=== PATIENT | female | born 1955 | race Caucasian/White ===

== ENCOUNTER → 2017-06-22 10:01 | Outpatient (CLI) | payer OTHER, SELFPAY ==
--- NOTE | 2017-06-22 10:07 | MM_ITS ---
MM Dig screening mamm BI w/CAD CAD Screening ORDERING PHYSICIAN : Edison Harrell MD PATIENT AGE: 61 years GENDER: Female COMPARISON: Previous mammograms: April 2014, June 2016, May 2015 and April 2014, May 2013. Also April 2012 INDICATION: Routine screening. No hormones. No new complaints. Family history. Mother breast cancer age 55. TECHNIQUE: Standard CC and MLO images were obtained. R2 CAD reviewed. FINDINGS: Moderate breast density bilaterally. No dominant mass nor suspicious calcifications.. Overall similar appearance to prior studies RIGHT BREAST:. No new areas of concern. LEFT BREAST: No new areas concern Tiny focal area of density density central breast on cc view was present in 2014 and 2011 and dissipates on MLO view. Can be followed IMPRESSION: Stable bilateral mammogram with no significant new areas of concern. Bilateral follow-up in one year recommended BI-RADS Category: 2 Benign Finding(s) RECOMMENDED FOLLOW-UP: 1YR - 1 YEAR FOLLOW-UP (A letter has been sent to the patient regarding results of the study.)
== END ==
PROVIDERS: PCP Internal Medicine Adolescent Medicine; Visit Provider Internal Medicine Adolescent Medicine
DX: Z12.31 Encounter for screening mammogram for malignant neoplasm of breast (principal)
CPT/HCPCS: 77067

== ENCOUNTER → 2017-06-26 09:43 | Outpatient (CLI) | payer OTHER, SELFPAY ==
[2017-06-26 10:12] LABS: Basophils % 0.3 % (0.1-2.0); Eosinophils % 0.4 % (0.1-12.0); Hematocrit 41.1 % (37.0-47.0); Hemoglobin 13.2 g/dL (12.2-16.2); Lymphocytes # 2.5 K/mm3 (0.7-4.5); Lymphocytes % 26.6 K/mm3 (10-50); Mean Corpuscular HGB Conc 32.2 g/dL (31.8-35.4); Mean Corpuscular Hemoglobin 30.5 pg (27.0-31.2); Mean Corpuscular Volume 94.9 fl (81-99); Mean Platelet Volume 7.6 fl (7.4-10.4); Monocytes # 0.5 K/mm3 (0.1-1.0); Monocytes % 4.8 % (1.7-9.3); Neutrophils # 6.3 K/mm3 (1.8-7.8); Neutrophils % 67.7 % (37.0-80.0); Platelet Count 237 K/mm3 (142-424); Red Blood Count 4.34 M/mm3 (4.20-5.40); Red Cell Distribution Width 13.2 % (11.5-17.5); White Blood Count 9.3 K/mm3 (4.8-10.8)
[2017-06-26 11:56] LABS: Hemoglobin A1C 5.8 % (0.0-7.0)
[2017-06-26 12:07] LABS: Alanine Aminotransferase 28 U/L (12-78); Albumin Level 3.6 gm/dL (3.4-5.0); Albumin/Globulin Ratio 1.5 (1.1-1.8); Alkaline Phosphatase 57 U/L (46-116); Anion Gap 13.9 mEq/L (5-15); Aspartate Amino Transferase 15 U/L (15-37); Bilirubin,Total 0.5 mg/dL (0.2-1.0); Blood Urea Nitrogen 22 mg/dL (7-18); Calcium 8.5 mg/dL (8.5-10.1); Carbon Dioxide 28 mmol/L (21.0-32.0); Chloride 105 mmol/L (98-107); Chol/HDL Ratio 2.4 (1-3.5); Cholesterol 146 mg/dL (140-200); Creatinine,Serum 0.85 mg/dL (0.55-1.02); Estimated Glomerular Filt Rate 68 ml/min (>60); Ferritin 61 ng/mL (8-388); GFR (African American) 82 ML/MIN (>60); Globulin 2.4 gm/dl (1.3-3.2); Glucose 87 mg/dL (74-106); HDL Cholesterol 62 mg/dL (29-89); LDL Cholesterol 67 mg/dL (0-130); Potassium 4.9 mmoL/L (3.5-5.1); Sodium 142 mmol/L (136-145); Thyroid Stimulating Hormone 2.13 uIU/ml (0.358-3.740); Triglycerides 87 mg/dL (30-200); VLDL Cholesterol 17 mg/dL (0-40)
== END ==
PROVIDERS: PCP Internal Medicine Adolescent Medicine; Visit Provider Internal Medicine Adolescent Medicine
DX: M79.1 Myalgia (principal); E11.9 Type 2 diabetes mellitus without complications
CPT/HCPCS: 36415; 80053; 80061; 82728; 83036; 83735; 84443; 85025

== ENCOUNTER → 2017-10-09 09:15 | Outpatient (CLI) | payer OTHER, SELFPAY ==
[2017-10-09 10:38] LABS: Hemoglobin A1C 5.5 % (0.0-7.0)
== END ==
PROVIDERS: Visit Provider Internal Medicine Adolescent Medicine
DX: E11.9 Type 2 diabetes mellitus without complications (principal)
CPT/HCPCS: 83036

== ENCOUNTER → 2018-04-16 09:21 | Outpatient (CLI) | payer OTHER, SELFPAY ==
--- NOTE | 2018-04-16 09:26 | XR_ITS ---
XR chest 2V HISTORY: ITS.REASON: COUGH ORDERING PHYSICIAN: Samir Thurman PATIENT AGE: 62 years COMPARISON: 06/16/2014 FINDINGS: Mild cardiomegaly without failure.. The lungs are clear without infiltrates, suspicious nodules, or pleural effusions. Minimal atelectatic or fibrotic change in the right lung base laterally Degenerative changes are present in the thoracic spine with prominent anterior osteophytes and ankylosis.. IMPRESSION: No acute finding, mild cardiomegaly
== END ==
PROVIDERS: PCP Internal Medicine Adolescent Medicine; Visit Provider Internal Medicine Cardiovascular Disease
DX: R05 Cough (principal); R06.2 Wheezing
CPT/HCPCS: 71046

== ENCOUNTER → 2018-05-13 09:30 | Outpatient (CLI) | payer OTHER, SELFPAY ==
[2018-05-13 09:49] LABS: Blood Urea Nitrogen 18 mg/dL (7-18); Estimated Glomerular Filt Rate 63 ml/min (>60); GFR (African American) 76 ML/MIN (>60)
--- NOTE | 2018-05-13 13:58 | CT_ITS ---
CT abdomen pelvis w con CLINICAL INDICATION: ITS.REASON: UMBILICAL FISTULA ORDERING PHYSICIAN: Edison Harrell MD PATIENT AGE: 62 years COMPARISON: None TECHNIQUE: Axial images obtained with sagittal and coronal reformats. All CT scans at the facility use one or more dose reduction, viz: automated exposure control, ma/kV adjustment per patient size (including targeted exams where dose is matched to indication, i.e. head), or iterative reconstruction technique. PROCEDURE: Oral Contrast: Redicat IV Contrast: 75 mL's of Isovue 370. FINDINGS: Lower thorax: Mild atelectatic or fibrotic changes are present in the lung bases anteriorly. Osteophytes are present along the lower thoracic spine. The liver, spleen, adrenal glands, and pancreas have an unremarkable appearance. No radio opaque gallstones evident. No renal or ureteral calculi evident. There is a small exophytic right renal cyst at 18 mm. No intestinal obstruction or free air. There is mild amount of retained colonic feces. The terminal ileum and appendix have an unremarkable appearance. There is a small umbilical hernia containing fat. No abnormal fluid collections or gas evident within the umbilicus the cecum is situated toward midline with the anterior aspect of the cecum and right at the orifice of the small umbilical hernia but no fistulous connection evident and no inflammatory changes apparent at this area. No pelvic mass or abnormal fluid collection or focal inflammatory change. No evidence of diverticulitis. There is a moderate amount of retained colonic feces. There are postsurgical changes of L4 and L5. IMPRESSION: 1. No acute abdominal or pelvic findings. 2. No evidence of umbilical fistula. There is a small umbilical hernia containing fat.
== END ==
PROVIDERS: PCP Internal Medicine Adolescent Medicine; Visit Provider Internal Medicine Adolescent Medicine
DX: K63.2 Fistula of intestine (principal)
CPT/HCPCS: 36415; 74177; 82565; 84520; Q9967

== ENCOUNTER → 2018-05-20 08:52 | Outpatient (CLI) | payer OTHER, SELFPAY ==
[2018-05-20 09:34] LABS: Basophils % 0.6 % (0.1-2.0); Eosinophils # 0.1 K/mm3 (0.0-0.4); Eosinophils % 0.9 % (0.1-12.0); Hematocrit 44.6 % (37.0-47.0); Lymphocytes % 27.8 % (10-50); Mean Corpuscular HGB Conc 31.4 g/dL (31.8-35.4); Mean Corpuscular Hemoglobin 30.3 pg (27.0-31.2); Mean Corpuscular Volume 96.5 fl (81-99); Mean Platelet Volume 8.4 fl (7.4-10.4); Monocytes # 0.4 K/mm3 (0.1-1.0); Monocytes % 5.5 % (1.7-9.3); Neutrophils # 4.8 K/mm3 (1.8-7.8); Neutrophils % 65.2 % (37.0-80.0); Platelet Count 210 K/mm3 (142-424); Red Blood Count 4.63 M/mm3 (4.20-5.40); Red Cell Distribution Width 13.6 % (11.5-17.5); White Blood Count 7.3 K/mm3 (4.8-10.8)
[2018-05-20 10:32] LABS: Hemoglobin A1C 5.8 % (0.0-7.0)
[2018-05-20 11:04] LABS: Alanine Aminotransferase 31 U/L (12-78); Albumin Level 3.8 gm/dL (3.4-5.0); Albumin/Globulin Ratio 1.3 (1.1-1.8); Alkaline Phosphatase 73 U/L (46-116); Anion Gap 13.9 mEq/L (5-15); Aspartate Amino Transferase 19 U/L (15-37); Bilirubin,Total 0.4 mg/dL (0.2-1.0); Blood Urea Nitrogen 17 mg/dL (7-18); Calcium 9.2 mg/dL (8.5-10.1); Carbon Dioxide 29 mmol/L (21.0-32.0); Chloride 102 mmol/L (98-107); Chol/HDL Ratio 3.2 (1-3.5); Cholesterol 167 mg/dL (140-200); Creatinine,Serum 0.93 mg/dL (0.55-1.02); Estimated Glomerular Filt Rate 61 ml/min (>60); GFR (African American) 73 ML/MIN (>60); Globulin 2.9 gm/dl (1.3-3.2); Glucose 101 mg/dL (74-106); HDL Cholesterol 53 mg/dL (29-89); LDL Cholesterol 79 mg/dL (0-130); Potassium 5.9 mmoL/L (3.5-5.1); Sodium 139 mmol/L (136-145); Total Protein,Serum 6.7 gm/dL (6.4-8.2); Triglycerides 177 mg/dL (30-200); VLDL Cholesterol 35 mg/dL (0-40)
== END ==
PROVIDERS: Visit Provider Internal Medicine Adolescent Medicine
DX: E11.9 Type 2 diabetes mellitus without complications (principal); E78.5 Hyperlipidemia, unspecified; I25.10 Atherosclerotic heart disease of native coronary artery without angina pectoris
CPT/HCPCS: 36415; 80053; 80061; 83036; 85025

== ENCOUNTER → 2018-06-24 09:13 | Outpatient (CLI) | payer OTHER, SELFPAY ==
--- NOTE | 2018-06-24 09:16 | MM_ITS ---
MM Dig screening mamm BI w/CAD CAD Screening COMPARISON: Digital mammograms with CAD 06/19/2016 and 06/22/2017 INDICATION: There is a history of breast cancer in patient's mother diagnosed after menopause. TECHNIQUE: Standard CC and MLO images were obtained. R2 CAD reviewed. FINDINGS: Scattered diffuse fibroglandular densities are seen throughout both breasts. There are few benign-appearing microcalcifications in each breast. There is no suspicious lesion and no suspicious microcalcifications. IMPRESSION: Fibrofatty parenchyma with no suspicious lesion seen BI-RADS Category: 2 Benign Finding(s) RECOMMENDED FOLLOW-UP: 1YR - 1 YEAR FOLLOW-UP (A letter has been sent to the patient regarding results of the study.)
== END ==
PROVIDERS: PCP Internal Medicine Adolescent Medicine; Visit Provider Internal Medicine Adolescent Medicine
DX: Z12.31 Encounter for screening mammogram for malignant neoplasm of breast (principal)
CPT/HCPCS: 77067

== ENCOUNTER → 2018-08-05 09:08 | Outpatient (CLI) | payer OTHER, SELFPAY ==
[2018-08-05 10:31] LABS: Anion Gap 14.6 mEq/L (5-15); Blood Urea Nitrogen 18 mg/dL (7-18); Calcium 8.9 mg/dL (8.5-10.1); Carbon Dioxide 28 mmol/L (21.0-32.0); Chloride 102 mmol/L (98-107); Creatinine,Serum 1.06 mg/dL (0.55-1.02); Estimated Glomerular Filt Rate 52 ml/min (>60); GFR (African American) 63 ML/MIN (>60); Glucose 96 mg/dL (74-106); Potassium 4.6 mmoL/L (3.5-5.1); Sodium 140 mmol/L (136-145)
== END ==
PROVIDERS: Visit Provider Internal Medicine Adolescent Medicine
DX: E87.5 Hyperkalemia (principal)
CPT/HCPCS: 36415; 80048

== ENCOUNTER → 2018-09-18 09:49 | Outpatient (CLI) | payer OTHER, SELFPAY ==
[2018-09-18 11:48] LABS: Anion Gap 13.4 mEq/L (5-15); Blood Urea Nitrogen 19 mg/dL (7-18); Calcium 9.3 mg/dL (8.5-10.1); Carbon Dioxide 29 mmol/L (21.0-32.0); Chloride 105 mmol/L (98-107); Creatinine,Serum 0.97 mg/dL (0.55-1.02); Estimated Glomerular Filt Rate 58 ml/min (>60); GFR (African American) 70 ML/MIN (>60); Glucose 111 mg/dL (74-106); Potassium 5.4 mmoL/L (3.5-5.1); Sodium 142 mmol/L (136-145)
== END ==
PROVIDERS: Visit Provider Internal Medicine Adolescent Medicine
DX: E87.5 Hyperkalemia (principal)
CPT/HCPCS: 36415; 80048

== ENCOUNTER → 2018-10-14 08:23 | Outpatient (CLI) | payer OTHER, SELFPAY ==
[2018-10-14 10:22] LABS: Hemoglobin A1C 6.1 % (0.0-7.0)
== END ==
PROVIDERS: Visit Provider Internal Medicine Adolescent Medicine
DX: E11.9 Type 2 diabetes mellitus without complications (principal); Z79.84 Long term (current) use of oral hypoglycemic drugs
CPT/HCPCS: 36415; 83036

== ENCOUNTER → 2018-12-25 11:18 | Outpatient (CLI) | payer OTHER, SELFPAY ==
[2018-12-25 12:54] LABS: Anion Gap 12.4 mEq/L (5-15); Blood Urea Nitrogen 15 mg/dL (7-18); Calcium 9.1 mg/dL (8.5-10.1); Carbon Dioxide 30 mmol/L (21.0-32.0); Chloride 106 mmol/L (98-107); Creatinine,Serum 0.96 mg/dL (0.55-1.02); Estimated Glomerular Filt Rate 58 ml/min (>60); GFR (African American) 71 ML/MIN (>60); Glucose 102 mg/dL (74-106); Potassium 4.4 mmoL/L (3.5-5.1); Sodium 144 mmol/L (136-145)
== END ==
PROVIDERS: Visit Provider Internal Medicine Adolescent Medicine
DX: E87.5 Hyperkalemia (principal)
CPT/HCPCS: 36415; 80048

== ENCOUNTER → 2019-04-09 08:10 | Outpatient (CLI) | payer OTHER, SELFPAY ==
[2019-04-09 10:29] LABS: Hemoglobin A1C 5.9 % (0.0-7.0)
== END ==
PROVIDERS: Visit Provider Internal Medicine Adolescent Medicine
DX: E11.9 Type 2 diabetes mellitus without complications (principal); Z79.84 Long term (current) use of oral hypoglycemic drugs
CPT/HCPCS: 36415; 83036

== ENCOUNTER → 2019-06-19 12:50 | Outpatient (CLI) | payer MEDICARE, OTHER, SELFPAY ==
--- NOTE | 2019-06-19 12:54 | XR_ITS ---
PROCEDURE: XR DEXA AXIAL SKELETON CLINICAL HISTORY: POST MENOPAUSAL COMPARISON: No exams were available for comparison FINDINGS: Radius 1/3 density is 0.451 grams/centimeters sq with a T-score of -4.0 indicating osteoporosis with high fracture risk. Left femoral neck density is 0.546 grams/centimeters sq with a T-score of -2.7 consistent with osteoporosis and high fracture risk. L spine density not calculated due to spinal hardware IMPRESSION: Osteoporosis with high fracture risk. Treatment advised. Suggest follow-up exam in 1 year Dictated by: Ryan Hendrix MD 06/19/2019 14:43 Electronically signed by Ryan Hendrix MD in [place] 06/19/2019 14:43
== END ==
PROVIDERS: PCP Internal Medicine Adolescent Medicine; Visit Provider Internal Medicine Adolescent Medicine
DX: Z13.820 Encounter for screening for osteoporosis (principal); Z78.0 Asymptomatic menopausal state
CPT/HCPCS: 77080

== ENCOUNTER → 2019-07-09 07:59 | Outpatient (CLI) | payer MEDICARE, OTHER, SELFPAY ==
--- NOTE | 2019-07-09 08:30 | CT_ITS ---
PROCEDURE: CT LUNG SCREENING CLINICAL INDICATION: SCREENING COMPARISON: No exams were available for comparison TECHNIQUE: The exam was performed on a GE Light Speed [address] scanner using 2.90 mGy CTDI. A low dose helical CT CHEST was performed on a multi-detector scanner. All CT scans at the facility use one or more dose reduction, viz: automated exposure control, ma/kV adjustment per patient size (including targeted exams where dose is matched to indication, i.e. head), or iterative reconstruction technique. The LDCT was performed in a facility that meets the criteria for the screening program. Data regarding this exam was submitted to ACR which is an approved registry. The order for this exam indicates that it came as a result of a lung cancer screening counseling shard decision-making visit that included all the elements required of such a visit including smoking cessation. The radiologist interpreting this exam meets the CMS criteria for the LDCT lung cancer screening program. The exam is reported using the Lung-RADS classification scale and reported to the ACR registry. NOTE: This study was performed for the specific purposes of lung cancer screening and is not an alternative to diagnostic chest CT. RADIATION DOSE: CTDI vol(CT dose Index-volume) = 2.90mG DLP (Dose Length Product) = 103.68 mGcm Lung Rads Category: One FINDINGS: There is a calcified nodule most consistent with granuloma in the medial left upper lobe image 33 series 4. There is no other pulmonary nodule. Band like density in the medial aspect of the right middle lobe inferiorly is consistent with scarring or atelectasis. There is no acute infiltrate. There is cardiomegaly with a moderate to large amount of coronary arterial calcification. There is a small hiatal hernia. OTHER FINDINGS: No other pertinent findings evident. IMPRESSION: Primary category 1-continue annual screening low-dose CT in 12 months. Coronary arterial calcifications. Dictated by: Javier Peterson 07/09/2019 10:32 Electronically signed by Javier Peterson in [place] 07/09/2019 10:32
--- NOTE | 2019-07-09 09:30 | MM_ITS ---
PROCEDURE: MM DIG SCREENING MAMM BI 3D tomography CLINICAL INDICATION: SCREENING COMPARISON: [facility] DIGITAL MAMM-SCREEN BILATERAL from 05/02/2012 [facility] DIG MAMM-SCREEN MARCELLUS from 05/06/2013 [facility] DIG MAMM- MARCELLUS ADD VIEWS from 06/15/2015 [facility] DIG MAMM-SCREEN MARCELLUS W/CAD from 06/19/2016 [facility] MM Dig screening mamm BI w/CAD from 06/22/2017 [facility] MM Dig screening mamm BI w/CAD from 06/24/2018 TECHNIQUE: Standard CC and MLO images were obtained along with bilateral 3D tomography.. FINDINGS: Average fibroglandular tissue. Right breast: 7 mm bilobular nodular opacity in the 6 o'clock region of the right breast middle 3rd. This nodule appears well circumscribed on the tomographic images the no malignant appearing microcalcifications. Left breast: Benign-appearing nodular densities not significantly changed. No malignant appearing mass or malignant-appearing microcalcification. IMPRESSION: 7 mm bilobular nodule 6 o'clock region right breast. Ultrasound suggested further evaluation. BI-RAD Category: 0 Need Additional Imaging Evaluation FOLLOW-UP: IMM Immediate Follow-up Recommended (A letter has been sent to the patient regarding results of the study.) Dictated by: yRan Hendrix MD 07/14/2019 17:55 Electronically signed by Ryan Hendrix MD in [place] 07/14/2019 17:55
== END ==
PROVIDERS: PCP Internal Medicine Adolescent Medicine; Visit Provider Internal Medicine Adolescent Medicine
DX: Z87.891 Personal history of nicotine dependence (principal); Z12.2 Encounter for screening for malignant neoplasm of respiratory organs; Z12.31 Encounter for screening mammogram for malignant neoplasm of breast
CPT/HCPCS: 77063; 77067

== ENCOUNTER 2019-07-16 10:09 | Outpatient (CLI) | payer MEDICARE, OTHER, SELFPAY ==
[2019-07-16 10:10] VITALS: BP 121/49; PULSE 58; RESP 20; TEMP 36.9; O2SAT 95
== END 2019-07-16 10:10 | disposition home or self-care (01) ==
LOC: INF 10:09
PROVIDERS: Visit Provider Internal Medicine Adolescent Medicine
DX: M81.0 Age-related osteoporosis without current pathological fracture (principal)
CPT/HCPCS: 96372; J0897

== ENCOUNTER → 2019-07-24 12:22 | Outpatient (CLI) | payer MEDICARE, OTHER, SELFPAY ==
--- NOTE | 2019-07-24 12:24 | US_ITS ---
PROCEDURE: US BREAST RT COMPLETE CLINICAL INDICATION: RT BREAST NODULE Follow-up abnormal mammogram COMPARISON: MM DIG SCREENING MAMM BI W/CAD from 07/09/2019 FINDINGS: There is a complicated cystic lesion at 6 o'clock measuring 6 x 5 mm which may correspond to the mammographic abnormality. No other significant anomalies are evident. IMPRESSION: 6 mm complicated cyst at 6 o'clock which may correspond to the mammographic abnormality. BI-RADS category 3 probably benign. Recommend six-month mammographic and sonographic follow-up Dictated by: Ryan Hendrix MD 08/02/2019 08:31 Electronically signed by Ryan Hendrix MD in [place] 08/02/2019 08:31
== END ==
PROVIDERS: PCP Internal Medicine Adolescent Medicine; Visit Provider Internal Medicine Adolescent Medicine
DX: D24.1 Benign neoplasm of right breast (principal)
CPT/HCPCS: 76641

== ENCOUNTER → 2019-09-20 09:12 | Outpatient (CLI) | payer MEDICARE, OTHER, SELFPAY ==
[2019-09-20 09:37] LABS: Basophils % 0.4 % (0.1-2.0); Eosinophils % 0.7 % (0.1-12.0); Hematocrit 46.8 % (37.0-47.0); Hemoglobin 15.1 g/dL (12.2-16.2); Lymphocytes % 33.8 % (10-50); Mean Corpuscular HGB Conc 32.3 g/dL (31.8-35.4); Mean Corpuscular Hemoglobin 30.3 pg (27.0-31.2); Mean Corpuscular Volume 93.9 fl (81-99); Mean Platelet Volume 8.1 fl (7.4-10.4); Monocytes # 0.3 K/mm3 (0.1-1.0); Monocytes % 5.5 % (1.7-9.3); Neutrophils # 3.5 K/mm3 (1.8-7.8); Neutrophils % 59.6 % (37.0-80.0); Platelet Count 213 K/mm3 (142-424); Red Blood Count 4.99 M/mm3 (4.20-5.40); Red Cell Distribution Width 13.4 % (11.5-17.5); White Blood Count 5.8 K/mm3 (4.8-10.8)
[2019-09-20 10:06] LABS: Chloride 106 mmol/L (98-107); Sodium 138 mmol/L (136-145)
[2019-09-20 10:07] LABS: Potassium 4.2 mmoL/L (3.5-5.1)
[2019-09-20 10:09] LABS: Alanine Aminotransferase 21 U/L (12-78); Albumin Level 4.2 g/dl (3.5-5.0); Albumin/Globulin Ratio 1.8 (1.1-1.8); Alkaline Phosphatase 47 U/L (38-126); Anion Gap 10.2 mEq/L (5-15); Aspartate Amino Transferase 23 U/L (14-36); Bilirubin,Total 0.4 mg/dl (0.2-1.3); Blood Urea Nitrogen 13 mg/dl (7-17); Carbon Dioxide 26 mmol/L (22.0-30.0); Estimated Glomerular Filt Rate 72 ml/min (>60); GFR (African American) 87 ML/MIN (>60); Globulin 2.3 g/dL (1.3-3.2); Total Protein,Serum 6.5 g/dl (6.3-8.2)
[2019-09-20 10:10] LABS: Calcium 9.3 mg/dl (8.4-10.2); Chol/HDL Ratio 3.5 (1-3.5); Cholesterol 156 mg/dl (140-200); Glucose 120 mg/dl (74-100); HDL Cholesterol 45 mg/dl (40-60); Triglycerides 191 mg/dl (30-150); VLDL Cholesterol 38 mg/dL (0-40)
[2019-09-20 10:21] LABS: Direct LDL Cholesterol 85.03 mg/dL (100-129)
[2019-09-20 10:34] LABS: Hemoglobin A1C 5.6 % (4.0-6.0)
== END ==
PROVIDERS: Visit Provider Internal Medicine Adolescent Medicine
DX: I25.10 Atherosclerotic heart disease of native coronary artery without angina pectoris (principal); E78.5 Hyperlipidemia, unspecified; E11.9 Type 2 diabetes mellitus without complications; Z79.84 Long term (current) use of oral hypoglycemic drugs
CPT/HCPCS: 36415; 80053; 80061; 83036; 85025

== ENCOUNTER → 2019-09-22 09:53 | Outpatient (CLI) | payer MEDICARE, OTHER, SELFPAY ==
--- NOTE | 2019-09-22 09:57 | XR_ITS ---
PROCEDURE: XR SHOULDER RT MIN 2V CLINICAL INDICATION: ACUTE RT SHOULDER PAIN COMPARISON: No exams were available for comparison FINDINGS: No obvious fracture or dislocation. There is some minimal inferior subluxation of the humeral head but no chyna dislocation. Chondrocalcinosis is present at the acromioclavicular joint. There is some minimal osteoarthritic change the right shoulder joint. IMPRESSION: Mild osteoarthritis of the glenohumeral joint with mild inferior subluxation of the humeral head Chondrocalcinosis of the AC joint Dictated by: Ryan Hendrix MD 09/22/2019 10:52 Electronically signed by Ryan Hendrix MD in [place] 09/22/2019 10:52
== END ==
PROVIDERS: PCP Internal Medicine Adolescent Medicine; Visit Provider Internal Medicine Adolescent Medicine
DX: M25.511 Pain in right shoulder (principal)
CPT/HCPCS: 73030

== ENCOUNTER 2019-10-24 10:00 | Outpatient (RCR) | payer MEDICARE, OTHER, SELFPAY ==
--- NOTE | 2019-09-25 11:22 | HMH.PTOPEV ---
PT Outpatient Evaluation Rehab PT Outpatient Evaluation Start: 09/25/19 09:54 Freq: Status: Active Protocol: Document 09/25/19 10:00 RK (Rec: 09/25/19 11:21 RK [id number]) Electronically Signed By Barrett Polanco, PT 09/25/19 10:00 Outpatient Therapy Subjective History Subjective History Pt reports R Shoulder pain beginning in 2019 following mammogram study d/t R SH positioning in 'very uncomfortable' position. Pt reports R SH s/s have progressed over rapidly for the worse over the last 3-4 weeks. Pt reports anterior and posterior R SH pain, as well as R thumb/index finger N&T, hand weakness, and referred R UE pain into R bicep/tricep area, as well as intermittent R sided neck/UT mm pain. Chief Complaint Pain,Stiff,Paresthesia, Weakness,Decreased Inventory Coordinator Strength Symptom Type Ache,Sharp,Dull,Numbness, Tingling Symptoms Relieved By OTC Meds,Prescription Meds Symptoms Aggravated By Physical Activity,Lifting Prior Functional Limitations Reaching,Lifting,Housework Current Functional Limitations Reaching,Lifting,Housework, Sleeping Symptom Description Constant but Variable Level of pain today (0-10) 5 Pain scale - at its best (0-10) 3 Pain scale - at its worst (0-10) 8 Cervical Eval Palpation Cervical Muscles R CT Junction,R Upper Trapezius Posture Head/C-Spine Posture Sitting Position Neutral Position Head/C-Spine Posture Standing Position Neutral Position Flexibility Deficits Upper Trapezius Muscle Length (R) Moderate Tightness Passive Joint Mobility Cervical PIVM WNL: R OA L OA R AA L AA R C2/3 L C2/3 R C3/4 L C3/4 R C4/5 L C4/5 R C5/6 L C5/6 R C6/7 L C6/7 R C7/T1
== END 2019-10-24 10:05 | disposition home or self-care (01) ==
LOC: PT 10:00
PROVIDERS: PCP Internal Medicine Adolescent Medicine; Visit Provider Internal Medicine Adolescent Medicine
DX: M25.511 Pain in right shoulder (principal)
CPT/HCPCS: 20560; 20561; 97010; 97012; 97014; 97035; 97110; 97163; G0283

== ENCOUNTER → 2019-12-26 12:40 | Outpatient (CLI) | payer MEDICARE, OTHER, SELFPAY ==
--- NOTE | 2019-12-26 12:43 | MM_ITS ---
PROCEDURE: MM DIG MAMM DX UNILAT RT CAD Digital Breast Tomosynthesis Included CLINICAL INDICATION: ABN MAMM Follow-up abnormal mammogram COMPARISON: [facility] MM Dig screening mamm BI w/CAD from 06/22/2017 [facility] MM Dig screening mamm BI w/CAD from 06/24/2018 MM DIG SCREENING MAMM BI W/CAD from 07/09/2019 US BREAST RT COMPLETE from 07/24/2019 US BREAST RT COMPLETE from 12/26/2019 TECHNIQUE: Standard images performed with along with tomography and right breast ultrasound FINDINGS: Average fibroglandular tissue. No malignant appearing mass or malignant-appearing microcalcification. Previous nodular opacity noted in the central aspect of the right breast not significantly changed. No new nodules evident. Right breast ultrasound: At 6 o'clock there is a 6 mm complicated cyst similar to the previous exam and may correspond to the area of concern on the mammogram. Otherwise negative. Benign findings. Recommend resume screening mammogram June 2020 IMPRESSION: BI-RAD Category: 2 Benign Finding(s) FOLLOW-UP: 6M 6Month Follow-up (A letter has been sent to the patient regarding results of the study.) The Dictated by: Ryan Hendrix MD 01/02/2020 14:54 Electronically signed by Ryan Hendrix MD in [place] 01/02/2020 14:54
== END ==
PROVIDERS: PCP Internal Medicine Adolescent Medicine; Visit Provider Internal Medicine Adolescent Medicine
DX: R92.8 Other abnormal and inconclusive findings on diagnostic imaging of breast (principal)
CPT/HCPCS: 76641; 77062; 77065; 77066; G0279

== ENCOUNTER 2020-01-19 09:30 | Outpatient (CLI) | payer MEDICARE, OTHER, SELFPAY ==
[2020-01-19 10:00] VITALS: BP 123/52; PULSE 52; RESP 18; TEMP 36.3; O2SAT 95
== END 2020-01-19 10:00 | disposition home or self-care (01) ==
LOC: INF 09:39
PROVIDERS: Visit Provider Internal Medicine Adolescent Medicine
DX: M81.0 Age-related osteoporosis without current pathological fracture (principal)
CPT/HCPCS: 96372; J0897

== ENCOUNTER → 2020-04-03 12:13 | Outpatient (CLI) | payer MEDICARE, OTHER, SELFPAY ==
[2020-04-03 12:45] LABS: Basophils % 0.7 % (0.1-2.0); Eosinophils % 0.3 % (0.1-12.0); Hematocrit 47.8 % (37.0-47.0); Lymphocytes % 30.5 % (10-50); Mean Corpuscular HGB Conc 31.5 g/dL (31.8-35.4); Mean Corpuscular Volume 95.3 fl (81-99); Mean Platelet Volume 7.5 fl (7.4-10.4); Monocytes # 0.3 K/mm3 (0.1-1.0); Monocytes % 4.8 % (1.7-9.3); Neutrophils # 4.2 K/mm3 (1.8-7.8); Neutrophils % 63.8 % (37.0-80.0); Platelet Count 249 K/mm3 (142-424); Red Blood Count 5.02 M/mm3 (4.20-5.40); Red Cell Distribution Width 13.7 % (11.5-17.5); White Blood Count 6.6 K/mm3 (4.8-10.8)
[2020-04-03 13:41] LABS: Chloride 101 mmol/L (98-107); Potassium 4.7 mmoL/L (3.5-5.1); Sodium 139 mmol/L (136-145)
[2020-04-03 13:43] LABS: Alanine Aminotransferase 17 U/L (12-78); Aspartate Amino Transferase 21 U/L (14-36); Blood Urea Nitrogen 18 mg/dl (7-17); Estimated Glomerular Filt Rate 55 ml/min (>60); GFR (African American) 67 ML/MIN (>60)
[2020-04-03 13:44] LABS: Albumin Level 4.5 g/dl (3.5-5.0); Alkaline Phosphatase 41 U/L (38-126); Anion Gap 12.7 mEq/L (5-15); Bilirubin,Total 0.6 mg/dl (0.2-1.3); Calcium 9.5 mg/dl (8.4-10.2); Carbon Dioxide 30 mmol/L (22.0-30.0); Cholesterol 179 mg/dl (140-200); Globulin 2.3 g/dL (1.3-3.2); Glucose 100 mg/dl (74-100); Total Protein,Serum 6.8 g/dl (6.3-8.2); Triglycerides 194 mg/dl (30-150); VLDL Cholesterol 39 mg/dL (0-40)
[2020-04-03 13:45] LABS: Chol/HDL Ratio 3.3 (1-3.5); HDL Cholesterol 55 mg/dl (40-60)
[2020-04-03 13:51] LABS: Hemoglobin A1C 5.5 % (4.0-6.0)
[2020-04-03 13:56] LABS: Direct LDL Cholesterol 83.35 mg/dL (100-129)
== END ==
PROVIDERS: Visit Provider Internal Medicine Adolescent Medicine
DX: I25.10 Atherosclerotic heart disease of native coronary artery without angina pectoris (principal); E78.5 Hyperlipidemia, unspecified; E11.9 Type 2 diabetes mellitus without complications; Z79.84 Long term (current) use of oral hypoglycemic drugs
CPT/HCPCS: 36415; 80053; 80061; 83036; 85025

== ENCOUNTER → 2020-07-09 08:31 | Outpatient (CLI) | payer MEDICARE, OTHER, SELFPAY ==
--- NOTE | 2020-07-09 | US_ITS ---
PROCEDURE: US BREAST RT COMPLETE CLINICAL INDICATION: Follow-up abnormal breast ultrasound COMPARISON: US US BREAST RT COMPLETE from 12/26/2019 MG MM DIG SCREENING MAMM BI W/CAD from 07/09/2020 FINDINGS: A small complicated cystic area is present at the 6 o'clock region of the left breast measuring 7 x 4 mm. This is not significantly changed from the previous exam. There is some ductal ectasia in the retroareolar region. No suspicious nodules are evident. IMPRESSION: No change benign. Complicated cyst in the 6 o'clock region of the right breast. Dictated by: Ryan Hendrix MD 07/19/2020 12:50 Ryan Hendrix MD in [place] 07/19/2020 12:50
--- NOTE | 2020-07-09 08:47 | MM_ITS ---
PROCEDURE: MM DIG SCREENING MAMM BI W/CAD Digital Breast Tomosynthesis Included CLINICAL INDICATION: SCREENING There is a history of breast cancer in patient's mother diagnosed after menopause. COMPARISON: [facility] MM Dig screening mamm BI w/CAD from 06/24/2018 MG MM DIG SCREENING MAMM BI W/CAD from 07/09/2019 MG MM DIG MAMM DX UNILAT RT CAD from 12/26/2019 TECHNIQUE: Standard CC and MLO images and 3D Tomosynthesis was obtained. R2 CAD reviewed. FINDINGS: Moderate diffuse fibroglandular densities are seen throughout both breasts. There are few scattered benign-appearing microcalcifications in each breast. There is a stable small nodular density 6 o'clock position right breast and this is noted be secondary to a small cyst on previous ultrasound examination. There is no suspicious lesion and no suspicious microcalcifications. There are stable nodes in both axilla. IMPRESSION: Moderate diffuse breast density with no suspicious lesions seen BI-RAD Category: 2 Benign Finding(s) FOLLOW-UP: 1YR 1 Year Follow-up (A letter has been sent to the patient regarding results of the study.) Dictated by: Dr. Chidi Diaz MD 07/13/2020 13:45 Dr. Chidi Diaz MD in [place] 07/13/2020 13:45
== END ==
PROVIDERS: PCP Internal Medicine Adolescent Medicine; Visit Provider Internal Medicine Adolescent Medicine
DX: R92.8 Other abnormal and inconclusive findings on diagnostic imaging of breast (principal); Z12.31 Encounter for screening mammogram for malignant neoplasm of breast
CPT/HCPCS: 76641; 77063; 77067

== ENCOUNTER 2020-07-23 08:00 | Outpatient (CLI) | payer MEDICARE, OTHER, SELFPAY ==
[2020-07-23 08:22] VITALS: BP 126/56; PULSE 78; RESP 18; TEMP 36.3; O2SAT 96
== END 2020-07-23 08:40 | disposition home or self-care (01) ==
LOC: INF 08:14
PROVIDERS: Visit Provider Internal Medicine Adolescent Medicine
DX: M81.0 Age-related osteoporosis without current pathological fracture (principal)
CPT/HCPCS: 96372; J0897

== ENCOUNTER → 2020-10-09 11:33 | Outpatient (CLI) | payer MEDICARE, OTHER, SELFPAY ==
[2020-10-09 12:19] LABS: Basophils % 0.7 % (0.1-2.0); Eosinophils % 0.2 % (0.1-12.0); Hematocrit 43.9 % (37.0-47.0); Hemoglobin 14.2 g/dL (12.2-16.2); Lymphocytes # 1.8 K/mm3 (0.7-4.5); Lymphocytes % 31.7 % (10-50); Mean Corpuscular HGB Conc 32.3 g/dL (31.8-35.4); Mean Corpuscular Hemoglobin 30.1 pg (27.0-31.2); Mean Corpuscular Volume 93.3 fl (81-99); Mean Platelet Volume 8.4 fl (7.4-10.4); Monocytes # 0.3 K/mm3 (0.1-1.0); Neutrophils # 3.5 K/mm3 (1.8-7.8); Neutrophils % 62.4 % (37.0-80.0); Platelet Count 193 K/mm3 (142-424); Red Cell Distribution Width 13.6 % (11.5-17.5); White Blood Count 5.5 K/mm3 (4.8-10.8)
[2020-10-09 13:34] LABS: Chloride 104 mmol/L (98-107); Potassium 4.8 mmoL/L (3.5-5.1); Sodium 139 mmol/L (136-145)
[2020-10-09 13:36] LABS: Alanine Aminotransferase 17 U/L (12-78); Aspartate Amino Transferase 23 U/L (14-36); Blood Urea Nitrogen 19 mg/dl (7-17); Estimated Glomerular Filt Rate 72 ml/min (>60); GFR (African American) 87 ML/MIN (>60)
[2020-10-09 13:37] LABS: Albumin Level 4.1 g/dl (3.5-5.0); Albumin/Globulin Ratio 1.8 (1.1-1.8); Alkaline Phosphatase 41 U/L (38-126); Anion Gap 10.8 mEq/L (5-15); Bilirubin,Total 0.5 mg/dl (0.2-1.3); Carbon Dioxide 29 mmol/L (22.0-30.0); Chol/HDL Ratio 3.2 (1-3.5); Cholesterol 162 mg/dl (140-200); Globulin 2.3 g/dL (1.3-3.2); Glucose 113 mg/dl (74-100); HDL Cholesterol 50 mg/dl (40-60); Total Protein,Serum 6.4 g/dl (6.3-8.2); Triglycerides 150 mg/dl (30-150); VLDL Cholesterol 30 mg/dL (0-40)
[2020-10-09 13:49] LABS: Direct LDL Cholesterol 86.59 mg/dL (100-129)
== END ==
PROVIDERS: Visit Provider Internal Medicine Adolescent Medicine
DX: I25.10 Atherosclerotic heart disease of native coronary artery without angina pectoris (principal); E78.5 Hyperlipidemia, unspecified; E11.9 Type 2 diabetes mellitus without complications; Z79.84 Long term (current) use of oral hypoglycemic drugs
CPT/HCPCS: 36415; 80053; 80061; 83036; 85025

== ENCOUNTER → 2020-12-23 07:10 | Outpatient (CLI) | payer MEDICARE, OTHER, SELFPAY ==
--- NOTE | 2020-12-23 07:13 | CT_ITS ---
PROCEDURE: CT LUNG SCREENING CLINICAL INDICATION: H/O NICOTINE DEPENDENCE Former smoker Quit smoking 15 years ago COMPARISON: CT CT LUNG SCREENING from 07/09/2019 TECHNIQUE: The exam was performed on a GE Light Speed [address] scanner using 2.90 mGy CTDI. A low dose helical CT CHEST was performed on a multi-detector scanner. All CT scans at the facility use one or more dose reduction, viz: automated exposure control, ma/kV adjustment per patient size (including targeted exams where dose is matched to indication, i.e. head), or iterative reconstruction technique. The LDCT was performed in a facility that meets the criteria for the screening program. Data regarding this exam was submitted to ACR which is an approved registry. The order for this exam indicates that it came as a result of a lung cancer screening counseling shard decision-making visit that included all the elements required of such a visit including smoking cessation. The radiologist interpreting this exam meets the [facility] criteria for the LDCT lung cancer screening program. The exam is reported using the Lung-RADS classification scale and reported to the ACR registry. NOTE: This study was performed for the specific purposes of lung cancer screening and is not an alternative to diagnostic chest CT. RADIATION DOSE: CTDI vol(CT dose Index-volume) = 2.90mG DLP (Dose Length Product) = 105.77 mGcm FINDINGS: No suspicious pulmonary nodules apparent. Calcified granuloma is present in the left upper lobe anteriorly. No suspicious pulmonary nodules apparent. Bandlike area of increased density once again noted in the right middle lobe consistent with chronic atelectatic change and/or scarring and may be slightly increased. Minimal atelectatic or fibrotic changes also noted in the lingula. OTHER FINDINGS: DISH of the thoracic spine IMPRESSION: Lung-RADS Category 1 Negative Follow-up: Continue annual screening with LDCT in 12 months Dictated by: Ryan Hendrix MD 12/27/2020 07:58 Ryan Hendrix MD in [place] 12/27/2020 07:58
== END ==
PROVIDERS: PCP Internal Medicine Adolescent Medicine; Visit Provider Internal Medicine Adolescent Medicine
DX: Z87.891 Personal history of nicotine dependence (principal); Z12.2 Encounter for screening for malignant neoplasm of respiratory organs
CPT/HCPCS: 71271

== ENCOUNTER 2021-01-21 08:00 | Outpatient (CLI) | payer MEDICARE, OTHER, SELFPAY ==
[2021-01-21 08:20] VITALS: BP 130/47; PULSE 56; RESP 18; TEMP 36.4; O2SAT 95
== END 2021-01-21 08:35 | disposition home or self-care (01) ==
LOC: INF 08:09
PROVIDERS: Visit Provider Internal Medicine Adolescent Medicine
DX: M81.0 Age-related osteoporosis without current pathological fracture (principal)
CPT/HCPCS: 96372; J0897

== ENCOUNTER → 2021-03-23 07:49 | Outpatient (CLI) | payer MEDICARE, OTHER, SELFPAY ==
--- NOTE | 2021-03-23 07:52 | US_ITS ---
PROCEDURE: US GALLBLADDER CLINICAL INDICATION: RUQ PAIN COMPARISON: No exams were available for comparison FINDINGS: Pancreas: Unremarkable/Not well seen Liver: Unremarkable. There is appropriate direction of blood flow within a non dilated portal vein. Right kidney: Unremarkable appearing. No hydronephrosis. Gallbladder: There is a 4 mm polyp along posterior wall the gallbladder. No shadowing stones, gallbladder wall thickening, pericholecystic fluid, or biliary dilatation. Common bile duct is normal at 4 mm. IMPRESSION: Small gallbladder polyp otherwise negative right upper quadrant ultrasound Dictated by: Ryan Hendrix MD 03/23/2021 17:42 Ryan Hendrix MD in [place] 03/23/2021 17:42
--- NOTE | 2021-03-23 07:53 | US_ITS ---
PROCEDURE: US THYROID CLINICAL INDICATION: THYROMEGALY COMPARISON: US THY US THYROID from 03/10/2013 FINDINGS: Right lobe: 4 x 1.4 x 1.4 cm. In the upper pole there is a 3 mm hypoechoic nodule which may represent a small cyst. In the mid polar region there is a 4 x 3 mm complex cystic appearing nodule. In the lower pole there is a mixed 3 mm nodule. There is an area of decreased echogenicity in the lower pole posteriorly. This may only be due to artifact as opposed to a true nodule. A hypoechoic 4 mm nodules present in the lower pole inferiorly. Left lobe: 3.4 x 1.7 x 1.4 cm. Small hypoechoic nodule upper pole at 3 mm. Spongiform appearing nodule in the upper pole at 1.5 x 0.8 cm TR level 2 well-circumscribed without calcification wider than tall. Hypoechoic 3 mm nodules present in the lower pole Isthmus: 3 mm Additional findings: IMPRESSION: There are small bilateral nodules which appear benign. The spongiform 1.5 x 0.8 cm nodules present in the upper pole on the left which also appears benign. No suspicious nodules evident. Consider 12 month follow-up to confirm stability. Dictated by: Ryan Hendrix MD 03/23/2021 17:32 Ryan Hendrix MD in [place] 03/23/2021 17:32
[2021-03-23 08:14] LABS: Basophils % 0.7 % (0.1-2.0); Eosinophils % 0.2 % (0.1-12.0); Hematocrit 43.4 % (37.0-47.0); Lymphocytes # 2.1 K/mm3 (0.7-4.5); Lymphocytes % 36.1 % (10-50); Mean Corpuscular HGB Conc 32.2 g/dL (31.8-35.4); Mean Corpuscular Hemoglobin 31.1 pg (27.0-31.2); Mean Corpuscular Volume 96.4 fl (81-99); Mean Platelet Volume 8.5 fl (7.4-10.4); Monocytes # 0.3 K/mm3 (0.1-1.0); Monocytes % 5.5 % (1.7-9.3); Neutrophils # 3.3 K/mm3 (1.8-7.8); Neutrophils % 57.5 % (37.0-80.0); Platelet Count 257 K/mm3 (142-424); Red Cell Distribution Width 13.9 % (11.5-17.5); White Blood Count 5.7 K/mm3 (4.8-10.8)
[2021-03-23 08:47] LABS: Hemoglobin A1C 5.9 % (4.0-6.0)
[2021-03-23 09:10] LABS: Chloride 105 mmol/L (98-107)
[2021-03-23 09:11] LABS: Potassium 4.5 mmoL/L (3.5-5.1); Sodium 140 mmol/L (136-145)
[2021-03-23 09:13] LABS: Alanine Aminotransferase 15 U/L (12-78); Albumin Level 3.7 g/dl (3.5-5.0); Albumin/Globulin Ratio 1.7 (1.1-1.8); Alkaline Phosphatase 52 U/L (38-126); Anion Gap 10.5 mEq/L (5-15); Aspartate Amino Transferase 23 U/L (14-36); Bilirubin,Total 0.2 mg/dl (0.2-1.3); Blood Urea Nitrogen 17 mg/dl (7-17); Carbon Dioxide 29 mmol/L (22.0-30.0); Cholesterol 136 mg/dl (140-200); Estimated Glomerular Filt Rate 83 ml/min (>60); GFR (African American) 101 ML/MIN (>60); Globulin 2.2 g/dL (1.3-3.2); Total Protein,Serum 5.9 g/dl (6.3-8.2); Triglycerides 127 mg/dl (30-150); VLDL Cholesterol 25 mg/dL (0-40)
[2021-03-23 09:14] LABS: Calcium 8.9 mg/dl (8.4-10.2); Chol/HDL Ratio 2.9 (1-3.5); Glucose 115 mg/dl (74-100); HDL Cholesterol 47 mg/dl (40-60)
[2021-03-23 09:25] LABS: Direct LDL Cholesterol 61.68 mg/dL (100-129)
[2021-03-23 09:30] LABS: Triiodothryronine (T3) Uptake 30 % (23.5-40.5)
[2021-03-23 09:31] LABS: Free Thyroxine Index 2.1 ug/dL (5.93-13.13); T4 (Thyroxine) 6.9 ug/dl (5.53-11.0)
[2021-03-23 09:45] LABS: Thyroid Stimulating Hormone 2.65 uIU/mL (0.465-4.68)
== END ==
PROVIDERS: PCP Internal Medicine Adolescent Medicine; Visit Provider Internal Medicine Adolescent Medicine
DX: R10.11 Right upper quadrant pain (principal); E01.0 Iodine-deficiency related diffuse (endemic) goiter; E78.5 Hyperlipidemia, unspecified; E11.9 Type 2 diabetes mellitus without complications; Z79.84 Long term (current) use of oral hypoglycemic drugs
CPT/HCPCS: 36415; 76536; 76705; 80053; 80061; 83036; 84436; 84443; 84479; 85025

== ENCOUNTER → 2021-07-27 07:36 | Outpatient (CLI) | payer MEDICARE, OTHER, SELFPAY ==
--- NOTE | 2021-07-27 07:40 | MM_ITS ---
PROCEDURE INFORMATION: Exam: MG Bilateral Screening 3D Mammography Exam date and time: 07/27/2021 7:40 AM Age: 65 years old Clinical indication: Encounter for screening mammogram for malignant neoplasm of breast TECHNIQUE: Imaging protocol: Bilateral Screening tomosynthesis and 2D mammography including computer-aided detection (CAD) when performed. COMPARISON: 1. MG MM DIG SCREENING MAMM BI W/CAD 07/09/2020 8:52 AM 2. MG MM DIG MAMM DX UNILAT RT CAD 12/26/2019 1:05 PM FINDINGS: MAMMOGRAPHY: Breast composition: The breast tissue is composed of scattered areas of fibroglandular density. Mass: questionable 0.7 cm irregular mass in the middle third of the right a upper outer quadrant Architectural distortion: None. Calcifications: No suspicious calcifications. Asymmetric density: None. Skin thickening: None. Axillary adenopathy: None. IMPRESSION: Patient to be recalled for spot compression views of the right breast in the CC and MLO projections, a full 90 degree lateral view, and right breast ultrasound for further evaluation of a right breast mass. ASSESSMENT: BI-RADS Category 0: Incomplete- Need Additional Imaging Evaluation and/or Prior Mammograms for Comparison
--- NOTE | 2021-07-27 07:40 | CT_ITS ---
FINAL REPORT TECHNIQUE: Axial images were obtained from the lung apex to the mid abdomen by computed tomography. Low-dose protocol was utilized. CLINICAL HISTORY: H/O NICOTINE DEPENDENCE quit smoking x3 years. smoked 1 ppd x 30 years when she did smoke. hx of cad. family hx of lung cancer and breast cancer. COMPARISON: 12/23/2020 FINDINGS: CHEST CT LOW DOSE CTDI vol (mGy): 2.90 DLP (mGy-cm): 102.12 There is moderate coronary artery calcification. There is no axillary adenopathy. There is no hilar or mediastinal adenopathy. The heart is normal in size. There is no pericardial or pleural effusion. Mild scarring is noted. There is a 2 mm left lower lobe nodule which is stable. Finding is well-seen on image 201. No new mass or nodule is identified. Limited images of the upper abdomen are unremarkable. IMPRESSION: Stable left lower lobe nodule. Lung RADS category 1. Recommend 12 month follow-up low-dose chest CT. Reviewed, Interpreted and Dictated by Bakari Olmedo III, MD Transcribed by Jesenia Lamb Authenticated by Bakari Olmedo III, MD on 07/27/2021 09:20:36 AM [facility]
--- NOTE | 2021-07-27 07:41 | XR_ITS ---
FINAL REPORT TECHNIQUE: Bone densitometry calculations of the lumbar spine and left hip were obtained. CLINICAL HISTORY: POST MENOPAUSAL COMPARISON: 06/19/2019 FINDINGS: Using one third radius, mineral density is 0.516, previously 0.451 g/cm2, corresponding to T-score of -3.0, previously -4.0. Using the left hip, the bone mineral density of the femoral neck is 0.607, previously 0.546 g/cm2, corresponding to a T-score of -2.2, previously -2.7. NOTE: T-score: Standard deviation compared with peak bone mass of young adult mean. *Following the recommendations of the International Society of Bone Densitometry, classification of hip BMD is based on the lower of two T-scores; total hip or femoral neck. IMPRESSION: Osteoporosis: Lowest T-score is at or below -2.5. This patient''s T-score meets the World Health Organization criteria for osteoporosis. FRAX is not reported because patient treated for osteoporosis. Reviewed, Interpreted and Dictated by Bakari Olmedo III, MD Transcribed by Jesenia Lamb Authenticated by Bakari Olmedo III, MD on 07/27/2021 10:33:32 AM [facility]
== END ==
PROVIDERS: PCP Internal Medicine Adolescent Medicine; Visit Provider Internal Medicine Adolescent Medicine
DX: Z12.31 Encounter for screening mammogram for malignant neoplasm of breast (principal); M81.0 Age-related osteoporosis without current pathological fracture; Z78.0 Asymptomatic menopausal state; Z87.891 Personal history of nicotine dependence; Z12.2 Encounter for screening for malignant neoplasm of respiratory organs
CPT/HCPCS: 71271; 77063; 77067; 77080

== ENCOUNTER 2021-07-29 08:22 | Outpatient (CLI) | payer MEDICARE, OTHER, SELFPAY ==
[2021-07-29 08:45] VITALS: BP 142/74; PULSE 55; RESP 20; TEMP 36.9; O2SAT 95
== END 2021-07-29 09:00 | disposition home or self-care (01) ==
LOC: INF 08:23
PROVIDERS: PCP Internal Medicine Adolescent Medicine; Visit Provider Internal Medicine Adolescent Medicine
DX: M81.0 Age-related osteoporosis without current pathological fracture (principal)
CPT/HCPCS: 96372; J0897

== ENCOUNTER → 2021-08-08 13:45 | Outpatient (CLI) | payer MEDICARE, OTHER, SELFPAY ==
--- NOTE | 2021-08-08 13:50 | US_ITS ---
PROCEDURE INFORMATION: Exam: US Right Breast, Complete MG Right Diagnostic Breast Tomosynthesis Exam date and time: 08/08/2021 1:50 PM Age: 65 years old Clinical indication: Patient recalled for further evaluation of a questionable right breast mass TECHNIQUE: Imaging protocol: Complete ultrasound of all four quadrants of the Right breast and the retroareolar regions, including ultrasound of the axilla when performed. Right Diagnostic tomosynthesis and 2D mammography including computer-aided detection (CAD) when performed. Unilateral or bilateral exam. COMPARISON: 1. MG MM DIG SCREENING MAMM BI W/CAD 07/27/2021 8:04 AM 2. MG MM DIG SCREENING MAMM BI W/CAD 07/09/2020 8:52 AM FINDINGS: MAMMOGRAPHY: Digital diagnostic spot compression views of the right breast and 90 degree lateral view of the right breast demonstrate normal overlapping fibroglandular structures without persistent mass or asymmetry identified. ULTRASOUND: Sonographic images of the right breast including the retroareolar region, all 4 quadrants and the axilla do not demonstrate any solid or cystic masses. Cursors were placed over normal fibroglandular structures in the 6 o'clock axis. No architectural distortion or acoustical shadowing. No skin thickening or axillary adenopathy. IMPRESSION: No mammographic or sonographic evidence of malignancy. Annual bilateral mammographic screening is recommended unless otherwise clinically indicated. ASSESSMENT: BI-RADS Category 1: Negative
== END ==
PROVIDERS: PCP Internal Medicine Adolescent Medicine; Visit Provider Internal Medicine Adolescent Medicine
DX: R92.8 Other abnormal and inconclusive findings on diagnostic imaging of breast (principal)
CPT/HCPCS: 76641; 77061; 77065; G0279

== ENCOUNTER → 2021-11-10 09:54 | Outpatient (CLI) | payer MEDICARE, OTHER, SELFPAY ==
[2021-11-10 10:11] LABS: Basophils # 0.2 K/mm3 (0-0.2); Basophils % 3.4 % (0.1-2.0); Eosinophils % 0.2 % (0.1-12.0); Hematocrit 42.7 % (37.0-47.0); Hemoglobin 14.1 g/dL (12.2-16.2); Lymphocytes # 1.8 K/mm3 (0.7-4.5); Lymphocytes % 32.9 % (10-50); Mean Corpuscular HGB Conc 33.1 g/dL (31.8-35.4); Mean Corpuscular Hemoglobin 31.2 pg (27.0-31.2); Mean Corpuscular Volume 94.2 fl (81-99); Mean Platelet Volume 8.4 fl (7.4-10.4); Monocytes # 0.3 K/mm3 (0.1-1.0); Monocytes % 6.1 % (1.7-9.3); Neutrophils # 3.1 K/mm3 (1.8-7.8); Neutrophils % 57.4 % (37.0-80.0); Platelet Count 242 K/mm3 (142-424); Red Blood Count 4.53 M/mm3 (4.20-5.40); White Blood Count 5.5 K/mm3 (4.8-10.8)
[2021-11-10 10:52] LABS: Alanine Aminotransferase 18 U/L (12-78); Albumin Level 4.1 g/dl (3.5-5.0); Alkaline Phosphatase 43 U/L (38-126); Anion Gap 13.5 mEq/L (5-15); Aspartate Amino Transferase 23 U/L (14-36); Bilirubin,Total 0.2 mg/dl (0.2-1.3); Blood Urea Nitrogen 26 mg/dl (7-17); Calcium 9.1 mg/dl (8.4-10.2); Carbon Dioxide 26 mmol/L (22.0-30.0); Chloride 103 mmol/L (98-107); Chol/HDL Ratio 3.7 (1-3.5); Cholesterol 162 mg/dl (140-200); Estimated Glomerular Filt Rate 72 ml/min (>60); GFR (African American) 87 ML/MIN (>60); Globulin 2.1 g/dL (1.3-3.2); Glucose 113 mg/dl (74-100); HDL Cholesterol 44 mg/dl (40-60); Potassium 4.5 mmoL/L (3.5-5.1); Sodium 138 mmol/L (136-145); Total Protein,Serum 6.2 g/dl (6.3-8.2); Triglycerides 139 mg/dl (30-150); VLDL Cholesterol 28 mg/dL (0-40)
[2021-11-10 11:03] LABS: Direct LDL Cholesterol 89.26 mg/dL (100-129)
[2021-11-10 11:53] LABS: Hemoglobin A1C 5.9 % (4.0-6.0)
== END ==
PROVIDERS: Visit Provider Internal Medicine Adolescent Medicine
DX: I25.10 Atherosclerotic heart disease of native coronary artery without angina pectoris (principal); E11.9 Type 2 diabetes mellitus without complications; E78.5 Hyperlipidemia, unspecified
CPT/HCPCS: 36415; 80053; 80061; 83036; 85025

== ENCOUNTER → 2022-01-20 08:59 | Outpatient (CLI) | payer MEDICARE, OTHER, SELFPAY ==
[2022-01-20 10:08] LABS: Basophils # 0.1 K/mm3 (0-0.2); Eosinophils % 0.3 % (0.1-12.0); Hematocrit 44.9 % (37.0-47.0); Hemoglobin 13.8 g/dL (12.2-16.2); Lymphocytes # 1.7 K/mm3 (0.7-4.5); Lymphocytes % 31.7 % (10-50); Mean Corpuscular HGB Conc 30.8 g/dL (31.8-35.4); Mean Corpuscular Hemoglobin 30.5 pg (27.0-31.2); Mean Corpuscular Volume 98.9 fl (81-99); Mean Platelet Volume 8.3 fl (7.4-10.4); Monocytes # 0.4 K/mm3 (0.1-1.0); Monocytes % 6.8 % (1.7-9.3); Neutrophils # 3.3 K/mm3 (1.8-7.8); Neutrophils % 60.3 % (37.0-80.0); Platelet Count 248 K/mm3 (142-424); Red Blood Count 4.55 M/mm3 (4.20-5.40); Red Cell Distribution Width 13.8 % (11.5-17.5); White Blood Count 5.5 K/mm3 (4.8-10.8)
[2022-01-20 10:28] LABS: Chloride 106 mmol/L (98-107); Sodium 140 mmol/L (136-145)
[2022-01-20 10:29] LABS: Potassium 4.5 mmoL/L (3.5-5.1)
[2022-01-20 10:31] LABS: Alanine Aminotransferase 17 U/L (12-78); Albumin Level 4.3 g/dl (3.5-5.0); Albumin/Globulin Ratio 2.2 (1.1-1.8); Alkaline Phosphatase 64 U/L (38-126); Anion Gap 10.5 mEq/L (5-15); Aspartate Amino Transferase 25 U/L (14-36); Bilirubin,Total 0.3 mg/dl (0.2-1.3); Blood Urea Nitrogen 21 mg/dl (7-17); Carbon Dioxide 28 mmol/L (22.0-30.0); Cholesterol 154 mg/dl (140-200); Estimated Glomerular Filt Rate 83 ml/min (>60); GFR (African American) 101 ML/MIN (>60); Total Protein,Serum 6.3 g/dl (6.3-8.2); Triglycerides 156 mg/dl (30-150); VLDL Cholesterol 31 mg/dL (0-40)
[2022-01-20 10:32] LABS: Calcium 9.6 mg/dl (8.4-10.2); Chol/HDL Ratio 3.5 (1-3.5); Glucose 121 mg/dl (74-100); HDL Cholesterol 44 mg/dl (40-60)
[2022-01-20 10:46] LABS: Hemoglobin A1C 5.8 % (4.0-6.0)
[2022-01-21 07:17] LABS: Direct LDL Cholesterol 84 mg/dL (100-129)
== END ==
PROVIDERS: PCP Internal Medicine Adolescent Medicine; Visit Provider Internal Medicine Adolescent Medicine
DX: E11.9 Type 2 diabetes mellitus without complications (principal); I25.10 Atherosclerotic heart disease of native coronary artery without angina pectoris; E78.5 Hyperlipidemia, unspecified; Z79.84 Long term (current) use of oral hypoglycemic drugs
CPT/HCPCS: 36415; 80053; 80061; 83036; 85025

== ENCOUNTER 2022-01-27 07:33 | Outpatient (CLI) | payer MEDICARE, OTHER, SELFPAY ==
[2022-01-27 08:15] VITALS: BP 119/58; PULSE 57; RESP 18; O2SAT 96
== END 2022-01-27 08:30 | disposition home or self-care (01) ==
LOC: INF 07:34
PROVIDERS: PCP Internal Medicine Adolescent Medicine; Visit Provider Internal Medicine Adolescent Medicine
DX: M81.0 Age-related osteoporosis without current pathological fracture (principal)
CPT/HCPCS: 96372; J0897

== ENCOUNTER → 2022-07-25 08:46 | Outpatient (CLI) | payer MEDICARE, OTHER, SELFPAY ==
[2022-07-25 12:10] LABS: Hemoglobin A1C 6.6 % (4.0-6.0)
== END ==
PROVIDERS: PCP Internal Medicine Adolescent Medicine; Visit Provider Internal Medicine Adolescent Medicine
DX: E11.9 Type 2 diabetes mellitus without complications (principal); Z79.84 Long term (current) use of oral hypoglycemic drugs
CPT/HCPCS: 36415; 83036

== ENCOUNTER 2022-07-31 07:49 | Outpatient (CLI) | payer MEDICARE, OTHER, SELFPAY ==
[2022-07-31 08:20] VITALS: BP 121/48; PULSE 49; RESP 18; TEMP 36.4; O2SAT 96
== END 2022-07-31 08:42 | disposition home or self-care (01) ==
LOC: INF 07:50
PROVIDERS: PCP Internal Medicine Adolescent Medicine; Visit Provider Internal Medicine Adolescent Medicine
DX: M81.0 Age-related osteoporosis without current pathological fracture (principal)
CPT/HCPCS: 96372; J0897

== ENCOUNTER → 2022-08-10 14:54 | Outpatient (CLI) | payer MEDICARE, OTHER, SELFPAY ==
--- NOTE | 2022-08-10 14:59 | CT_ITS ---
FINAL REPORT CLINICAL HISTORY: HISTORY OF TOBACCO USE, currently smokes less than 1 pk per day for 30 yrs, uncle had lung cancer COMPARISON: 07/27/2021 FINDINGS: CTDI vol (mGy): 2.90 DLP: 102.[address] images of the chest were obtained using the low-dose protocol for screening. There is no evidence of mediastinal or hilar mass or adenopathy. No axillary mass or adenopathy is identified. On the lung window images, again seen is a 2 mm nodule in the left lower lobe, unchanged from 2020. New, linear right middle lobe opacities are seen which are likely inflammatory. There is mild pulmonary scarring. Severe coronary artery calcifications are noted. IMPRESSION: Stable 2 mm left lower lobe nodule. Severe coronary artery calcifications. New linear right middle lobe opacities, likely inflammatory. Lung RADS category 1S . Recommend 12 month followup low-dose CT for further evaluation. Reviewed, Interpreted and Dictated by Bakari Olmedo III, MD Transcribed by Monica Andrews Authenticated and [facility]
--- NOTE | 2022-08-10 15:02 | MM_ITS ---
PROCEDURE INFORMATION: Exam: MG Bilateral Screening 3D Mammography Exam date and time: 08/10/2022 3:33 PM Age: 66 years old Clinical indication: Screening. Her mother had breast cancer at age 62. TECHNIQUE: Imaging protocol: Bilateral Screening tomosynthesis and 2D mammography including computer-aided detection (CAD) when performed. COMPARISON: 1. MG MM DIG MAMM DX UNILAT RT CAD 08/08/2021 2:54 PM 2. MG MM DIG SCREENING MAMM BI W/CAD 07/27/2021 8:04 AM 3. MG MM DIG SCREENING MAMM BI W/CAD 07/09/2020 8:52 AM 4. MG MM DIG MAMM DX UNILAT RT CAD 12/26/2019 1:05 PM FINDINGS: MAMMOGRAPHY: Breast composition: There are scattered areas of fibroglandular density. Mass: None. Architectural distortion: None. Calcifications: No suspicious calcifications. Asymmetric density: None. Skin thickening: None. Axillary adenopathy: None. IMPRESSION: No mammographic evidence of malignancy. Annual screening is recommended unless otherwise clinically indicated. ASSESSMENT: BI-RADS Category 1: Negative
== END ==
PROVIDERS: PCP Internal Medicine Adolescent Medicine; Visit Provider Internal Medicine Adolescent Medicine
DX: Z87.891 Personal history of nicotine dependence (principal); Z12.2 Encounter for screening for malignant neoplasm of respiratory organs; Z12.31 Encounter for screening mammogram for malignant neoplasm of breast
CPT/HCPCS: 71271; 77063; 77067

== ENCOUNTER 2023-01-29 08:14 | Outpatient (CLI) | payer MEDICARE, OTHER, SELFPAY ==
[2023-01-29 08:23] VITALS: BP 132/62; PULSE 58; RESP 18; TEMP 36.7; O2SAT 96
== END 2023-01-29 08:42 | disposition home or self-care (01) ==
LOC: INF 08:15
PROVIDERS: PCP Internal Medicine Adolescent Medicine; Visit Provider Internal Medicine Adolescent Medicine
DX: M81.0 Age-related osteoporosis without current pathological fracture (principal)
CPT/HCPCS: 96372; J0897

== ENCOUNTER 2023-08-01 08:18 | Outpatient (CLI) | payer MEDICARE, OTHER, SELFPAY ==
[2023-08-01 08:20] VITALS: BP 129/66; PULSE 64; RESP 18; O2SAT 97
[2023-08-01] MEDS: DENOSUMAB 60 MG/ML SYRINGE SQ (08:25)
[2023-08-01 08:30] VITALS: BP 129/66; PULSE 64; RESP 18; O2SAT 97
== END 2023-08-01 08:30 | disposition home or self-care (01) ==
LOC: INF 08:18
PROVIDERS: PCP Internal Medicine Adolescent Medicine; Visit Provider Internal Medicine Adolescent Medicine
DX: M81.0 Age-related osteoporosis without current pathological fracture (principal)
CPT/HCPCS: 96372; J0897

== ENCOUNTER 2023-10-09 07:32 | Outpatient (CLI) | payer MEDICARE, OTHER, SELFPAY ==
--- NOTE | 2023-10-09 07:35 | CT_ITS ---
FINAL REPORT TECHNIQUE: Axial CT images of the chest were obtained without contrast. Low-dose protocol was utilized. This study was performed with techniques to keep radiation doses as low as reasonably achievable (ALARA). Individualized dose reduction techniques using automated exposure control or adjustment of mA and/or kV according to the patient's size were employed. CLINICAL HISTORY: H/O TOBACCO USE former smoker , quit 1 year ago. 1 ppd x 50 years COMPARISON: 08/10/2022 FINDINGS: CT CHEST WITHOUT, LOW DOSE SCREENING CT Di Vol: 2.90 mGy DLP: 104.99 mGy*cm There is no axillary, mediastinal, or hilar adenopathy. The heart size is normal. There are severe coronary artery calcifications. There is no pleural or pericardial effusion. The lung windows show a stable 2 mm left lower lobe nodule. No new mass or nodule identified. Limited images of the upper abdomen demonstrate no acute findings. IMPRESSION: LR Category 1S: 12 month follow-up low-dose chest CT is recommended. Reviewed, Interpreted and Dictated by Zaheer Shah MD Transcribed by Jesica Thacker Authenticated and [facility]
--- NOTE | 2023-10-09 07:36 | MM_ITS ---
PROCEDURE INFORMATION: Exam: MG Bilateral Screening 3D Mammography Exam date and time: 10/09/2023 7:55 AM Age: 67 years old Clinical indication: Screening examination TECHNIQUE: Imaging protocol: Bilateral Screening tomosynthesis and 2D mammography including computer-aided detection (CAD) when performed. COMPARISON: 1. MG MM DIG SCREENING MAMM BI W/CAD 08/10/2022 3:33 PM 2. MG MM DIG MAMM DX UNILAT RT CAD 08/08/2021 2:54 PM FINDINGS: MAMMOGRAPHY: Breast composition: There are scattered areas of fibroglandular density. Mass: None. Architectural distortion: None. Calcifications: No suspicious calcifications. Asymmetric density: None. Skin thickening: None. Axillary adenopathy: None. IMPRESSION: No mammographic evidence of malignancy. Annual screening is recommended unless otherwise clinically indicated. ASSESSMENT: BI-RADS Category 1: Negative
--- NOTE | 2023-10-09 07:36 | XR_ITS ---
FINAL REPORT TECHNIQUE: Bone densitometry calculations of the lumbar spine and left hip were obtained. CLINICAL HISTORY: OSTEOPOROSIS FINDINGS: Using L1-4, the bone mineral density of the spine is 1.120 g/cm2, corresponding to T-score of 0.4. Using the left hip, the bone mineral density of the femoral neck is 0.687 g/cm2, corresponding to a T-score of -1.5. Using the right hip, the bone mineral density of the femoral neck is 0.906 g/cm2, corresponding to a T-score of -0.3. Using the 1/3 radius, the bone mineral density of the radius is 0.553 g/cm2, corresponding to a T-score of -2.3. NOTE: T-score: Standard deviation compared with peak bone mass of young adult mean. *Following the recommendations of the International Society of Bone densitometry, classification of hip BMD is based on the lower of two T-scores; total hip or femoral neck. IMPRESSION: Diminished bone mineral density consistent with borderline osteoporosis. FRAX was not reported because patient is being treated for osteoporosis. Reviewed, Interpreted and Dictated by Zaheer Shah MD Transcribed by Jesenia Lamb Authenticated and [facility]
== END 2023-10-09 23:59 | disposition home or self-care (01) ==
LOC: RAD 07:33
PROVIDERS: PCP Internal Medicine Adolescent Medicine; Visit Provider Internal Medicine Adolescent Medicine
DX: Z87.891 Personal history of nicotine dependence (principal); Z12.31 Encounter for screening mammogram for malignant neoplasm of breast; M81.0 Age-related osteoporosis without current pathological fracture
CPT/HCPCS: 71271; 77063; 77067; 77080

== ENCOUNTER 2024-02-28 08:00 | Outpatient (RCR) | payer MEDICARE, OTHER, SELFPAY | END 2024-02-28 08:05 | disposition home or self-care (01) | LOC: PT 08:00 | PROVIDERS: Visit Provider Orthopaedic Surgery | DX: M70.61 Trochanteric bursitis, right hip (principal) | CPT/HCPCS: 97110; 97163 ==

== ENCOUNTER 2024-06-02 08:00 | Outpatient (RCR) | payer MEDICARE, OTHER, SELFPAY ==
--- NOTE | 2024-04-29 09:24 | HMH.PTOPEV ---
PT Outpatient Evaluation Rehab PT Outpatient Evaluation Start: 04/29/24 07:58 Freq: Status: Active Protocol: Document 04/29/24 08:25 RK (Rec: 04/29/24 09:23 RK [id number]) E-signed By Barrett Polanco, PT Outpatient Therapy Subjective History Subjective History Pt reports h/o chronic LBP and right hip pain for ~4 months, with this episode of pain beginning w/insidious onset. Pt reports extensive h/o lumbar spine issues resulting in 3x lumbar spine sx's including x2 L4-5 discectomies , and fusion @L4-5. Pt reports this episode of pain 'felt more like hip issues, but I think there's a good chance it 's coming from my back.' Pt reports right sided LBP w/ prolonged standing or house work and then pain refers into right hip posterio-lateral hip region. Pt reports some temporary relief w/steroid injection in right hip in . PMH: spinal stenosis T- spine New diagnosis of cancer in past 12 No months? Chief Complaint Pain,Spasms,Stiff Symptom Type Ache,Throb,Sharp,Dull Symptoms Relieved By Rest/Positioning,Heat,OTC Meds ,Prescription Meds Symptoms Aggravated By Standing,Physical Activity, Lifting Prior Functional Limitations Lifting,Housework,Standing, Walking,Bending/Stooping Current Functional Limitations Lifting,Housework,Standing, Walking,Bending/Stooping Symptom Description Constant but Variable Level of pain today (0-10) 4 Pain scale - at its best (0-10) 3 Pain scale - at its worst (0-10) 7 Lumbopelvic Eval Posture Thoracic Spine Posture Standing Position Neutral Lumbar Spine Posture Standing Position Neutral Assistive device Assistive Devices None / NA Gait Observation General Gait Pattern Observation Antalgic Gait,Wide Based Gait Palapation tenderness left lumbar spinal tenderness Yes: 1-2/4 paraspinal tenderness Yes: 1-2/4 buttock tenderness Yes: 1/4 Lumbar/Sacral Palpation Findings Tenderness right lumbar spinal tenderness Yes: 3/4 paraspinal tenderness Yes: 3/4 buttock tenderness Yes: 3/4 Lumbar/Sacral Palpation Findings Tenderness,Muscle Guarding Accessory Movement L-spine Vertebrae Accessory Movements Central P/A Addison that Elicit Symptoms L3 bilateral L4 bilateral L5 bilateral Range of Motion Lumbar Spine Active Flexion Range of 0-55 Motion (degrees) Lumbar Spine Active Extension Range of 0-10 Motion (degrees) Left Lumbar Spine Lateral Flexion Active 0-20 Range of Motion (degrees) Right Lumbar Spine Lateral Flexion 0-20 Active Range of Motion (degrees) Lumbar Spine ROM Limitations Soft Tissue Tightness,Pain Manual Muscle Test Bilateral Knee Extension Strength Grade 5 Normal Knee Flexion Strength Grade 5 Normal Hip Flexion Strength Grade 4- Good- Hip Abduction Strength Grade 4- Good- Hip External Rotation Strength Grade 4 Good Hip Internal Rotation Strength Grade 4 Good Extensor Hallucis Longus Strength Grade 5 Normal Ankle Dorsiflexion Strength Grade 5 Normal Gastronemius/Soleus Strength Grade 5 Normal Special Tests Hip Piriformis Test Positive Right Sciatic Nerve Tension Test Negative Right Reverse Sciatic Nerve Tension Test Negative Right Lumbar Long United Distraction Test/Manual Negative Traction Oswestry Index Section 1 Pain Intensity The pain comes and goes and is moderate Section 2 Personal Care (Washing,Dresing) increase the pain, but I manage not to change my way of doing it Section 3 Lifting lifting heavy weights off the floor, but I can manage light to medium Section 4 Walking I cannot walk more than 1/4 mile without increasing pain Section 5 Sitting I can sit in my favorite chair for as long as I like Section 6 Standing I cannot stand more than 1/2 hour without increasing pain Section 7 Sleeping Because of my pain, my normal night's sleep is less than 6 hours sleep Section 8 Social Life Pain has no significant effect on my social life apart from limiting Section 9 Traveling I get extra pain while traveling which compels me to seek alternate fo Section 10 Changing Degreee of Pain My pain is neither getting better or worse Score and Risk Level Oswestry Sc 26 Oswestry Risk Level Severe Disability Outpatient Therapy Assessment Impairments Problems/Impairmments Palpation Tenderness,Impaired Range of Motion,Impaired Strength,Impaired Gait Pattern ,Impaired Walking,Impaired Standing,Impaired Lifting, Impaired Household Care, Impaired Bending,Subjective C/ O Pain,Impaired Self Care/Self Management Prognosis Rehab Potential Good Clinical Impression Consistent with Diagnosis Yes Short Term Goals Number of Weeks 4 Decreased Palpation Tenderness Yes: 1-2/4 lumbar mm, glut mm Increase Range of Motion Yes: 75% of WFL LUMBAR AROM Increase Strength Yes: 4/5 B/L HIP MM Increase Ability to Walk Yes: 15MIN Increase Ability to Stand Yes: 15MIN Improve Ability For Household Care Yes: 15MIN Decrease Subjective C/O Pain Yes: 3/10 W/ABOVE ACTIVITIES Patient to be Ind w/ HEP Yes Custodial Goals Number of Weeks 8-10 Decreased Palpation Tenderness Yes: 0-1/4 LUMBAR AND HIP MM Increase Range of Motion Yes: WFL LUMBAR AROM Increase Strength Yes: 4+-5/5 B/L HIP MM Improve Gait Pattern without Assistive Yes: WFL ON LEVEL TERRAIN Device Increase Ability to Walk Yes: 45MIN Increase Ability to Stand Yes: 45MIN Restore Ability to Lift Objects to Waist Yes: 10-15# FOR HOUSEHOLD Level ACTIVITIES Improve Ability For Household Care Yes: 45MIN Improve Oswestry Score Yes: 10-15 Decrease Subjective C/O Pain Yes: 0-2/10 W/ABOVE ACTIVITIES Patient to be Ind w/ Advanced HEP Yes Outpatient Therapy Plan of Care Treatment Plan May Include Therapeutic Exercise Including Home Yes Exercise Program Manual Therapy Techniques Yes Neuromuscular Re-education Yes Therapeutic Activities to Return to Yes Previous Functional/Work Level Gait Training Yes ADL/Self Care Education Yes Mechanical Traction Yes Dry Needling Yes Thermal Modalities Yes Electrical Stimulation Yes Ultrasound/Phonophoresis Yes Eval/Re-Eval Yes Frequency Times per week 2-3 Duration Number of Weeks 8-10 Addendums This patient is a candidate for social No or vocational rehab? Patient/Guardian verbally acknowledges Yes understanding of treatment program and consents to further treatment? Patient/Guardian verbally acknowledges Yes understanding of diagnosis, prognosis and goals for treatment? Eval Complexity PT Charges 26326 - Moderate Complexity Shoulder/Elbow Eval Shoulder Objective Measurements Elbow Objective Measurements PHYSICIAN CERTIFICATION: I certify the specified therapy services for Latosha Allison are required, authorized, and reviewed every 30 days.
--- NOTE | 2024-05-26 10:22 | HMH.RHREAS ---
Rehab Reassessment Rehab OP Re-assessment Start: 04/29/24 07:58 Freq: Status: Active Protocol: Document 05/26/24 10:07 RK (Rec: 05/26/24 10:22 RK [id number]) E-signed By Barrett Polanco, PT Oswestry Index Section 1 Pain Intensity The pain comes and goes and is moderate Section 2 Personal Care (Washing,Dresing) increase the pain and I find it necessary to change my way of doing it Section 3 Lifting I can only lift very light weights at most Section 4 Walking I cannot walk more than 1/2 mile without increasing pain Section 5 Sitting I can sit in my favorite chair for as long as I like Section 6 Standing I cannot stand more than 1 hour without increasing pain Section 7 Sleeping Because of my pain, my normal night's sleep is less than 6 hours sleep Section 8 Social Life Pain has restricted my social life and I do not go out often Section 9 Traveling I get some pain when traveling , but none of my usual forms of travel m Section 10 Changing Degreee of Pain My pain seems to be getting better, but improvement is slow Score and Risk Level Oswestry Sc 24 Oswestry Risk Level Moderate Disability Rehab Re-assessment Subjective Subjective Pt reports 3/10 right sided LBP and right hip area pain on VAS this am, pt reports ' after going through [employer] the other day for about 2 hours, by the time I was done I felt like my back was gonna snap in half.' Pt reports some improvements w/skilled P.T., but 'I'm ready for some new imaging and to see the neurosurgeon. Objective Objective Notes AROM: LUMBAR SPINE FLX 0-70, EXT 0-20, RIGHT SB 0-25, LEFT SB 0-20 MMT:B/L HIP FLX 4-/5, B/L HIP ADD 5/5, B/L HIP ABD 4-4+/5, B /L KNEE EXT 5/5, B/L KNEE FLX 4/5, B/L DF 5/5 TTP: RIGHT LUMBAR PARASPINALS (L5/S1) 3/4, LEFT LUMBAR PARASPINALS 2/4, RIGHT PIRIFORMIS/GLUTEAL MM 2-3/4 Assessment Progress Assessment Slower Than Expected Assessment Notes Slight improvements in ROM, strength,KEVEN, and TTP Patient goals met STG'S 10/23 LTG'S 08/26 Goals Not Met STG'S 08/23, LTG'S 01/26 Plan Plan Pt to continue w/skilled P.T. to make further improvements in ROM, strength, TTP, and KEVEN to allow for optimal function Frequency of Therapy 1-2x/wk Duration of therapy 6-8wks Time and Billing Re-Eval Time 12 Re-Eval Billing Units 0 Charge for PT reassessment? No PHYSICIAN CERTIFICATION: I certify the specified therapy services for Jennifer Keegan are required, authorized, and reviewed every 30 days.
== END 2024-06-02 23:59 | disposition home or self-care (01) ==
LOC: PT 08:00
PROVIDERS: PCP Internal Medicine Adolescent Medicine; Visit Provider Internal Medicine Adolescent Medicine
DX: M25.551 Pain in right hip (principal); M54.50 Low back pain, unspecified
CPT/HCPCS: 20561; 97010; 97014; 97035; 97110; 97140; 97163; G0283

== ENCOUNTER 2024-06-25 12:41 | Outpatient (RCR) | payer MEDICARE, OTHER, SELFPAY | END 2024-09-04 09:00 | disposition home or self-care (01) | LOC: CR 12:41 | PROVIDERS: Visit Provider Internal Medicine | DX: Z95.5 Presence of coronary angioplasty implant and graft (principal) | CPT/HCPCS: 93798 ==

== ENCOUNTER 2024-10-09 08:05 | Outpatient (CLI) | payer MEDICARE, OTHER, SELFPAY ==
--- NOTE | 2024-10-09 08:09 | XR_ITS ---
FINAL REPORT TECHNIQUE: Bone densitometry calculations of the lumbar spine and bilateral hips were obtained. CLINICAL HISTORY: SCREENING COMPARISON: 10/09/2023 FINDINGS: Using L1-4, the bone mineral density of the spine is 1.189 g/cm2, corresponding to T-score of 1.0 and a Z score of 3.2. This is within the range of normal. Using the left hip, the bone mineral density of the femoral neck is 0.713 g/cm2, corresponding to a T-score of -1.2 and a Z-score of 0.6. This is within the range of osteopenia. Using the right hip, the bone mineral density of the femoral neck is 0.664 g/cm?, corresponding to a T-score of -1.7 and a Z-score of 0.2. This is within the range of osteopenia. NOTE: T-score: Standard deviation compared with peak bone mass of young adult mean. *Following the recommendations of the International Society of Bone densitometry, classification of hip BMD is based on the lower of two T-scores; total hip or femoral neck. IMPRESSION: 1. Bone mineral density of the lumbar spine within the range of normal. 2. Bone mineral density of the bilateral femoral necks within the range of osteopenia. Reviewed, Interpreted and Dictated by Lorraine Mcneal MD Transcribed by Giselle Bruno Authenticated and [facility]
--- NOTE | 2024-10-09 08:09 | MM_ITS ---
PROCEDURE INFORMATION: Exam: MG Bilateral Screening 3D Mammography Exam date and time: 10/09/2024 8:22 AM Age: 68 years old Clinical indication: Screening. No family history of breast cancer. TECHNIQUE: Imaging protocol: Bilateral Screening tomosynthesis and 2D mammography including computer-aided detection (CAD) when performed. COMPARISON: 1. MG MM DIG SCREENING MAMM BI W/CAD 10/09/2023 7:55 AM 2. MG MM DIG SCREENING MAMM BI W/CAD 08/10/2022 3:33 PM 3. MG MM DIG MAMM DX UNILAT RT CAD 08/08/2021 2:54 PM 4. MG MM DIG SCREENING MAMM BI W/CAD 07/27/2021 8:04 AM FINDINGS: MAMMOGRAPHY: Breast composition: There are scattered areas of fibroglandular density. Mass: No suspicious mass. Architectural distortion: None. Calcifications: No suspicious calcifications. Asymmetric density: None. Skin thickening: None. Axillary adenopathy: None. IMPRESSION: No mammographic evidence of malignancy. Annual screening is recommended unless otherwise clinically indicated. ASSESSMENT: BI-RADS Category 1: Negative.
--- NOTE | 2024-10-09 08:24 | CT_ITS ---
FINAL REPORT TECHNIQUE: Axial CT images of the chest were obtained without contrast. Low-dose protocol was utilized. This study was performed with techniques to keep radiation doses as low as reasonably achievable (ALARA). Individualized dose reduction techniques using automated exposure control or adjustment of mA and/or kV according to the patient's size were employed. CLINICAL HISTORY: Screening Former smoker, quit 2 years ago, 1 x 50 years COMPARISON: 10/09/2023 FINDINGS: CT CHEST WITHOUT, LOW DOSE SCREENING CTDl vol(mGy): 2.90 DLP (mGy-cm): 105.51 There is no axillary, mediastinal, or hilar adenopathy. The heart size is normal. There are dense coronary artery calcifications, which appear similar to the previous study. There is no pericardial or pleural effusion. Lung window images demonstrate scarring in the right middle lobe and lingula. There is a stable appearing 2 mm nodule in the left lower lobe. Limited images of the upper abdomen are unremarkable. IMPRESSION: Lung RADS category 1S: Recommend 12 month follow-up low-dose chest CT. Reviewed, Interpreted and Dictated by Zaheer Shah MD Transcribed by Abbi Carlos Authenticated and [facility]
== END 2024-10-09 23:59 | disposition home or self-care (01) ==
LOC: RAD 08:06
PROVIDERS: PCP Internal Medicine Adolescent Medicine; Visit Provider Internal Medicine Adolescent Medicine
DX: Z12.31 Encounter for screening mammogram for malignant neoplasm of breast (principal); M81.0 Age-related osteoporosis without current pathological fracture; Z87.891 Personal history of nicotine dependence
CPT/HCPCS: 71271; 77063; 77067; 77080

== ENCOUNTER 2025-03-02 08:33 | Outpatient (CLI) | payer MEDICARE, OTHER, SELFPAY ==
--- OUTSIDE RECORDS SUMMARY | 2024-12-11 04:30 | XMS_ITS ---
Author Organization [facility] Address [address] [place], [place] [address] Care Team Providers Care Firebreak Cutter Name Role Phone Edison Harrell Primary Care Provider [phone] REASON FOR VISIT labs Encounters Encounter Location Date Provider Diagnosis [facility] [address] [place], [place] [address] 12/11/2024 Edison Harrell Plan Of Treatment Next Appt Details Provider Name:Edison Harrell, 05/25/2025 09:45:00 AM, [address], [address], [place], [address], Progress Notes * Latosha ALLISONDOB:1955 (69 yo F)Acc No.[id number]:12/11/2024 LABS Patient: Bro Latosha CAPELLAN Provider: Shawna Harrell MD :1955 A ge:69 Y S ex:Female Date:12/11/2024 Address:[address] [place], [id number] Subjective: * Chief Complaints: * 1 . Labs. * Medical History: Objective: * Vitals: Assessment: Plan: * Treatment: * * Electronic signature of Roney Harrell MD FAAP on 03/02/2025 at 08:55 AM EDT Sign off status: Pending * Provider: Shawna Harrell MD Date: 0 12/11/2024 Generated for Nash powell/Buzz/Colleen on: 0 03/02/2025 08:55 AM EDT
--- OUTSIDE RECORDS SUMMARY | 2025-01-09 12:30 | XMS_ITS | Encounter Summary ---
[facility] [address] [place] [address] Care Team Providers Care Transcriptionist Name Role Phone Edison Harrell MD Primary Care Provider [phone] Encounter Details Date Type Department Care Team (Latest Contact Info) Description 01/09/2025 12:30 PM EDT Pre-Admission Testing [facility] [address] [place] [address] Lumbar stenosis with neurogenic claudication Social History Tobacco Use Types Packs/Day Years Used Date Smoking Tobacco: Former Cigarettes 1 46.4 0 06/26/1973 - 11/10/2019 Passive Smoke Exposure: Never Smokeless Tobacco: Never Alcohol Use Standard Drinks/Week Comments No 0 (1 standard drink = 0.6 oz pur e alcohol) AUDIT-C Answer Date Recorded Q1: How often do you have a drink containing alcohol? Never 06/05/2024 Q2: How many drinks containi ng alcohol do you have on a typical day when you are drinking? Patient does not drink Q3: How often do you have si x or more drinks on one occasion? Never 06/05/2024 Abuse Screen Answer Date Recorded Feels Unsafe at Home or Work/School no 01/09/2025 Feels Threatened by Someone no 12/17 Does Anyone Try to Keep You From Having Contact with Others or Doing Things Outside Your Home? no 01/09/2025 Physical Signs of Abuse Present no 01/09/2025 Housing Stability Answer Date Recorded Current Living Arrangements home 05/18 Potentially Unsafe Housing Conditions Not on alfred e 06/05/2024 Disabilities Answer Date Recorded Difficulty Concentrating, Remembering or Making Decisions no 06/05/2024 Difficulty Managing Errands Independently no 06/05/2024 Education Answer Date Recorded Help with school or training? Not on file Preferred Language Divehi 01/09/2025 Comments No Sex and Gender Information Value Date Recorded Sex Assigned at Female 10/21/2024 7:55 AM EDT Legal Sex Female 10:34 AM EDT Gender Identity Not on file Sexual Orientation Straight 10/21/2024 7: 55 AM EDT documented as of this encounter Last Filed Vital Signs Vital Sign Reading Time Taken Comments Blood Pressure - - Pulse - - Temperature - - Respiratory Rate - - Oxygen Saturation - - Inhaled Oxygen Concentration - - Weight 105 kg (232 lb 2.3 oz) 01/09/2025 12:47 P M EDT Height 162.6 cm (5' 4 ) 01/09/2025 12:47 PM EDT Body Mass Index 39.85 01/09/2025 12:47 PM EDT documented in this encounter OR Notes * Bonnie Cline, JULISSA - 01/09/2025 12:30 PM EDT Cardiac clearance on chart from 12/10/24- WITH BLOOD THINNER INSTRUCTIONS - PT AWARE. LIVING WILL AND POA ADDED TO CHART AT THIS TIME PER PT REQUEST. ALONG WITH OLD LAB RESULTS ADDED TOCHART PER PT REQUEST. PT WANTS TO DO MEDS TO BEDS. BLUE NOTE LEFT FOR PREOP TO ADDRESS DOS. Patient to apply Chlorhexadine wipes to surgical area (as instructed) the night before procedure and the AM of procedure. Wipes provided. Per Anesthesia Request, patient instructed not to take their RUDDY/ARB medications on the AM of surgery. Patient instructed to drink 20 ounces of Gatorade or Gatorlyte (if diabetic) and it needs to be completed 1 hour (for Main OR patients) or 2 hours (scheduled section & [facility] patients) before given arrival time for procedure (NO RED Gatorade and NO Gatorade Zero). Patient verbalized understanding. Prescription for Chlorhexidine shower called into patient's pharmacy or [facility] pharmacy by patient's surgeon. 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 Verbal and written instructions given regarding proper use of Chlorhexidine body wash to patient and/or famlily during PAT visit. Patient/family also instructed to complete checklist and return it to Pre-op on the day of surgery. Patient and/or family verbalized understanding. SURVEY COMPLETED IN EPIC. documented in this encounter Plan of Treatment Upcoming Encounters Date Type Department Care Team (Late st Contact Info) Description 04/08/2025 10:15 AM EDT Office Visit [facility] [address] [place] [address] Marjan Tran PA-C [address] [place] [address] 10/29/2025 9:45 AM EDT Office Visit [facility] [address] [place] [address] [place] [address] Samir Thurman MD [address] [facility] [address] [place], [place] [id number] Scheduled Procedures Name Priority Associated Diagnoses Date/Ti me LUMBAR LAMINECTOMY DISCECTOM Y DECOMPRESSION POSTERIOR 1-2 LEVELS Lumbar stenosis with neurogenic claudication documented as of this encounter Procedures Procedure Name Priority Date/Time Associated Diagnosis Comments ECG 12-LEAD Routine 01/09/2025 1:00 PM EDT HEMOGLOBIN A1C Routine 01/09/2025 12:18 PM EDT CBC (NO DIFF) Routine 01/09/2025 12:13 PM EDT MRSA SCREEN Routine 01/09/2025 12:13 PM EDT Lumbar stenosis with neurogenic claudication POTASSIUM Routine 01/09/2025 12:13 PM EDT SCANNED - LABS 01/09/2025 documented in this encounter Results * ECG 12 Lead (01/09/2025 1:00 PM EDT) QT Interval 452 ms BH ECG QTC Interval 436 ms ECG 01/09/2025 1:00 PM EDT 01/09/2025 4:03 PM EDT Narrative ECG - 01/09/2025 4:03 PM EDT Test Reason : Pre-Op / Pre-Procedure Blood Pressure : */* mmHG Vent. Rate : 56 BPM Atrial Rate : 56 BPM P-R Int : 192 ms QRS Dur : 76 ms QT Int : 452 ms P-R-T Axes : 58 -18 9 degrees QTcB Int : 436 ms Sinus bradycardia Low voltage QRS Borderline ECG When compared with ECG of 04-Jan-2016 07:57, No significant change was found Confirmed by DENNIS ATKINS MD ([id number]) on 01/09/2025 4:03:22 PM Referred By: Confirmed By: DENNIS ATKINS MD Procedure Note Denins Atkins MD - 01/09/2025 Test Reason : Pre-Op / Pre-Procedure Blood Pressure : */* mmHG Vent. Rate : 56 BPM Atrial Rate : 56 BPM P-R Int : 192 ms QRS Dur : 76 ms QT Int : 452 ms P-R-T Axes : 58 -18 9 degrees QTcB Int : 436 ms Sinus bradycardia Low voltage QRS Borderline ECG When compared with ECG of 04-Jan-2016 07:57, No significant change was found Confirmed by WILBERT MILLER, DENNIS ([id number]) on 01/09/2025 4:03:22 PM Referred By: Confirmed By: DENNIS ATKINS MD Walt Em MD ECG ORDERABLES Final Result ECG * (ABNORMAL) Hemoglobin A1c (01/09/2025 12:18 PM EDT) Hemoglobin A1C 5.86(H) 4.80 - 5.60 % 01/09/2025 1:30 PM EDT [facility] Blood Venipuncture / Unknown 01/09/2025 12:18 PM EDT 01/09/2025 1:01 PM EDT [facility] - 01/09/2025 1:30 PM EDT Hemoglobin A1C Ranges: Increased Risk for Diabetes 5.7% to 6.4% Diabetes >= 6.5% Diabetic Goal < 7.0% Walt Em MD LAB BLOOD ORDERABLES Final Re sult [facility]
[address] [place] [address], * MRSA Screen Culture (Outpatient) - Swab, Nares (01/09/2025 12:13 PM EDT) Pathologist [facility] MRSA Screen Cx No Methicillin Resistant Staphylococcus aureus isolated PREETI 01/10/2025 1:30 PM EDT [facility] Swab Structure of anterior naris / Unknown Collection / Unknown 01/09/2025 12:13 PM EDT 01/09/2025 1:20 PM EDT [facility] - 01/10/2025 1:30 PM EDT The negative predictive value of this diagnostic test is high and should only be used to consider de-escalating anti-MRSA therapy. A positive result may indicate colonization with MRSA and must be correlated clinically. Walt Em MD MICROBIOLOGY - GENERAL ORDERA BLES Final Result [facility]
[address] [place] [address], [place] [phone] * Potassium (01/09/2025 12:13 PM EDT) Potassium 4.8 3.5 - 5.2 mmol/L 01/09/2025 1:24 PM EDT [facility] Blood Venipuncture / Unknown 01/09/2025 12:13 PM EDT 01/09/2025 1:01 PM EDT Walt Em MD LAB BLOOD ORDERABLES Final Re sult [facility]
[address] [place] [address], * CBC (No Diff) (01/09/2025 12:13 PM EDT) WBC 5.73 3.40 - 10.80 10*3/mm3 01/09/2025 1:20 PM EDT [facility] RBC 4.32 3.77 - 5.28 10*6/mm3 01/09/2025 1:20 PM EDT [facility] Hemoglobin 12.9 12.0 - 15.9 g/dL 01/09/2025 1:20 PM EDT [facility] Hematocrit 40.9 34.0 - 46.6 % 01/09/2025 1:20 PM EDT [facility] MCV 94.7 79.0 - 97.0 fL 01/09/2025 1:20 PM EDT [facility] MCH 29.9 26.6 - 33.0 pg 01/09/2025 1:20 PM EDT [facility] MCHC 31.5 31.5 - 35.7 g/dL 01/09/2025 1:20 PM EDT [facility] RDW 13.8 12.3 - 15.4 % 01/09/2025 1:20 PM EDT [facility] RDW-SD 47.8 37.0 - 54.0 fl 01/09/2025 1:20 PM EDT [facility] MPV 10.1 6.0 - 12.0 fL 01/09/2025 1:20 PM EDT [facility] Platelets 211 140 - 450 10*3/mm3 01/09/2025 1:20 PM EDT [facility] Blood Venipuncture / Unknown 01/09/2025 12:13 PM EDT 01/09/2025 1:01 PM EDT Walt Em MD LAB BLOOD ORDERABLES Final Re sult [facility]
[address] [place] [address], * LABS SCANNED (01/09/2025) [facility] LAB BLOOD ORDERABLES Final Re sult documented in this encounter Visit Diagnoses Diagnosis Lumbar stenosis with neurogenic claudication documented in this encounter Care Teams Transcriptionist Relationship Specialty Start Date End Date Edison Harrell MD [facility] [address] [place] [address] PCP - General Adolescent Medicine 03/30/16 documented as of this encounter
--- OUTSIDE RECORDS SUMMARY | 2025-01-15 06:09 | XMS_ITS | Encounter Summary ---
[facility] Address [address] [place] [address] Care Team Providers Care Chief Controller Name Role Phone Edison Harrell MD Primary Care Provider [phone] Reason for Referral * Home Health (Routine) - Pending Review Specialty Diagnoses / Procedures Referred By Shiraac t Referred To Contact Home Health Services Diagnoses Lumbar stenosis with neurogenic claudication Procedures AR OFFICE/OUTPATIENT NEW MODERATE MDM 45 MINUTES Walt Em MD [address] [facility] [address] [place] [address] Phone: tel: fax: [facility] [address] [place] [address] Phone: tel:[phone] fax:[phone] Referral ID Status Reason Start Date Expiration Date Visits Requested Visits Authorized Pending Review Specialty Services Required 01/29/2025 04/30/[phone] Reason for Visit * Auth/Cert Specialty Diagnoses / Procedures Referred By Contac t Referred To Contact Diagnoses Lumbar stenosis with neurogenic claudication Lumbar stenosis with neurogenic claudication [M48.062] Procedures AR ARTHRODESIS POSTERIOR INTERBODY 1 NTRSPC LUMBAR LUMBAR FUSION DECOMPRESSON WITH PEDICLE SCREWS- EXTEND FUSION L4-5 TO L2- L2-L4 LAMINECTOMY Referral ID Status Reason Start Date Expiration Date Visits Re quested Visits Authorized 1 1 Encounter Details Date Type Department Care Team (Late st Contact Info) Description 01/15/2025 6:09 AM EDT - 01/29/2025 12:41 PM EDT Hospital Encounter [facility] [address] [place] [address] Walt Em MD [address] [facility] [address] [place] [address] Lumbar stenosis with neurogenic claudication Discharge Disposition: Home or Self Care Social History Tobacco Use Types Packs/Day Years Used Date Smoking Tobacco: Former Cigarettes 1 46.4 0 06/26/1973 - 11/10/2019 Passive Smoke Exposure: Never Smokeless Tobacco: Never Alcohol Use Standard Drinks/Week Comments No 0 (1 standard drink = 0.6 oz pur e alcohol) [facility] Answer Date Recorded In the past 12 months has [employer], gas, oil, or water [email or web address] threatened to shut off services in your home? No 01/16/2025 AUDIT-C Answer Date Recorded Q1: How often do you have a drink containing alcohol? Never 01/27/2025 Q2: How many drinks containi ng alcohol do you have on a typical day when you are drinking? Patient does not drink Q3: How often do you have si x or more drinks on one occasion? Never 01/27/2025 Exercise Vital Sign Answer Date Recorde d On average, how many days pe r week do you engage in moderate to strenuous exercise (like a brisk walk)? 0 days 01/16/2025 On average, how many minutes do you engage in exercise at this level? 0 min 01/16/2025 Hunger Vital Sign Answer Date Recorded Within the past 12 months, y ou worried that your food would run out before you got the money to buy more. Never true 01/17/20 25 Within the past 12 months, t he food you bought just didn't last and you didn't have money to get more. Never true 01/16/2025 PRAPARE - Transportation Answer Date Re corded In the past 12 months, has l ack of transportation kept you from medical appointments or from getting medications? No 06/2024 In the past 12 months, has l ack of transportation kept you from meetings, work, or from getting things needed for daily living? No 01/16/2025 Abuse Screen Answer Date Recorded Feels Unsafe at Home or Work/School no 01/15/2025 Feels Threatened by Someone no 12/18 Does Anyone Try to Keep You From Having Contact with Others or Doing Things Outside Your Home? no 01/15/2025 Physical Signs of Abuse Present no 01/15/2025 Housing Stability Answer Date Recorded Current Living Arrangements home 01/16 Potentially Unsafe Housing Conditions none 01/28/2025 Family and Community Support Answer Cristian e Recorded If for any reason you need h elp with day-to-day activities such as bathing, preparing meals, shopping, managing finances, etc., do you get the help you need? I don't need any help 01/16/2025 Lonely or Isolated Not on file 01/16/2025 Employment Answer Date Recorded Do you want help finding or keeping work or a job? I do not need or want help 01/16/2025 Disabilities Answer Date Recorded Difficulty Concentrating, Remembering or Making Decisions no 01/15/2025 Difficulty Managing Errands Independently no 01/15/2025 Education Answer Date Recorded Do you want help with school or training? For example, starting or completing job training or getting a high school diploma, GED or equivalent No 01/16/2025 Preferred Language [place] 01/16/2025 Comments No Sex and Gender Information Value Date Recorded Sex Assigned at Female 10/21/2024 7:55 AM EDT Legal Sex Female 10:34 AM EDT Gender Identity Not on file Sexual Orientation Straight 10/21/2024 7: 55 AM EDT documented as of this encounter Last Filed Vital Signs Vital Sign Reading Time Taken Comments Blood Pressure 92/59 01/29/2025 10:39 AM EDT Pulse 82 01/29/2025 10:39 AM EDT Temperature 37.3 C (99.1 F) 01/29/2025 10:39 AM EDT Respiratory Rate 18 01/29/2025 10:39 AM EDT Oxygen Saturation 96% 01/29/2025 10:39 AM EDT Inhaled Oxygen Concentration - - Weight 105 kg (231 lb 7.7 oz) 01/22/2025 10:33 A M EDT Height 162.6 cm (5' 4.02 ) 01/22/2025 10:33 AM E DT Body Mass Index 39.71 01/22/2025 10:33 AM EDT documented in this encounter Functional Status * Question Answer Date of Assessment Author 1. Wish to be (Past 1 Month) No 025 11:55 PM EDT Edison Ravi RN 2. Non-Specific Active Suici sylvia Thoughts (Past 1 Month) No 01/27/2025 11:55 PM EDT Albert Ravi RN * Calculated C-SSRS Risk Score (Lifetime/Recent) Answer Date of Assessment Author No Risk Indicated 01/27/2025 11:55 PM EDT Edison Reyes RN * [place] Suicide Severity Rating Scale (Screener/Recent Self-Report) Question Answer Date of Assessment Author 6. Suicidal Behavior (Lifetime) No 11:55 PM EDT Edison Ravi RN documented as of this encounter Discharge Summaries * Molly Oglesby PA-C - 01/29/2025 12:41 PM EDT Images from the original note were not included. [facility] Date of Admission: 01/15/2025 Date of Discharge: 01/31/2025 Discharge Diagnosis: Lumbar stenosis with neurogenic claudication Procedures Performed Procedure(s): LUMBAR DRAIN PLACEMENT L2-4 PLIF extension from prior L4-5 construct Lumbar drain placement History of Present Illness: Ms. Allison is a 69 y.o. woman with CHF, CAD, HTN, DM that underwent alumbar fusion nearly 30 years ago by another provider. She presented with predominantly right lowerextremity pain with walking and standing intolerance. Studies demonstrated high-grade stenosis at the L2-3 and L3-4 levels above her prior construct, thus she underwent additional decompression and fusion extension to the L2-3 level from the prior construct. Surgery was complicated by a dural rent that was closed intraoperatively. Hospital Course: She was admitted to the floor for observation on strict bedrest with a Gamez catheter in place. It was noted around POD #2-3 that the patient was saturating dressings frequently. A small suture was placed at the base of the incision on 01/17/2025. She continued to have drainage from her incision but did not endorse headache. She was slowly mobilized on POD #5. Physical and Occupational therapy evaluated the patient and recommended home with assistance. Unfortunately, the patient continued to saturate bandages and experience increasing headaches when out of bed. She was taken back to the OR on POD #7 (01/22/2025). A lumbar drain was placed after several attempts and approaches. A Payne drain was attached. The patient experienced some headache with the lumbar drain in. She was continued on strict bedrest. She had some lower back and right hip pain, bilateral thigh pain, that responded to pain medicines and ice. Her drain was clamped on POD #12/5 and slowly mobilized. She was able to void independently. PT/OT again evaluated and recommended home with 08/01 care or home health. Her lumbar drain was discontinued. She ultimately discharged home with a rolling walker with a home health orderon POD #14. Condition on Discharge: Stable Discharge to: home with home health PATIENT SPECIFIC EDUCATION/PLAN: 1. Follow-up with neurosurgery HU in 1 week for wound check and suture removal. 2. No driving until follow-up. 3. The patient may get incision wet in the shower. Keep the incision clean and dry otherwise. 4. NO tub bathing or swimming until follow-up 5. Ice pack to incision(s) as needed for associated pain or swelling 6. The patient is to ambulate frequently at home and may sit as tolerated. No lifting greater than 5 pounds. Discharge Medications Discharge Medications New Medications Instructions Start Date HYDROcodone-acetaminophen 5-325 MG per tablet Commonly known as: NORCO 1 tablet, Oral, 3 Times Daily PRN pregabalin 75 MG capsule Commonly known as: LYRICA 75 mg, Oral, Every 12 Hours Scheduled Changes to Medications Instructions Start Date polyethylene glycol 17 GM/SCOOP powder Commonly known as: MiraLax What changed: medication strength how much to take when to take this reasons to take this additional instructions 17 g, Oral, Daily, Hold for loose stools Continue These Medications Instructions Start Date acetaminophen 650 MG 8 hr tablet Commonly known as: TYLENOL 1,300 mg, 3 Times Daily aspirin 81 MG EC tablet 81 mg, Daily carvedilol 12.5 MG tablet Commonly known as: COREG 12.5 mg, 2 Times Daily With Meals dilTIAZem CD 180 MG 24 hr capsule Commonly known as: CARDIZEM CD 360 mg, Nightly diphenhydrAMINE 25 mg capsule Commonly known as: BENADRYL 50 mg, As Needed docusate sodium 100 MG capsule Commonly known as: COLACE 200 mg, Nightly Entresto 49-51 MG tablet Generic drug: sacubitril-valsartan 1 tablet, Oral, 2 Times Daily fluticasone 50 MCG/ACT nasal spray Commonly known as: FLONASE 2 sprays, Daily metFORMIN 500 MG tablet Commonly known as: GLUCOPHAGE 500 mg, Nightly metoclopramide 10 MG tablet Commonly known as: REGLAN 10 mg, Nightly omeprazole 40 MG capsule Commonly known as: priLOSEC 40 mg, Daily rosuvastatin 40 MG tablet Commonly known as: CRESTOR 40 mg, Nightly venlafaxine XR 37.5 MG 24 hr capsule Commonly known as: EFFEXOR-XR 37.5 mg, Nightly Zetia 10 MG tablet Generic drug: ezetimibe 10 mg, Nightly Follow-up Appointments Future Appointments Date Time Provider Department Center 02/06/2025 2:00 PM Marjan Tran PA-C [facility] 10/29/2025 9:45 AM Samir Thurman MD [facility] Additional Instructions for the Follow-ups that You Need to Schedule Ambulatory Referral to Home Health As directed Face to Face Visit Date: 01/29/2025 Follow-up provider for Plan of Care?: I treated the patient in an acute care facility and will not continue treatment after discharge. Follow-up provider: WALT EM [[id number]] Reason/Clinical Findings: Limited mobility following lumbar fusion Describe mobility limitations that make leaving home difficult: Same Nursing/Therapeutic Services Requested: Physical Therapy Occupational Therapy PT orders: Therapeutic exercise Gait Training Strengthening Weight Bearing Status: As Tolerated Occupational orders: Activities of daily living Strengthening Home safety assessment Energy conservation Frequency: 1 Week 1 Discharge Follow-up with Specified Provider: Manav; 1 Week As directed To: Manav Follow Up: 1 Week Follow Up Details: Follow-up with physician's apartment assistant manager for wound check and suture removal Referring Provider MD RENO Flores Stephen A, MD Laryssa Helene Cybriwsky, PA-C 01/30/25 19:05 EDT Cosigned by Walt Em MD at 01/31/2025 8:52 AM EDT Associated attestation - Walt Em MD - 01/31/2025 8:52 AM EDT I have reviewed this documentation and agree. documented in this encounter Discharge Instructions * Attachments The following attachments cannot be sent through Care Everywhere. * Spinal Stenosis ([place]) * Surgery to Join Bones in the Spine (Spinal Fusion) in Adults: What to Know After ([place]) * Spinal Headache ([place]) * How to Use Cold Therapy ([place]) * Hydrocodone; Acetaminophen Capsules or Tablets ([place]) * Pregabalin Capsules ([place]) * How to Prevent Constipation After Surgery ([place]) * How to Use an Incentive Spirometer ([place]) documented in this encounter Medications at Time of Discharge acetaminophen (TYLENOL) 650 MG 8 hr tablet Take 2 tablets by mouth 3 (Three) Times a Day. aspirin 81 MG EC tablet Take 1 tablet by mouth Daily. DNS - LETTER ON CHART - STENTS PLACED X3 carvedilol (COREG) 12.5 MG tablet Take 1 tablet by mouth 2 (Two) Times a Day With Meals. diltiazem CD (CARDIZEM CD) 180 MG 24 hr capsule Take 2 capsules by mouth Every Night. diphenhydrAMINE (BENADRYL) 25 mg capsule Take 2 capsules by mouth As Needed for Itching. docusate sodium (COLACE) 100 MG capsule Take 2 capsules by mouth Every Night. fluticasone (FLONASE) 50 MCG/ACT nasal spray Administer 2 sprays into the nostril(s) as directed by provider Daily. metFORMIN (GLUCOPHAGE) 500 MG tablet Take 1 tablet by mouth Every Night. metoclopramide (REGLAN) 10 MG tablet Take 1 tablet by mouth Every Night. omeprazole (priLOSEC) 40 MG capsule Take 1 capsule by mouth Daily. polyethylene glycol (MiraLax) 17 GM/SCOOP powder Take 17 g by mouth Daily. Hold for loose stools 01/29/2025 pregabalin (LYRICA) 75 MG capsuleIndications :Lumbar stenosis with neurogenic claudication Take 1 capsule by mouth Every 12 (Twelve) Hours. 60 capsule 1 01/29/2025 8:29 AM EDT 01/29/2025 rosuvastatin (CRESTOR) 40 MG tablet Take 1 tablet by mouth Every Night. 09/16/2014 venlafaxine XR (EFFEXOR-XR) 37.5 MG 24 hr capsule Take 1 capsule by mouth Every Night. 03/24/2021 Zetia 10 MG tablet Take 1 tablet by mouth Every Night. EZETIMIBE 03/28/2023 HYDROcodone-acetam inophen (NORCO) 5-325 MG per tabletIndications: Lumbar stenosis with neurogenic claudication Take 1 tablet by mouth 3 (Three) Times a Day As Needed for Moderate Pain. 15 tablet 01/29/2025 8:29 AM EDT 01/29/2025 sacubitril-valsart an (Entresto) 49-51 MG tablet Take 1 tablet by mouth 2 (Two) Times a Day. 90 tablet 01/05/2025 5 documented as of this encounter Progress Notes * Walt Em MD - 01/29/2025 6:23 AM EDT NEUROSURGERY PROGRESS NOTE LOS: 14 days Patient Care Team: Edison Harrell MD as PCP - General (Adolescent Medicine) Samir Thurman MD as Consulting Physician (Cardiology) Chief Complaint: Low back and right leg pain with walking and standing intolerance. POD#: 14 Procedures: L2-4 PLIF extension from prior L4-5 construct. Lumbar drain placement. Interval History: Patient Complaints: None. Patient Denies: Significant headache. Vital Signs: Blood pressure 135/59, pulse 67, temperature 97.1 ??F (36.2 ??C), temperature source Axillary, resp. rate 18, height 162.6 cm (64.02 ), weight 105 kg (231 lb 7.7 oz), SpO2 93%. Intake/Output: Intake/Output Summary (Last 24 hours) at 01/29/2025 0623 Last data filed at 01/28/2025 1700 Gross per 24 hour Intake 720 ml Output -- Net 720 ml Physical Exam: The patient is sitting up at bedside. Her incision is dry and intact. She is in good spirits. Assessment/Plan: 1. 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 Intraoperative dural rent with CSF leak. Now status post lumbar drain placement for CSF diversion. Drain has been clamped since yesterday. 2. Congestive heart failure. 3. Coronary artery disease. 4. Diabetes mellitus: Continue home medication and sliding scale as needed. 5. Hypertension. 6. Obesity. 7. DVT prophylaxis: Mechanical/subcu heparin. 8. Disposition: Home with home health PT/OT. Follow-up with HU in my office in 1 week for suture removal. Walt Em MD 01/29/25 06:23 EDT * Molly Oglesby PA-C - 01/28/2025 2:04 PM EDT Came over to visit Ms. Allison this afternoon. She is lying in bed, but she was mobilized with PT and ambulated across the hyde. She experienced a lot of drainage from her lumbar drain site after itwas pulled this morning, but that appears to have discontinued. She has not endorsed further headache. We will continue to mobilize her. Lumbar incision remains clean and dry. The buttonhole dressings over the drain site are also clean and dry and intact. Cosigned by Walt Em MD at 01/28/2025 4:24 PM EDT Associated attestation - Walt Em MD - 01/28/2025 4:24 PM EDT I have reviewed this documentation and agree. * Walt Em MD - 01/28/2025 6:48 AM EDT NEUROSURGERY PROGRESS NOTE LOS: 13 days Patient Care Team: Edison Harrell MD as PCP - General (Adolescent Medicine) Samir Thurman MD as Consulting Physician (Cardiology) Chief Complaint: Low back and right leg pain with walking and standing intolerance. POD#: 28/11 Procedures: L2-4 PLIF extension from prior L4-5 construct. Lumbar drain placement. Interval History: She ambulated yesterday but her legs feel heavy and she is a bit deconditioned. Patient Complaints: Legs being generally weak. Patient Denies: Voiding difficulty or headache. Vital Signs: Blood pressure 146/66, pulse 68, temperature 97.5 ??F (36.4 ??C), temperature source Axillary, resp. rate 18, height 162.6 cm (64.02 ), weight 105 kg (231 lb 7.7 oz), SpO2 99%. Intake/Output: Intake/Output Summary (Last 24 hours) at 01/28/2025 0649 Last data filed at 01/27/2025 1607 Gross per 24 hour Intake -- Output 1150 ml Net -1150 ml Physical Exam: Dry dressing is in place on her incision. The incision line looks intact. I have remove the drain and placed a small pressure dressing over the drain exit site. Assessment/Plan: 1. 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 Intraoperative dural rent with CSF leak. Now status post lumbar drain placement for CSF diversion. Drain has been clamped since yesterday. 2. Congestive heart failure. 3. Coronary artery disease. 4. Diabetes mellitus: Continue home medication and sliding scale as needed. 5. Hypertension. 6. Obesity. 7. DVT prophylaxis: Mechanical/subcu heparin. 8. Disposition: Will look into potential inpatient rehab options given her overall deconditioning. Walt Em MD 01/28/25 06:49 EDT * Walt Em MD - 01/27/2025 6:25 AM EDT NEUROSURGERY PROGRESS NOTE LOS: 12 days Patient Care Team: Edison Harrell MD as PCP - General (Adolescent Medicine) Samri Thurman MD as Consulting Physician (Cardiology) Chief Complaint: Low back and right leg pain with walking and standing intolerance. POD#:05/22 Procedures: L2-4 PLIF extension from prior L4-5 construct Lumbar drain placement. Interval History: Patient Complaints: None. Patient Denies: Headache. Vital Signs: Blood pressure 125/68, pulse 85, temperature 99.6 ??F (37.6 ??C), temperature source Axillary, resp. rate 18, height 162.6 cm (64.02 ), weight 105 kg (231 lb 7.7 oz), SpO2 95%. Intake/Output: Intake/Output Summary (Last 24 hours) at 01/27/2025 0626 Last data filed at 01/27/2025 0507 Gross per 24 hour Intake 480 ml Output 2301 ml Net -1821 ml Physical Exam: The patient is awake and lying on her side. Dry dressing is in place on her incision. Assessment/Plan: 1. 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 Intraoperative dural rent with CSF leak. Now status post lumbar drain placement for CSF diversion. 2. Congestive heart failure. 3. Coronary artery disease. 4. Diabetes mellitus: Continue home medication and sliding scale as needed. 5. Hypertension. 6. Obesity. 7. DVT prophylaxis: Mechanical/subcu heparin. 8. Disposition: Mobilize patient. Clamp drain. Walt Em MD 01/27/25 06:26 EDT * Walt Em MD - 01/26/2025 6:04 AM EDT NEUROSURGERY PROGRESS NOTE LOS: 11 days Patient Care Team: Edison Harrell MD as PCP - General (Adolescent Medicine) Samir Thurman MD as Consulting Physician (Cardiology) Chief Complaint: Low back and right leg pain with walking and standing intolerance. POD#: 04/21 Procedures: L2-4 PLIF extension from prior L4-5 construct Lumbar drain placement. Interval History: Patient Complaints: Anterior thigh soreness bilaterally. She has some very mild headache. Patient Denies: Weakness or numbness. Vital Signs: Blood pressure 112/78, pulse 80, temperature 99 ??F (37.2 ??C), temperature source Oral, resp. rate 18, height 162.6 cm (64.02 ), weight 105 kg (231 lb 7.7 oz), SpO2 93%. Intake/Output: Intake/Output Summary (Last 24 hours) at 01/26/2025 0604 Last data filed at 01/26/2025 0506 Gross per 24 hour Intake 480 ml Output 2125 ml Net -1645 ml Lumbar drain output: 156/132 mL Physical Exam: The patient awakens easily and is in good spirits. Dry dressing is in place on her incision. Assessment/Plan: 1. 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 Intraoperative dural rent with CSF leak. Now status post lumbar drain placement for CSF diversion. Draining 12 mL/h. 2. Congestive heart failure. 3. Coronary artery disease. 4. Diabetes mellitus: Continue home medication and sliding scale as needed. 5. Hypertension. 6. Obesity. 7. DVT prophylaxis: Mechanical/subcu heparin. 8. Disposition: Continue strict bedrest and lumbar drain. Hopefully mobilize tomorrow. Walt Em MD 01/26/25 06:04 EDT * Shy Saba PA - 01/25/2025 11:22 AM EDT Images from the original note were not included. [facility] PROGRESS NOTE Patient Name: Latosha Allison : 1955 Date of Admission: 01/15/2025 Length of Stay: 10 Primary Care Physician: Edison Harrell MD Subjective CC: RLE pain Admission diagnosis: Lumbar stenosis with neurogenic claudication [M48.062] HPI: Latosha Allison is a 69 y.o. female who is 3 Days Post-Op s/p lumbar fusion extension with csf leak. She has a lumbar drain and is currently HOB flat. She notes no events overnight, some tenderness about incision but the leg pain has been 8/10 and improved to 6/10 with percoset. RN notes percoset order is about to . Review of Systems ROS is negative except as mentioned in the HPI. Objective Vital Signs: Temp: [98.3 ??F (36.8 ??C)-98.8 ??F (37.1 ??C)] 98.3 ??F (36.8 ??C) Heart Rate: [57-70] 68 Resp: [18] 18 BP: (102-149)/(35-88) 129/73 Pulse Av.9 Min: 57 Max: 70 Systolic (24hrs), Av , Min:102 , Max:149 Diastolic (24hrs), Av, Min:35, Max:88 Temp (24hrs), Av.5 ??F (36.9 ??C), Min:98.3 ??F (36.8 ??C), Max:98.8 ??F (37.1 ??C) I/O this shift: In: - Out: 335 [Urine:275] Results Reviewed: I have personally reviewed current lab, radiology, and data and agree. Invalid input(s): TROPONININT CrCl cannot be calculated (Patient's most recent lab result is older than the maximum 30 days allowed.). Microbiology Results Abnormal None Imaging Results (Last 24 Hours) No results found for the last 24 hours. Results for orders placed during the hospital encounter of 06/05/24 Adult Transthoracic Echo Complete W/ Cont if Necessary Per Protocol 06/05/2024 4:02 PM Interpretation Summary Left ventricular systolic function is normal. Left ventricular ejection fraction appears to be 56 -60%. The left ventricular cavity is dilated. Left ventricular wall thickness is consistent with mild concentric hypertrophy. Left ventricular diastolic function is consistent with (grade I) impaired relaxation. I have reviewed the medications: Scheduled Meds:aspirin, 81 mg, Oral, Daily carvedilol, 12.5 mg, Oral, BID With Meals dilTIAZem CD, 360 mg, Oral, Nightly fluticasone, 2 spray, Nasal, Daily heparin (porcine), 5,000 Units, Subcutaneous, Q8H insulin lispro, 2-7 Units, Subcutaneous, 4x Daily AC & at Bedtime metFORMIN, 500 mg, Oral, Nightly metoclopramide, 10 mg, Oral, Nightly pantoprazole, 40 mg, Oral, Q AM senna-docusate sodium, 2 tablet, Oral, BID And polyethylene glycol, 17 g, Oral, Daily rosuvastatin, 40 mg, Oral, Nightly sacubitril-valsartan, 1 tablet, Oral, Q12H sodium chloride, 10 mL, Intravenous, Q12H venlafaxine XR, 37.5 mg, Oral, Nightly PRN Meds: acetaminophen OR acetaminophen OR acetaminophen senna-docusate sodium AND polyethylene glycol AND bisacodyl AND bisacodyl dextrose dextrose diphenhydrAMINE diphenhydrAMINE diphenhydrAMINE glucagon (human recombinant) [Transfer Hold] HYDROcodone-acetaminophen Morphine [] Morphine AND naloxone ondansetron ODT OR ondansetron oxyCODONE-acetaminophen promethazine OR promethazine sodium chloride sodium chloride Physical Exam: Today I find patient lying flat on he right side, appears comfortable and in no acute distress. at bedside. she Is alert and oriented. Able to move all four extremities with no sensory deficits. Dressing in place c/d/i Assessment / Plan Lumbar stenosis with neurogenic claudication S/p fusion extension to L2-3 from L4-5 previous construct. Intraoperative dural rent with csf leak and Payne drain in place running 12 ml/h. Pt denies BUTCHER. Please continue bedrest and lumbar drain for the next several days. Will unhold her norco and add lyrica for her sciatic pain as percoset provided minimal relief. Electronically signed by Shy Saba PA-C, 01/25/25, 11:22 EDT. Cosigned by Bakari Anthony MD at 01/26/2025 6:23 PM EDT Associated attestation - Bakari Anthony MD - 01/26/2025 6:23 PM EDT I have reviewed this documentation and agree. * Walt Em MD - 01/24/2025 10:27 AM EDT NEUROSURGERY PROGRESS NOTE LOS: 9 days Patient Care Team: Edison Harrell MD as PCP - General (Adolescent Medicine) Samir Thurman MD as Consulting Physician (Cardiology) Chief Complaint: Low back and right leg pain with walking and standing intolerance. POD#: 02/17 Procedures: L2-4 PLIF extension from prior L4-5 construct Lumbar drain placement. Interval History: Patient Complaints: Right hip pain, mild. Patient Denies: Headache. Vital Signs: Blood pressure 112/59, pulse 63, temperature 98.9 ??F (37.2 ??C), temperature source Oral, resp. rate 18, height 162.6 cm (64.02 ), weight 105 kg (231 lb 7.7 oz), SpO2 98%. Intake/Output: Intake/Output Summary (Last 24 hours) at 01/24/2025 1027 Last data filed at 01/24/2025 1004 Gross per 24 hour Intake -- Output 3114 ml Net -3114 ml Lumbar drain output: 144/132 Physical Exam: The patient is alert and lying on her side. Dry dressing is in place on her incision. Data Review: Accu-Cheks: 97-160 Assessment/Plan: 1. 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 Intraoperative dural rent with CSF leak. Now status post lumbar drain placement for CSF diversion. Draining 12 mL/h. 2. Congestive heart failure. 3. Coronary artery disease. 4. Diabetes mellitus: Continue home medication and sliding scale as needed. 5. Hypertension. 6. Obesity. 7. DVT prophylaxis: Mechanical/subcu heparin. 8. Disposition: Continue strict bedrest and lumbar drain for the next several days. Walt Em MD 01/24/25 10:27 EDT * Walt Em MD - 01/23/2025 7:01 AM EDT NEUROSURGERY PROGRESS NOTE LOS: 8 days Patient Care Team: Edison Harrell MD as PCP - General (Adolescent Medicine) Samir Thurman MD as Consulting Physician (Cardiology) Chief Complaint: Low back and right leg pain with walking and standing intolerance. POD#: 01/16 Procedures: L2-4 PLIF extension from prior L4-5 construct Lumbar drain placement. Interval History: Patient Complaints: Very mild headache. Patient Denies: Lower extremity pain. Vital Signs: Blood pressure 119/59, pulse 66, temperature 98.6 ??F (37 ??C), temperature source Oral, resp. rate 18, height 162.6 cm (64.02 ), weight 105 kg (231 lb 7.7 oz), SpO2 94%. Intake/Output: Intake/Output Summary (Last 24 hours) at 01/23/2025 0702 Last data filed at 01/23/2025 0603 Gross per 24 hour Intake 400 ml Output 2329 ml Net -1929 ml Lumbar drain output: 60/144 mL. Physical Exam: The patient is awake and alert. She is lying on her side and drinking. Dry dressing is in place on her incision. Data Review: Accu-Cheks: 105-167. Assessment/Plan: 1. 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 Intraoperative dural rent with CSF leak. Now status post lumbar drain placement for CSF diversion. Draining 12 mL/h. 2. Congestive heart failure. 3. Coronary artery disease. 4. Diabetes mellitus: Continue home medication and sliding scale as needed. 5. Hypertension. 6. Obesity. 7. DVT prophylaxis: Mechanical/subcu heparin. 8. Disposition: Continue strict bedrest and lumbar drain for the next several days. Walt Em MD 01/23/25 07:02 EDT * Shannon Mai, ,RD,LD - 01/22/2025 9:29 AM EDT Nutrition Services Patient Name: Latosha Allison Date of : 1955 Admit Date: 01/15/2025 Patient screened for LOS. Chart reviewed. No significant weight changes documented/reported and PO intake has been adequate. No nutrition monitoring warranted at this time. RDN following peripherally. Available via consult. Electronically signed by: Shannon Mai, MS,RD,LD 01/22/25 09:29 EDT * Walt Em MD - 01/21/2025 6:06 AM EDT NEUROSURGERY PROGRESS NOTE LOS: 6 days Patient Care Team: Edison Harrell MD as PCP - General (Adolescent Medicine) Samir Thurman MD as Consulting Physician (Cardiology) Chief Complaint: Low back and right leg pain with walking and standing intolerance. POD#: 6 Days Post-Op Procedures: L2-4 PLIF extension from prior L4-5 construct. Interval History: Patient Complaints: The patient had a little headache when bearing down to void but otherwise is ambulated without any difficulty or headache. Patient Denies: Nausea or vomiting. Vital Signs: Blood pressure 120/48, pulse 95, temperature 98.5 ??F (36.9 ??C), temperature source Axillary, resp. rate 18, SpO2 95%. Intake/Output: Intake/Output Summary (Last 24 hours) at 01/21/2025 0606 Last data filed at 01/20/2025 1817 Gross per 24 hour Intake 318 ml Output 2850 ml Net -2532 ml Physical Exam: The patient has some blood-tinged fluid coming from her incision. This is a small trickle but has stained numerous dressings. Data Review: Accu-Cheks: 93-1 35 Assessment/Plan: 1. 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 Intraoperative dural rent with CSF leak. 2. Congestive heart failure. 3. Coronary artery disease. 4. Diabetes mellitus: Continue home medication and sliding scale as needed. 5. Hypertension. 6. Obesity. 7. DVT prophylaxis: Mechanical/subcu heparin. 8. Disposition: Will mobilize patient and observe wound. If drainage continues then we may need to reexplore her dural repair site. Walt Em MD 01/21/25 06:06 EDT * Molly Oglesby PA-C - 01/20/2025 1:32 PM EDT Nursing informing this morning that upon being mobilized and moved out of bed, a lot of clear fluiddrained from Ms. Allison's surgical incision. It soaked her bandage and there was some dripping onthe floor. I came over in check on the patient this afternoon. She continues to deny headaches or new difficulties with her lower extremities. The bandage over her incision (last replaced at 10:07) is CDI. We will continue to monitor for increased headache, saturated bandages, etc. Cosigned by Walt Em MD at 01/20/2025 1:42 PM EDT Associated attestation - Walt Em MD - 01/20/2025 1:42 PM EDT I have reviewed this documentation and agree. * Walt Em MD - 01/20/2025 5:57 AM EDT NEUROSURGERY PROGRESS NOTE LOS: 5 days Patient Care Team: Edison Harrell MD as PCP - General (Adolescent Medicine) Samir Thurman MD as Consulting Physician (Cardiology) Chief Complaint: Low back and right leg pain with walking and standing intolerance. POD#: 5 Days Post-Op Procedures: L2-4 PLIF extension from prior L4-5 construct. Interval History: Patient Complaints: None. Patient Denies: Headache. Vital Signs: Blood pressure 127/60, pulse 82, temperature 98.9 ??F (37.2 ??C), temperature source Oral, resp. rate 18, SpO2 96%. Intake/Output: Intake/Output Summary (Last 24 hours) at 01/20/2025 0558 Last data filed at 01/20/2025 0305 Gross per 24 hour Intake 680 ml Output 3500 ml Net -2820 ml Physical Exam: Dry dressing is in place on her incision. Dressing was changed once yesterday. Data Review: Accu-Cheks: 86-121 Assessment/Plan: 1. 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 Intraoperative dural rent with CSF leak. 2. Congestive heart failure. 3. Coronary artery disease. 4. Diabetes mellitus: Continue home medication and sliding scale as needed. 5. Hypertension. 6. Obesity. 7. DVT prophylaxis: Mechanical/subcu heparin. 8. Disposition: Slowly mobilize patient. Hopefully home soon. Walt Em MD 01/20/25 05:58 EDT * Walt Em MD - 01/19/2025 6:01 AM EDT NEUROSURGERY PROGRESS NOTE LOS: 4 days Patient Care Team: Edison Harrell MD as PCP - General (Adolescent Medicine) Samir Thurman MD as Consulting Physician (Cardiology) Chief Complaint: Low back and right leg pain with walking and standing intolerance. POD#: 4 Days Post-Op Procedures: L2-4 PLIF extension from prior L4-5 construct. Interval History: Patient Complaints: Incisional discomfort but improving. Patient Denies: Headache. Vital Signs: Blood pressure 113/45, pulse 75, temperature 99.4 ??F (37.4 ??C), temperature source Axillary, resp. rate 18, SpO2 96%. Intake/Output: Intake/Output Summary (Last 24 hours) at 01/19/2025 0601 Last data filed at 01/19/2025 0344 Gross per 24 hour Intake 720 ml Output 2800 ml Net -2080 ml Physical Exam: The patient awakens easily and is in good spirits. Small amount of serous drainage is noted on her dressing. Apparently the dressing was changed twiceyesterday. Data Review: Accu-Cheks: 99-139 Assessment/Plan: 1. 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 Intraoperative dural rent with CSF leak. 2. Congestive heart failure. 3. Coronary artery disease. 4. Diabetes mellitus: Continue home medication and sliding scale as needed. 5. Hypertension. 6. Obesity. 7. DVT prophylaxis: Mechanical/subcu heparin. 8. Disposition: Continue strict bedrest and head of bed flat for now. Will continue to follow her wound. In the absence of headache and given the extent of her incision I suspect were dealing with seroma. Hopefully out of bed beginning tomorrow. Walt Em MD 01/19/25 06:01 EDT * Walt Em MD - 01/18/2025 7:08 AM EDT NEUROSURGERY PROGRESS NOTE LOS: 3 days Patient Care Team: Edison Harrell MD as PCP - General (Adolescent Medicine) Samir Thurman MD as Consulting Physician (Cardiology) Chief Complaint: Low back and right leg pain with walking and standing intolerance. POD#: 3 Days Post-Op Procedures: L2-4 PLIF extension from prior L4-5 construct. Interval History: Dressing was not changed since yesterday. Patient Complaints: None. Patient Denies: Headache. Vital Signs: Blood pressure 132/67, pulse 74, temperature 97.9 ??F (36.6 ??C), temperature source Oral, resp. rate 18, SpO2 94%. Intake/Output: Intake/Output Summary (Last 24 hours) at 01/18/2025 0708 Last data filed at 01/18/2025 0400 Gross per 24 hour Intake -- Output 2100 ml Net -2100 ml Physical Exam: Patient is awake and alert. She is in good spirits. There is some serous drainage from her wound. Neck is supple. Assessment/Plan: 1. 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 Intraoperative dural rent with CSF leak. 2. Congestive heart failure. 3. Coronary artery disease. 4. Diabetes mellitus: Continue home medication and sliding scale as needed. 5. Hypertension. 6. Obesity. 7. DVT prophylaxis: Mechanical/subcu heparin. 8. Disposition: Continue strict bedrest and head of bed flat for now. Will continue to follow her wound. In the absence of headache and given the extent of her incision I suspect were dealing with seroma. Walt Em MD 01/18/25 07:08 EDT * Walt Em MD - 01/17/2025 7:15 AM EDT NEUROSURGERY PROGRESS NOTE LOS: 2 days Patient Care Team: Edison Harrell MD as PCP - General (Adolescent Medicine) Samir Thurman MD as Consulting Physician (Cardiology) Chief Complaint: Low back and right leg pain with walking and standing intolerance. POD#: 2 Days Post-Op Procedures: L2-4 PLIF extension from prior L4-5 construct. Interval History: Patient Complaints: Mild incisional pain. Patient Denies: Headache. Vital Signs: Blood pressure 150/62, pulse 78, temperature 98.8 ??F (37.1 ??C), temperature source Oral, resp. rate 18, SpO2 91%. Intake/Output: Intake/Output Summary (Last 24 hours) at 01/17/2025 0715 Last data filed at 01/17/2025 0602 Gross per 24 hour Intake 2311.33 ml Output 2500 ml Net -188.67 ml Physical Exam: The patient is alert and in good spirits. Dry dressing is in place on her incision. Her dressing was changed twice yesterday. Those are at bedside. Dressings have serous drainage on them. Data Review: Results from last 7 days Lab Units 01/16/25 0812 01/15/25 1403 WBC 10*3/mm3 -- 9.31 HEMOGLOBIN g/dL 11.1* 12.3 HEMATOCRIT % 36.3 38.4 PLATELETS 10*3/mm3 -- 203 Assessment/Plan: 1. 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 Intraoperative dural rent with CSF leak. 2. Congestive heart failure. 3. Coronary artery disease. 4. Diabetes mellitus: Continue home medication and sliding scale as needed. 5. Hypertension. 6. Obesity. 7. DVT prophylaxis: Mechanical/subcu heparin. 8. Disposition: Continue strict bedrest and head of bed flat for now. Walt Em MD 01/17/25 07:15 EDT * Walt Em MD - 01/16/2025 6:40 AM EDT NEUROSURGERY PROGRESS NOTE LOS: 1 day Patient Care Team: Edison Harrell MD as PCP - General (Adolescent Medicine) Samir Thurman MD as Consulting Physician (Cardiology) Chief Complaint: Low back and right leg pain with walking and standing intolerance. POD#: 1 Day Post-Op Procedures: L2-4 PLIF extension from prior L4-5 construct. Interval History: Patient Complaints: Incisional pain. Patient Denies: Headache. Vital Signs: Blood pressure 153/71, pulse 97, temperature 99.7 ??F (37.6 ??C), temperature source Oral, resp. rate 16, SpO2 97%. Intake/Output: Intake/Output Summary (Last 24 hours) at 01/16/2025 0640 Last data filed at 01/16/2025 0254 Gross per 24 hour Intake 2235 ml Output 1900 ml Net 335 ml Physical Exam: The patient awakens easily. Her dressing has been changed this morning. The old one is at bedside and there is moderate heme staining on it. The current dressing is dry. Motor function is intact in her lower extremities. Data Review: Accu-Cheks: 118-166 H&H pending Assessment/Plan: 1. 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 Intraoperative dural rent with CSF leak. 2. Congestive heart failure. 3. Coronary artery disease. 4. Diabetes mellitus: Continue home medication and sliding scale as needed. 5. Hypertension. 6. Obesity. 7. DVT prophylaxis: Mechanical/subcu heparin. 8. Disposition: Continue strict bedrest and head of bed flat for now. Continue IV fluids for now. Walt Em MD 01/16/25 06:40 EDT documented in this encounter H&P Notes * Yuni Mathias, GAURAV - 01/15/2025 7:32 AM EDT Pre-Op H&P Latosha Allison [id number] 1955 Chief complaint: Back pain Subjective: Patient is a 69 y.o.female presents for scheduled surgery by Dr. Em. She anticipates a LUMBAR FUSION DECOMPRESSON WITH PEDICLE SCREWS- EXTEND FUSION L4-5 TO L2- L2-L4 LAMINECTOMY today. She reports low back pain since last January. She states she bent down to pick something up and felt a pop in her back. She has pain that radiates down the right lower extremity. She denies saddle anesthesia. She had previous back surgery 30 years ago. She tried physical therapy without benefit Review of Systems: Constitutional-- No fever, chills or sweats. No fatigue. CV-- No chest pain, palpitation or syncope. +HTN, HLD, CHF, CAD +cardiac clearance Resp-- No SOB, cough, hemoptysis. +CARLOS on cpap Skin--No rashes or lesions Allergies: Allergies Allergen Reactions Altace [Ramipril] Cough Amoxicillin-Pot Clavulanate Other (See Comments) Yeast issues Imdur [Isosorbide Nitrate] Other (See Comments) HEADACHE Home Meds: Medications Prior to Admission Medication Sig Dispense Refill Last Dose/Taking acetaminophen (TYLENOL) 650 MG 8 hr tablet Take 2 tablets by mouth 3 (Three) Times a Day. 5Bedtime aspirin 81 MG EC tablet Take 1 tablet by mouth Daily. DNS - LETTER ON CHART - STENTS PLACED X3 carvedilol (COREG) 12.5 MG tablet Take 1 tablet by mouth 2 (Two) Times a Day With Meals. Chlorhexidine Gluconate 4 % solution Shower each day with solution for 5 days beginning 5 days before surgery. 120 mL 0 diltiazem CD (CARDIZEM CD) 180 MG 24 hr capsule Take 2 capsules by mouth Every Night. diphenhydrAMINE (BENADRYL) 25 mg capsule Take 2 capsules by mouth As Needed for Itching. docusate sodium (COLACE) 100 MG capsule Take 2 capsules by mouth Every Night. fluticasone (FLONASE) 50 MCG/ACT nasal spray Administer 2 sprays into the nostril(s) as directed byprovider Daily. meloxicam (MOBIC) 15 MG tablet Take 1 tablet by mouth Daily. metFORMIN (GLUCOPHAGE) 500 MG tablet Take 1 tablet by mouth Every Night. metoclopramide (REGLAN) 10 MG tablet Take 1 tablet by mouth Every Night. mupirocin (BACTROBAN) 2 % nasal ointment Apply to the inside of each nostril with a cotton swab twotimes daily, morning and evening, for 5 days before surgery. 10 each 0 omeprazole (priLOSEC) 40 MG capsule Take 1 capsule by mouth Daily. Polyethylene Glycol 3350 (MIRALAX PO) Take by mouth As Needed. rosuvastatin (CRESTOR) 40 MG tablet Take 1 tablet by mouth Every Night. sacubitril-valsartan (Entresto) 49-51 MG tablet Take 1 tablet by mouth 2 (Two) Times a Day. 90 tablet 0 venlafaxine XR (EFFEXOR-XR) 37.5 MG 24 hr capsule Take 1 capsule by mouth Every Night. Zetia 10 MG tablet Take 1 tablet by mouth Every Night. EZETIMIBE PMH: Past Medical History: Diagnosis Date Arthritis Arthritis of back Arthritis of neck Bursitis of hip CHF (congestive heart failure) AFTER RI Coronary artery disease CTS (carpal tunnel syndrome) Diabetes mellitus X ABOUT 15 YEARS, TESTING PRN type 2 Diverticula, colon Dyslipidemia Fracture of wrist Fracture, radius Fracture, ulna GERD (gastroesophageal reflux disease) H/O- OMEPRAZOLE Hiatal hernia STILL PRESENT Hip arthrosis Hyperlipidemia Hypertension Ischemic heart disease Knee swelling Low back pain Low back strain Lumbosacral disc disease RI, old 30 YEARS AGO Osteoporosis Periarthritis of shoulder Presence of dental bridge UPPER PERMANENT BRIDGE IN PLACE Sleep apnea CPAP therapy Spinal stenosis T10 AND T8-9 Tear of meniscus of knee Thoracic disc disorder Wears glasses PSH: Past Surgical History: Procedure Laterality Date ADENOIDECTOMY BLEPHAROPLASTY Bilateral BRACHIOPLEXUS EXPLORATION CARDIAC CATHETERIZATION Left 01/05/2016 Procedure: Cardiac catheterization; Surgeon: Yoshi Cote MD; Location: [facility]; Service: CARDIAC CATHETERIZATION 05/26/2003 No evidence of fixed CAD; spontaneous spasm of the 2nd obtuse marginal which resolved following intracoronary NTG; estimated LVEF of 60%. CARDIAC CATHETERIZATION 07/15/2009 No obstructive CAD; 0% to 40% mid LAD plaque. Patent RCA and LCX stents; LVF 50%. CARDIAC CATHETERIZATION N/A 06/05/2024 Procedure: Left Heart Cath; Surgeon: Yoshi Cote IV, MD; Location: [facility]; Service: Cardiovascular; Laterality: N/A; CARDIAC CATHETERIZATION N/A 06/05/2024 Procedure: Optical Coherence Tomography; Surgeon: Yoshi Cote IV, MD; Location: [facility]; Service: Cardiovascular; Laterality: N/A; CARDIAC CATHETERIZATION N/A 06/05/2024 Procedure: Stent ALYSSA coronary; Surgeon: Yoshi Cote IV, MD; Location: [facility]; Service: Cardiovascular; Laterality: N/A; CARDIAC SURGERY BRACHTERHAPY X ONE CARPAL TUNNEL RELEASE BILATERAL CATARACT EXTRACTION, BILATERAL Bilateral SECTION X2 COLONOSCOPY 2014 CORONARY ANGIOPLASTY WITH STENTS- x3 cardiac stents in place CORONARY STENT PLACEMENT DILATATION AND CURETTAGE X2 ENDOSCOPY LASER ABLATION 2002 UTERUS ORIF FOREARM FRACTURE Left 02/2007 left wrist fracutre - PLate and screws in place OTHER SURGICAL HISTORY SPINAL FUSION 1994 L5-S1 Dr. Rajan- HARDWARE IN PLACE TONSILLECTOMY TRIGGER FINGER RELEASE Left Middle ; repair TRIGGER POINT INJECTION Immunization History: Influenza: UTD Pneumococcal: UTD Tetanus: UTD Social History: Tobacco: Social History Tobacco Use Smoking Status Former Current packs/day: 0.00 Average packs/day: 1 pack/day for 46.4 years (46.4 ttl pk-yrs) Types: Cigarettes Start date: 06/26/1973 Quit date: 11/10/2019 Years since quittin.1 Passive exposure: Never Smokeless Tobacco Never Alcohol: Social History Substance and Sexual Activity Alcohol Use No Physical Exam:BP 136/78 (BP Location: Right arm, Patient Position: Lying) Pulse 57 Temp 97.6 ??F (36.4 ??C) (Temporal) Resp 18 SpO2 97% General Appearance: Alert, cooperative, no distress, appears stated age Head: Normocephalic, without obvious abnormality, atraumatic Lungs: Clear to auscultation bilaterally, respirations unlabored Heart: Regular rate and rhythm, S1 and S2 normal Abdomen: Soft without tenderness Extremities: Extremities normal, atraumatic, no cyanosis or edema Skin: Skin color, texture, turgor normal, no rashes or lesions Neurologic: Grossly intact Results Review: LABS: Lab Results Component Value Date WBC 5.73 01/09/2025 HGB 12.9 01/09/2025 HCT 40.9 01/09/2025 MCV 94.7 01/09/2025 PLT 211 01/09/2025 NEUTROABS 3.04 06/05/2024 GLUCOSE 122 (H) 06/05/2024 BUN 22 06/05/2024 CREATININE 0.78 06/05/2024 EGFRIFNONA 73 01/04/2016 NA 142 06/05/2024 K 4.8 01/09/2025 CL 106 06/05/2024 CO2 24.0 06/05/2024 CALCIUM 9.1 06/05/2024 ALBUMIN 4.2 06/05/2024 AST 15 06/05/2024 ALT 12 06/05/2024 BILITOT 0.3 06/05/2024 RADIOLOGY: Study Result Narrative & Impression CT LUMBAR SPINE W INTRATHECAL CONTRAST Date of Exam: 12/09/2024 7:19 AM EDT Indication: BACK PAIN/STENOSIS. Comparison: None available. Technique: Axial sections were obtained of the lumbar spine with reformatted images following the injection of intrathecal contrast. The localizer images are reviewed. Findings: Status post L4-5 posterior fusion without evidence of hardware failure. The conus medullaris terminates normally at L1. No acute fracture is identified. No aggressive appearing lytic or sclerotic bone lesions. T12/L1: Mild broad-based disc bulge with mild impress on the ventral thecal sac. Minimal facet arthropathy. Mild bilateral foraminal narrowing. L1-L2: Moderate disc bulge. Mild facet arthropathy. Moderate ligamentum flavum hypertrophy. Mild canal stenosis. Mild bilateral foraminal narrowing. L2-L3: Mild broad-based disc bulge. Moderate facet arthropathy and severe ligamentum flavum hypertrophy resulting in moderate canal stenosis. There is severe foraminal narrowing, right greater than left. L3-L4: Extremely limited by streak artifact. There is at least a moderate to severe disc bulge and there is severe ligamentum flavum hypertrophy resulting in severe canal stenosis. There is mild to moderate bilateral foraminal narrowing. L4-L5: No definite recurrent disc bulge though evaluation is limited by streak artifact. No canal stenosis. No foraminal narrowing. L5-S1: Mild disc bulge. Moderate facet arthropathy. Mild bilateral foraminal narrowing. Evaluation of the adjacent soft tissues is unremarkable. IMPRESSION: Impression: Degenerative and postsurgical changes of the lumbar spine as described above. I reviewed the patient's new clinical results. Cancer Staging (if applicable) Cancer Patient: __ yes __no __unknown; If yes, clinical stage T:__ N:__M:__, stage group or __N/A Impression: Lumbar stenosis with neurogenic claudication Plan: LUMBAR FUSION DECOMPRESSON WITH PEDICLE SCREWS- EXTEND FUSION L4-5 TO L2- L2-L4 LAMINECTOMY Yuni Mathias APRN 01/15/2025 07:32 EDT Cosigned by Walt Em MD at 01/15/2025 1:16 PM EDT Associated attestation - Walt Em MD - 01/15/2025 1:16 PM EDT . documented in this encounter Procedure Notes * Marjan Tran PA-C - 01/17/2025 12:05 PM EDT Patient continued to have copious serous drainage particularly from the lower end of her incision. Using sterile technique, I added 1 Monocryl suture about 2 cm from the caudal and of her incision line where the drainage was most pronounced. The patient tolerated the procedure well. A fresh dressing with a few 4 x 4's was placed. The procedure was finished at 11:50 AM EST 8-25 Cosigned by Walt Em MD at 01/18/2025 7:08 AM EDT Associated attestation - Walt Em MD - 01/18/2025 7:08 AM EDT . documented in this encounter Nursing Notes * Latia Ortega RN - 01/28/2025 8:18 PM EDT Goal Outcome Evaluation: Outcome Evaluation: Pt is alert and oriented x4. VSS on room air. Up with assist x1. Dressing saturated and changed this a.m. following drain removal with some leakage onto bed but remained CDI for rest of shift. Pain controlled well with PO meds. * Ghazal Hunt OT - 01/28/2025 1:02 PM EDT Goal Outcome Evaluation: Plan of Care Reviewed With: patient Progress: no change (Re-Eval) Outcome Evaluation: Patient presenting below her functional baseline d/t back pain and limitations from spinal precautions. good effort noted w/ mobility, transfers and ADLs. OT issued and educated pt on use of AE for increased I w/ ADLs. Deficits warrant skilled OT services. Recommend home w/ assist, RW and HH OT when medically appropriate for d/c. Anticipated Discharge Disposition (OT): home with 08/01 care, home with home health * Sonya Juan PT - 01/28/2025 1:02 PM EDT Goal Outcome Evaluation: Plan of Care Reviewed With: patient Progress: improving Outcome Evaluation: Patient was able to ambulate in hallway with walker and demonstrated good control. Recommend continued skilled PT and home with home health PT. Anticipated Discharge Disposition (PT): home with assist * Marisa Lomeli RN - 01/27/2025 6:55 PM EDT Goal Outcome Evaluation: Plan of Care Reviewed With: patient Outcome Evaluation: VSS. Alert orineted x4. Ambulated assist x1 in room/hallway and to chair. Voiding well. Pain controlled with PO pain medication. * Marilu Rothman RN - 01/26/2025 6:48 AM EDT Problem: Adult Inpatient Plan of Care Goal: Absence of Hospital-Acquired Illness or Injury Intervention: Identify and Manage Fall Risk Recent Flowsheet Documentation Taken 01/26/2025 0600 by Marilu Rothman RN Safety Promotion/Fall Prevention: activity supervised assistive device/personal items within reach gait belt lighting adjusted room organization consistent safety round/check completed toileting scheduled fall prevention program maintained Taken 01/26/2025 0401 by Marilu Rothman RN Safety Promotion/Fall Prevention: activity supervised assistive device/personal items within reach fall prevention program maintained gait belt room organization consistent safety round/check completed toileting scheduled Taken 01/26/2025 0206 by Marilu Rothman RN Safety Promotion/Fall Prevention: activity supervised assistive device/personal items within reach lighting adjusted patient off unit safety round/check completed toileting scheduled Taken 01/26/2025 0000 by Marilu Rothman RN Safety Promotion/Fall Prevention: activity supervised assistive device/personal items within reach clutter free environment maintained gait belt toileting scheduled safety round/check completed room organization consistent nonskid shoes/slippers when out of bed Taken 01/25/2025 2200 by Marilu Rothman RN Safety Promotion/Fall Prevention: activity supervised toileting scheduled room organization consistent safety round/check completed assistive device/personal items within reach Taken 01/25/20251999 by Marilu Rothman RN Safety Promotion/Fall Prevention: activity supervised assistive device/personal items within reach toileting scheduled safety round/check completed room organization consistent Intervention: Prevent Skin Injury Recent Flowsheet Documentation Taken 01/26/2025 0600 by Marilu Rothman RN Body Position: position maintained Skin Protection: incontinence pads utilized silicone foam dressing in place transparent dressing maintained Taken 01/26/2025 0506 by Marilu Rothman RN Body Position: turned right Taken 01/26/2025 0401 by Marilu Rothman RN Body Position: supine Skin Protection: incontinence pads utilized silicone foam dressing in place transparent dressing maintained Taken 01/26/2025 0400 by Marilu Rothman RN Body Position: supine Taken 01/26/2025 0314 by Marilu Rothman RN Body Position: turned right Taken 01/26/2025 0206 by Marilu Rothman RN Body Position: supine Skin Protection: incontinence pads utilized silicone foam dressing in place transparent dressing maintained Taken 01/26/2025 0106 by Marilu Rothman RN Body Position: supine Taken 01/26/2025 0000 by Marilu Rothman RN Body Position: position maintained Skin Protection: incontinence pads utilized silicone foam dressing in place transparent dressing maintained Taken 01/25/2025 2200 by Marilu Rothman RN Body Position: side-lying right Skin Protection: incontinence pads utilized silicone foam dressing in place transparent dressing maintained Taken 01/25/20251999 by Marilu Rothman RN Body Position: side-lying right Skin Protection: incontinence pads utilized transparent dressing maintained silicone foam dressing in place Intervention: Prevent and Manage VTE (Venous Thromboembolism) Risk Recent Flowsheet Documentation Taken 01/26/2025 0600 by Marilu Rothman RN VTE Prevention/Management: SCDs (sequential compression devices) on Taken 01/26/2025 0401 by Marilu Rothman RN VTE Prevention/Management: SCDs (sequential compression devices) off Taken 01/25/20251999 by Marilu Rothman RN VTE Prevention/Management: SCDs (sequential compression devices) on Intervention: Prevent Infection Recent Flowsheet Documentation Taken 01/26/2025 0600 by Marilu Rothman RN Infection Prevention: environmental surveillance performed hand hygiene promoted rest/sleep promoted single patient room provided Taken 01/26/2025 0401 by Marilu Rothman RN Infection Prevention: single patient room provided rest/sleep promoted hand hygiene promoted environmental surveillance performed Taken 01/26/2025 0206 by Marilu Rothman RN Infection Prevention: environmental surveillance performed personal protective equipment utilized rest/sleep promoted single patient room provided Taken 01/25/20251999 by Marilu Rothman RN Infection Prevention: environmental surveillance performed hand hygiene promoted rest/sleep promoted Goal: Optimal Comfort and Wellbeing Intervention: Monitor Pain and Promote Comfort Recent Flowsheet Documentation Taken 01/26/2025 0401 by Marilu Rothman RNfire department marine engineer Interventions: position adjusted pillow support provided Taken 01/26/2025 0314 by Marilu Rothman RNfire department marine engineer Interventions: pain medication given Taken 01/25/2025 2159 by Marilu Rothman RNfire department marine engineer Interventions: pain medication given Taken 01/25/20251999 by Marilu Rothman RNfire department marine engineer Interventions: pillow support provided position adjusted Intervention: Provide Person-Centered Care Recent Flowsheet Documentation Taken 01/26/2025 0200 by Marilu Rothman RN Trust Relationship/Rapport: care explained choices provided Taken 01/26/2025 0000 by Marilu Rothman RN Trust Relationship/Rapport: care explained choices provided Taken 01/25/2025 2200 by Marilu Rothman RN Trust Relationship/Rapport: care explained choices provided Taken 01/25/20251999 by Marilu Rothman RN Trust Relationship/Rapport: care explained choices provided Goal Outcome Evaluation: Patient is A&O x4. On 2L NC, Cpap at night. Strict bedrest per order. HOB remained flat. Lumbar drain drained 12 ml every hour. Gamez in place. PRN pain medication given.Patient is resting, call light in reach. * Renetta Julien RN - 01/25/2025 8:09 PM EDT Goal Outcome Evaluation: VSS on RA and A&Ox4. HOB flat and bedrest maintained per order. 12mL/hr of clear, yellow fluid drained from lumbar drain per order and no headache reported. Dressing intact. Gamez in place. Spouse at bedside. PRN PO pain medication administered and ice applied to lower back/R hip area and interv entions effective per pt. Skin interventions in place. Call light in reach * David Murphy RN - 01/25/2025 5:58 AM EDT Goal Outcome Evaluation: Pt remains A&Ox4. 2LNC humidified. Pain managed w/ Q4 percocet. Bedrest. HOB flat. Payne drainremains in place, draining 12ml every hour. Dressing is intact with dried drainage, reinforced withagain with aquacel due to the side of dressing coming up. Gamez catheter remains in place. One verylarge BM at the beginning of the shift, soft. It was recommended to hold the stool softeners by RN,pt. Requested to still take them. Another large BM around 3AM, incontinence noted, liquid with mucous texture. Heels elevated. Sleeping well between care. * David Murphy RN - 01/24/2025 5:53 AM EDT Goal Outcome Evaluation: Pt remains A&Ox4. 2LNC humidified. Pain managed w/ Q4 percocet. Bedrest. HOB flat. Payne drainremains in place, draining 12ml every hour. Dressing is intact with dried drainage, reinforced withaquacel due to the side of dressing coming up. Gamez catheter remains in place. Last BM 01/23. Heels elevated. Sleeping well between care. * David Murphy RN - 01/23/2025 6:08 AM EDT Goal Outcome Evaluation: Pt. Is A&Ox4. 2LNC humidified. Pain managed w/ Q4 percocet. Bedrest. HOB flat. Payne drain remains in place, draining 12ml every hour. Dressing is intact with dried drainage. Gamez catheter remains in place. Mild,intermittent headache reported. Last BM 01/20. Heels elevated. Sleeping between care. * Yessi Clements RN - 01/21/2025 6:33 PM EDT Patient alert and oriented. VSS. Pain well controlled with oral pain meds. Incision continues to have clear/pink tinged drainage. The drainage appears to be originating around midway up the incision. Anytime she is up OOB she develops a headache in the front of her head. One episode she became diaphoretic and nauseated before I could get her back to bed. Reclining in bed at 30 degrees or less shehas no to minimal drainage and no symptoms. Dressing changed 4 times, incision also drains into bedside basin when she is using the restroom, and puddling in floor mopped up with dry flow pads three times. * Ada Bernard RN - 01/21/2025 5:39 AM EDT Patient alert and oriented, vss, 2L NC and CPA used. Patient denied having a headache. Ambulating well with stand by assist. Voiding well without difficulty. Incision leaking when ambulating and a small amount through the night onto the absorbent pads. Pain managed with PO PRN meds. Absorbent pads left at bedside. Dressing moist but intact. * Yessi Clements RN - 01/20/2025 7:23 PM EDT Patient alert and oriented. She is pleasant and cooperative with care plan. Pain is well controlledwith oral pain meds. Back incision continues to leak serous, lightly pink tinted drainage, increasingly with activity. Dressing was changed three times this shift with each dressing having moderate drainage. With ambulation drainage has dampened the back gowns and dropped to the floor. She is asymptomatic except short temporal headaches when trying to have a bowel movement. She remains in good spirits with no complaints. * Yuni Storey OT - 01/20/2025 2:45 PM EDT Goal Outcome Evaluation: Plan of Care Reviewed With: patient, spouse Outcome Evaluation: OT educated pt on spinal precautions and incorporation into ADL routine. Pt limited with drainage from incision, RN at bedside and assessing pt who had no c/o pain, dizziness or headache with out of bed activity. She will benefit from AE at upcoming session. Recommend DC home with family assist when pt is medially appropriate. Anticipated Discharge Disposition (OT): home with 08/01 care * Angelica Campoverde, PT - 01/20/2025 9:48 AM EDT Goal Outcome Evaluation: Plan of Care Reviewed With: patient Outcome Evaluation: Patient presents with deficits in strength, endurance, and balance. She was able to ambulate 60' CGA with FWW with no LOB or buckling, but was limited in further mobility by increased drainage from incision, RN aware. Patient was asymptomatic with all mobility. IPPT is indicatedto address deficits while admitted. Anticipate she will be appropriate for D/C home with assist. Anticipated Discharge Disposition (PT): home with assist * Ada Bernard RN - 01/19/2025 6:37 AM EDT Patient A&O X4, vss, CPAP used while sleeping. HOB flat maintained. Gamez catheter maintained. Patient reported pain in right hip, pain managed with PRN meds. * Yary Huff RN - 01/18/2025 6:49 PM EDT Goal Outcome Evaluation: Plan of Care Reviewed With: patient Dressing changed twice today, second time was r/t frequent shifting to adjust patient onto bedpan, reinforced with medipore tape, no copious drainage, still small amount of serosanguinous, no headaches or vision changes reported AOx4, 2LNC, CPAP at night, VSS but BP below parameter (held) nighttime amlodipine, patient had large BM today, gamez care PRN, HOB still flat, patient tolerating well, PO prn meds given twice this shift with request to hold next dose til bedtime, family at bedside Problem: Adult Inpatient Plan of Care Goal: Absence of Hospital-Acquired Illness or Injury Intervention: Identify and Manage Fall Risk Description: Perform standard risk assessment on admission using a validated tool or comprehensive approach appropriate to the patient; reassess fall risk frequently, with change in status or transfer to another level of care.Communicate risk to interprofessional healthcare team; ensure fall risk vi sible cue.Determine need for increased observation, equipment and environmental modification, as well as use of supportive, nonskid footwear.Adjust safety measures to individual needs and identified risk factors.Reinforce the importance of active participation with fall risk prevention, safety, and physical activity with the patient and family.Perform regular intentional rounding to assess need for position change, pain assessment and personal needs, including assistance with toileting. Recent Flowsheet Documentation Taken 01/18/2025 1843 by Yary Huff, RN Safety Promotion/Fall Prevention: safety round/check completed toileting scheduled room organization consistent muscle strengthening facilitated nonskid shoes/slippers when out of bed mobility aid in reach gait belt lighting adjusted fall prevention program maintained elopement precautions clutter free environment maintained assistive device/personal items within reach activity supervised Taken 01/18/2025 1645 by Yary Huff, RN Safety Promotion/Fall Prevention: safety round/check completed room organization consistent nonskid shoes/slippers when out of bed mobility aid in reach lighting adjusted gait belt fall prevention program maintained elopement precautions clutter free environment maintained activity supervised assistive device/personal items within reach Taken 01/18/2025 1409 by Yary Huff, RN Safety Promotion/Fall Prevention: safety round/check completed room organization consistent nonskid shoes/slippers when out of bed mobility aid in reach lighting adjusted gait belt fall prevention program maintained elopement precautions clutter free environment maintained assistive device/personal items within reach activity supervised Taken 01/18/2025 1230 by Yary Huff, RN Safety Promotion/Fall Prevention: safety round/check completed room organization consistent nonskid shoes/slippers when out of bed mobility aid in reach lighting adjusted fall prevention program maintained clutter free environment maintained assistive device/personal items within reach Taken 01/18/2025 1030 by Yary Huff, RN Safety Promotion/Fall Prevention: safety round/check completed room organization consistent nonskid shoes/slippers when out of bed mobility aid in reach gait belt lighting adjusted fall prevention program maintained elopement precautions clutter free environment maintained assistive device/personal items within reach activity supervised Taken 01/18/2025 09 by Yary Huff RN Safety Promotion/Fall Prevention: safety round/check completed room organization consistent nonskid shoes/slippers when out of bed mobility aid in reach lighting adjusted gait belt fall prevention program maintained elopement precautions clutter free environment maintained assistive device/personal items within reach activity supervised * Whit Bravo RN - 01/18/2025 5:49 AM EDT Goal Outcome Evaluation: Plan of Care Reviewed With: patient Progress: no change VSS on 2L NC; CPAP at night. Pt has slept off and on throughout the shift. PRN percocet given as ordered for pain. Covaderm dressing to back is CDI; reinforced with medipore tape. HOB flat/bedrest continued. Gamez catheter in place. Pt helped to turn and reposition. SCDs in place. * Ramya Campoverde RN - 01/17/2025 3:46 PM EDT Goal Outcome Evaluation: Plan of Care Reviewed With: patient Progress: no change Outcome Evaluation: Patient continues with HOB flat and log rolling. Covaderm dressing intact. Large amount of drainage early in the shift. Neurosurgery placed an additional suture. Drainage amounts improved. Glucoses 111, 99. Pain mangaged with oral medicaitons. Gamez to bedside drainage bag. * Whit Bravo RN - 01/17/2025 5:23 AM EDT Goal Outcome Evaluation: Plan of Care Reviewed With: patient Progress: improving Pt is A&Ox4. VSS on 2L NC/ CPAP at night. Pt has slept off and on throughout the shift. Spouse at bedside. PRN percocet given as ordered for pain. Dressing to back was saturated upon assessment; using sterile technique, dressing was changed; Covaderm in place with small drainage noted. HOB flat/bedrest continued. Isotour bed in place and turned q2hrs. Gamez catheter in place. SCDs in place. Addendum: dressing saturated this am when giving morning meds; dressing changed using sterile technique and a new Covaderm applied; reinforced with medipore tape. * Omar Ramos RN - 01/16/2025 6:31 PM EDT Goal Outcome Evaluation: Plan of Care Reviewed With: patient, family, spouse Progress: improving pain controlled, VSS, dressing scant dried blood, patient able to roll side to side but still bed rest, gamez clean dry and intact. * Omar Ramos RN - 01/15/2025 6:02 PM EDT Goal Outcome Evaluation: PaIn controlled, vitals within limits surgical sites clean dry and intact,will continue to monitor. documented in this encounter OR Notes * Op Note - Walt Em MD - 01/22/2025 12:58 PM EDT NEUROSURGICAL OPERATIVE NOTE PREOPERATIVE DIAGNOSIS: Lumbar postop CSF leak POSTOPERATIVE DIAGNOSIS: Same PROCEDURE: Lumbar drain placement SURGEON: Walt Em M.D. MILLER HELPER DISTILLERY: Molly Oglesby PA-C PAC assisted with: Skilled neurosurgery PA assistance was necessary to perform this procedure. ANESTHESIA: General ESTIMATED BLOOD LOSS: Minimal SPECIMEN: None DRAINS: Lumbar drain COMPLICATIONS: None CLINICAL NOTE: Patient is a 69-year-old woman who has recently undergone lumbar fusion extension. An intraoperative dural rent occurred. She has been kept at bedrest. Once mobilized she has developed some low-gradeheadache and some increased wound drainage. She is now brought to surgery for lumbar drain placement. TECHNICAL NOTE: The patient was brought to the operating room. While on her cart, general endotracheal anesthesia was achieved. She was then turned prone onto blanket rolls. Special care was ensured to protect pressure points. Her lumbar incision actually looks quite good. There were a couple of areas that were not epithelialized, so I elected not to pursue lumbar wound exploration. Using fluoroscopic guidance, a 14-gauge Touhy needle was inserted into the lumbar cistern. It took me a number of approaches to do this. The catheter ultimately entered at the upper L4 level. The catheter was threaded to approximately 35 mm. Slightly blood-tinged CSF was noted to egress. The catheter was secured in place. Sterile dressing was applied. The patient was then rolled onto her bed and taken to the recovery room in satisfactory condition. There were no overt intraoperative complications. Walt Em M.D. * Op Note - Walt Em MD - 01/15/2025 7:59 AM EDT NEUROSURGICAL OPERATIVE NOTE PREOPERATIVE DIAGNOSIS: Lumbar stenosis with neurogenic claudication and instability POSTOPERATIVE DIAGNOSIS: Same PROCEDURE: 1. Arthrodesis interbody type L2-3 and L3-4 2. L2-3 and L3-4 laminectomies with partial facetectomies and foraminotomies 3. Bilateral discectomy with bilateral Adaptix cage placement at L2-3 and L3-4 4. Segmental pedicle screw fixation from L2 to the prior L4-5 construct utilizing Solera 5. Use of MagnetOs and local autograft 6. Removal of pedicle screw hardware on the left at L5 7. Stealth stereotaxy utilizing conjunction with O arm imaging SURGEON: Walt mE M.D. MILLER HELPER DISTILLERY: Marjan Tran PA-C PAC assisted with: Suctioning Retraction Tying Suturing Closing Application of dressing Skilled neurosurgery PA assistance was necessary to perform this procedure. ANESTHESIA: General ESTIMATED BLOOD LOSS: 650 mL SPECIMEN: None DRAINS: None COMPLICATIONS: Dural rent left L3-4 Spinal Surgery Levels Completed:2 Levels CLINICAL NOTE: The patient is a 69-year-old woman who nearly 30 years ago underwent lumbar fusion at L4-5 by another provider. More recently she developed progressive back and predominantly right lower lower extremity pain with walking and standing intolerance. Studies demonstrate high-grade stenosis at L2-3 and L3-4 above her prior construct and as such she presents for additional decompression with fusion extension to the L2-3 level from the prior L4-5 construct. The nature of the procedure as well as the potential risks, complications, limitations, and alternatives to the procedure were discussed at length with the patient and the patient has agreed to proceed with surgery. TECHNICAL NOTE: The patient was brought to the operating room and while on her cart general endotracheal anesthesiawas achieved. She was then turned prone onto the German table. Special care was ensured to protectpressure points. Her low back was prepared and draped in the usual fashion. A localizing radiographwas obtained with a spinal needle in the lumbosacral midline. Based on this, the upper portion of the prior incision was reopened and extended upward. Prior hardware was exposed. I also exposed up tothe L2 level. The hardware was one of the original versions of TSRH. This was not really recognizable to me given that it was placed about 30 years ago. A crosslink was removed and set screws for conn ectors were removed and ultimately I was able to remove the rods and connectors. Reference frame was affixed to a spinous process. O-arm imaging ensued. These images were downloaded into the [employer]. Using Stealth frameless stereotaxy, each of the pedicle screw hole sites at L2 and L3 on each side were marked, drilled and tapped. All screws placed were 6.5 mm in diameter by 50 mm in lengthexcept the right L2 screw which was 45 mm in length. I then changed out the left L4 screw to a 7.5 diameter x 50 mm length screw. The right L4 screw was removed given that it was not completely within the pedicle. The L5 screw on the left was removed and left out. I replaced the right L5 screw witha 7.5 mm x 50 mm length screw. Leksell rongeur was utilized to remove the spinous processes at L2, L3 and some of the residual at L4. Ligamentous and bony overgrowth was profound bilaterally at each level. The patient did suffer a CSF leak at the L3- L4 below the actual L4 pedicle more laterally. This was closed sutures. I sewed in a small nonsuturable DuraGen patch. This was later be covered withlayers of DuraGen and Adherus sealant. However, after pursuing the laminectomies, partial facetectomies and foraminotomies at L2-3 and L3-4 bilaterally, the C-arm was brought into use and beginning on the right at L2-3, the disc was incised. The disc was very collapsed so an osteotome was utilized to enter the disc space. Serial impactors were impacted into the disc space. Ultimately a 9 x 24 mm A daptix cage was impacted into the disc space using fluoroscopic guidance. This had been packed withlocal autograft. I then worked at the L3-4 level on the right. Similarly the disc was prepared and another 9 x 24 mm Adaptix cage was impacted into place. I then worked contralaterally on the left beginning at L2- 3. Disc was incised and the disc space was prepared as was the case contralaterally. Prior to placing the 2nd 9 x 24 mm Adaptix cage, MagnetOs wafers and local autograft were placed anteriorly and in the midline. The 2nd cage was then impacted into place. I then repeated this procedureon the left at the L3-4 level. Nerve roots and dural sac were well decompressed. The wound was washed out with a saline solution. As previously noted, additional sealant and patching was performed atthe epidural rent site. Gelfoam sponges were left in the gutters on each side. Vancomycin powder was sprinkled in the depths. I did not leave a drain in place given the CSF leak. The paraspinous muscle and fascia were reapproximated in an interrupted fashion with 0 Vicryl suture; 0.25% Marcaine wasinstilled in the paraspinous musculature and subcutaneous tissues. Subcutaneous tissues were closedin layers with 2-0 followed by 3-0 Vicryl suture. Skin was closed in a running locked fashion with a 3-0 nylon suture. Sterile dressing was applied. She was rolled onto her cart, extubated and taken to the recovery room in satisfactory condition. Once again, her construct extends from L2 to L4 on the left side with pedicle screws present at L2, L3 and L4 and her construct spans L2 to L5 on the right with pedicle screws in place at L2, L3 and L5. Walt Em M.D. documented in this encounter Miscellaneous Notes * Case Management/Social Work - Sage Nuñez RN - 01/29/2025 11:55 AM EDT Case Management Discharge Note Final Note: Met with patient at the bedside to finalize discharge plan. Patient's plan is home today 01/29. Family will transport. Rolling walker ordered and referral given to Jose with [facility]. Per Jose, rolling walker will be delivered to the bedside prior to discharge. No further discharge needs identified. Selected Continued Care - Admitted Since 01/15/2025 Destination No services have been selected for the patient. Durable Medical Equipment Coordination complete. Service Provider Services Address Phone Fax Patient Preferred [facility] [place] Durable Medical Equipment [address] [id number], [place] [phone] -- Dialysis/Infusion No services have been selected for the patient. Home Medical Care No services have been selected for the patient. Therapy No services have been selected for the patient. Community Resources No services have been selected for the patient. Community & DME No services have been selected for the patient. Transportation Services Transportation: Private Transportation Private: Car Final Discharge Disposition Code: 01 - home or self-care * Therapy Re-Evaluation - Ghazal Hunt OT - 01/28/2025 1:02 PM EDT Images from the original note were not included. Patient Name: Latosha Allison : 1955 Today's Date: 01/28/2025 Admit Date: 01/15/2025 Visit Dx: ICD-10-CM ICD-9-CM 1. Lumbar stenosis with neurogenic claudication M48.062 724.03 Patient Active Problem List Diagnosis Coronary artery disease involving [place] coronary artery of [place] heart without angina pectoris Mixed hyperlipidemia Type 2 diabetes mellitus, without long-term current use of insulin Primary hypertension Obesity Sleep apnea Heart failure with preserved left ventricular function (HFpEF) Lumbar stenosis with neurogenic claudication Past Medical History: Diagnosis Date Arthritis Arthritis of back Arthritis of neck Bursitis of hip CHF (congestive heart failure) AFTER [place] Coronary artery disease CTS (carpal tunnel syndrome) Diabetes mellitus X ABOUT 15 YEARS, TESTING PRN type 2 Diverticula, colon Dyslipidemia Fracture of wrist Fracture, radius Fracture, ulna GERD (gastroesophageal reflux disease) H/O- OMEPRAZOLE Hiatal hernia STILL PRESENT Hip arthrosis Hyperlipidemia Hypertension Ischemic heart disease Knee swelling Low back pain Low back strain Lumbosacral disc disease RI, old 30 YEARS AGO Osteoporosis Periarthritis of shoulder Presence of dental bridge UPPER PERMANENT BRIDGE IN PLACE Sleep apnea CPAP therapy Spinal stenosis T10 AND T8-9 Tear of meniscus of knee Thoracic disc disorder Wears glasses Past Surgical History: Procedure Laterality Date ADENOIDECTOMY BLEPHAROPLASTY Bilateral BRACHIOPLEXUS EXPLORATION CARDIAC CATHETERIZATION Left 01/05/2016 Procedure: Cardiac catheterization; Surgeon: Yoshi Cote MD; Location: [facility] CATH INVASIVE LOCATION; Service: CARDIAC CATHETERIZATION 05/26/2003 No evidence of fixed CAD; spontaneous spasm of the 2nd obtuse marginal which resolved following intracoronary NTG; estimated LVEF of 60%. CARDIAC CATHETERIZATION 07/15/2009 No obstructive CAD; 0% to 40% mid LAD plaque. Patent RCA and LCX stents; LVF 50%. CARDIAC CATHETERIZATION N/A 06/05/2024 Procedure: Left Heart Cath; Surgeon: Yoshi Cote IV, MD; Location: [facility] CATH INVASIVE LOCATION; Service: Cardiovascular; Laterality: N/A; CARDIAC CATHETERIZATION N/A 06/05/2024 Procedure: Optical Coherence Tomography; Surgeon: Yoshi Cote IV, MD; Location: [facility] CATH INVASIVE LOCATION; Service: Cardiovascular; Laterality: N/A; CARDIAC CATHETERIZATION N/A 06/05/2024 Procedure: Stent ALYSSA coronary; Surgeon: Yoshi Cote IV, MD; Location: [facility] CATH INVASIVE LOCATION; Service: Cardiovascular; Laterality: N/A; CARDIAC SURGERY BRACHTERHAPY X ONE CARPAL TUNNEL RELEASE BILATERAL CATARACT EXTRACTION, BILATERAL Bilateral SECTION X2 COLONOSCOPY 2014 CORONARY ANGIOPLASTY WITH STENTS- x3 cardiac stents in place CORONARY STENT PLACEMENT DILATATION AND CURETTAGE X2 ENDOSCOPY LASER ABLATION 2002 UTERUS LUMBAR DRAIN INSERTION EXTERNAL N/A 01/22/2025 Procedure: LUMBAR DRAIN PLACEMENT; Surgeon: Walt Em MD; Location: [facility] OR; Service: Neurosurgery; Laterality: N/A; LUMBAR LAMINECTOMY WITH FUSION N/A 01/15/2025 Procedure: LUMBAR FUSION DECOMPRESSION WITH PEDICLE SCREWS- EXTEND FUSION L4-5 TO L2- L2-L4 LAMINECTOMY; Surgeon: Walt Em MD; Location: [facility] OR; Service: Neurosurgery; Laterality: N/A; ORIF FOREARM FRACTURE Left 02/2007 left wrist fracutre - PLate and screws in place OTHER SURGICAL HISTORY SPINAL FUSION 1994 L5-S1 Dr. Rajan- HARDWARE IN PLACE TONSILLECTOMY TRIGGER FINGER RELEASE Left Middle ; repair TRIGGER POINT INJECTION General Information Row Name 01/28/25 1408 OT Time and Intention Document Type re-evaluation -MR Mode of Treatment occupational therapy -MR Row Name 01/28/25 1408 General Information Patient Profile Reviewed yes -MR Existing Precautions/Restrictions fall;spinal -MR Barriers to Rehab medically complex -MR Row Name 01/28/25 1408 Living Environment Current Living Arrangements home -MR People in Home spouse -MR Row Name 01/28/25 1408 Home Main Entrance Number of Stairs, Main Entrance four -MR Stair Railings, Main Entrance railings on both sides of stairs -MR Row Name 01/28/25 1408 Stairs Within Home, Primary Stairs, Within Home, Primary Pt able to reside on the main level of the home. Has a walk in shower and raised commode. -MR Row Name 01/28/25 1408 Cognition Orientation Status (Cognition) oriented x 4 -MR Row Name 01/28/25 1408 Safety Issues/Impairments Affecting Functional Mobility Safety Issues Affecting Function (Mobility) awareness of need for assistance;insight into deficits/self-awareness;safety precaution awareness;safety precautions follow-through/compliance -MR Impairments Affecting Function (Mobility) balance;endurance/activity tolerance;pain;strength;range of motion (ROM) -MR User Abebe (r) = Recorded By, (t) = Taken By, (c) = Cosigned By Initials Name Provider Type MR Ghazal Hunt, OT Occupational Therapist Mobility/ADL's Row Name 01/28/25 1415 Bed Mobility Bed Mobility sit-sidelying -MR Sit-Sidelying [place] (Bed Mobility) contact guard;verbal cues -MR Assistive Device (Bed Mobility) bed rails -MR Comment, (Bed Mobility) Patient educated on spinal pecautions and bed mobility. Good awareness noted. -MR Row Name 01/28/251414 Transfers Transfers sit-stand transfer -MR Row Name 01/28/251414 Sit-Stand Transfer Sit-Stand [place] (Transfers) contact guard;verbal cues -MR Assistive Device (Sit-Stand Transfers) walker, front-wheeled -MR Row Name 01/28/251414 Functional Mobility Functional Mobility- Ind. Level contact guard assist;verbal cues required -MR Functional Mobility- Device walker, front-wheeled -MR Functional Mobility-Distance (Feet) -- HH distances -MR Row Name 01/28/251414 Activities of Daily Living BADL Assessment/Intervention lower body dressing;upper body dressing -MR Row Name 01/28/251414 Lower Body Dressing Assessment/Training [place] Level (Lower Body Dressing) don;socks;dependent (less than 25% patient effort) -MR Assistive Devices (Lower Body Dressing) long-handled shoe horn;hydraulic plumber;sock-aid -MR Position (Lower Body Dressing) supported sitting -MR Comment, (Lower Body Dressing) OT issued and educated pt on use of AE for increased I and safety w/ADLs. -MR Row Name 01/28/251414 Upper Body Dressing Assessment/Training [place] Level (Upper Body Dressing) don;moderate assist (50% patient effort) -MR Position (Upper Body Dressing) edge of bed sitting -MR User Abebe (r) = Recorded By, (t) = Taken By, (c) = Cosigned By Initials Name Provider Type Ghazal Huerta OT Occupational Therapist Obj/Interventions Row Name 01/28/251416 Sensory Assessment (Somatosensory) Sensory Assessment (Somatosensory) UE sensation intact -MR Row Name 01/28/251416 Vision Assessment/Intervention Visual Impairment/Limitations WFL -MR Row Name 01/28/251416 Range of Motion Comprehensive General Range of Motion bilateral upper extremity ROM WFL -MR Row Name 01/28/251416 Strength Comprehensive (MMT) Comment, General Manual Muscle Testing (MMT) Assessment WFL as demonstrated with functional tasks. -MR Row Name 01/28/251416 Balance Balance Assessment sitting static balance;sitting dynamic balance;standing static balance;standing dynamic balance -MR Static Sitting Balance supervision -MR Dynamic Sitting Balance supervision -MR Position, Sitting Balance unsupported;sitting in chair;sitting edge of bed -MR Static Standing Balance contact guard -MR Dynamic Standing Balance contact guard -MR Position/Device Used, Standing Balance supported;walker, front-wheeled -MR Balance Interventions sitting;standing;sit to stand;static;supported;dynamic;minimal challenge -MR User Abebe (r) = Recorded By, (t) = Taken By, (c) = Cosigned By Initials Name Provider Type Ghazal Huerta, OT Occupational Therapist Goals/Plan Row Name 01/28/251420 Transfer Goal 1 (OT) Activity/Assistive Device (Transfer Goal 1, OT) [id number]/[id number]-mfb;toilet -MR [place] Level/Cues Needed (Transfer Goal 1, OT) verbal cues required;supervision required -MR Time Frame (Transfer Goal 1, OT) manager market research goal (LTG);10 days -MR Progress/Outcome (Transfer Goal 1, OT) goal ongoing - Row Name 01/28/251420 Dressing Goal 1 (OT) Activity/Device (Dressing Goal 1, OT) lower body dressing;hydraulic plumber;sock-aid -MR [place]/Cues Needed (Dressing Goal 1, OT) verbal cues required;supervision required -MR Time Frame (Dressing Goal 1, OT) short term goal (STG);5 days -MR Progress/Outcome (Dressing Goal 1, OT) goal ongoing - Row Name 01/28/251420 Problem Specific Goal 1 (OT) Problem Specific Goal 1 (OT) Pt will recall/maintain spinal precautions during ADL activity with max 3 vc -MR Time Frame (Problem Specific Goal 1, OT) manager market research goal (LTG);10 days -MR Progress/Outcome (Problem Specific Goal 1, OT) goal ongoing - Row Name 01/28/251420 Therapy Assessment/Plan (OT) Planned Therapy Interventions (OT) activity tolerance training;adaptive equipment training;BADL retraining;functional balance retraining;transfer/mobility retraining;strengthening exercise;patient/caregiver education/training;passive ROM/stretching;IADL retraining;neuromuscular control/coordinationretraining;occupation/activity based interventions -MR User Aebbe (r) = Recorded By, (t) = Taken By, (c) = Cosigned By Initials Name Provider Type Ghazal Hunt, OT Occupational Therapist Clinical Impression Row Name 01/28/25 1418 Pain Assessment Pretreatment Pain Rating 2/10 -MR Posttreatment Pain Rating 2/10 -MR Pain Location back -MR Pain Side/Orientation generalized -MR Row Name 01/28/25 1418 Plan of Care Review Plan of Care Reviewed With patient -MR Progress no change Re-Eval -MR Outcome Evaluation Patient presenting below her functional baseline d/t back pain and limitations from spinal precautions. good effort noted w/ mobility, transfers and ADLs. OT issued and educated pton use of AE for increased I w/ ADLs. Deficits warrant skilled OT services. Recommend home w/ assist, RW and HH OT when medically appropriate for d/c. -MR Row Name 01/28/25 1418 Therapy Assessment/Plan (OT) Patient/Family Therapy Goal Statement (OT) Return to PLOF -MR Rehab Potential (OT) good -MR Criteria for Skilled Therapeutic Interventions Met (OT) yes -MR Therapy Frequency (OT) daily -MR Row Name 01/28/25 1418 Therapy Plan Review/Discharge Plan (OT) Anticipated Discharge Disposition (OT) home with /7 care;home with home health -MR Row Name 01/28/25 1418 Vital Signs Pre Systolic BP Rehab 106 -MR Pre Treatment Diastolic BP 52 -MR Post Systolic BP Rehab 99 -MR Post Treatment Diastolic BP 52 -MR Pre SpO2 (%) 95 -MR O2 Delivery Pre Treatment room air -MR O2 Delivery Intra Treatment room air -MR O2 Delivery Post Treatment room air -MR Pre Patient Position Sitting -MR Intra Patient Position Standing -MR Post Patient Position Side Lying -MR Row Name 01/28/25 1418 Positioning and Restraints Pre-Treatment Position sitting in chair/recliner -MR Post Treatment Position bed -MR In Bed notified nsg;side lying right;call light within reach;encouraged to call for assist;SCD pumpapplied;side rails up x2;exit alarm on;pillow between legs -MR User Abebe (r) = Recorded By, (t) = Taken By, (c) = Cosigned By Initials Name Provider Type Ghazal Huerta, OT Occupational Therapist Outcome Measures Row Name 01/28/25 1421 How much help from another is currently needed... Putting on and taking off regular lower body clothing? 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 Therapies (Done) Topic: Occupational Therapy (Done) Point: ADL training (Done) Learning Progress Summary Patient Acceptance, E, VU by MR at 01/28/20251421 Point: Home exercise program (Done) Learning Progress Summary Patient Acceptance, E, VU by MR at 01/28/2025 142 Point: Precautions (Done) Learning Progress Summary Patient Acceptance, E, VU by MR at 01/28/2025 142 Point: Body mechanics (Done) Learning Progress Summary Patient Acceptance, E, VU by MR at 01/28/20251421 User Abebe Initials Effective Dates Name Provider Type Discipline MR 03/09/22 - Ghazal Hunt OT Occupational Therapist OT OT Recommendation and Plan Recommended discharge disposition is based on the functional assessment performed by PT/OT/Speech therapy (as applicable) and may not reflect the medical necessity determined by your provider or services covered by an individual patient's insurance plan or patient resource. Planned Therapy Interventions (OT): activity tolerance training, adaptive equipment training, BADL retraining, functional balance retraining, transfer/mobility retraining, strengthening exercise, patient/caregiver education/training, passive ROM/stretching, IADL retraining, neuromuscular control/coordination retraining, occupation/activity based interventions Therapy Frequency (OT): daily Plan of Care Review Plan of Care Reviewed With: patient Progress: no change (Re-Eval) Outcome Evaluation: Patient presenting below her functional baseline d/t back pain and limitations from spinal precautions. good effort noted w/ mobility, transfers and ADLs. OT issued and educated pt on use of AE for increased I w/ ADLs. Deficits warrant skilled OT services. Recommend home w/ assist, RW and HH OT when medically appropriate for d/c. Time Calculation: Time Calculation- OT Row Name 01/28/25 1422 Time Calculation- OT OT Start Time 1302 -MR OT Received On 01/28/25 -MR OT Goal Re-Cert Due Date 02/07/25 -MR Timed Charges 16761 - OT Therapeutic Activity Minutes 15 -MR 52301 - OT Self Care/Mgmt Minutes 10 -MR Untimed Charges OT Eval/Re-eval Minutes 15 -MR Total Minutes Timed Charges Total Minutes 25 -MR Untimed Charges Total Minutes 15 -MR Total Minutes 40 -MR User Abebe (r) = Recorded By, (t) = Taken By, (c) = Cosigned By Initials Name Provider Type MR Ghazal Hunt OT Occupational Therapist Therapy Charges for Today Code Description Service Date Service Provider Modifiers Qty 70214629545 HC OT SELF CARE/MGMT/TRAIN EA 15 MIN 01/28/2025 Ghazal Hunt OT GO 1 30890184885 HC OT THERAPEUTIC ACT EA 15 MIN 01/28/2025 Ghazal Hunt OT GO 1 24660147418 HC OT RE-EVAL 2 01/28/2025 Ghazal Hunt OT GO 1 Ghazal Hunt OT 01/28/2025 * Therapy Re-Evaluation - Sonya Juan, PT - 01/28/2025 1:02 PM EDT Images from the original note were not included. Patient Name: Latosha Allison : 1955 Today's Date: 01/28/2025 Admit Date: 01/15/2025 Visit Dx: ICD-10-CM ICD-9-CM 1. Lumbar stenosis with neurogenic claudication M48.062 724.03 Patient Active Problem List Diagnosis Coronary artery disease involving [place] coronary artery of [place] heart without angina pectoris Mixed hyperlipidemia Type 2 diabetes mellitus, without long-term current use of insulin Primary hypertension Obesity Sleep apnea Heart failure with preserved left ventricular function (HFpEF) Lumbar stenosis with neurogenic claudication Past Medical History: Diagnosis Date Arthritis Arthritis of back Arthritis of neck Bursitis of hip CHF (congestive heart failure) AFTER [place] Coronary artery disease CTS (carpal tunnel syndrome) Diabetes mellitus X ABOUT 15 YEARS, TESTING PRN type 2 Diverticula, colon Dyslipidemia Fracture of wrist Fracture, radius Fracture, ulna GERD (gastroesophageal reflux disease) H/O- OMEPRAZOLE Hiatal hernia STILL PRESENT Hip arthrosis Hyperlipidemia Hypertension Ischemic heart disease Knee swelling Low back pain Low back strain Lumbosacral disc disease RI, old 30 YEARS AGO Osteoporosis Periarthritis of shoulder Presence of dental bridge UPPER PERMANENT BRIDGE IN PLACE Sleep apnea CPAP therapy Spinal stenosis T10 AND T8-9 Tear of meniscus of knee Thoracic disc disorder Wears glasses Past Surgical History: Procedure Laterality Date ADENOIDECTOMY BLEPHAROPLASTY Bilateral BRACHIOPLEXUS EXPLORATION CARDIAC CATHETERIZATION Left 01/05/2016 Procedure: Cardiac catheterization; Surgeon: Yoshi Cote MD; Location: [facility] INVASIVE LOCATION; Service: CARDIAC CATHETERIZATION 05/26/2003 No evidence of fixed CAD; spontaneous spasm of the 2nd obtuse marginal which resolved following intracoronary NTG; estimated LVEF of 60%. CARDIAC CATHETERIZATION 07/15/2009 No obstructive CAD; 0% to 40% mid LAD plaque. Patent RCA and LCX stents; LVF 50%. CARDIAC CATHETERIZATION N/A 06/05/2024 Procedure: Left Heart Cath; Surgeon: Yoshi Cote IV, MD; Location: [facility] CATH INVASIVE LOCATION; Service: Cardiovascular; Laterality: N/A; CARDIAC CATHETERIZATION N/A 06/05/2024 Procedure: Optical Coherence Tomography; Surgeon: Yoshi Cote IV, MD; Location: [facility]; Service: Cardiovascular; Laterality: N/A; CARDIAC CATHETERIZATION N/A 06/05/2024 Procedure: Stent ALYSSA coronary; Surgeon: Yoshi Cote IV, MD; Location: [facility]; Service: Cardiovascular; Laterality: N/A; CARDIAC SURGERY BRACHTERHAPY X ONE CARPAL TUNNEL RELEASE BILATERAL CATARACT EXTRACTION, BILATERAL Bilateral SECTION X2 COLONOSCOPY 2014 CORONARY ANGIOPLASTY WITH STENTS- x3 cardiac stents in place CORONARY STENT PLACEMENT DILATATION AND CURETTAGE X2 ENDOSCOPY LASER ABLATION 2002 UTERUS LUMBAR DRAIN INSERTION EXTERNAL N/A 01/22/2025 Procedure: LUMBAR DRAIN PLACEMENT; Surgeon: Walt Em MD; Location: [facility] OR; Service: Neurosurgery; Laterality: N/A; LUMBAR LAMINECTOMY WITH FUSION N/A 01/15/2025 Procedure: LUMBAR FUSION DECOMPRESSION WITH PEDICLE SCREWS- EXTEND FUSION L4-5 TO L2- L2-L4 LAMINECTOMY; Surgeon: Walt Em MD; Location: [facility]; Service: Neurosurgery; Laterality: N/A; ORIF FOREARM FRACTURE Left 02/2007 left wrist fracutre - PLate and screws in place OTHER SURGICAL HISTORY SPINAL FUSION 1994 L5-S1 Dr. Rajan- HARDWARE IN PLACE TONSILLECTOMY TRIGGER FINGER RELEASE Left Middle ; repair TRIGGER POINT INJECTION General Information Row Name 01/28/25 1459 Physical Therapy Time and Intention Document Type re-evaluation -MA Mode of Treatment physical therapy -MA Row Name 01/28/25 1458 General Information Patient Profile Reviewed yes -MA Prior Level of Function independent:;gait see initial eval -MA Existing Precautions/Restrictions fall;spinal has been on bed rest -MA Barriers to Rehab medically complex -MA Row Name 01/28/25 1452 Living Environment Current Living Arrangements home -MA People in Home spouse -MA Row Name 01/28/25 1459 Home Main Entrance Number of Stairs, Main Entrance four -MA Stair Railings, Main Entrance railings on both sides of stairs -MA Row Name 01/28/25 1459 Stairs Within Home, Primary Number of Stairs, Within Home, Primary none -[facility] Name 01/28/25 1454 Cognition Orientation Status (Cognition) oriented x 4 -MA Row Name 01/28/25 1454 Safety Issues/Impairments Affecting Functional Mobility Impairments Affecting Function (Mobility) balance;endurance/activity tolerance;pain;strength;range of motion (ROM) -MA Comment, Safety Issues/Impairments (Mobility) alert, following commads -MA User Abebe (r) = Recorded By, (t) = Taken By, (c) = Cosigned By Initials Name Provider Type MA Sonya Juan PT Physical Therapist Mobility Row Name 01/28/25 1501 Bed Mobility Bed Mobility sit-supine -MA Sit-Supine [place] (Bed Mobility) minimum assist (75% patient effort);1 person assist;verbal cues -MA Assistive Device (Bed Mobility) bed rails;head of bed elevated -MA Comment, (Bed Mobility) VC for log rolling back to bed. patient chose to lay on her side -[facility] Name 01/28/25 1501 Transfers Comment, (Transfers) cues for hand placement. Demonstrated slow transfer -[facility] Name 01/28/25 1501 Sit-Stand Transfer Sit-Stand [place] (Transfers) contact guard;verbal cues -MA Assistive Device (Sit-Stand Transfers) walker, front-wheeled -[facility] Name 01/28/25 1501 Gait/Stairs (Locomotion) [place] Level (Gait) contact guard;2 person assist;verbal cues -MA Assistive Device (Gait) walker, front-wheeled -MA Patient was able to Ambulate yes -MA Distance in Feet (Gait) 140 -MA Deviations/Abnormal Patterns (Gait) stride length decreased;gait speed decreased -MA Bilateral Gait Deviations forward flexed posture -MA Comment, (Gait/Stairs) Gt training focused on controling walker with step through gait pattern. Encouraged heel strike and full wt shifting. Patient demonstrated good control. No LOB or buckling noted. -MA User Abebe (r) = Recorded By, (t) = Taken By, (c) = Cosigned By Initials Name Provider Type MA Sonya Juan, PT Physical Therapist Obj/Interventions [facility] Name 01/28/25 1509 Range of Motion Comprehensive General Range of Motion neck/trunk range of motion deficits identified -[facility] 01/28/25 1509 Strength Comprehensive (MMT) General Manual Muscle Testing (MMT) Assessment no strength deficits identified -[facility] 01/28/25 1509 Balance Dynamic Standing Balance 1-person assist;1 person to manage equipment;contact guard -MA Position/Device Used, Standing Balance supported;walker, rolling -MA Comment, Balance no LOB -[facility] 01/28/25 1509 Sensory Assessment (Somatosensory) Sensory Assessment (Somatosensory) sensation intact -MA User Abebe (r) = Recorded By, (t) = Taken By, (c) = Cosigned By Initials Name Provider Type MA Sonya Juan, PT Physical Therapist Goals/Plan [facility] 01/28/25 1514 Bed Mobility Goal 1 (PT) Activity/Assistive Device (Bed Mobility Goal 1, PT) sit to supine/supine to sit -MA [place] Level/Cues Needed (Bed Mobility Goal 1, PT) modified independence -MA Time Frame (Bed Mobility Goal 1, PT) short term goal (STG);5 days -[facility] 01/28/25 1514 Transfer Goal 1 (PT) Activity/Assistive Device (Transfer Goal 1, PT) nuz-ye-gwuul/hwstf-oe-hwj;mgd-ad-ztczz/anxeb-zb-mxp-MA [place] Level/Cues Needed (Transfer Goal 1, PT) standby assist -MA Time Frame (Transfer Goal 1, PT) manager market research goal (LTG);10 days -[facility] Name 01/28/25 1514 Gait Training Goal 1 (PT) Activity/Assistive Device (Gait Training Goal 1, PT) gait (walking locomotion);assistive device use-MA [place] Level (Gait Training Goal 1, PT) contact guard required -MA Distance (Gait Training Goal 1, PT) 350' -MA Time Frame (Gait Training Goal 1, PT) care home goal (LTG);10 days -MA User Abebe (r) = Recorded By, (t) = Taken By, (c) = Cosigned By Initials Name Provider Type MA Sonya Juan PT Physical Therapist Clinical Impression [facility] Name 01/28/25 1509 Pain Pretreatment Pain Rating 2/10 -MA Posttreatment Pain Rating 2/10 -MA Pain Location back -MA Pain Management Interventions positioning techniques utilized -MA Response to Pain Interventions activity participation with tolerable pain -[facility] Name 01/28/25 1509 Plan of Care Review Plan of Care Reviewed With patient -MA Progress improving -MA Outcome Evaluation Patient was able to ambulate in hallway with walker and demonstrated good control. Recommend continued skilled PT and home with home health PT. -[facility] Name 01/28/25 1509 Therapy Assessment/Plan (PT) Patient/Family Therapy Goals Statement (PT) walk -MA Criteria for Skilled Interventions Met (PT) yes;meets criteria;skilled treatment is necessary -MA Therapy Frequency (PT) daily -MA Predicted Duration of Therapy Intervention (PT) 1 -[facility] Name 01/28/25 1509 Vital Signs Pre Systolic BP Rehab 99 -SC Pre Treatment Diastolic BP 52 -SC Intra Systolic BP Rehab 140 -SC Intra Treatment Diastolic BP 76 -SC Post Systolic BP Rehab 99 -SC Post Treatment Diastolic BP 52 -SC [facility] Name 01/28/25 1509 Positioning and Restraints Post Treatment Position bed -MA In Bed notified nsg;side lying right;with OT -MA User Abebe (r) = Recorded By, (t) = Taken By, (c) = Cosigned By Initials Name Provider Type MA Sonya Juan, PT Physical Therapist Outcome Measures Row Name 01/28/25 1514 01/28/25 0743 How much help from another person do you currently need... Turning from your back to your side while in flat bed without using bedrails? 3 -MA 3 -EA Moving from lying on back to sitting on the side of a flat bed without bedrails? 3 -MA 3 -EA Moving to and from a bed to a chair (including a wheelchair)? 3 -MA 3 -EA Standing up from a chair using your arms (e.g., wheelchair, bedside chair)? 3 - MA 3 -EA Climbing 3-5 steps with a railing? 3 -MA 3 -EA To walk in hospital room? 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) Topic: Physical Therapy (Done) Point: Mobility training (Done) Learning Progress Summary Patient Eager, E, VU by MA at 01/28/2025 151 Comment: Reviewed benefits of activity Acceptance, E, VU by at 01/27/2025 09 Acceptance, E, VU by at 01/20/2025 1313 Significant Other Acceptance, E, VU by at 01/20/2025 131 Point: Home exercise program (Done) Learning Progress Summary Patient Eager, E, VU by MA at 01/28/2025 151 Comment: Reviewed benefits of activity Acceptance, E, VU by at 01/27/2025 09 Point: Body mechanics (Done) Learning Progress Summary Patient Eager, E, VU by MA at 01/28/2025 151 Comment: Reviewed benefits of activity Acceptance, E, VU by at 01/27/2025 09 Acceptance, E, VU by at 01/20/2025 1313 Significant Other Acceptance, E, VU by at 01/20/2025 1313 Point: Precautions (Done) Learning Progress Summary Patient Eager, E, VU by MA at 01/28/2025 1515 Comment: Reviewed benefits of activity Acceptance, E, VU by at 01/27/2025 0900 Acceptance, E, VU by at 01/20/2025 1313 Significant Other Acceptance, E, VU by at 01/20/2025 1313 User Abebe Initials Effective Dates Name Provider Type Discipline MA 07/21/22 - Sonya Juan PT Physical Therapist PT BC 10/12/20 - Marisa Lomeli, RN Registered Nurse Nurse 07/24/23 - Angelica Campoverde PT Physical Therapist PT PT Recommendation and Plan Recommended discharge disposition is based on the functional assessment performed by PT/OT/Speech therapy (as applicable) and may not reflect the medical necessity determined by your provider or services covered by an individual patient's insurance plan or patient resource. Therapy Frequency (PT): daily Progress: improving Outcome Evaluation: Patient was able to ambulate in hallway with walker and demonstrated good control. Recommend continued skilled PT and home with home health PT. Time Calculation: PT Evaluation Complexity History, PT Evaluation Complexity: 3 or more personal factors and/or comorbidities Examination of Body Systems (PT Eval Complexity): total of 4 or more elements Clinical Presentation (PT Evaluation Complexity): evolving Clinical Decision Making (PT Evaluation Complexity): moderate complexity Overall Complexity (PT Evaluation Complexity): moderate complexity PT Charges Row Name 01/28/25 1302 Time Calculation Start Time 0302 -SC PT Received On 01/28/25 -MA PT Goal Re-Cert Due Date 02/07/25 -MA Timed Charges 52847 - Gait Training Minutes 10 -[place] 63991 - PT Therapeutic Activity Minutes 5 -SC Untimed Charges PT Eval/Re-eval Minutes 30 -SC Total Minutes Timed Charges Total Minutes 15 -SC Untimed Charges Total Minutes 30 -SC Total Minutes 45 -SC User Abebe (r) = Recorded By, (t) = Taken By, (c) = Cosigned By Initials Name Provider Type MA Sonya Juan, PT Physical Therapist Therapy Charges for Today Code Description Service Date Service Provider Modifiers Qty [id number] HC GAIT TRAINING EA 15 MIN 01/28/2025 Sonya Juan, PT GP 1 [id number] HC PT RE-EVAL ESTABLISHED PLAN 2 01/28/2025 Sonya Juan PT GP 1 PT G-Codes Outcome Measure Options: AM-PAC 6 Clicks Basic Mobility (PT) AM-PAC 6 Clicks Score (PT): 18 AM-PAC 6 Clicks Score (OT): 17 PT Discharge Summary Anticipated Discharge Disposition (PT): home with assist Sonya Juan, PT 01/28/2025 * Case Management/Social Work - Dayana Pepper RN - 01/28/2025 12:36 PM EDT Continued Stay Note Fran Patient Name: Latosha Allison Today's Date: 01/28/2025 Admit Date: 01/15/2025 Plan: TBD Discharge Plan Row Name 01/28/25 1235 Plan Plan TBD Plan Comments Discussed patient in MDR. Lumbar drain removed this morning; therapy to work with patient this afternoon for evaluations. Case Management following and will assist with discharge plan pending therapy recommendations. Discharge Codes No documentation. Dayana Pepper RN * Case Management/Social Work - Mehdi Lawrence RN - 01/23/2025 10:37 AM EDT Continued Stay Note Fran Patient Name: Latosha Allison Today's Date: 01/23/2025 Admit Date: 01/15/2025 Plan: Home with spouse Discharge Plan Row Name 01/23/25 1035 Plan Plan Home with spouse Patient/Family in Agreement with Plan yes Plan Comments Patient is on strict Bedrest for the next several days. Plan is home with spouse. Spouse will transport. CM will continue to follow. Final Discharge Disposition Code 01 - home or self-care Discharge Codes No documentation. Expected Discharge Date and Time Expected Discharge Date Expected Discharge Time Jan 16, 2025 Mehdi Lawrence RN * Case Management/Social Work - Mehdi Lawrence RN - 01/22/2025 12:21 PM EDT Continued Stay Note Fran Patient Name: Latosha Allison Today's Date: 01/22/2025 Admit Date: 01/15/2025 Plan: Home with spouse Discharge Plan Row Name 01/22/25 1220 Plan Plan Home with spouse Patient/Family in Agreement with Plan yes Plan Comments Patient is back in surgery. Plan is home with spouse. Spouse will transport. CM will continue to follow. Final Discharge Disposition Code 01 - home or self-care Discharge Codes No documentation. Expected Discharge Date and Time Expected Discharge Date Expected Discharge Time Jan 16, 2025 Mehdi Lawrence RN * Case Management/Social Work - Mehdi Lawrence RN - 01/21/2025 8:51 AM EDT Continued Stay Note Fran Patient Name: Latosha Allison Today's Date: 01/21/2025 Admit Date: 01/15/2025 Plan: Home with spouse Discharge Plan Row Name 01/21/25 0850 Plan Plan Home with spouse Patient/Family in Agreement with Plan yes Plan Comments Spoke to patient at bedside .Plan is home with spouse. Spouse will transport. CM willcontinue to follow. Final Discharge Disposition Code 01 - home or self-care Discharge Codes No documentation. Expected Discharge Date and Time Expected Discharge Date Expected Discharge Time Jan 16, 2025 Mehdi Lawrence RN * Therapy Evaluation - Yuni Storey OT - 01/20/2025 2:46 PM EDT Images from the original note were not included. Patient Name: Latosha Allison : 1955 Today's Date: 01/20/2025 Admit Date: 01/15/2025 Visit Dx: ICD-10-CM ICD-9-CM 1. Lumbar stenosis with neurogenic claudication M48.062 724.03 Patient Active Problem List Diagnosis Coronary artery disease involving [place] coronary artery of [place] heart without angina pectoris Mixed hyperlipidemia Type 2 diabetes mellitus, without long-term current use of insulin Primary hypertension Obesity Sleep apnea Heart failure with preserved left ventricular function (HFpEF) Lumbar stenosis with neurogenic claudication Past Medical History: Diagnosis Date Arthritis Arthritis of back Arthritis of neck Bursitis of hip CHF (congestive heart failure) AFTER RI Coronary artery disease CTS (carpal tunnel syndrome) Diabetes mellitus X ABOUT 15 YEARS, TESTING PRN type 2 Diverticula, colon Dyslipidemia Fracture of wrist Fracture, radius Fracture, ulna GERD (gastroesophageal reflux disease) H/O- OMEPRAZOLE Hiatal hernia STILL PRESENT Hip arthrosis Hyperlipidemia Hypertension Ischemic heart disease Knee swelling Low back pain Low back strain Lumbosacral disc disease RI, old 30 YEARS AGO Osteoporosis Periarthritis of shoulder Presence of dental bridge UPPER PERMANENT BRIDGE IN PLACE Sleep apnea CPAP therapy Spinal stenosis T10 AND T8-9 Tear of meniscus of knee Thoracic disc disorder Wears glasses Past Surgical History: Procedure Laterality Date ADENOIDECTOMY BLEPHAROPLASTY Bilateral BRACHIOPLEXUS EXPLORATION CARDIAC CATHETERIZATION Left 01/05/2016 Procedure: Cardiac catheterization; Surgeon: Yoshi Cote MD; Location: [facility] CATH INVASIVE LOCATION; Service: CARDIAC CATHETERIZATION 05/26/2003 No evidence of fixed CAD; spontaneous spasm of the 2nd obtuse marginal which resolved following intracoronary NTG; estimated LVEF of 60%. CARDIAC CATHETERIZATION 07/15/2009 No obstructive CAD; 0% to 40% mid LAD plaque. Patent RCA and LCX stents; LVF 50%. CARDIAC CATHETERIZATION N/A 06/05/2024 Procedure: Left Heart Cath; Surgeon: Yoshi Cote IV, MD; Location: [facility] CATH INVASIVE LOCATION; Service: Cardiovascular; Laterality: N/A; CARDIAC CATHETERIZATION N/A 06/05/2024 Procedure: Optical Coherence Tomography; Surgeon: Yoshi Cote IV, MD; Location: [facility] CATH INVASIVE LOCATION; Service: Cardiovascular; Laterality: N/A; CARDIAC CATHETERIZATION N/A 06/05/2024 Procedure: Stent ALYSSA coronary; Surgeon: Yoshi Cote IV, MD; Location: [facility] CATH INVASIVE LOCATION; Service: Cardiovascular; Laterality: N/A; CARDIAC SURGERY BRACHTERHAPY X ONE CARPAL TUNNEL RELEASE BILATERAL CATARACT EXTRACTION, BILATERAL Bilateral SECTION X2 COLONOSCOPY 2014 CORONARY ANGIOPLASTY WITH STENTS- x3 cardiac stents in place CORONARY STENT PLACEMENT DILATATION AND CURETTAGE X2 ENDOSCOPY LASER ABLATION 2003 UTERUS LUMBAR LAMINECTOMY WITH FUSION N/A 01/15/2025 Procedure: LUMBAR FUSION DECOMPRESSION WITH PEDICLE SCREWS- EXTEND FUSION L4-5 TO L2- L2-L4 LAMINECTOMY; Surgeon: Walt Em MD; Location: [facility]; Service: Neurosurgery; Laterality: N/A; ORIF FOREARM FRACTURE Left 02/2007 left wrist fracutre - PLate and screws in place OTHER SURGICAL HISTORY SPINAL FUSION 1994 L5-S1 Dr. Rajan- HARDWARE IN PLACE TONSILLECTOMY TRIGGER FINGER RELEASE Left Middle ; repair TRIGGER POINT INJECTION General Information Row Name 01/20/25 1434 OT Time and Intention Document Type evaluation -AR Mode of Treatment occupational therapy;co-treatment -AR Row Name 01/20/25 1434 01/20/25 1050 General Information Patient Profile Reviewed yes -AR -- Prior Level of Function independent:;all household mobility;community mobility;gait;ADL's -AR -- -AR Existing Precautions/Restrictions fall;spinal -AR -- Barriers to Rehab medically complex -AR -- Row Name 01/20/25 1434 Living Environment Current Living Arrangements home -AR People in Home spouse -AR Row Name 01/20/25 1434 Home Main Entrance Number of Stairs, Main Entrance four -AR Stair Railings, Main Entrance railings on both sides of stairs -AR Row Name 01/20/25 1434 Stairs Within Home, Primary Stairs, Within Home, Primary Pt stays on main level of home, she has walk-in shower with seat and raised commode. -AR Row Name 01/20/25 1434 Cognition Orientation Status (Cognition) oriented x 4 -AR Row Name 01/20/25 1434 Safety Issues/Impairments Affecting Functional Mobility Safety Issues Affecting Function (Mobility) awareness of need for assistance;insight into deficits/self-awareness;safety precaution awareness;safety precautions follow-through/compliance -AR Impairments Affecting Function (Mobility) balance;endurance/activity tolerance;pain;strength;range of motion (ROM) -AR User Abebe (r) = Recorded By, (t) = Taken By, (c) = Cosigned By Initials Name Provider Type AR Yuni Storey, OT Occupational Therapist Mobility/ADL's Row Name 01/20/25 1435 Bed Mobility Bed Mobility supine-sit;sit-supine -AR Supine-Sit [place] (Bed Mobility) contact guard -AR Sit-Supine [place] (Bed Mobility) moderate assist (50% patient effort) -AR Assistive Device (Bed Mobility) bed rails -AR Comment, (Bed Mobility) Educated on spinal precautions and logroll technique to maintain, she required cues to sequence. Pt c/o initial mild dizziness with sitting that resolved prior to mobility, BP140/76. -AR Row Name 01/20/25 1435 Transfers Transfers sit-stand transfer;stand-sit transfer -AR Comment, (Transfers) Cues for hand placement and bed approach. During mobility, clear drainage noted on gown and draining from incision and RN notified and at bedside to assess. Pt had no c/o pain, dizziness or headache. -AR Row Name 01/20/25 1435 Sit-Stand Transfer Sit-Stand [place] (Transfers) contact guard;verbal cues -AR Assistive Device (Sit-Stand Transfers) walker, front-wheeled -AR Row Name 01/20/25 1435 Stand-Sit Transfer Stand-Sit [place] (Transfers) contact guard;verbal cues -AR Assistive Device (Stand-Sit Transfers) walker, front-wheeled -AR Row Name 01/20/25 1435 Functional Mobility Functional Mobility- Ind. Level contact guard assist;verbal cues required -AR Functional Mobility- Device walker, front-wheeled -AR Functional Mobility- Comment As noted above, clear drainage from incision during mobility and RN notified, assessing at bedside. -AR Row Name 01/20/25 1435 Activities of Daily Living BADL Assessment/Intervention bathing;lower body dressing;upper body dressing -AR Row Name 01/20/25 1435 Lower Body Dressing Assessment/Training [place] Level (Lower Body Dressing) verbal cues;don;socks;moderate assist (50% patient effort)simulate -AR Assistive Devices (Lower Body Dressing) hydraulic plumber;sock-aid -AR Position (Lower Body Dressing) edge of bed sitting -AR Comment, (Lower Body Dressing) Educated pt on spinal precautions and ADL retraining to maintain. She will benefit from AE at upcoming session, deferred today d/t drainage. -AR Row Name 01/20/25 1435 Upper Body Dressing Assessment/Training [place] Level (Upper Body Dressing) don;doff;pajama/robe;moderate assist (50% patient effort) -AR Position (Upper Body Dressing) edge of bed sitting -AR User Abebe (r) = Recorded By, (t) = Taken By, (c) = Cosigned By Initials Name Provider Type Yuni Shay OT Occupational Therapist Obj/Interventions [facility] 01/20/25 143 Sensory Assessment (Somatosensory) Sensory Assessment (Somatosensory) UE sensation intact -AR [facility] 01/20/25 143 Vision Assessment/Intervention Visual Impairment/Limitations WNL -AR [facility] 01/20/25 143 Range of Motion Comprehensive General Range of Motion no range of motion deficits identified -AR [facility] 01/20/25 143 Strength Comprehensive (MMT) General Manual Muscle Testing (MMT) Assessment no strength deficits identified -AR Comment, General Manual Muscle Testing (MMT) Assessment WFL for ADL -AR [facility] 01/20/25 143 Balance Balance Assessment sitting static balance;sitting dynamic balance;standing static balance;standing dynamic balance -AR Static Sitting Balance supervision -AR Dynamic Sitting Balance supervision -AR Position, Sitting Balance unsupported;sitting edge of bed -AR Static Standing Balance contact guard -AR Dynamic Standing Balance contact guard -AR Position/Device Used, Standing Balance supported;walker, rolling -AR User Abebe (r) = Recorded By, (t) = Taken By, (c) = Cosigned By Initials Name Provider Type Yuni Shay OT Occupational Therapist Goals/Plan [facility] 01/20/251443 Transfer Goal 1 (OT) Activity/Assistive Device (Transfer Goal 1, OT) byt-nt-lwfyq/ajdln-wk-lfs;toilet -AR [place] Level/Cues Needed (Transfer Goal 1, OT) verbal cues required;supervision required -AR Time Frame (Transfer Goal 1, OT) care home goal (LTG);10 days -AR Progress/Outcome (Transfer Goal 1, OT) goal ongoing -AR [facility] 01/20/25 144 Dressing Goal 1 (OT) Activity/Device (Dressing Goal 1, OT) lower body dressing;hydraulic plumber;sock-aid -AR [place]/Cues Needed (Dressing Goal 1, OT) verbal cues required;supervision required -AR Time Frame (Dressing Goal 1, OT) short term goal (STG);5 days -AR Progress/Outcome (Dressing Goal 1, OT) goal ongoing -AR [facility] 01/20/25 1444 Problem Specific Goal 1 (OT) Problem Specific Goal 1 (OT) Pt will recall/maintain spinal precautions during ADL activity with max 3 vc -AR Time Frame (Problem Specific Goal 1, OT) care home goal (LTG);10 days -AR Progress/Outcome (Problem Specific Goal 1, OT) goal ongoing -AR Row Name 01/20/25 1444 Therapy Assessment/Plan (OT) Planned Therapy Interventions (OT) activity tolerance training;adaptive equipment training;BADL retraining;functional balance retraining;IADL retraining;occupation/activity based interventions;patient/caregiver education/training;transfer/mobility retraining -AR User Abebe (r) = Recorded By, (t) = Taken By, (c) = Cosigned By Initials Name Provider Type Yuni Shay, OT Occupational Therapist Clinical Impression Row Name 01/20/25 144 Pain Assessment Pretreatment Pain Rating 5/10 -AR Posttreatment Pain Rating 0/10 - no pain -AR Pain Location back -AR Pain Side/Orientation generalized -AR Pain Management Interventions activity modification encouraged;movement retraining implemented;nursing notified;positioning techniques utilized -AR Response to Pain Interventions activity participation with decreased pain -AR Row Name 01/20/25 144 Plan of Care Review Plan of Care Reviewed With patient;spouse -AR Outcome Evaluation OT educated pt on spinal precautions and incorporation into ADL routine. Pt limited with drainage from incision, RN at bedside and assessing pt who had no c/o pain, dizziness or headache with out of bed activity. She will benefit from AE at upcoming session. Recommend DC home with family assist when pt is medially appropriate. -AR Row Name 01/20/25 144 Therapy Assessment/Plan (OT) Rehab Potential (OT) good -AR Criteria for Skilled Therapeutic Interventions Met (OT) yes -AR Therapy Frequency (OT) daily -AR Row Name 01/20/25 144 Therapy Plan Review/Discharge Plan (OT) Anticipated Discharge Disposition (OT) home with 08/01 care -AR Row Name 01/20/25 1440 Vital Signs Pre Systolic BP Rehab 133 -AR Pre Treatment Diastolic BP 82 -AR Intra Systolic BP Rehab 140 -AR Intra Treatment Diastolic BP 76 -AR Pre Patient Position Supine -AR Intra Patient Position Sitting -AR Post Patient Position Supine -AR Row Name 01/20/25 1440 Positioning and Restraints Pre-Treatment Position in bed -AR Post Treatment Position bed -AR In Bed supine;call light within reach;encouraged to call for assist;exit alarm on;with family/caregiver;with nsg -AR User Abebe (r) = Recorded By, (t) = Taken By, (c) = Cosigned By Initials Name Provider Type Yuni Shay, OT Occupational Therapist Outcome Measures Row Name 01/20/25 1445 How much help from another is currently needed... Putting on and taking off regular lower body clothing? 2 -AR Bathing (including washing, rinsing, and drying) 2 -AR Toileting (which includes using toilet bed dawn or urinal) 3 -AR Putting on and taking off regular upper body clothing 3 -AR Taking care of personal grooming (such as brushing teeth) 3 -AR Eating meals 3 -AR AM-PAC 6 Clicks Score (OT) 16 -AR Row Name 01/20/25 1313 How much help from another person do you currently need... Turning from your back to your side while in flat bed without using bedrails? 3 -CK Moving from lying on back to sitting on the side of a flat bed without bedrails? 3 -CK Moving to and from a bed to a chair (including a wheelchair)? 3 -CK Standing up from a chair using your arms (e.g., wheelchair, bedside chair)? 3 -CK Climbing 3-5 steps with a railing? 2 -CK To walk in hospital room? 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) Topic: Occupational Therapy (In Progress) Point: ADL training (Done) Learning Progress Summary Patient Mirta, E,TB,D, VU,NR by AR at 01/20/2025 1445 Point: Precautions (Done) Learning Progress Summary Patient Eager, E,TB,D, VU,NR by AR at 01/20/2025 1445 Point: Body mechanics (Done) Learning Progress Summary Patient Eager, E,TB,D, VU,NR by AR at 01/20/2025 1445 User Abebe Initials Effective Dates Name Provider Type Discipline AR 12/26/22 - Yuni Storey OT Occupational Therapist OT OT Recommendation and Plan Planned Therapy Interventions (OT): activity tolerance training, adaptive equipment training, BADL retraining, functional balance retraining, IADL retraining, occupation/activity based interventions,patient/caregiver education/training, transfer/mobility retraining Therapy Frequency (OT): daily Plan of Care Review Plan of Care Reviewed With: patient, spouse Outcome Evaluation: OT educated pt on spinal precautions and incorporation into ADL routine. Pt limited with drainage from incision, RN at bedside and assessing pt who had no c/o pain, dizziness or headache with out of bed activity. She will benefit from AE at upcoming session. Recommend DC home with family assist when pt is medially appropriate. Time Calculation: Evaluation Complexity (OT) Review Occupational Profile/Medical/Therapy History Complexity: brief/low complexity Assessment, Occupational Performance/Identification of Deficit Complexity: 1-3 performance deficits Clinical Decision Making Complexity (OT): problem focused assessment/low complexity Overall Complexity of Evaluation (OT): low complexity Time Calculation- OT Row Name 01/20/25 1446 Time Calculation- OT OT Start Time 1010 -AR OT Received On 01/20/25 -AR OT Goal Re-Cert Due Date 01/30/25 -AR Untimed Charges OT Eval/Re-eval Minutes 47 -AR Total Minutes Untimed Charges Total Minutes 47 -AR Total Minutes 47 -AR User Abebe (r) = Recorded By, (t) = Taken By, (c) = Cosigned By Initials Name Provider Type AR Yuni Storey OT Occupational Therapist Therapy Charges for Today Code Description Service Date Service Provider Modifiers Qty [id number] OT EVAL LOW COMPLEXITY 4 01/20/2025 Yuni Storey OT GO 1 Yuni Storey OT 01/20/2025 * Case Management/Social Work - Mehdi Lawrence RN - 01/20/2025 10:25 AM EDT Continued Stay Note Fran Patient Name: Latosha Allison Today's Date: 01/20/2025 Admit Date: 01/15/2025 Plan: Home with spouse Discharge Plan Row Name 01/20/25 1023 Plan Plan Home with spouse Patient/Family in Agreement with Plan yes Plan Comments Spoke with patient at bedside. Plan is home with spouse. Patient denies any CM discharge needs at this time. CM will continue to follow. Final Discharge Disposition Code 01 - home or self-care Discharge Codes No documentation. Expected Discharge Date and Time Expected Discharge Date Expected Discharge Time Jan 16, 2025 Mehdi Lawrence RN * Therapy Evaluation - Angelica Campoverde, PT - 01/20/2025 9:48 AM EDT Images from the original note were not included. Patient Name: Latosha Allison : 1955 Today's Date: 01/20/2025 Admit Date: 01/15/2025 Visit Dx: ICD-10-CM ICD-9-CM 1. Lumbar stenosis with neurogenic claudication M48.062 724.03 Patient Active Problem List Diagnosis Coronary artery disease involving [place] coronary artery of [place] heart without angina pectoris Mixed hyperlipidemia Type 2 diabetes mellitus, without long-term current use of insulin Primary hypertension Obesity Sleep apnea Heart failure with preserved left ventricular function (HFpEF) Lumbar stenosis with neurogenic claudication Past Medical History: Diagnosis Date Arthritis Arthritis of back Arthritis of neck Bursitis of hip CHF (congestive heart failure) AFTER RI Coronary artery disease CTS (carpal tunnel syndrome) Diabetes mellitus X ABOUT 15 YEARS, TESTING PRN type 2 Diverticula, colon Dyslipidemia Fracture of wrist Fracture, radius Fracture, ulna GERD (gastroesophageal reflux disease) H/O- OMEPRAZOLE Hiatal hernia STILL PRESENT Hip arthrosis Hyperlipidemia Hypertension Ischemic heart disease Knee swelling Low back pain Low back strain Lumbosacral disc disease RI, old 30 YEARS AGO Osteoporosis Periarthritis of shoulder Presence of dental bridge UPPER PERMANENT BRIDGE IN PLACE Sleep apnea CPAP therapy Spinal stenosis T10 AND T8-9 Tear of meniscus of knee Thoracic disc disorder Wears glasses Past Surgical History: Procedure Laterality Date ADENOIDECTOMY BLEPHAROPLASTY Bilateral BRACHIOPLEXUS EXPLORATION CARDIAC CATHETERIZATION Left 01/05/2016 Procedure: Cardiac catheterization; Surgeon: Yoshi Cote MD; Location: [facility]; Service: CARDIAC CATHETERIZATION 05/26/2003 No evidence of fixed CAD; spontaneous spasm of the 2nd obtuse marginal which resolved following intracoronary NTG; estimated LVEF of 60%. CARDIAC CATHETERIZATION 07/15/2009 No obstructive CAD; 0% to 40% mid LAD plaque. Patent RCA and LCX stents; LVF 50%. CARDIAC CATHETERIZATION N/A 06/05/2024 Procedure: Left Heart Cath; Surgeon: Yoshi Cote IV, MD; Location: [facility]; Service: Cardiovascular; Laterality: N/A; CARDIAC CATHETERIZATION N/A 06/05/2024 Procedure: Optical Coherence Tomography; Surgeon: Yoshi Cote IV, MD; Location: [facility]; Service: Cardiovascular; Laterality: N/A; CARDIAC CATHETERIZATION N/A 06/05/2024 Procedure: Stent ALYSSA coronary; Surgeon: Yoshi Cote IV, MD; Location: [facility] LOCATION; Service: Cardiovascular; Laterality: N/A; CARDIAC SURGERY BRACHTERHAPY X ONE CARPAL TUNNEL RELEASE BILATERAL CATARACT EXTRACTION, BILATERAL Bilateral SECTION X2 COLONOSCOPY 2014 CORONARY ANGIOPLASTY WITH STENTS- x3 cardiac stents in place CORONARY STENT PLACEMENT DILATATION AND CURETTAGE X2 ENDOSCOPY LASER ABLATION 2002 UTERUS LUMBAR LAMINECTOMY WITH FUSION N/A 01/15/2025 Procedure: LUMBAR FUSION DECOMPRESSION WITH PEDICLE SCREWS- EXTEND FUSION L4-5 TO L2- L2-L4 LAMINECTOMY; Surgeon: Walt Em MD; Location: [facility] OR; Service: Neurosurgery; Laterality: N/A; ORIF FOREARM FRACTURE Left 02/2007 left wrist fracutre - PLate and screws in place OTHER SURGICAL HISTORY SPINAL FUSION 1994 L5-S1 Dr. Rajan- HARDWARE IN PLACE TONSILLECTOMY TRIGGER FINGER RELEASE Left Middle ; repair TRIGGER POINT INJECTION General Information Row Name 01/20/25 1115 Physical Therapy Time and Intention Document Type evaluation -CK Mode of Treatment physical therapy -CK Row Name 01/20/25 1118 General Information Patient Profile Reviewed yes -CK Prior Level of Function independent:;all household mobility;ADL's typically ind no AD, denies recent falls -CK Existing Precautions/Restrictions fall;spinal;other (see comments) clear drianage from caudal incision with mobility, RN aware -CK Barriers to Rehab medically complex -CK Row Name 01/20/25 111 Living Environment Current Living Arrangements home -CK People in Home spouse -CK Row Name 01/20/25 111 Home Main Entrance Number of Stairs, Main Entrance four;other (see comments) 3+1 -CK Stair Railings, Main Entrance railings on both sides of stairs -CK Row Name 01/20/25 1115 Stairs Within Home, Primary Stairs, Within Home, Primary all needs met on main floor -CK Row Name 01/20/25 111 Cognition Orientation Status (Cognition) oriented x 4 -CK Row Name 01/20/25 111 Safety Issues/Impairments Affecting Functional Mobility Safety Issues Affecting Function (Mobility) awareness of need for assistance;insight into deficits/self-awareness;safety precaution awareness -CK Impairments Affecting Function (Mobility) balance;endurance/activity tolerance;pain;strength -CK User Abebe (r) = Recorded By, (t) = Taken By, (c) = Cosigned By Initials Name Provider Type CK Angelica Campoverde, PT Physical Therapist Mobility Row Name 01/20/25 111 Bed Mobility Bed Mobility supine-sit;sit-supine -CK Supine-Sit [place] (Bed Mobility) contact guard -CK Sit-Supine [place] (Bed Mobility) moderate assist (50% patient effort) -CK Assistive Device (Bed Mobility) bed rails -CK Comment, (Bed Mobility) reviewed spinal precautions and logroll technique. Patient able to completesup to sit with verbal cues only. She denied headache at EOB. Mild dizziness BP was 140/76. She required modA at BLEs for sit to sup -CK Row Name 01/20/25 111 Transfers Comment, (Transfers) Patient with clear drainage leaking through gown with mobility, immediately notified RN and returned patient to supine. Patient remained asymptomatic with all mobility. -CK Row Name 01/20/25 111 Sit-Stand Transfer Sit-Stand [place] (Transfers) contact guard -CK Assistive Device (Sit-Stand Transfers) walker, front-wheeled -CK Comment, (Sit-Stand Transfer) cues to push up from bed -CK Row Name 01/20/25 1119 Gait/Stairs (Locomotion) [place] Level (Gait) contact guard;2 person assist;verbal cues -CK Assistive Device (Gait) walker, front-wheeled -CK Patient was able to Ambulate yes -CK Distance in Feet (Gait) 60 -CK Deviations/Abnormal Patterns (Gait) bilateral deviations;base of support, wide;jose decreased;gait speed decreased;stride length decreased -CK Bilateral Gait Deviations heel strike decreased -CK Comment, (Gait/Stairs) Patient ambulated in hyde with a slow step through gait pattern. She demo'd good sequencing with walker, complained of feelings of BLE weakness but no buckling. Partway throughambulation, patient noted to have clear drainage on her back gown. RN immediately notified and patient returned to supine in bed. Patient was asymptomatic while ambulating. -CK User Abebe (r) = Recorded By, (t) = Taken By, (c) = Cosigned By Initials Name Provider Type CK Angelica Campoverde PT Physical Therapist Obj/Interventions Row Name 01/20/25 1133 Range of Motion Comprehensive General Range of Motion bilateral lower extremity ROM WFL -CK Row Name 01/20/25 1133 Strength Comprehensive (MMT) General Manual Muscle Testing (MMT) Assessment lower extremity strength deficits identified -CK Comment, General Manual Muscle Testing (MMT) Assessment deferred formal MMT due to spinal incision,patient demos at least 3+/5 strength bilaterally -CK Row Name 01/20/25 1133 Motor Skills Therapeutic Exercise other (see comments) deferred d/t patient left in bed in care of nursing with drainage from back -CK Row Name 01/20/25 1133 Balance Balance Assessment sitting static balance;standing static balance;standing dynamic balance -CK Static Sitting Balance contact guard -CK Position, Sitting Balance unsupported;sitting edge of bed -CK Static Standing Balance contact guard -CK Dynamic Standing Balance contact guard -CK Position/Device Used, Standing Balance supported;walker, front-wheeled -CK Comment, Balance patient c/o BLE feeling weak with mobility but no LOB or buckling with mobility -CK Row Name 01/20/25 1133 Sensory Assessment (Somatosensory) Sensory Assessment (Somatosensory) LE sensation intact -CK User Abebe (r) = Recorded By, (t) = Taken By, (c) = Cosigned By Initials Name Provider Type CK Kestler, Angelica, PT Physical Therapist Goals/Plan Row Name 01/20/251311 Bed Mobility Goal 1 (PT) Activity/Assistive Device (Bed Mobility Goal 1, PT) sit to supine/supine to sit -CK [place] Level/Cues Needed (Bed Mobility Goal 1, PT) modified independence -CK Time Frame (Bed Mobility Goal 1, PT) short term goal (STG);5 days -CK Progress/Outcomes (Bed Mobility Goal 1, PT) new goal -CK Row Name 01/20/251311 Transfer Goal 1 (PT) Activity/Assistive Device (Transfer Goal 1, PT) xdh-nd-vftwa/zrded-wu-gdz;tzm-fh-tmejb/oprbf-zd-tqz-CK [place] Level/Cues Needed (Transfer Goal 1, PT) standby assist -CK Time Frame (Transfer Goal 1, PT) care home goal (LTG);10 days -CK Progress/Outcome (Transfer Goal 1, PT) new goal -CK Row Name 01/20/251311 Gait Training Goal 1 (PT) Activity/Assistive Device (Gait Training Goal 1, PT) gait (walking locomotion);assistive device use-CK [place] Level (Gait Training Goal 1, PT) contact guard required -CK Distance (Gait Training Goal 1, PT) 350' -CK Time Frame (Gait Training Goal 1, PT) manager market research goal (LTG);10 days -CK Progress/Outcome (Gait Training Goal 1, PT) new goal -CK Row Name 01/20/251311 Stairs Goal 1 (PT) Activity/Assistive Device (Stairs Goal 1, PT) ascending stairs;descending stairs;using handrail, left;using handrail, right -CK [place] Level/Cues Needed (Stairs Goal 1, PT) contact guard required -CK Number of Stairs (Stairs Goal 1, PT) 3+1 -CK Time Frame (Stairs Goal 1, PT) care home goal (LTG);10 days -CK Progress/Outcome (Stairs Goal 1, PT) new goal -CK Row Name 01/20/251311 Therapy Assessment/Plan (PT) Planned Therapy Interventions (PT) balance training;bed mobility training;gait training;home exercise program;neuromuscular re-education;transfer training;stretching;strengthening;stair training;ROM (range of motion);patient/family education -CK User Abebe (r) = Recorded By, (t) = Taken By, (c) = Cosigned By Initials Name Provider Type CK Angelica Campoverde PT Physical Therapist Clinical Impression Row Name 01/20/25 130 Pain Pretreatment Pain Rating 5/10 -CK Posttreatment Pain Rating 0/10 - no pain -CK Pain Location back -CK Pain Side/Orientation generalized -CK Pain Management Interventions exercise or physical activity utilized;positioning techniques utilized;premedicated for activity;nursing notified -CK Response to Pain Interventions activity participation with decreased pain -CK Row Name 01/20/25 1309 Plan of Care Review Plan of Care Reviewed With patient -CK Outcome Evaluation Patient presents with deficits in strength, endurance, and balance. She was ableto ambulate 60' CGA with FWW with no LOB or buckling, but was limited in further mobility by increased drainage from incision, RN aware. Patient was asymptomatic with all mobility. IPPT is indicated to address deficits while admitted. Anticipate she will be appropriate for D/C home with assist. -CK Row Name 01/20/25 1308 Therapy Assessment/Plan (PT) Patient/Family Therapy Goals Statement (PT) move and feel better -CK Rehab Potential (PT) good -CK Criteria for Skilled Interventions Met (PT) yes;meets criteria;skilled treatment is necessary -CK Therapy Frequency (PT) daily -CK Row Name 01/20/25 1302 Vital Signs Pre Systolic BP Rehab 133 -CK Pre Treatment Diastolic BP 82 -CK Intra Systolic BP Rehab 140 -CK Intra Treatment Diastolic BP 76 -CK Pretreatment Heart Rate (beats/min) 78 -CK Posttreatment Heart Rate (beats/min) 73 -CK Pre SpO2 (%) 97 -CK O2 Delivery Pre Treatment nasal cannula -CK O2 Delivery Intra Treatment room air -CK Post SpO2 (%) 91 -CK O2 Delivery Post Treatment room air -CK Pre Patient Position Supine -CK Intra Patient Position Sitting -CK Post Patient Position Supine -CK Row Name 01/20/25 130 Positioning and Restraints Pre-Treatment Position in bed -CK Post Treatment Position bed -CK In Bed supine;with nsg RN present to assess incisional drainage, RN to set patient up and set bed alarm follwing her care -CK User Abebe (r) = Recorded By, (t) = Taken By, (c) = Cosigned By Initials Name Provider Type CK Kestler, Angelica, PT Physical Therapist Outcome Measures Row Name 01/20/25 1313 How much help from another person do you currently need... Turning from your back to your side while in flat bed without using bedrails? 3 -CK Moving from lying on back to sitting on the side of a flat bed without bedrails? 3 -CK Moving to and from a bed to a chair (including a wheelchair)? 3 -CK Standing up from a chair using your arms (e.g., wheelchair, bedside chair)? 3 -CK Climbing 3-5 steps with a railing? 2 -CK To walk in hospital room? 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 Point: Body mechanics (Done) Learning Progress Summary Patient Acceptance, E, VU by CK at 01/20/2025 1313 Significant Other Acceptance, E, VU by CK at 01/20/2025 1313 Point: Precautions (Done) Learning Progress Summary Patient Acceptance, E, VU by CK at 01/20/2025 1313 Significant Other Acceptance, E, VU by CK at 01/20/2025 1313 User Abebe Initials Effective Dates Name Provider Type Discipline CK 07/24/23 - Angelica Campoverde PT Physical Therapist PT PT Recommendation and Plan Planned Therapy Interventions (PT): balance training, bed mobility training, gait training, home exercise program, neuromuscular re-education, transfer training, stretching, strengthening, stair training, ROM (range of motion), patient/family education Outcome Evaluation: Patient presents with deficits in strength, endurance, and balance. She was able to ambulate 60' CGA with FWW with no LOB or buckling, but was limited in further mobility by increased drainage from incision, RN aware. Patient was asymptomatic with all mobility. IPPT is indicatedto address deficits while admitted. Anticipate she will be appropriate for D/C home with assist. Time Calculation: PT Evaluation Complexity History, PT Evaluation Complexity: 3 or more personal factors and/or comorbidities Examination of Body Systems (PT Eval Complexity): total of 3 or more elements Clinical Presentation (PT Evaluation Complexity): evolving Clinical Decision Making (PT Evaluation Complexity): moderate complexity Overall Complexity (PT Evaluation Complexity): moderate complexity PT Charges Row Name 01/20/25 1313 Time Calculation Start Time 0948 -CK PT Received On 01/20/25 -CK PT Goal Re-Cert Due Date 01/30/25 -CK Untimed Charges PT Eval/Re-eval Minutes 46 -CK Total Minutes Untimed Charges Total Minutes 46 -CK Total Minutes 46 -CK User Abebe (r) = Recorded By, (t) = Taken By, (c) = Cosigned By Initials Name Provider Type CK Angelica Campoverde, PT Physical Therapist Therapy Charges for Today Code Description Service Date Service Provider Modifiers Qty [id number] HC PT EVAL MOD COMPLEXITY 4 01/20/2025 Angelica Campoverde, PT GP 1 PT G-Codes Outcome Measure Options: AM-PAC 6 Clicks Basic Mobility (PT) AM-PAC 6 Clicks Score (PT): 17 PT Discharge Summary Anticipated Discharge Disposition (PT): home with assist Angelica Campoverde PT 01/20/2025 * Case Management/Social Work - Mehdi Lawrence, RN - 01/19/2025 8:55 AM EDT Continued Stay Note NINA Peters Patient Name: Latosha Allison Today's Date: 01/19/2025 Admit Date: 01/15/2025 Plan: Home with spouse Discharge Plan Row Name 01/19/25 0854 Plan Plan Home with spouse Patient/Family in Agreement with Plan yes Plan Comments Spoke with patient at bedside. Plan is home with spouse. Patient curently on bedrest.CM will continue to follow. Final Discharge Disposition Code 01 - home or self-care Discharge Codes No documentation. Expected Discharge Date and Time Expected Discharge Date Expected Discharge Time Jan 16, 2025 Mehdi Lawrnece RN * Case Management/Social Work - Jenny Castaneda RN - 01/16/2025 11:58 AM EDT Images from the original note were not included. Discharge Planning Assessment [facility] Patient Name: Latosha Allison Today's Date: 01/16/2025 Admit Date: 01/15/2025 Plan: Home Discharge Needs Assessment Row Name 01/16/25 1141 Living Environment People in Home spouse Name(s) of People in Home Bassem Allison Spouse [phone] Current Living Arrangements home Potentially Unsafe Housing Conditions none In the past 12 months has the electric, gas, oil, or water company threatened to shut off services in your home? No Primary Care Provided by self Provides Primary Care For no one Family Caregiver if Needed spouse Family Caregiver Names Bassem Allison Spouse [phone] Quality of Family Relationships helpful;involved;supportive Able to Return to Prior Arrangements yes Resource/Environmental Concerns Resource/Environmental Concerns none Transportation Concerns none Transportation Needs In the past 12 months, has lack of transportation kept you from medical appointments or from getting medications? no In the past 12 months, has lack of transportation kept you from meetings, work, or from getting things needed for daily living? No Food Insecurity Within the past 12 months, you worried that your food would run out before you got the money to buymore. Never true Within the past 12 months, the food you bought just didn't last and you didn't have money to get more. Never true Transition Planning Patient/Family Anticipates Transition to home with family Patient/Family Anticipated Services at Transition none Transportation Anticipated family or friend will provide Discharge Needs Assessment Readmission Within the Last 30 Days no previous admission in last 30 days Equipment Currently Used at Home none Concerns to be Addressed discharge planning Do you want help finding or keeping work or a job? I do not need or want help Do you want help with school or training? For example, starting or completing job training or getting a high school diploma, GED or equivalent No Anticipated Changes Related to Illness none Equipment Needed After Discharge walker, rolling Discharge Plan Row Name 01/16/25 1152 Plan Plan Home Patient/Family in Agreement with Plan yes Plan Comments CM spoke with patient at bedside regarding DC planning. Patient resides in [facility] with her spouse. Patient is independent with ADL's, denies any DME. Patient denies any current home health or outpatient services. Patient has medical insurance, prescription coverage and is able toafford/obtain medications without difficulty. Patient has no advanced directives. DC goal is home. Currently on strict bedrest and head of bed flat. Case management team will continue to follow plan of care and assist with discharge planning as recommendations are available. Final Discharge Disposition Code 01 - home or self-care Continued Care and Services - Admitted Since 01/15/2025 No active coordination exists. Expected Discharge Date and Time Expected Discharge Date Expected Discharge Time Jan 16, 2025 Demographic Summary Row Name 01/16/25 1139 General Information Arrived From home Referral Source physician Reason for Consult discharge planning Preferred Language [place] Contact Information Contact Information Comments Bassem Allison Spouse [phone] Functional Status Row Name 01/16/25 1140 Functional Status Usual Activity Tolerance moderate Current Activity Tolerance -- Bedrest Physical Activity On average, how many days per week do you engage in moderate to strenuous exercise (like a brisk walk)? 0 days On average, how many minutes do you engage in exercise at this level? 0 min Number of minutes of exercise per week 0 Assessment of Health Literacy How often do you have someone help you read hospital materials? Never How often do you have problems learning about your medical condition because of difficulty understanding written information? Never How often do you have a problem understanding what is told to you about your medical condition? Never How confident are you filling out medical forms by yourself? Quite a bit Health Literacy Good Functional Status, IADL Medications independent Meal Preparation independent Housekeeping independent Laundry independent Shopping independent If for any reason you need help with day-to-day activities such as bathing, preparing meals, shopping, managing finances, etc., do you get the help you need? I don't need any help Mental Status General Appearance WDL WDL Mental Status Summary Recent Changes in Mental Status/Cognitive Functioning no changes Employment/ Employment Status retired Psychosocial No documentation. Abuse/Neglect No documentation. Legal No documentation. Substance Abuse No documentation. Patient Forms No documentation. Jenny Castaneda RN documented in this encounter Plan of Treatment Upcoming Encounters Date Type Department Care Team (Late st Contact Info) Description 04/08/2025 10:15 AM EDT Office Visit [facility] NEUROSURGERY [address] [place] [address] Marjan Tran, JUVEC [address] [place] [address] 10/29/2025 9:45 AM EDT Office Visit [facility] CARDIOLOGY [address] [place] [address] Samir Thurman MD [address] [facility] [address] [place] [address] Scheduled Procedures Name Priority Associated Diagnoses Date/Ti me LUMBAR LAMINECTOMY DISCECTOM Y DECOMPRESSION POSTERIOR 1-2 LEVELS Lumbar stenosis with neurogenic claudication Scheduled Referrals Name Type Priority Associated Diagnoses Orde r Schedule Ambulatory Referral to Home Health Outpatient Referral Routine Lumbar stenosis with neurogenic claudication Ordered: 01/29/2025 documented as of this encounter Procedures Procedure Name Priority Date/Time Associated Diagnosis Comments POCT GLUCOSE FINGERSTICK Routine 01/29/2025 10:58 AM EDT POCT GLUCOSE FINGERSTICK Routine 01/29/2025 7:13 AM EDT POCT GLUCOSE FINGERSTICK Routine 01/28/2025 7:57 PM EDT POCT GLUCOSE FINGERSTICK Routine 01/28/2025 4:08 PM EDT POCT GLUCOSE FINGERSTICK Routine 01/28/2025 11:27 AM EDT POCT GLUCOSE FINGERSTICK Routine 01/28/2025 7:12 AM EDT POCT GLUCOSE FINGERSTICK Routine 01/27/2025 7:55 PM EDT POCT GLUCOSE FINGERSTICK Routine 01/27/2025 4:11 PM EDT POCT GLUCOSE FINGERSTICK Routine 01/27/2025 11:19 AM EDT POCT GLUCOSE FINGERSTICK Routine 01/27/2025 7:30 AM EDT POCT GLUCOSE FINGERSTICK Routine 01/26/2025 8:18 PM EDT POCT GLUCOSE FINGERSTICK Routine 01/26/2025 4:34 PM EDT POCT GLUCOSE FINGERSTICK Routine 01/26/2025 11:33 AM EDT POCT GLUCOSE FINGERSTICK Routine 01/26/2025 8:00 AM EDT POCT GLUCOSE FINGERSTICK Routine 01/25/2025 7:56 PM EDT POCT GLUCOSE FINGERSTICK Routine 01/25/2025 4:19 PM EDT POCT GLUCOSE FINGERSTICK Routine 01/25/2025 11:18 AM EDT POCT GLUCOSE FINGERSTICK Routine 01/25/2025 7:30 AM EDT POCT GLUCOSE FINGERSTICK Routine 01/24/2025 8:16 PM EDT POCT GLUCOSE FINGERSTICK Routine 01/24/2025 4:36 PM EDT POCT GLUCOSE FINGERSTICK Routine 01/24/2025 11:51 AM EDT POCT GLUCOSE FINGERSTICK Routine 01/24/2025 7:20 AM EDT POCT GLUCOSE FINGERSTICK Routine 01/23/2025 7:58 PM EDT POCT GLUCOSE FINGERSTICK Routine 01/23/2025 4:30 PM EDT POCT GLUCOSE FINGERSTICK Routine 01/23/2025 11:08 AM EDT POCT GLUCOSE FINGERSTICK Routine 01/23/2025 7:20 AM EDT POCT GLUCOSE FINGERSTICK Routine 01/22/2025 8:12 PM EDT POCT GLUCOSE FINGERSTICK Routine 01/22/2025 4:22 PM EDT FL C ARM DURING SURGERY Routine 01/22/2025 1:49 PM EDT LUMBAR DRAIN INSERTION EXTERNAL 01/22/2025 12:23 PM EDT Special Needs PP CARD POCT GLUCOSE FINGERSTICK Routine 01/22/2025 7:27 AM EDT POCT GLUCOSE FINGERSTICK Routine 01/21/2025 7:37 PM EDT POCT GLUCOSE FINGERSTICK Routine 01/21/2025 4:16 PM EDT POCT GLUCOSE FINGERSTICK Routine 01/21/2025 11:26 AM EDT POCT GLUCOSE FINGERSTICK Routine 01/21/2025 7:02 AM EDT POCT GLUCOSE FINGERSTICK Routine 01/20/2025 7:25 PM EDT POCT GLUCOSE FINGERSTICK Routine 01/20/2025 4:27 PM EDT POCT GLUCOSE FINGERSTICK Routine 01/20/2025 11:13 AM EDT POCT GLUCOSE FINGERSTICK Routine 01/20/2025 7:25 AM EDT POCT GLUCOSE FINGERSTICK Routine 01/19/2025 7:47 PM EDT POCT GLUCOSE FINGERSTICK Routine 01/19/2025 4:28 PM EDT POCT GLUCOSE FINGERSTICK Routine 01/19/2025 11:29 AM EDT POCT GLUCOSE FINGERSTICK Routine 01/19/2025 7:11 AM EDT POCT GLUCOSE FINGERSTICK Routine 01/18/2025 9:17 PM EDT POCT GLUCOSE FINGERSTICK Routine 01/18/2025 4:37 PM EDT POCT GLUCOSE FINGERSTICK Routine 01/18/2025 11:10 AM EDT POCT GLUCOSE FINGERSTICK Routine 01/18/2025 7:09 AM EDT POCT GLUCOSE FINGERSTICK Routine 01/17/2025 8:38 PM EDT POCT GLUCOSE FINGERSTICK Routine 01/17/2025 4:29 PM EDT POCT GLUCOSE FINGERSTICK Routine 01/17/2025 11:05 AM EDT POCT GLUCOSE FINGERSTICK Routine 01/17/2025 6:51 AM EDT POCT GLUCOSE FINGERSTICK Routine 01/16/2025 7:56 PM EDT POCT GLUCOSE FINGERSTICK Routine 01/16/2025 4:38 PM EDT POCT GLUCOSE FINGERSTICK Routine 01/16/2025 11:07 AM EDT HEMOGLOBIN AND HEMATOCRIT, BLOOD Routine 01/16/2025 8:12 AM EDT POCT GLUCOSE FINGERSTICK Routine 01/16/2025 7:30 AM EDT POCT GLUCOSE FINGERSTICK Routine 01/15/2025 7:55 PM EDT POCT GLUCOSE FINGERSTICK Routine 01/15/2025 4:47 PM EDT CBC WITH AUTO DIFFERENTIAL Routine 01/15/2025 2:03 PM EDT CBC AND DIFFERENTIAL Routine 01/15/2025 2:03 PM EDT POCT GLUCOSE FINGERSTICK Routine 01/15/2025 1:44 PM EDT FL C ARM DURING SURGERY Routine 01/15/2025 12:50 PM EDT POCT SURGERY LABS Routine 01/15/2025 11: 16 AM EDT FL O ARM DURING SURGERY Routine 01/15/2025 9:12 AM EDT POCT GLUCOSE FINGERSTICK Routine 01/15/2025 7:38 AM EDT AR ARTHRODESIS POSTERIOR INTERBODY 1 NTRSPC LUMBAR 01/15/2025 7:12 AM EDT Lumbar stenosis with neurogenic claudication Special Needs C-ARM, FILMS [facility], GERMAN TABLE, O-ARM, [employer], UGO FRANK SCANNED - TELEMETRY 01/15/2025 documented in this encounter Results * POC Glucose Once (01/29/2025 10:58 AM EDT) [facility] Signature Glucose 112 70 - 130 mg/dL 01/29/2025 10:58 AM EDT [facility] Blood 01/29/2025 10:5 8 AM EDT 01/29/2025 10:58 AM EDT us Walt Em MD POINT OF CARE TEST ORDERABLES Final Result Performing Organization Address City/[facility]/ZIP Co de Phone Number [facility]
[address] [place] [address], * POC Glucose Once (01/29/2025 7:13 AM EDT) Glucose 113 70 - 130 mg/dL 01/29/2025 7:13 AM EDT [facility] Blood 01/29/2025 7:13 AM EDT 01/29/2025 7:13 AM EDT Walt Em MD POINT OF CARE TEST ORDERABLES Final Result Performing Organization Address [facility] Co de Phone Number [facility]
[address] [place] [address], * POC Glucose Once (01/28/2025 7:57 PM EDT) Glucose 117 70 - 130 mg/dL 01/28/2025 7:59 PM EDT [facility] Blood 01/28/2025 7:57 PM EDT 01/28/2025 7:59 PM EDT Walt Em MD POINT OF CARE TEST ORDERABLES Final Result Performing Organization Address City/[facility]/ZIP Co de Phone Number [facility]
[address] [place] [address], * POC Glucose Once (01/28/2025 4:08 PM EDT) Glucose 90 70 - 130 mg/dL 01/28/2025 4:09 PM EDT [facility] Blood 01/28/2025 4:08 PM EDT 01/28/2025 4:09 PM EDT Walt Em MD POINT OF CARE TEST ORDERABLES Final Result Performing Organization Address [facility] Co de Phone Number [facility]
[address] [place] [address], * (ABNORMAL) POC Glucose Once (01/28/2025 11:27 AM EDT) Glucose 133(H) 70 - 130 mg/dL 01/28/2025 11:28 AM EDT [facility] Blood 01/28/2025 11:2 7 AM EDT 01/28/2025 11:28 AM EDT Walt Em MD POINT OF CARE TEST ORDERABLES Final Result Performing Organization Address [facility] Co de Phone Number [facility]
[address] [place] [address], * POC Glucose Once (01/28/2025 7:12 AM EDT) Glucose 113 70 - 130 mg/dL 01/28/2025 7:14 AM EDT [facility] Blood 01/28/2025 7:12 AM EDT 01/28/2025 7:14 AM EDT Walt Em MD POINT OF CARE TEST ORDERABLES Final Result Performing Organization Address City/[facility] Co de Phone Number [facility]
[address] [place] [address], * POC Glucose Once (01/27/2025 7:55 PM EDT) Glucose 108 70 - 130 mg/dL 01/27/2025 7:56 PM EDT [facility] Blood 01/27/2025 7:55 PM EDT 01/27/2025 7:56 PM EDT Walt Em MD POINT OF CARE TEST ORDERABLES Final Result Performing Organization Address City/[facility]/ZIP Co de Phone Number [facility]
[address] [place] [address], * POC Glucose Once (01/27/2025 4:11 PM EDT) Glucose 120 70 - 130 mg/dL 01/27/2025 4:14 PM EDT [facility] Blood 01/27/2025 4:11 PM EDT 01/27/2025 4:13 PM EDT Walt Em MD POINT OF CARE TEST ORDERABLES Final Result Performing Organization Address [facility] Co de Phone Number [facility]
[address] [place] [address], * (ABNORMAL) POC Glucose Once (01/27/2025 11:19 AM EDT) Glucose 132(H) 70 - 130 mg/dL 01/27/2025 11:21 AM EDT [facility] Blood 01/27/2025 11:1 9 AM EDT 01/27/2025 11:21 AM EDT Walt Em MD POINT OF CARE TEST ORDERABLES Final Result Performing Organization Address City/[facility] Co de Phone Number [facility]
[address] [place] [address], * (ABNORMAL) POC Glucose Once (01/27/2025 7:30 AM EDT) Glucose 136(H) 70 - 130 mg/dL 01/27/2025 7:32 AM EDT [facility] Blood 01/27/2025 7:30 AM EDT 01/27/2025 7:31 AM EDT Walt Em MD POINT OF CARE TEST ORDERABLES Final Result Performing Organization Address [facility] Co de Phone Number [facility]
[address] [place] [address], * POC Glucose Once (01/26/2025 8:18 PM EDT) Glucose 96 70 - 130 mg/dL 01/26/2025 8:20 PM EDT [facility] Blood 01/26/2025 8:18 PM EDT 01/26/2025 8:20 PM EDT Walt Em MD POINT OF CARE TEST ORDERABLES Final Result Performing Organization Address [facility] de Phone Number [facility]
[address] [place] [address], * (ABNORMAL) POC Glucose Once (01/26/2025 4:34 PM EDT) Glucose 137(H) 70 - 130 mg/dL 01/26/2025 4:36 PM EDT [facility] Blood 01/26/2025 4:34 PM EDT 01/26/2025 4:36 PM EDT Walt Em MD POINT OF CARE TEST ORDERABLES Final Result Performing Organization Address [facility] de Phone Number [facility]
[address] [place] [address], [place] [phone] * POC Glucose Once (01/26/2025 11:33 AM EDT) Glucose 106 70 - 130 mg/dL 01/26/2025 11:35 AM EDT [facility] Blood 01/26/2025 11:3 3 AM EDT 01/26/2025 11:35 AM EDT Walt Em MD POINT OF CARE TEST ORDERABLES Final Result Performing Organization Address City/[facility]/ZIP Co de Phone Number [facility]
[address] [place] [address], * (ABNORMAL) POC Glucose Once (01/26/2025 8:00 AM EDT) Glucose 139(H) 70 - 130 mg/dL 01/26/2025 8:01 AM EDT [facility] Blood 01/26/2025 8:00 AM EDT 01/26/2025 8:01 AM EDT Walt Em MD POINT OF CARE TEST ORDERABLES Final Result Performing Organization Address [facility] Co de Phone Number [facility]
[address] [place] [address], * POC Glucose Once (01/25/2025 7:56 PM EDT) Glucose 112 70 - 130 mg/dL 01/25/2025 7:57 PM EDT [facility] Blood 01/25/2025 7:56 PM EDT 01/25/2025 7:57 PM EDT Walt Em MD POINT OF CARE TEST ORDERABLES Final Result Performing Organization Address City/[facility]/ZIP Co de Phone Number [facility]
[address] [place] [address], [place] [phone] * POC Glucose Once (01/25/2025 4:19 PM EDT) Glucose 120 70 - 130 mg/dL 01/25/2025 4:24 PM EDT [facility] Blood 01/25/2025 4:19 PM EDT 01/25/2025 4:24 PM EDT Walt Em MD POINT OF CARE TEST ORDERABLES Final Result Performing Organization Address City/[facility]/ZIP Co de Phone Number [facility]
[address] [place] [address], [place] [phone] * POC Glucose Once (01/25/2025 11:18 AM EDT) Glucose 113 70 - 130 mg/dL 01/25/2025 11:42 AM EDT [facility] Blood 01/25/2025 11:1 8 AM EDT 01/25/2025 11:42 AM EDT us Walt Em MD POINT OF CARE TEST ORDERABLES Final Result Performing Organization Address [facility] Co de Phone Number [facility]
[address] [place] [address], * POC Glucose Once (01/25/2025 7:30 AM EDT) Glucose 109 70 - 130 mg/dL 01/25/2025 7:34 AM EDT [facility] Blood 01/25/2025 7:30 AM EDT 01/25/2025 7:34 AM EDT Walt Em MD POINT OF CARE TEST ORDERABLES Final Result Performing Organization Address City/[facility] Co de Phone Number [facility]
[address] [place] [address], * POC Glucose Once (01/24/2025 8:16 PM EDT) Glucose 116 70 - 130 mg/dL 01/24/2025 8:17 PM EDT [facility] Blood 01/24/2025 8:16 PM EDT 01/24/2025 8:17 PM EDT Walt Em MD POINT OF CARE TEST ORDERABLES Final Result [facility]
[address] [place] [address], * POC Glucose Once (01/24/2025 4:36 PM EDT) Glucose 108 70 - 130 mg/dL 01/24/2025 4:37 PM EDT [facility] Blood 01/24/2025 4:36 PM EDT 01/24/2025 4:37 PM EDT Walt Em MD POINT OF CARE TEST ORDERABLES Final Result Performing Organization Address City/[facility] Co de Phone Number [facility]
[address] [place] [address], * POC Glucose Once (01/24/2025 11:51 AM EDT) Glucose 104 70 - 130 mg/dL 01/24/2025 11:53 AM EDT [facility] Blood 01/24/2025 11:5 1 AM EDT 01/24/2025 11:53 AM EDT Walt Em MD POINT OF CARE TEST ORDERABLES Final Result Performing Organization Address City/[facility]/ZIP Co de Phone Number [facility]
[address] [place] [address], * POC Glucose Once (01/24/2025 7:20 AM EDT) Glucose 97 70 - 130 mg/dL 01/24/2025 7:21 AM EDT [facility] Blood 01/24/2025 7:20 AM EDT 01/24/2025 7:21 AM EDT Walt Em MD POINT OF CARE TEST ORDERABLES Final Result Performing Organization Address City/[facility]/ZIP Co de Phone Number [facility]
[address] [place] [address], * (ABNORMAL) POC Glucose Once (01/23/2025 7:58 PM EDT) Glucose 160(H) 70 - 130 mg/dL 01/23/2025 7:59 PM EDT [facility] Blood 01/23/2025 7:58 PM EDT 01/23/2025 7:59 PM EDT Walt Em MD POINT OF CARE TEST ORDERABLES Final Result Performing Organization Address [facility]/ZIP Co de Phone Number [facility]
[address] [place] [address], * POC Glucose Once (01/23/2025 4:30 PM EDT) Glucose 118 70 - 130 mg/dL 01/23/2025 4:31 PM EDT [facility] Blood 01/23/2025 4:30 PM EDT 01/23/2025 4:31 PM EDT Walt Em MD POINT OF CARE TEST ORDERABLES Final Result Performing Organization Address City/[facility]/ZIP Co de Phone Number [facility]
[address] [place] [address], * POC Glucose Once (01/23/2025 11:08 AM EDT) Glucose 104 70 - 130 mg/dL 01/23/2025 11:09 AM EDT [facility] Blood 01/23/2025 11:0 8 AM EDT 01/23/2025 11:09 AM EDT Walt Em MD POINT OF CARE TEST ORDERABLES Final Result Performing Organization Address City/[facility]/ZIP Co de Phone Number [facility]
[address] [place] [address], * POC Glucose Once (01/23/2025 7:20 AM EDT) Glucose 106 70 - 130 mg/dL 01/23/2025 7:22 AM EDT [facility] Blood 01/23/2025 7:20 AM EDT 01/23/2025 7:22 AM EDT Walt Em MD POINT OF CARE TEST ORDERABLES Final Result Performing Organization Address [facility] Co de Phone Number [facility]
[address] [place] [address], * (ABNORMAL) POC Glucose Once (01/22/2025 8:12 PM EDT) Glucose 167(H) 70 - 130 mg/dL 01/22/2025 8:16 PM EDT [facility] Blood 01/22/2025 8:12 PM EDT 01/22/2025 8:16 PM EDT Walt Em MD POINT OF CARE TEST ORDERABLES Final Result Performing Organization Address City/[facility]/ZIP Co de Phone Number [facility]
[address] [place] [address], [place] [phone] * POC Glucose Once (01/22/2025 4:22 PM EDT) Glucose 119 70 - 130 mg/dL 01/22/2025 4:23 PM EDT [facility] Blood 01/22/2025 4:22 PM EDT 01/22/2025 4:23 PM EDT us Walt Em MD POINT OF CARE TEST ORDERABLES Final Result Performing Organization Address City/[facility]/ZIP Co de Phone Number [facility]
[address] [place] [address], * FL C Arm During Surgery (01/22/2025 1:49 PM EDT) Narrative SYSTEMGENERATED, DOCUMENTATION - 01/22/2025 1:51 PM EDT This procedure was auto-finalized with no dictation required. us Walt Em MD IMG FLUOROSCOPY ORDERABLES Fi nal Result * POC Glucose Once (01/22/2025 7:27 AM EDT) Glucose 105 70 - 130 mg/dL 01/22/2025 7:29 AM EDT [facility] Blood 01/22/2025 7:27 AM EDT 01/22/2025 7:29 AM EDT Walt Em MD POINT OF CARE TEST ORDERABLES Final Result Performing Organization Address [facility] Co de Phone Number [facility]
[address] [place] [address], [place] [phone] * POC Glucose Once (01/21/2025 7:37 PM EDT) Glucose 127 70 - 130 mg/dL 01/21/2025 7:38 PM EDT [facility] Blood 01/21/2025 7:37 PM EDT 01/21/2025 7:38 PM EDT us Walt Em MD POINT OF CARE TEST ORDERABLES Final Result Performing Organization Address City/[facility]/ZIP Co de Phone Number [facility]
[address] [place] [address], * (ABNORMAL) POC Glucose Once (01/21/2025 4:16 PM EDT) Glucose 141(H) 70 - 130 mg/dL 01/21/2025 4:17 PM EDT [facility] Blood 01/21/2025 4:16 PM EDT 01/21/2025 4:17 PM EDT Walt Em MD POINT OF CARE TEST ORDERABLES Final Result Performing Organization Address City/[facility]/ZIP Co de Phone Number [facility]
[address] [place] [address], * POC Glucose Once (01/21/2025 11:26 AM EDT) Glucose 124 70 - 130 mg/dL 01/21/2025 11:28 AM EDT [facility] Blood 01/21/2025 11:2 6 AM EDT 01/21/2025 11:27 AM EDT Walt Em MD POINT OF CARE TEST ORDERABLES Final Result Performing Organization Address City/[facility]/ZIP Co de Phone Number [facility]
[address] [place] [address], * (ABNORMAL) POC Glucose Once (01/21/2025 7:02 AM EDT) Glucose 148(H) 70 - 130 mg/dL 01/21/2025 7:03 AM EDT [facility] Blood 01/21/2025 7:02 AM EDT 01/21/2025 7:03 AM EDT us Walt Em MD POINT OF CARE TEST ORDERABLES Final Result [facility]
[address] [place] [address], * (ABNORMAL) POC Glucose Once (01/20/2025 7:25 PM EDT) Glucose 134(H) 70 - 130 mg/dL 01/20/2025 7:26 PM EDT [facility] Blood 01/20/2025 7:25 PM EDT 01/20/2025 7:26 PM EDT us Walt Em MD POINT OF CARE TEST ORDERABLES Final Result Performing Organization Address [facility] Co de Phone Number [facility]
[address] [place] [address], * POC Glucose Once (01/20/2025 4:27 PM EDT) Glucose 113 70 - 130 mg/dL 01/20/2025 4:29 PM EDT [facility] Blood 01/20/2025 4:27 PM EDT 01/20/2025 4:28 PM EDT us Walt Em MD POINT OF CARE TEST ORDERABLES Final Result Performing Organization Address City/[facility]/ZIP Co de Phone Number [facility]
[address] [place] [address], * POC Glucose Once (01/20/2025 11:13 AM EDT) Glucose 115 70 - 130 mg/dL 01/20/2025 11:15 AM EDT [facility] Blood 01/20/2025 11:1 3 AM EDT 01/20/2025 11:15 AM EDT us Walt Em MD POINT OF CARE TEST ORDERABLES Final Result [facility]
[address] [place] [address], * POC Glucose Once (01/20/2025 7:25 AM EDT) Glucose 93 70 - 130 mg/dL 01/20/2025 7:27 AM EDT [facility] Blood 01/20/2025 7:25 AM EDT 01/20/2025 7:27 AM EDT us Walt Em MD POINT OF CARE TEST ORDERABLES Final Result Performing Organization Address [facility] Co de Phone Number [facility]
[address] [place] [address], [place] [phone] * POC Glucose Once (01/19/2025 7:47 PM EDT) Glucose 121 70 - 130 mg/dL 01/19/2025 7:56 PM EDT [facility] Blood 01/19/2025 7:47 PM EDT 01/19/2025 7:56 PM EDT us Walt Em MD POINT OF CARE TEST ORDERABLES Final Result Performing Organization Address [facility] Co de Phone Number [facility]
[address] [place] [address], [place] [phone] * POC Glucose Once (01/19/2025 4:28 PM EDT) Glucose 86 70 - 130 mg/dL 01/19/2025 4:32 PM EDT [facility] Blood 01/19/2025 4:28 PM EDT 01/19/2025 4:31 PM EDT us Walt Em MD POINT OF CARE TEST ORDERABLES Final Result Performing Organization Address City/[facility]/ZIP Co de Phone Number [facility]
[address] [place] [address], [place] [phone] * POC Glucose Once (01/19/2025 11:29 AM EDT) Glucose 113 70 - 130 mg/dL 01/19/2025 11:30 AM EDT [facility] Blood 01/19/2025 11:2 9 AM EDT 01/19/2025 11:30 AM EDT us Walt Em MD POINT OF CARE TEST ORDERABLES Final Result Performing Organization Address [facility] Co de Phone Number [facility]
[address] [place] [address], [place] [phone] * POC Glucose Once (01/19/2025 7:11 AM EDT) Glucose 105 70 - 130 mg/dL 01/19/2025 7:12 AM EDT [facility] Blood 01/19/2025 7:11 AM EDT 01/19/2025 7:12 AM EDT us Walt Em MD POINT OF CARE TEST ORDERABLES Final Result Performing Organization Address City/[facility]/ZIP Co de Phone Number [facility]
[address] [place] [address], [place] [phone] * POC Glucose Once (01/18/2025 9:17 PM EDT) Glucose 99 70 - 130 mg/dL 01/18/2025 9:18 PM EDT [facility] Blood 01/18/2025 9:17 PM EDT 01/18/2025 9:18 PM EDT us Walt Em MD POINT OF CARE TEST ORDERABLES Final Result [facility]
[address] [place] [address], * (ABNORMAL) POC Glucose Once (01/18/2025 4:37 PM EDT) Glucose 139(H) 70 - 130 mg/dL 01/18/2025 4:38 PM EDT [facility] Blood 01/18/2025 4:37 PM EDT 01/18/2025 4:38 PM EDT us Walt Em MD POINT OF CARE TEST ORDERABLES Final Result Performing Organization Address [facility] Co de Phone Number [facility]
[address] [place] [address], [place] [phone] * POC Glucose Once (01/18/2025 11:10 AM EDT) Glucose 116 70 - 130 mg/dL 01/18/2025 11:15 AM EDT [facility] Blood 01/18/2025 11:1 0 AM EDT 01/18/2025 11:15 AM EDT us Walt Em MD POINT OF CARE TEST ORDERABLES Final Result Performing Organization Address City/[facility]/ZIP Co de Phone Number [facility]
[address] [place] [address], * POC Glucose Once (01/18/2025 7:09 AM EDT) Glucose 113 70 - 130 mg/dL 01/18/2025 7:17 AM EDT [facility] Blood 01/18/2025 7:09 AM EDT 01/18/2025 7:17 AM EDT us Walt Em MD POINT OF CARE TEST ORDERABLES Final Result Performing Organization Address City/State/[facility] Co de Phone Number [facility]
[address] [place] [address], * POC Glucose Once (01/17/2025 8:38 PM EDT) Glucose 116 70 - 130 mg/dL 01/17/2025 8:40 PM EDT [facility] Blood 01/17/2025 8:38 PM EDT 01/17/2025 8:40 PM EDT us Walt Em MD POINT OF CARE TEST ORDERABLES Final Result Performing Organization Address City/[facility] Co de Phone Number [facility]
[address] [place] [address], [place] [phone] * POC Glucose Once (01/17/2025 4:29 PM EDT) Glucose 94 70 - 130 mg/dL 01/17/2025 4:31 PM EDT [facility] Blood 01/17/2025 4:29 PM EDT 01/17/2025 4:31 PM EDT us Walt Em MD POINT OF CARE TEST ORDERABLES Final Result Performing Organization Address City/[facility]/ZIP Co de Phone Number [facility]
[address] [place] [address], [place] [phone] * POC Glucose Once (01/17/2025 11:05 AM EDT) Glucose 99 70 - 130 mg/dL 01/17/2025 11:07 AM EDT [facility] Blood 01/17/2025 11:0 5 AM EDT 01/17/2025 11:07 AM EDT us Walt Em MD POINT OF CARE TEST ORDERABLES Final Result [facility]
[address] [place] [address], * POC Glucose Once (01/17/2025 6:51 AM EDT) Glucose 111 70 - 130 mg/dL 01/17/2025 6:52 AM EDT [facility] Blood 01/17/2025 6:51 AM EDT 01/17/2025 6:52 AM EDT us Walt Em MD POINT OF CARE TEST ORDERABLES Final Result Performing Organization Address City/[facility] Co de Phone Number [facility]
[address] [place] [address], [place] [phone] * POC Glucose Once (01/16/2025 7:56 PM EDT) Glucose 99 70 - 130 mg/dL 01/16/2025 8:00 PM EDT [facility] Blood 01/16/2025 7:56 PM EDT 01/16/2025 8:00 PM EDT us Walt Em MD POINT OF CARE TEST ORDERABLES Final Result Performing Organization Address City/[facility]/ZIP Co de Phone Number [facility]
[address] [place] [address], [place] [phone] * POC Glucose Once (01/16/2025 4:38 PM EDT) Glucose 119 70 - 130 mg/dL 01/16/2025 4:41 PM EDT [facility] Blood 01/16/2025 4:38 PM EDT 01/16/2025 4:41 PM EDT us Walt Em MD POINT OF CARE TEST ORDERABLES Final Result [facility]
[address] [place] [address], * POC Glucose Once (01/16/2025 11:07 AM EDT) Glucose 110 70 - 130 mg/dL 01/16/2025 11:08 AM EDT [facility] Blood 01/16/2025 11:0 7 AM EDT 01/16/2025 11:08 AM EDT Walt Em MD POINT OF CARE TEST ORDERABLES Final Result Performing Organization Address [facility] Co de Phone Number [facility]
[address] [place] [address], * (ABNORMAL) Hemoglobin & Hematocrit, Blood (01/16/2025 8:12 AM EDT) Hemoglobin 11.1(L) 12.0 - 15.9 g/dL 01/16/2025 9:32 AM EDT [facility] Hematocrit 36.3 34.0 - 46.6 % 01/16/2025 9:32 AM EDT [facility] Blood Venipuncture / Unknown 01/16/2025 8:12 AM EDT 01/16/2025 9:24 AM EDT Walt Em MD LAB BLOOD ORDERABLES Final Re sult Performing Organization Address City/[facility]/ZIP Co de Phone Number [facility]
[address] [place] [address], * POC Glucose Once (01/16/2025 7:30 AM EDT) Glucose 111 70 - 130 mg/dL 01/16/2025 7:31 AM EDT [facility] Blood 01/16/2025 7:30 AM EDT 01/16/2025 7:31 AM EDT Walt Em MD POINT OF CARE TEST ORDERABLES Final Result Performing Organization Address City/[facility]/ZIP Co de Phone Number [facility]
[address] [place] [address], [place] [phone] * POC Glucose Once (01/15/2025 7:55 PM EDT) Glucose 118 70 - 130 mg/dL 01/15/2025 8:01 PM EDT [facility] Blood 01/15/2025 7:55 PM EDT 01/15/2025 8:01 PM EDT Walt Em MD POINT OF CARE TEST ORDERABLES Final Result Performing Organization Address [facility] Co de Phone Number [facility]
[address] [place] [address], [place] [phone] * (ABNORMAL) POC Glucose Once (01/15/2025 4:47 PM EDT) Glucose 133(H) 70 - 130 mg/dL 01/15/2025 4:49 PM EDT [facility] Blood 01/15/2025 4:47 PM EDT 01/15/2025 4:49 PM EDT Walt Em MD POINT OF CARE TEST ORDERABLES Final Result Performing Organization Address City/[facility]/ZIP Co de Phone Number [facility]
[address] [place] [address], [place] [phone] * (ABNORMAL) CBC Auto Differential (01/15/2025 2:03 PM EDT) WBC 9.31 3.40 - 10.80 10*3/mm3 01/15/2025 2:23 PM EDT [facility] RBC 4.12 3.77 - 5.28 10*6/mm3 01/15/2025 2:23 PM EDT [facility] Hemoglobin 12.3 12.0 - 15.9 g/dL 01/15/2025 2:23 PM EDT [facility] Hematocrit 38.4 34.0 - 46.6 % 01/15/2025 2:23 PM EDT [facility] MCV 93.2 79.0 - 97.0 fL 01/15/2025 2:23 PM EDT [facility] MCH 29.9 26.6 - 33.0 pg 01/15/2025 2:23 PM EDT [facility] MCHC 32.0 31.5 - 35.7 g/dL 01/15/2025 2:23 PM EDT [facility] RDW 14.0 12.3 - 15.4 % 01/15/2025 2:23 PM EDT [facility] RDW-SD 47.3 37.0 - 54.0 fl 01/15/2025 2:23 PM EDT [facility] MPV 9.9 6.0 - 12.0 fL 01/15/2025 2:23 PM EDT [facility] Platelets 203 140 - 450 10*3/mm3 01/15/2025 2:23 PM EDT [facility] Neutrophil % 90.1(H) 42.7 - 76.0 % 01/15/2025 2:23 PM EDT [facility] Lymphocyte % 8.2(L) 19.6 - 45.3 % 01/15/2025 2:23 PM EDT [facility] Monocyte % 1.1(L) 5.0 - 12.0 % 01/15/2025 2:23 PM EDT [facility] Eosinophil % 0.0(L) 0.3 - 6.2 % 01/15/2025 2:23 PM EDT [facility] Basophil % 0.1 0.0 - 1.5 % 01/15/2025 2:23 PM EDT [facility] Immature Grans % 0.5 0.0 - 0.5 % 01/15/2025 2:23 PM EDT [facility] Neutrophils, Absolute 8.39(H) 1.70 - 7.00 10*3/mm3 01/15/2025 2:23 PM EDT [facility] Lymphocytes, Absolute 0.76 0.70 - 3.10 10*3/mm3 01/15/2025 2:23 PM EDT [facility] Monocytes, Absolute 0.10 0.10 - 0.90 10*3/mm3 01/15/2025 2:23 PM EDT [facility] Eosinophils, Absolute 0.00 0.00 - 0.40 10*3/mm3 01/15/2025 2:23 PM EDT [facility] Basophils, Absolute 0.01 0.00 - 0.20 10*3/mm3 01/15/2025 2:23 PM EDT [facility] Immature Grans, Absolute 0.05 0.00 - 0.05 10*3/mm3 01/15/2025 2:23 PM EDT [facility] nRBC 0.0 0.0 - 0.2 /100 WBC 01/15/2025 2:23 PM EDT [facility] Blood Structure of right upper limb / Unknown Venipuncture / Unknown 01/15/2025 2:03 PM EDT 01/15/2025 2:10 PM EDT us Sharif Kimble MD LAB BLOOD ORDERABLES Final Re sult [facility]
[address] [place] [address], * (ABNORMAL) POC Glucose Once (01/15/2025 1:44 PM EDT) Glucose 166(H) 70 - 130 mg/dL 01/15/2025 1:44 PM EDT [facility] Blood 01/15/2025 1:44 PM EDT 01/15/2025 1:44 PM EDT Walt Em MD POINT OF CARE TEST ORDERABLES Final Result [facility]
[address] [place] [phone], * [place] C Arm During Surgery (01/15/2025 12:50 PM EDT) Narrative SYSTEMGENERATED, DOCUMENTATION - 01/15/2025 2:13 PM EDT This procedure was auto-finalized with no dictation required. Walt Em MD IMG FLUOROSCOPY ORDERABLES Fi nal Result * (ABNORMAL) POC Surgery Labs (01/15/2025 11:16 AM EDT) Ionized Calcium 1.18(L) 1.20 - 1.32 mmol/L 01/15/2025 6:42 PM EDT [facility] POC Potassium 4.6 3.5 - 4.9 mmol/L 01/15/2025 6:42 PM EDT [facility] Sodium 137(L) 138 - 146 mmol/L 01/15/2025 6:42 PM EDT [facility] Total CO2 21(L) 24 - 29 mmol/L 01/15/2025 6:42 PM EDT [facility] Hemoglobin 12.6 12.0 - 17.0 g/dL 01/15/2025 6:42 PM EDT [facility] Hematocrit 37(L) 38 - 51 % 01/15/2025 6:42 PM EDT [facility] pCO2, Arterial 33.3(L) 35 - 45 mm Hg 01/15/2025 6:42 PM EDT [facility] pO2, Arterial 115(H) 80 - 105 mmHg 01/15/2025 6:42 PM EDT [facility] Comment:Serial Number: [id number] 2Operator: [id number] Base Excess -5.0000 -5 - 5 mmol/L 01/15/2025 6:42 PM EDT [facility] O2 Saturation, Arterial 98 95 - 98 % 01/15/2025 6:42 PM EDT [facility] pH, Arterial 7.39 7.35 - 7.6 pH units 01/15/2025 6:42 PM EDT [facility] HCO3, Arterial 20.0(L) 22 - 26 mmol/L 01/15/2025 6:42 PM EDT [facility] Glucose 180(H) 70 - 130 mg/dL 01/15/2025 6:42 PM EDT [facility] Venous Blood 01/15/2025 11:1 6 AM EDT 01/15/2025 6:42 PM EDT Walt Em MD POINT OF CARE TEST ORDERABLES Final Result Performing Organization Address [facility] Co de Phone Number [facility]
[address] [place], [place] [phone], * FL O Arm During Surgery (01/15/2025 9:12 AM EDT) Narrative SYSTEMGENERATED, DOCUMENTATION - 01/15/2025 9:13 AM EDT This procedure was auto-finalized with no dictation required. Walt Em MD IMG FLUOROSCOPY ORDERABLES Fi nal Result * POC Glucose Once (01/15/2025 7:38 AM EDT) Glucose 109 70 - 130 mg/dL 01/15/2025 7:41 AM EDT [facility] Blood 01/15/2025 7:38 AM EDT 01/15/2025 7:41 AM EDT us Walt Em MD POINT OF CARE TEST ORDERABLES Final Result Performing Organization Address City/[facility]/ZIP Co de Phone Number [facility]
[address] [place] [address], * Telemetry Scan (01/15/2025) [facility] Onbase ECG ORDERABLES Final Result documented in this encounter Visit Diagnoses Diagnosis Lumbar stenosis with neurogenic claudication- Primary documented in this encounter Admitting Diagnoses Diagnosis Lumbar stenosis with neurogenic claudication documented in this encounter Administered Medications Inactive Administered Medications - up to 3 most recent administrations Medication Order MAR Action Action Date Dose Rate Site acetaminophen (TYLENOL) 160 MG/5ML oral solution 650 mg 650 mg, Oral, Every 4 Hours PRN, Mild Pain, Starting on Carol 01/15/25 at 1326, If given for fever, use fever parameter: fever greater than 100.4 F Based on patient request - if ordered for moderate or severe pain, provider allows for administration of a medication prescribed for a lower pain scale. Do not exceed 4 grams of acetaminophen in a 24 hr period. Max dose of 2gm for AST/ALT greater than 120 units/L. If given for pain, use the following pain scale: Mild Pain = Pain Score of 1-3, CPOT 1-2 Moderate Pain = Pain Score of 4-6, CPOT 3-4 Severe Pain = Pain Score of 7-10, CPOT 5-8 acetaminophen (TYLENOL) suppository 650 mg 650 mg, Rectal, Every 4 Hours PRN, Mild Pain, Starting on Carol 01/15/25 at 1326, If given for fever, use fever parameter: fever greater than 100.4 F Based on patient request - if ordered for moderate or severe pain, provider allows for administration of a medication prescribed for a lower pain scale. Do not exceed 4 grams of acetaminophen in a 24 hr period. Max dose of 2gm for AST/ALT greater than 120 units/L. If given for pain, use the following pain scale: Mild Pain = Pain Score of 1-3, CPOT 1-2 Moderate Pain = Pain Score of 4-6, CPOT 3-4 Severe Pain = Pain Score of 7-10, CPOT 5-8 acetaminophen (TYLENOL) tablet 1,000 mg 1,000 mg, Oral, Once, On Carol 01/15/25 at 0723, For 1 dose, Give 30 minutes prior to procedure for PLIF Based on patient request - if ordered for moderate or severe pain, provider allows for administration of a medication prescribed for a lower pain scale. Do not exceed 4 grams of acetaminophen in a 24 hr period. Max dose of 2gm for AST/ALT greater than 120 units/L. If given for pain, use the following pain scale: Mild Pain = Pain Score of 1-3, CPOT 1-2 Moderate Pain = Pain Score of 4-6, CPOT 3-4 Severe Pain = Pain Score of 7-10, CPOT 5-8Indications:Lumbar stenosis with neurogenic claudication Given 01/15/2025 7:34 AM EDT 1,000 mg acetaminophen (TYLENOL) tablet 650 mg 650 mg, Oral, Every 4 Hours PRN, Mild Pain, Starting on Carol 01/15/25 at 1326, If given for fever, use fever parameter: fever greater than 100.4 F Based on patient request - if ordered for moderate or severe pain, provider allows for administration of a medication prescribed for a lower pain scale. Do not exceed 4 grams of acetaminophen in a 24 hr period. Max dose of 2gm for AST/ALT greater than 120 units/L. If given for pain, use the following pain scale: Mild Pain = Pain Score of 1-3, CPOT 1-2 Moderate Pain = Pain Score of 4-6, CPOT 3-4 Severe Pain = Pain Score of 7-10, CPOT 5-8 aspirin EC tablet 81 mg 81 mg, Oral, Daily, First dose on Sun01/16/25 at 0900, Do not crush or chew the capsules or tablets. The drug may not work as designed if the capsule or tablet is crushed or chewed. Swallow whole. Do not exceed 4 grams of aspirin in a 24 hr period. If given for pain, use the following pain scale: Mild Pain = Pain Score of 1-3, CPOT 1-2 Moderate Pain = Pain Score of 4-6, CPOT 3-4 Severe Pain = Pain Score of 7-10, CPOT 5-8 Given 01/29/2025 9:08 AM EDT 81 mg Given 01/28/2025 9:21 AM EDT 81 mg Given 01/27/2025 9:42 AM EDT 81 mg bisacodyl (DULCOLAX) EC tablet 5 mg 5 mg, Oral, Daily PRN, Constipation, Use if polyethylene glycol is ineffective, Starting on Carol 01/15/25 at 1326, Use if no bowel movement after 12 hours. Swallow whole. Do not crush, split, or chew tablet. Given 01/17/2025 5:35 PM EDT 5 mg bisacodyl (DULCOLAX) EC tablet 5 mg 5 mg, Oral, Daily PRN, Constipation, Use if polyethylene glycol is ineffective, Starting on 01/18/25 at 0927, Use if no bowel movement after 12 hours. Swallow whole. Do not crush, split, or chew tablet. Given 01/22/2025 8:27 PM EDT 5 mg bisacodyl (DULCOLAX) suppository 10 mg 10 mg, Rectal, Daily PRN, Constipation, Use if bisacodyl oral is ineffective, Starting on 01/18/25 at 0927, Use if no bowel movement after 12 hours. Hold for diarrhea Given 01/24/2025 6:54 PM EDT 10 mg Given 01/18/2025 3:31 PM EDT 10 mg calcium carbonate (TUMS) chewable tablet 500 mg (200 mg elemental) 1 tablet, Oral, Once, On Sun01/16/25 at 0015, For 1 dose, One tablet contains 200 mg elemental calcium. Take with food. Given 01/16/2025 1:55 AM EDT 1 tabl et carvedilol (COREG) tablet 12.5 mg 12.5 mg, Oral, 2 Times Daily With Meals, First dose on Carol 01/15/25 at 1800, Hold for SBP less than 100, DBP less than 60, or heart rate less than 50. If a dose is held, please contact the provider. Give with food. Given 01/29/2025 9:06 AM EDT 12.5 mg Given 01/28/2025 9:21 AM EDT 12.5 mg Given 01/26/2025 8:10 AM EDT 12.5 mg ceFAZolin 2000 mg IVPB in 100 mL NS (MBP) 2,000 mg, Intravenous, Administer over 30 Minutes, Every 8 Hours, First dose on Carol 01/15/25 at 2000, For 2 doses, Time first dose from pre-op dose. Caution: Look alike/sound alike drug alert, Indications: Surgical ProphylaxisIndications:Surgical Prophylaxis New Bag 01/16/2025 5:10 AM EDT 2,000 mg New Bag 01/15/2025 8:26 PM EDT 2,000 mg ceFAZolin 2000 mg IVPB in 100 mL NS (MBP) 2,000 mg, Intravenous, Administer over 30 Minutes, Every 8 Hours, First dose on Carol 01/22/25 at 2100, For 2 doses, Time first dose from pre-op dose. Caution: Look alike/sound alike drug alert, Indications: Surgical ProphylaxisIndications:Surgical Prophylaxis New Bag 01/23/2025 5:16 AM EDT 2,000 mg New Bag 01/22/2025 8:27 PM EDT 2,000 mg dilTIAZem CD (CARDIZEM CD) 24 hr capsule 360 mg 360 mg, Oral, Nightly, First dose on Carol 01/15/25 at 2100, Hold for SBP less than 100, DBP less than 60, or heart rate less than 50 Do not crush or chew the capsules or tablets. The drug may not work as designed if the capsule or tablet is crushed or chewed. Swallow whole. Caution: Look alike/sound alike drug alert. Swallow capsule whole. Do not crush, chew, or open capsule. Avoid grapefruit juice. Maximum simvastatin dose 10 mg while taking dilTIAZem. Given 01/21/2025 9:19 PM EDT 360 mg Given 01/20/2025 8:24 PM EDT 360 mg Given 01/15/2025 8:24 PM EDT 360 mg famotidine (PEPCID) injection 20 mg 20 mg, Intravenous, Once, On Carol 01/22/25 at 1026, For 1 dose, Give IV push over 2 minutes. Given 01/22/2025 10:41 AM EDT 20 mg famotidine (PEPCID) tablet 20 mg 20 mg, Oral, 30 min pre-op, Starting on Carol 01/15/25 at 0721, For 1 dose, Give with sip of water the morning of surgeryIndications:Lumbar stenosis with neurogenic claudication Given 01/15/2025 7:34 AM EDT 20 mg fentaNYL citrate (PF) (SUBLIMAZE) 50 mcg/mL injection - ADS Override Pull Starting on Carol 01/15/25 at 1458, For 1 dose, Created by cabinet override If given for pain, use the following pain scale: Mild Pain = Pain Score of 1-3, CPOT 1-2 Moderate Pain = Pain Score of 4-6, CPOT 3-4 Severe Pain = Pain Score of 7-10, CPOT 5-8 fentaNYL citrate (PF) (SUBLIMAZE) injection 50 mcg 50 mcg, Intravenous, Every 5 Minutes PRN, Moderate Pain, Starting on Caorl 01/15/25 at 1342, For 5 doses, If given for pain, use the following pain scale: Mild Pain = Pain Score of 1-3, CPOT 1-2 Moderate Pain = Pain Score of 4-6, CPOT 3-4 Severe Pain = Pain Score of 7-10, CPOT 5-8 Given 01/15/2025 3:08 PM EDT 50 mcg Given 01/15/2025 2:58 PM EDT 50 mcg fentaNYL citrate (PF) (SUBLIMAZE) injection 50 mcg 50 mcg, Intravenous, Every 5 Minutes PRN, Moderate Pain, Starting on Carol 01/22/25 at 1502, For 4 doses, Maximum total dose of fentanyl is 200 mcg. If given for pain, use the following pain scale: Mild Pain = Pain Score of 1-3, CPOT 1-2 Moderate Pain = Pain Score of 4-6, CPOT 3-4 Severe Pain = Pain Score of 7-10, CPOT 5-8 Given 01/22/2025 3:03 PM EDT 50 mcg fluticasone (FLONASE) 50 MCG/ACT nasal spray 2 spray 2 spray, Nasal, Daily, First dose on Sun01/16/25 at 0900 Given 01/29/2025 9:06 AM EDT 2 sprays Given 01/28/2025 9:21 AM EDT 2 sprays Given 01/27/2025 9:43 AM EDT 2 sprays heparin (porcine) 5000 UNIT/ML injection 5,000 Units 5,000 Units, Subcutaneous, Every 8 Hours Scheduled, First dose on Sun01/16/25 at 0730, Indications: VTE Prophylaxis, On hold since Sun01/21/2025 at 2208 until manually unheldIndications:VTE Prophylaxis Given 01/21/2025 9:19 PM EDT 5,000 Units Right Upper Abdomen Given 01/21/2025 1:31 PM EDT 5,000 Units R ight Lower Abdomen Given 01/21/2025 5:32 AM EDT 5,000 Units L eft Lower Abdomen heparin (porcine) 5000 UNIT/ML injection 5,000 Units 5,000 Units, Subcutaneous, Every 8 Hours Scheduled, First dose on Sun01/23/25 at 0800, Indications: VTE ProphylaxisIndications:VTE Prophylaxis Given 01/29/2025 6:53 AM EDT 5,000 Units Left Lower Abdomen Given 01/28/2025 9:35 PM EDT 5,000 Units R ight Lower Abdomen Given 01/28/2025 3:16 PM EDT 5,000 Units R ight Lower Abdomen HYDROcodone-acetaminophen (NORCO) 5-325 MG per tablet 1 tablet 1 tablet, Oral, Every 4 Hours PRN, Moderate Pain, Starting on Sun01/15/25 at 1326, For 14 days 2 hours, Based on patient request - if ordered for moderate or severe pain, provider allows for administration of a medication prescribed for a lower pain scale. [DORY] Do not exceed 4 grams of acetaminophen in a 24 hr period. Max dose of 2gm for AST/ALT greater than 120 units/L If given for pain, use the following pain scale: Mild Pain = Pain Score of 1-3, CPOT 1-2 Moderate Pain = Pain Score of 4-6, CPOT 3-4 Severe Pain = Pain Score of 7-10, CPOT 5-8 Given 01/29/2025 10:34 AM EDT 1 tablet Given 01/29/2025 6:30 AM EDT 1 tablet Given 01/28/2025 9:35 PM EDT 1 tablet ibuprofen (ADVIL,MOTRIN) tablet 800 mg 800 mg, Oral, Once, On Sun01/15/25 at 0723, For 1 dose, Give 30 minutes prior to procedure for PLIF If given for pain, use the following pain scale: Mild Pain = Pain Score of 1-3, CPOT 1-2 Moderate Pain = Pain Score of 4-6, CPOT 3-4 Severe Pain = Pain Score of 7-10, CPOT 5-8Indications:Lumbar stenosis with neurogenic claudication Given 01/15/2025 7:34 AM EDT 800 mg Insulin Lispro (humaLOG) injection 2-7 Units 2-7 Units, Subcutaneous, 4 Times Daily Before Meals & Nightly, First dose on Sun01/15/25 at 1730, Correction Insulin - Low Dose - Total Insulin Dose Less Than 40 units/day (Lean, Elderly or Renal Patients) Blood Glucose 150-199 mg/dL - 2 units Blood Glucose 200-249 mg/dL - 3 units Blood Glucose 250-299 mg/dL - 4 units Blood Glucose 300-349 mg/dL - 5 units Blood Glucose 350-400 mg/dL - 6 units Blood Glucose Greater Than 400 mg/dL - 7 units & Call Provider ([facility]) Caution: Look alike/sound alike drug alert([facility]) Given 01/23/2025 9:07 PM EDT 2 Units Left Arm Given 01/22/2025 8:30 PM EDT 2 Units Ri ght Arm lactated ringers infusion 9 mL/hr, Intravenous, Continuous, Starting on Sun01/16/25 at 0000, For 1 day, May switch to NS IV at KVO if renal / if indicated New Bag 01/15/2025 9:34 AM EDT Restarted 01/15/2025 7:43 AM EDT Currently Infusing 01/15/2025 7:42 AM EDT 9 mL/ hr lactated ringers infusion 90 mL/hr, Intravenous, Continuous, Starting on Sun01/15/25 at 1330, For 2 days New Bag 01/17/2025 3:51 AM EDT 90 mL/hr 90 mL/hr New Bag 01/16/2025 12:44 AM EDT 90 mL/hr 90 mL/hr lactated ringers infusion 9 mL/hr, Intravenous, Continuous, Starting on Sun01/23/25 at 0000, For 1 day, May switch to NS IV at KVO if renal / if indicated Restarted 01/22/2025 12:36 PM EDT New Bag 01/22/2025 10:41 AM EDT 9 mL/hr 9 mL/hr lactated ringers infusion 90 mL/hr, Intravenous, Continuous, Starting on Sun01/22/25 at 1348, For 1 day New Bag 01/23/2025 12:05 AM EDT 90 mL/hr 90 m L/hr New Bag 01/22/2025 4:04 PM EDT 90 mL/hr 90 mL/hr metFORMIN (GLUCOPHAGE) tablet 500 mg 500 mg, Oral, Nightly, First dose on Sun01/15/25 at 2100, Caution: Look alike/sound alike drug alert Given 01/28/2025 9:36 PM EDT 500 mg Given 01/27/2025 9:14 PM EDT 500 mg Given 01/26/2025 8:39 PM EDT 500 mg metoclopramide (REGLAN) tablet 10 mg 10 mg, Oral, Nightly, First dose on Carol 01/15/25 at 2100, (SPC) Given 01/28/2025 9:36 PM EDT 10 mg Given 01/27/2025 9:19 PM EDT 10 mg Given 01/26/2025 8:38 PM EDT 10 mg morphine injection 4 mg 4 mg, Intravenous, Once, On Carol 01/22/25 at 1900, For 1 dose, Based on patient request - if ordered for moderate or severe pain, provider allows for administration of a medication prescribed for a lower pain scale. If given for pain, use the following pain scale: Mild Pain = Pain Score of 1-3, CPOT 1-2 Moderate Pain = Pain Score of 4-6, CPOT 3-4 Severe Pain = Pain Score of 7-10, CPOT 5-8 Given 01/22/2025 6:21 PM EDT 4 mg Morphine sulfate (PF) injection 4 mg 4 mg, Intravenous, Every 4 Hours PRN, Severe Pain, Starting on Carol 01/15/25 at 1326, For 5 days, Based on patient request - if ordered for moderate or severe pain, provider allows for administration of a medication prescribed for a lower pain scale. (DORY) Caution: Look alike/sound alike drug alert If given for pain, use the following pain scale: Mild Pain = Pain Score of 1-3, CPOT 1-2 Moderate Pain = Pain Score of 4-6, CPOT 3-4 Severe Pain = Pain Score of 7-10, CPOT 5-8 Given 01/15/2025 9:55 PM EDT 4 mg ondansetron (ZOFRAN) injection 4 mg 4 mg, Intravenous, Every 6 Hours PRN, Nausea, Vomiting, Starting on Carol 01/15/25 at 1326, If BOTH ondansetron (ZOFRAN) and promethazine (PHENERGAN) are ordered use ondansetron first and THEN promethazine IF ondansetron is ineffective. Given 01/15/2025 8:27 PM EDT 4 mg ondansetron ODT (ZOFRAN-ODT) disintegrating tablet 4 mg 4 mg, Oral, Every 6 Hours PRN, Nausea, Vomiting, Starting on Carol 01/15/25 at 1326, If BOTH ondansetron (ZOFRAN) and promethazine (PHENERGAN) are ordered use ondansetron first and THEN promethazine IF ondansetron is ineffective. Place on tongue and allow to dissolve. oxyCODONE (oxyCONTIN) 12 hr tablet 10 mg 10 mg, Oral, Once, On Caorl 01/15/25 at 0723, For 1 dose, Give 30 minutes prior to procedure for PLIF If given for pain, use the following pain scale: Mild Pain = Pain Score of 1-3, CPOT 1-2 Moderate Pain = Pain Score of 4-6, CPOT 3-4 Severe Pain = Pain Score of 7-10, CPOT 5-8Indications:Lumbar stenosis with neurogenic claudication Given 01/15/2025 7:34 AM EDT 10 mg oxyCODONE-acetaminophen (PERCOCET) 7.5-325 MG per tablet 1 tablet 1 tablet, Oral, Every 4 Hours PRN, Severe Pain, Starting on Carol 01/15/25 at 1326, For 5 days, Based on patient request - if ordered for moderate or severe pain, provider allows for administration of a medication prescribed for a lower pain scale. [DORY] Do not exceed 4 grams of acetaminophen in a 24 hr period. Max dose of 2gm for AST/ALT greater than 120 units/L If given for pain, use the following pain scale: Mild Pain = Pain Score of 1-3, CPOT 1-2 Moderate Pain = Pain Score of 4-6, CPOT 3-4 Severe Pain = Pain Score of 7-10, CPOT 5-8 Given 01/20/2025 10:11 AM EDT 1 tablet Given 01/20/2025 6:13 AM EDT 1 tablet Given 01/20/2025 1:48 AM EDT 1 tablet oxyCODONE-acetaminophen (PERCOCET) 7.5-325 MG per tablet 1 tablet 1 tablet, Oral, Every 4 Hours PRN, Severe Pain, Starting on Sun01/20/25 at 1427, For 5 days, Based on patient request - if ordered for moderate or severe pain, provider allows for administration of a medication prescribed for a lower pain scale. [DORY] Do not exceed 4 grams of acetaminophen in a 24 hr period. Max dose of 2gm for AST/ALT greater than 120 units/L If given for pain, use the following pain scale: Mild Pain = Pain Score of 1-3, CPOT 1-2 Moderate Pain = Pain Score of 4-6, CPOT 3-4 Severe Pain = Pain Score of 7-10, CPOT 5-8 Given 01/25/2025 8:26 AM EDT 1 tablet Given 01/25/2025 2:36 AM EDT 1 tablet Given 01/24/2025 9:12 PM EDT 1 tablet pantoprazole (PROTONIX) EC tablet 40 mg 40 mg, Oral, Every 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 Given 01/29/2025 6:53 AM EDT 40 mg Given 01/28/2025 6:23 AM EDT 40 mg Given 01/27/2025 6:04 AM EDT 40 mg polyethylene glycol (MIRALAX) packet 17 g 17 g, Oral, Daily PRN, Constipation, Use if senna-docusate is ineffective, Starting on Carol 01/15/25 at 1326, Use if no bowel movement after 12 hours. Mix in 6-8 ounces of water. Use 4-8 ounces of water, tea, or juice for each 17 gram dose. Given 01/18/2025 9:25 AM EDT 17 g Given 01/17/2025 5:35 PM EDT 17 g polyethylene glycol (MIRALAX) packet 17 g 17 g, Oral, Daily, First dose (after last modification) on Sun01/19/25 at 0900, Use if no bowel movement after 12 hours. Mix in 6-8 ounces of water. Use 4-8 ounces of water, tea, or juice for each 17 gram dose. Given 01/27/2025 9:42 AM EDT 17 g Given 01/24/2025 3:08 PM EDT 17 g Given 01/23/2025 8:09 AM EDT 17 g pregabalin (LYRICA) capsule 75 mg 75 mg, Oral, Every 12 Hours Scheduled, First dose on 01/25/25 at 1200, For 16 doses, (DORY) Given 01/29/2025 9:06 AM EDT 75 mg Given 01/28/2025 9:35 PM EDT 75 mg Given 01/28/2025 9:21 AM EDT 75 mg promethazine (PHENERGAN) suppository 12.5 mg 12.5 mg, Rectal, Every 6 Hours PRN, Nausea, Vomiting, Starting on Carol 01/15/25 at 1326, If BOTH ondansetron (ZOFRAN) and promethazine (PHENERGAN) are ordered use ondansetron first and THEN promethazine IF ondansetron is ineffective promethazine (PHENERGAN) tablet 12.5 mg 12.5 mg, Oral, Every 6 Hours PRN, Nausea, Vomiting, Starting on Carol 01/15/25 at 1326, If BOTH ondansetron (ZOFRAN) and promethazine (PHENERGAN) are ordered use ondansetron first and THEN promethazine IF ondansetron is ineffective. ([facility]) rosuvastatin (CRESTOR) tablet 40 mg 40 mg, Oral, Nightly, First dose on [place] 01/15/25 at 2100, Avoid grapefruit juice. Given 01/28/2025 9:35 PM EDT 40 mg Given 01/27/2025 9:14 PM EDT 40 mg Given 01/26/2025 8:39 PM EDT 40 mg sacubitril-valsartan (ENTRESTO) 49-51 MG tablet 1 tablet 1 tablet, Oral, Every 12 Hours Scheduled, First dose on [facility] 01/17/25 at 0900, Is this new therapy for the patient? No Given 01/29/2025 9:07 AM EDT 1 tablet Given 01/28/2025 9:21 AM EDT 1 tablet Given 01/26/2025 8:10 AM EDT 1 tablet sennosides-docusate (PERICOLACE) 8.6-50 MG per tablet 2 tablet 2 tablet, Oral, 2 Times Daily, First dose on Carol 01/15/25 at 2100, HOLD MEDICATION IF PATIENT HAS HAD BOWEL MOVEMENT. Start bowel management regimen if patient has not had a bowel movement after 12 hours. Given 01/18/2025 9:26 AM EDT 2 tablets Given 01/17/2025 8:45 PM EDT 2 tablets Given 01/17/2025 8:58 AM EDT 2 tablets sennosides-docusate (PERICOLACE) 8.6-50 MG per tablet 2 tablet 2 tablet, Oral, 2 Times Daily, First dose (after last modification) on Sun01/18/25 at 2100, HOLD MEDICATION IF PATIENT HAS HAD BOWEL MOVEMENT. Start bowel management regimen if patient has not had a bowel movement after 12 hours. Given 01/28/2025 9:37 PM EDT 2 tablets Given 01/27/2025 9:13 PM EDT 2 tablets Given 01/27/2025 9:42 AM EDT 2 tablets sodium chloride 0.9 % flush 10 mL 10 mL, Intravenous, Every 12 Hours Scheduled, First dose on [place] 01/15/25 at 1330 Given 01/28/2025 3:16 PM EDT 10 mL Given 01/27/2025 9:33 PM EDT 10 mL Given 01/27/2025 10:33 AM EDT 10 mL venlafaxine XR (EFFEXOR-XR) 24 hr capsule 37.5 mg 37.5 mg, Oral, Nightly, First dose on Carol 01/15/25 at 2100, Do not crush or chew the capsules or tablets. The drug may not work as designed if the capsule or tablet is crushed or chewed. Swallow whole. Given 01/27/2025 9:14 PM EDT 37.5 mg Given 01/26/2025 8:41 PM EDT 37.5 mg Given 01/25/2025 9:10 PM EDT 37.5 mg documented in this encounter Active and Recently Administered Medications Times are shown in EDT. Scheduled Medication Order 01/27/2025 01/28/2025 01/29/2025 aspirin EC tablet 81 mg 81 mg, Oral, Daily, First dose on Sun01/16/25 at 0900, Do not crush or chew the capsules or tablets. The drug may not work as designed if the capsule or tablet is crushed or chewed. Swallow whole. Do not exceed 4 grams of aspirin in a 24 hr period. If given for pain, use the following pain scale: Mild Pain = Pain Score of 1-3, CPOT 1-2 Moderate Pain = Pain Score of 4-6, CPOT 3-4 Severe Pain = Pain Score of 7-10, CPOT 5-8 0942 (Given - Provider: Marisa Lomeli RN) 0921 (Given - Provider: Meghan Nathan, RN) 09 (Given - Provider: Latia Ortega RN) carvedilol (COREG) tablet 12.5 mg 12.5 mg, Oral, 2 Times Daily With Meals, First dose on Carol 01/15/25 at 1800, Hold for SBP less than 100, DBP less than 60, or heart rate less than 50. If a dose is held, please contact the provider. Give with food. 0943 (Not Given - Provider: Marisa Lomeli RN - Reason: Order parameters not met)1855 (Not Given - Provider: Marisa Lomeli RN - Reason: Order parameters not met) 09 (Given - Provider: Meghan Nathan, JULISSA)1800 (Due) 09 (Given - Provider: Latia Ortega RN) dilTIAZem CD (CARDIZEM CD) 24 hr capsule 360 mg 360 mg, Oral, Nightly, First dose on Carol 01/15/25 at 2100, Hold for SBP less than 100, DBP less than 60, or heart rate less than 50 Do not crush or chew the capsules or tablets. The drug may not work as designed if the capsule or tablet is crushed or chewed. Swallow whole. Caution: Look alike/sound alike drug alert. Swallow capsule whole. Do not crush, chew, or open capsule. Avoid grapefruit juice. Maximum simvastatin dose 10 mg while taking dilTIAZem. 2112 (Hold - Provider: Edison Ravi RN - Reason: Other (Comment Required) - Comment: BP BORDERLI NE) 2207 (Not Given - Provider: Edison Ravi RN - Reason: Order parameters not met) fluticasone (FLONASE) 50 MCG/ACT nasal spray 2 spray 2 spray, Nasal, Daily, First dose on Sun01/16/25 at 0900 0943 (Given - Provider: Marisa Lomeli RN) 0921 (Given - Provider: Meghan Nathan, JULISSA) 09 (Given - Provider: Latia Ortega RN) heparin (porcine) 5000 UNIT/ML injection 5,000 Units 5,000 Units, Subcutaneous, Every 8 Hours Scheduled, First dose on Sun01/23/25 at 0800, Indications: VTE Prophylaxis 0604 (Given - Provider: Edison Ravi RN)1340 (Given - Provider: Marisa Lomeli RN)211 (Given - Provider: Edison Ravi RN) 0623 (Given - Provider: Edison Ravi RN)1516 (Given - Provider: Latia Ortega RN)213 (Given - Provider: Edison Ravi RN) 0653 (Given - Provider: Edison Ravi RN - Comment: EPIC unable to load in room) Insulin Lispro (humaLOG) injection 2-7 Units 2-7 Units, Subcutaneous, 4 Times Daily Before Meals & Nightly, First dose on Sun01/15/25 at 1730, Correction Insulin - Low Dose - Total Insulin Dose Less Than 40 units/day (Lean, Elderly or Renal Patients) Blood Glucose 150-199 mg/dL - 2 units Blood Glucose 200-249 mg/dL - 3 units Blood Glucose 250-299 mg/dL - 4 units Blood Glucose 300-349 mg/dL - 5 units Blood Glucose 350-400 mg/dL - 6 units Blood Glucose Greater Than 400 mg/dL - 7 units & Call Provider ([facility]) Caution: Look alike/sound alike drug alert([facility]) 0732 (Not Given - Provider: Marisa Lomeli RN - Reason: Order parameters not met)1206 (Not Given - Provider: Marisa Lomeli RN - Reason: Order parameters not met)1704 (Not Given - Provider: Marisa Lomeli RN - Reason: Order parameters not met)2132 (Not Given - Provider: Edison Ravi RN - Reason: Order parameters not met) 0928 (Not Given - Provider: Meghan Nathan RN - Reason: Order parameters not met)1329 (Not Given - Provider: Latia Ortega RN - Reason: Order parameters not met)1730 (Due)2208 (Hold - Provider: Edison Ravi RN - Reason: Order parameters not met) 0749 (Not Given - Provider: Latia Ortega RN - Reason: Order parameters not met)1130 (Due) metFORMIN (GLUCOPHAGE) tablet 500 mg 500 mg, Oral, Nightly, First dose on Sun01/15/25 at 2100, Caution: Look alike/sound alike drug alert 2113 (Given - Provider: Edison Ravi RN) 2135 (Given - Provider: Edison Ravi RN) metoclopramide (REGLAN) tablet 10 mg 10 mg, Oral, Nightly, First dose on Sun01/15/25 at 2100, (SPC) 2118 (Given - Provider: Edison Ravi RN) 2135 (Given - Provider: Edison Ravi RN) pantoprazole (PROTONIX) EC tablet 40 mg 40 mg, Oral, Every 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 603 (Given - Provider: Edison Ravi RN) 622 (Given - Provider: Edison Ravi RN) 652 (Given - Provider: Edison Ravi RN - Comment: EPIC unable to load in room) polyethylene glycol (MIRALAX) packet 17 g(Linked Group 1) 17 g, Oral, Daily, First dose (after last modification) on Sun01/19/25 at 0900, Use if no bowel movement after 12 hours. Mix in 6-8 ounces of water. Use 4-8 ounces of water, tea, or juice for each 17 gram dose. 941 (Given - Provider: Marisa Lomeli RN) 920 (Not Given - Provider: Meghan Nathan, JULISSA - Reason: Patient/family refused) 924 (Not Given - Provider: Latia Ortega, JULISSA - Reason: Patient/family refused - Comment: large bm this a.m.) pregabalin (LYRICA) capsule 75 mg 75 mg, Oral, Every 12 Hours Scheduled, First dose on Sun01/25/25 at 1200, For 16 doses, (DORY) 941 (Given - Provider: Marisa Lomeli RN)2113 (Given - Provider: Edison Ravi RN) 920 (Given - Provider: Meghan Nathan, RN)2134 (Given - Provider: Edison Ravi, RN) 905 (Given - Provider: Latia Ortega, RN) rosuvastatin (CRESTOR) tablet 40 mg 40 mg, Oral, Nightly, First dose on Sun01/15/25 at 2100, Avoid grapefruit juice. 2113 (Given - Provider: Edison Ravi, RN) 2134 (Given - Provider: Edison Ravi, RN) sacubitril-valsartan (ENTRESTO) 49-51 MG tablet 1 tablet 1 tablet, Oral, Every 12 Hours Scheduled, First dose on 01/17/25 at 0900, Is this new therapy for the patient? No 1031 (Hold - Provider: Marisa Lomeli RN - Reason: Other)2131 (Hold - Provider: Edison Ravi RN - Reason: Other (Comment Required) - Comment: borderline bp) 920 (Given - Provider: Meghan Nathan RN)2207 (Not Given - Provider: Edison Ravi RN - Reason: Order parameters not met) 09 (Given - Provider: Latia Ortega RN) sennosides-docusate (PERICOLACE) 8.6-50 MG per tablet 2 tablet(Linked Group 1) 2 tablet, Oral, 2 Times Daily, First dose (after last modification) on 01/18/25 at 2100, HOLD MEDICATION IF PATIENT HAS HAD BOWEL MOVEMENT. Start bowel management regimen if patient has not had a bowel movement after 12 hours. 0942 (Given - Provider: Marisa Lomeli RN)2112 (Given - Provider: Edison Ravi RN) 09 (Not Given - Provider: Meghan Nathan RN - Reason: Patient/family refused)2136 (Given - Provider: Edison Ravi RN) 0925 (Not Given - Provider: Latia Ortega RN - Reason: Patient/family refused - Comment: large bm this a.m.) sodium chloride 0.9 % flush 10 mL 10 mL, Intravenous, Every 12 Hours Scheduled, First dose on [place] 01/15/25 at 1330 1033 (Given - Provider: Marisa Lomeli RN)2132 (Given - Provider: Edison Ravi RN) 1516 (Given - Provider: Latia Ortega RN)2208 (Canceled Entry - Provider: Edison Ravi RN) 0925 (Canceled Entry - Provider: Latia Ortega RN) venlafaxine XR (EFFEXOR-XR) 24 hr capsule 37.5 mg 37.5 mg, Oral, Nightly, First dose on Carol 01/15/25 at 2100, Do not crush or chew the capsules or tablets. The drug may not work as designed if the capsule or tablet is crushed or chewed. Swallow whole. 2113 (Given - Provider: Edison Ravi RN) 2135 (Hold - Provider: Edison Ravi RN - Reason: Order parameters not met) PRN Medication Order 01/27/2025 01/28/2025 01/29/2025 acetaminophen (TYLENOL) 160 MG/5ML oral solution 650 mg(Linked Group 2) 650 mg, Oral, Every 4 Hours PRN, Mild Pain, Starting on Carol 01/15/25 at 1326, If given for fever, use fever parameter: fever greater than 100.4 F Based on patient request - if ordered for moderate or severe pain, provider allows for administration of a medication prescribed for a lower pain scale. Do not exceed 4 grams of acetaminophen in a 24 hr period. Max dose of 2gm for AST/ALT greater than 120 units/L. If given for pain, use the following pain scale: Mild Pain = Pain Score of 1-3, CPOT 1-2 Moderate Pain = Pain Score of 4-6, CPOT 3-4 Severe Pain = Pain Score of 7-10, CPOT 5-8 acetaminophen (TYLENOL) suppository 650 mg(Linked Group 2) 650 mg, Rectal, Every 4 Hours PRN, Mild Pain, Starting on Carol 01/15/25 at 1326, If given for fever, use fever parameter: fever greater than 100.4 F Based on patient request - if ordered for moderate or severe pain, provider allows for administration of a medication prescribed for a lower pain scale. Do not exceed 4 grams of acetaminophen in a 24 hr period. Max dose of 2gm for AST/ALT greater than 120 units/L. If given for pain, use the following pain scale: Mild Pain = Pain Score of 1-3, CPOT 1-2 Moderate Pain = Pain Score of 4-6, CPOT 3-4 Severe Pain = Pain Score of 7-10, CPOT 5-8 acetaminophen (TYLENOL) tablet 650 mg(Linked Group 2) 650 mg, Oral, Every 4 Hours PRN, Mild Pain, Starting on Carol 01/15/25 at 1326, If given for fever, use fever parameter: fever greater than 100.4 F Based on patient request - if ordered for moderate or severe pain, provider allows for administration of a medication prescribed for a lower pain scale. Do not exceed 4 grams of acetaminophen in a 24 hr period. Max dose of 2gm for AST/ALT greater than 120 units/L. If given for pain, use the following pain scale: Mild Pain = Pain Score of 1-3, CPOT 1-2 Moderate Pain = Pain Score of 4-6, CPOT 3-4 Severe Pain = Pain Score of 7-10, CPOT 5-8 bisacodyl (DULCOLAX) EC tablet 5 mg(Linked Group 1) 5 mg, Oral, Daily PRN, Constipation, Use if polyethylene glycol is ineffective, Starting on [place] 01/18/25 at 0927, Use if no bowel movement after 12 hours. Swallow whole. Do not crush, split, or chew tablet. bisacodyl (DULCOLAX) suppository 10 mg(Linked Group 1) 10 mg, Rectal, Daily PRN, Constipation, Use if bisacodyl oral is ineffective, Starting on [place] 01/18/25 at 0927, Use if no bowel movement after 12 hours. Hold for diarrhea dextrose (D50W) (25 g/50 mL) IV injection 25 g 25 g, Intravenous, Every 15 Minutes PRN, Low Blood Sugar, Blood Sugar Less Than 70, Starting on Carol 01/15/25 at 1326, Blood sugar less than 70; patient has IV access - Unresponsive, NPO or Unable To Safely Swallow dextrose (GLUTOSE) oral gel 15 g 15 g, Oral, Every 15 Minutes PRN, Low Blood Sugar, Blood sugar less than 70, Starting on Carol 01/15/25 at 1326, BS<70, Patient Alert, Is not NPO, Can safely swallow. diphenhydrAMINE (BENADRYL) capsule 25 mg 25 mg, Oral, Nightly PRN, Sleep, Starting on Carol 01/15/25 at 1328, Caution: Look alike/sound alike drug alert. This med may be ordered in other forms and routes. Before giving verify the last time the drug was given by any route/form. diphenhydrAMINE (BENADRYL) capsule 25 mg 25 mg, Oral, Nightly PRN, Sleep, Starting on Carol 01/22/25 at 1344, Caution: Look alike/sound alike drug alert. This med may be ordered in other forms and routes. Before giving verify the last time the drug was given by any route/form. diphenhydrAMINE (BENADRYL) capsule 50 mg 50 mg, Oral, As Needed, Itching, Starting on Carol 01/15/25 at 1325, Caution: Look alike/sound alike drug alert. This med may be ordered in other forms and routes. Before giving verify the last time the drug was given by any route/form. glucagon (GLUCAGEN) injection 1 mg 1 mg, Intramuscular, Every 15 Minutes PRN, Low Blood Sugar, Blood Glucose Less Than 70, Starting on Carol 01/15/25 at 1326, Blood Glucose Less Than 70 - Patient Without IV Access - Unresponsive, NPO or Unable To Safely Swallow Reconstitute powder for injection by adding 1 mL of lpta-supplied sterile diluent or sterile water for injection to a vial containing 1 mg of the drug, to provide solutions containing 1 mg/mL. Shake vial gently to dissolve. HYDROcodone-acetaminophen (NORCO) 5-325 MG per tablet 1 tablet 1 tablet, Oral, Every 4 Hours PRN, Moderate Pain, Starting on Carol 01/15/25 at 1326, For 14 days 2 hours, Based on patient request - if ordered for moderate or severe pain, provider allows for administration of a medication prescribed for a lower pain scale. [DORY] Do not exceed 4 grams of acetaminophen in a 24 hr period. Max dose of 2gm for AST/ALT greater than 120 units/L If given for pain, use the following pain scale: Mild Pain = Pain Score of 1-3, CPOT 1-2 Moderate Pain = Pain Score of 4-6, CPOT 3-4 Severe Pain = Pain Score of 7-10, CPOT 5-8 0604 (Given - Provider: Edison Ravi RN)1302 (Given - Provider: Marisa Lomeli RN)2114 (Given - Provider: Edison Ravi RN) 0623 (Given - Provider: Edison Ravi RN)1230 (Given - Provider: Latia Ortega, RN)2135 (Given - Provider: Edison Ravi RN) 0630 (Given - Provider: Edison Ravi RN - Comment: EPIC unable to load in room)1034 (Given - Provider: Latia Ortega RN) naloxone (NARCAN) injection 0.4 mg(Linked Group 3) 0.4 mg, Intravenous, Every 5 Minutes PRN, Respiratory Depression, Starting on Carol 01/15/25 at 1326, If respiratory rate is less than 8 breaths/minute or patient is difficult to arouse stop any narcotics and contact physician. Administer slow IV push. Repeat as ordered until patient's respiratory rate is greater than 12 breaths/minute. ondansetron (ZOFRAN) injection 4 mg(Linked Group 4) 4 mg, Intravenous, Every 6 Hours PRN, Nausea, Vomiting, Starting on [place] 01/15/25 at 1326, If BOTH ondansetron (ZOFRAN) and promethazine (PHENERGAN) are ordered use ondansetron first and THEN promethazine IF ondansetron is ineffective. ondansetron ODT (ZOFRAN-ODT) disintegrating tablet 4 mg(Linked Group 4) 4 mg, Oral, Every 6 Hours PRN, Nausea, Vomiting, Starting on Carol 01/15/25 at 1326, If BOTH ondansetron (ZOFRAN) and promethazine (PHENERGAN) are ordered use ondansetron first and THEN promethazine IF ondansetron is ineffective. Place on tongue and allow to dissolve. promethazine (PHENERGAN) suppository 12.5 mg(Linked Group 5) 12.5 mg, Rectal, Every 6 Hours PRN, Nausea, Vomiting, Starting on Carol 01/15/25 at 1326, If BOTH ondansetron (ZOFRAN) and promethazine (PHENERGAN) are ordered use ondansetron first and THEN promethazine IF ondansetron is ineffective promethazine (PHENERGAN) tablet 12.5 mg(Linked Group 5) 12.5 mg, Oral, Every 6 Hours PRN, Nausea, Vomiting, Starting on Carol 01/15/25 at 1326, If BOTH ondansetron (ZOFRAN) and promethazine (PHENERGAN) are ordered use ondansetron first and THEN promethazine IF ondansetron is ineffective. ([facility]) sodium chloride 0.9 % flush 10 mL 10 mL, Intravenous, As Needed, Line Care, Starting on Carol 01/15/25 at 1326 sodium chloride 0.9 % infusion 40 mL 40 mL, Intravenous, As Needed, Line Care, Starting on Carol 01/15/25 at 1326, Following administration of an IV intermittent medication, flush line with 40mL NS at 100mL/hr. Linked Groups Order Group 1: sennosides-docusate (PERICOLACE) 8.6-50 MG per tablet 2 tabletJump to med 2 tablet, Oral, 2 Times Daily, First dose (after last modification) on 01/18/25 at 2100, HOLD MEDICATION IF PATIENT HAS HAD BOWEL MOVEMENT. Start bowel management regimen if patient has not had a bowel movement after 12 hours. And polyethylene glycol (MIRALAX) packet 17 gJump to med 17 g, Oral, Daily, First dose (after last modification) on 01/19/25 at 0900, Use if no bowel movement after 12 hours. Mix in 6-8 ounces of water. Use 4-8 ounces of water, tea, or juice for each 17 gram dose. And bisacodyl (DULCOLAX) EC tablet 5 mgJump to med 5 mg, Oral, Daily PRN, Constipation, Use if polyethylene glycol is ineffective, Starting on 01/18/25 at 0927, Use if no bowel movement after 12 hours. Swallow whole. Do not crush, split, or chew tablet. And bisacodyl (DULCOLAX) suppository 10 mgJump to med 10 mg, Rectal, Daily PRN, Constipation, Use if bisacodyl oral is ineffective, Starting on 01/18/25 at 0927, Use if no bowel movement after 12 hours. Hold for diarrhea Group 2: acetaminophen (TYLENOL) tablet 650 mgJump to med 650 mg, Oral, Every 4 Hours PRN, Mild Pain, Starting on [place] 01/15/25 at 1326, If given for fever, use fever parameter: fever greater than 100.4 F Based on patient request - if ordered for moderate or severe pain, provider allows for administration of a medication prescribed for a lower pain scale. Do not exceed 4 grams of acetaminophen in a 24 hr period. Max dose of 2gm for AST/ALT greater than 120 units/L. If given for pain, use the following pain scale: Mild Pain = Pain Score of 1-3, CPOT 1-2 Moderate Pain = Pain Score of 4-6, CPOT 3-4 Severe Pain = Pain Score of 7-10, CPOT 5-8 Or acetaminophen (TYLENOL) 160 MG/5ML oral solution 650 mgJump to med 650 mg, Oral, Every 4 Hours PRN, Mild Pain, Starting on [place] 01/15/25 at 1326, If given for fever, use fever parameter: fever greater than 100.4 F Based on patient request - if ordered for moderate or severe pain, provider allows for administration of a medication prescribed for a lower pain scale. Do not exceed 4 grams of acetaminophen in a 24 hr period. Max dose of 2gm for AST/ALT greater than 120 units/L. If given for pain, use the following pain scale: Mild Pain = Pain Score of 1-3, CPOT 1-2 Moderate Pain = Pain Score of 4-6, CPOT 3-4 Severe Pain = Pain Score of 7-10, CPOT 5-8 Or acetaminophen (TYLENOL) suppository 650 mgJump to med 650 mg, Rectal, Every 4 Hours PRN, Mild Pain, Starting on [place] 01/15/25 at 1326, If given for fever, use fever parameter: fever greater than 100.4 F Based on patient request - if ordered for moderate or severe pain, provider allows for administration of a medication prescribed for a lower pain scale. Do not exceed 4 grams of acetaminophen in a 24 hr period. Max dose of 2gm for AST/ALT greater than 120 units/L. If given for pain, use the following pain scale: Mild Pain = Pain Score of 1-3, CPOT 1-2 Moderate Pain = Pain Score of 4-6, CPOT 3-4 Severe Pain = Pain Score of 7-10, CPOT 5-8 Group 3: Morphine sulfate (PF) injection 4 mg () 4 mg, Intravenous, Every 4 Hours PRN, Severe Pain, Starting on [place] 01/15/25 at 1326, For 5 days, Based on patient request - if ordered for moderate or severe pain, provider allows for administration of a medication prescribed for a lower pain scale. (DORY) Caution: Look alike/sound alike drug alert If given for pain, use the following pain scale: Mild Pain = Pain Score of 1-3, CPOT 1-2 Moderate Pain = Pain Score of 4-6, CPOT 3-4 Severe Pain = Pain Score of 7-10, CPOT 5-8 And naloxone (NARCAN) injection 0.4 mgJump to med 0.4 mg, Intravenous, Every 5 Minutes PRN, Respiratory Depression, Starting on [place] 01/15/25 at 1326, If respiratory rate is less than 8 breaths/minute or patient is difficult to arouse stop any narcotics and contact physician. Administer slow IV push. Repeat as ordered until patient's respiratory rate is greater than 12 breaths/minute. Group 4: ondansetron ODT (ZOFRAN-ODT) disintegrating tablet 4 mgJump to med 4 mg, Oral, Every 6 Hours PRN, Nausea, Vomiting, Starting on [place] 01/15/25 at 1326, If BOTH ondansetron (ZOFRAN) and promethazine (PHENERGAN) are ordered use ondansetron first and THEN promethazine IF ondansetron is ineffective. Place on tongue and allow to dissolve. Or ondansetron (ZOFRAN) injection 4 mgJump to med 4 mg, Intravenous, Every 6 Hours PRN, Nausea, Vomiting, Starting on [place] 01/15/25 at 1326, If BOTH ondansetron (ZOFRAN) and promethazine (PHENERGAN) are ordered use ondansetron first and THEN promethazine IF ondansetron is ineffective. Group 5: promethazine (PHENERGAN) tablet 12.5 mgJump to med 12.5 mg, Oral, Every 6 Hours PRN, Nausea, Vomiting, Starting on [place] 01/15/25 at 1326, If BOTH ondansetron (ZOFRAN) and promethazine (PHENERGAN) are ordered use ondansetron first and THEN promethazine IF ondansetron is ineffective. ([facility]) Or promethazine (PHENERGAN) suppository 12.5 mgJump to med 12.5 mg, Rectal, Every 6 Hours PRN, Nausea, Vomiting, Starting on [place] 01/15/25 at 1326, If BOTH ondansetron (ZOFRAN) and promethazine (PHENERGAN) are ordered use ondansetron first and THEN promethazine IF ondansetron is ineffective documented in this encounter Care Teams Chief Controller Relationship Specialty Start Date End Date Edison Harrell MD [address] [facility] [address] [place] [id number] PCP - General Adolescent Medicine 03/30/16 documented as of this encounter
--- OUTSIDE RECORDS SUMMARY | 2025-01-15 07:42 | XMS_ITS | Encounter Summary ---
[facility] Address [address] [place] [address] Care Team Providers Care Product Steward Name Role Phone Edison Harrell MD Primary Care Provider [phone] Reason for Visit * Auth/Cert Specialty Diagnoses / Procedures Referred By Contac t Referred To Contact Diagnoses Lumbar stenosis with neurogenic claudication Lumbar stenosis with neurogenic claudication [M48.062] Procedures CO ARTHRODESIS POSTERIOR INTERBODY 1 NTRSPC LUMBAR LUMBAR FUSION DECOMPRESSON WITH PEDICLE SCREWS- EXTEND FUSION L4-5 TO L2- L2-L4 LAMINECTOMY Referral ID Status Reason Start Date Expiration Date Visits Re quested Visits Authorized 1 1 Encounter Details Date Type Department Care Team (Late st Contact Info) Description 01/15/2025 7:42 AM EDT Anesthesia Event [facility] [address] [place] [phone] Aashish Pemberton MD [address] [place] [id number] Anesthesia Record Procedure Summary Procedure Name Responsible Anesthesiologist Anesthesia Start Time Anesthesia Stop Time LUMBAR FUSION DECOMPRESSION WITH PEDICLE SCREWS- EXTEND FUSION L4-5 TO L2- L2-L4 LAMINECTOMY (Spine Lumbar) Aashish Pemberton MD 01/15/25 0742 01/15/25 1321 Events Date Time Event Comment 01/15/2025 0739 0740 AN Equip Check 0742 An Start The patient was reevaluated immediately before moderate or deep sedation use and before anesthesia induction. 0742 An Start Data 0744 An Induction 0746 An Intubation 1117 Quick Note Venous blood ga s pH 7.38 pCo2 33 pO2 115 BE -5 HCO3 20 Na 137 K 4.6 iCa 1.18 Glucose 180 H/H 12.6/37 1310 An Extubation 1314 an stop data 1321 Handoff to RN The following has been completed: 1. Identification of Patient, de la paz family member(s) or patient surrogate 2. Identification of the responsible Practitioner (primary service) 3. Discussion of the pertinent/attainable medical history 4. Discussion of the surgical/procedure course (procedure, reason for surgery, procedure performed) 5. Intraoperative anesthetic management and issue/concerns to include things such as airway, hemodynamics, narcotic, sedation level and paralytic management and intravenous fluids/blood products and urine output during the procedure 6. Expectations/Plans for the early post-procedure period to include things such as anticipated course (anticipatory guidance), complications, need for laboratory or ECG and medication administration 7. Opportunity for questions and acknowledgment of understanding of report from the receiving PACU/ICU team 1321 An Stop Meds Name Total propofol 10 MG/ML 150 mg rocuronium 50 MG/5ML 150 mg lidocaine PF 1% 1 % 50 mg lidocaine 4 % 1 each dexAMETHasone 4 MG/ML 8 mg ondansetron 2 mg/mL 4 mg fentaNYL citrate (PF) 100 MCG/2ML 100 mc g ceFAZolin 2000 mg IVPB in 100 mL NS (MBP ) 4 g phenylephrine 10 MG/ML 300 mcg sugammadex 200 MG/2ML 200 mg glycopyrrolate 1 MG/5ML 0.3 mg lactated ringers infusion 1,800 mL * Agents Name O2 N2O Air Sevoflurane Inspired Sevoflurane * Blood No blood administrations on file. Lines, Drains, and Airways Type Details Placement Removal Wound 01/15/25; lumbar spi ne; Surgical; Closed Surgi 01/15/25 0000 by Rita Alcazar RN Peripheral IV Placement Date: 06/14/24; Placement Time: 1625; Catheter Size: 22 G; Orientation: Left; Location: Antecubital; Removal Date: 01/15/25; Removal Time: 73206/14/24 1626 by Lorie Moreira 01/15/25 0733 by Neeta Hsieh RN Urethral Catheter Placement Date: 01/15/25; Inserted by: Rita Watson RN; Balloon Size: 10 mL; Urine Returned: Yes; Removal Date: 01/20/25; Removal Time: 1819; Removal Reason: Per order 01/15/25 0000 by Rita Alcazar RN 01/20/25 1820 by Yessi Clements RN Peripheral IV Placement Date: 01/15/25; Placement Time: 733; Catheter Size: 18 G; Orientation: Left, Posterior; Location: Hand; Site Prep: Chlorhexidine; Local Anes: Injectable; Technique: Anatomical landmarks; Inserted by: boom reeves; Insertion Attempts: 1; Patient Tolerance: Tolerated well; Removal Date: 01/17/25; Removal Time: 0901/15/25 0734 by Neeta Hsieh RN 01/17/25 09 by Ramya Campoverde RN ETT Placement Date: 01/15/25; Placement Time: 745 (created via procedure documentation); Blade Size: 3; Location: Oral; Removal Date: 01/15/25; Removal Time: 13101/15/25 0746 by Shauna García CRNA 01/15/25 1310 by Shauna García CRNA documented in this encounter Social History Tobacco Use Types Packs/Day Years Used Date Smoking Tobacco: Former Cigarettes 1 46.4 0 06/26/1973 - 11/10/2019 Passive Smoke Exposure: Never Smokeless Tobacco: Never Alcohol Use Standard Drinks/Week Comments No 0 (1 standard drink = 0.6 oz pur e alcohol) [facility] Utilities Answer Date Recorded In the past 12 months has [employer], gas, oil, or water [employer] threatened to shut off services in your [...] more drinks on one occasion? Never 06/05/2024 Exercise Vital Sign Answer Date Recorde d [...] Answer Date Recorded Current Living Arrangements home 06/2024 Potentially Unsafe Housing Conditions none 01/16/2025 Family and Community Support Answer Cristian e [...] GED or equivalent No 01/16/2025 Preferred Language Montenegrin 01/16/2025 Comments No Sex and Gender Information Value Date Recorded Sex Assigned at Female 10/21/2024 7:55 AM EDT Legal Sex Female 10:34 AM EDT Gender Identity Not on file Sexual Orientation Straight 10/21/2024 7: 55 AM EDT documented as of this encounter Functional Status * Question Answer Date of Assessment Author 1. Wish to be (Past 1 Month) No 025 7:25 AM EDT Neeta Hsieh RN * Calculated C-SSRS Risk Score (Lifetime/Recent) Answer Date of Assessment Author No Risk Indicated 01/15/2025 7:25 AM EDT Hoang Hsieh RN * [place] Suicide Severity Rating Scale (Screener/Recent Self-Report) Question Answer Date of Assessment Author 6. Suicidal Behavior (Lifetime) No 7:25 AM EDT Neeta Hsieh RN documented as of this encounter OR Notes * Anesthesia Postprocedure Evaluation - Shauna García CRNA - 01/15/2025 1:22 PM EDT Patient: Latosha Allison Procedure Summary Date: 01/15/25 Room / Location: [facility] [address] [place] [address] [facility] Anesthesia Start: 741 Anesthesia Stop: 132 Procedure: LUMBAR FUSION DECOMPRESSON WITH PEDICLE SCREWS- EXTEND FUSION L4-5 TO L2- L2-L4 LAMINECTOMY (Spine Lumbar) Diagnosis: Lumbar stenosis with neurogenic claudication (Lumbar stenosis with neurogenic claudication [M48.062]) Surgeons: Walt Em MD Provider: Aashish Pemberton MD Anesthesia Type: general ASA Status: 3 Anesthesia Type: general Vitals Vitals Value Taken Time BP 101/61 01/15/25 13:21 Temp 99 ??F (37.2 ??C) 01/15/25 13:21 Pulse 76 01/15/25 13:21 Resp 12 01/15/25 13:21 SpO2 92 % 01/15/25 13:21 Post Anesthesia Care and Evaluation Patient location during evaluation: PACU Patient participation: complete - patient participated Level of consciousness: awake and alert Pain management: adequate Airway patency: patent Anesthetic complications: No anesthetic complications PONV Status: none Cardiovascular status: hemodynamically stable and acceptable Respiratory status: nonlabored ventilation, acceptable, nasal cannula and spontaneous ventilation Hydration status: acceptable No anesthesia care post op * Anesthesia Procedure Notes - Shauna García CRNA - 01/15/2025 7:54 AM EDT Associated Order(s): Airway Airway Reason: elective Date/Time: 01/15/2025 7:46 AM Airway not difficult General Information and Staff Patient location during procedure: OR [employer] NECKTIE OPERATOR/CAA: Shauna García CRNA Indications and Patient Condition Indications for airway management: airway protection Preoxygenated: yes MILS not maintained throughout Mask difficulty assessment: 1 - vent by mask Final Airway Details Final airway type: endotracheal airway Successful airway: ETT Cuffed: yes Successful intubation technique: video laryngoscopy Endotracheal tube insertion site: oral Blade: Cerda Blade size: 3 ETT size (mm): 7.5 Cormack-Lehane Classification: grade I - full view of glottis Placement verified by: chest auscultation and capnometry Cuff volume (mL): 6 Measured from: lips ETT/EBT to lips (cm): 21 Number of attempts at approach: 1 Assessment: lips, teeth, and gum same as pre-op and atraumatic intubation Additional Comments Negative epigastric sounds, Breath sound equal bilaterally with symmetric chest rise and fall * Anesthesia Preprocedure Evaluation - Aashish Pemberton MD - 01/15/2025 7:36 AM EDT Anesthesia Evaluation Patient summary reviewed and Nursing notes reviewed Airway Mallampati: II TM distance: >3 FB Neck ROM: full No difficulty expected Dental - normal exam Pulmonary - normal exam (+) a smoker Former,sleep apnea on CPAP Cardiovascular - normal exam (+) hypertension, past NC , CAD, cardiac stents (x3) , CHF , hyperlipidemia ROS comment: ECHO 06/10 EF 56-60% Neuro/Psych (+) numbness GI/Hepatic/Renal/Endo (+) morbid obesity, hiatal hernia, GERD, diabetes mellitus Musculoskeletal Abdominal - normal exam Bowel sounds: normal. 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 CODE STATUS: documented in this encounter Plan of Treatment Upcoming Encounters Date Type Department Care Team (Late st Contact Info) Description 04/08/2025 10:15 AM EDT Office Visit [facility] [address] [place] [id number] Marjan Tran PA-C [address] [place] [address] 10/29/2025 9:45 AM EDT Office Visit [facility] [address] [place] [address] [place] [address] Samir Thurman MD [address] [facility] [address] [place] [address] Scheduled Procedures Name Priority Associated Diagnoses Date/Ti me LUMBAR LAMINECTOMY DISCECTOM Y DECOMPRESSION POSTERIOR 1-2 LEVELS Lumbar stenosis with neurogenic claudication documented as of this encounter Procedures Procedure Name Priority Date/Time Associated Diagnosis Comments ANESTHESIA INTUBATION Routine 01/15/2025 7:54 AM EDT documented in this encounter Results * BH AN ETT AIRWAY (01/15/2025 7:54 AM EDT) Narrative Shauna García CRNA - 01/15/2025 7:54 AM EDT Shauna García CRNA 01/15/2025 7:54 AM Airway Reason: elective Date/Time: 01/15/2025 7:46 AM Airway not difficult General Information and Staff Patient location during procedure: OR [employer] NECKTIE OPERATOR/CAA: Shauna García CRNA Indications and Patient Condition Indications for airway management: airway protection Preoxygenated: yes MILS not maintained throughout Mask difficulty assessment: 1 - vent by mask Final Airway Details Final airway type: endotracheal airway Successful airway: ETT Cuffed: yes Successful intubation technique: video laryngoscopy Endotracheal tube insertion site: oral Blade: Cerda Blade size: 3 ETT size (mm): 7.5 Cormack-Lehane Classification: grade I - full view of glottis Placement verified by: chest auscultation and capnometry Cuff volume (mL): 6 Measured from: lips ETT/EBT to lips (cm): 21 Number of attempts at approach: 1 Assessment: lips, teeth, and gum same as pre-op and atraumatic intubation Additional Comments Negative epigastric sounds, Breath sound equal bilaterally with symmetric chest rise and fall us Aashish Pemberton MD ANESTHESIA ORDERABLES Final Res ult documented in this encounter Visit Diagnoses Not on filedocumented in this encounter Administered Medications Inactive Administered Medications - up to 3 most recent administrations Medication Order MAR Action Action Date Dose Rate Site ceFAZolin 2000 mg IVPB in 100 mL NS (MBP) 2 g, Intravenous, Administer over 30 Minutes, Once, On Carol 01/15/25 at 0723, For 1 dose, Administer within 1 hour of surgical incision. Redose 4 hours from pre-op dose if procedure ongoing or >1.5 L blood loss. Caution: Look alike/sound alike drug alert, Indications: Surgical ProphylaxisIndications:Surgical Prophylaxis Bolus 01/15/2025 11:42 AM EDT 2 g New Bag 01/15/2025 7:43 AM EDT 2 g dexAMETHasone (DECADRON) injection Intravenous, As Needed, Starting on Carol 01/15/25 at 0753 Given 01/15/2025 7:53 AM EDT 8 mg fentaNYL citrate (PF) (SUBLIMAZE) injection Intravenous, As Needed, Starting on Carol 01/15/25 at 0743 Given 01/15/2025 1:03 PM EDT 50 mcg Given 01/15/2025 7:43 AM EDT 50 mcg glycopyrrolate (ROBINUL) injection Intravenous, As Needed, Starting on Carol 01/15/25 at 0820 Given 01/15/2025 8:20 AM EDT 0.3 mg lactated ringers infusion 9 mL/hr, Intravenous, Continuous, Starting on Sun01/16/25 at 0000, For 1 day, May switch to NS IV at KVO if renal / if indicated New Bag 01/15/2025 9:34 AM EDT Restarted 01/15/2025 7:43 AM EDT Currently Infusing 01/15/2025 7:42 AM EDT 9 mL/ hr lidocaine (LTA KIT) 4 % laryngotracheal solution Topical, As Needed, Starting on Carol 01/15/25 at 0746 Given 01/15/2025 7:46 AM EDT 1 each lidocaine PF 1% (XYLOCAINE) injection Intravenous, As Needed, Starting on Carol 01/15/25 at 0744 Given 01/15/2025 7:44 AM EDT 50 mg ondansetron (ZOFRAN) injection Intravenous, As Needed, Starting on Carol 01/15/25 at 1253 Given 01/15/2025 12:53 PM EDT 4 mg phenylephrine (GRAEME-SYNEPHRINE) injection Intravenous, As Needed, Starting on Carol 01/15/25 at 0854 Given 01/15/2025 12:06 PM EDT 100 mcg Given 01/15/2025 9:24 AM EDT 100 mcg Given 01/15/2025 8:54 AM EDT 100 mcg propofol (DIPRIVAN) injection Intravenous, As Needed, Starting on Carol 01/15/25 at 0744 Given 01/15/2025 7:44 AM EDT 150 mg rocuronium (ZEMURON) injection Intravenous, As Needed, Starting on Carol 01/15/25 at 0744 Given 01/15/2025 11:45 AM EDT 10 mg Given 01/15/2025 10:42 AM EDT 10 mg Given 01/15/2025 9:43 AM EDT 10 mg sugammadex (BRIDION) injection Intravenous, As Needed, Starting on Carol 01/15/25 at 1311 Given 01/15/2025 1:11 PM EDT 200 mg documented in this encounter Care Teams Product Steward Relationship Specialty Start Date End Date Edison Harrell MD [address] [facility] [address] [place] [id number] PCP - General Adolescent Medicine 03/30/16 documented as of this encounter
--- OUTSIDE RECORDS SUMMARY | 2025-01-15 07:54 | XMS_ITS | Encounter Summary ---
[facility] Address [address] [place] [address] Care Team Providers Care Computer Forwarding System Markup Clerk Name Role Phone Edison Harrell MD Primary Care Provider [phone] Reason for Visit * Auth/Cert Specialty Diagnoses / Procedures Referred By Contac t Referred To Contact Diagnoses Lumbar stenosis with neurogenic claudication Lumbar stenosis with neurogenic claudication [M48.062] Procedures [place] ARTHRODESIS POSTERIOR INTERBODY 1 NTRSPC LUMBAR LUMBAR FUSION DECOMPRESSON WITH PEDICLE SCREWS- EXTEND FUSION L4-5 TO L2- L2-L4 LAMINECTOMY Referral ID Status Reason Start Date Expiration Date Visits Re quested Visits Authorized 1 1 Encounter Details Date Type Department Care Team (Late st Contact Info) Description 01/15/2025 7:54 AM EDT - 01/15/2025 12:35 PM EDT [facility] [address] [place] [address] Walt Em MD [address] [address] LUMBAR FUSION DECOMPRESSION WITH PEDICLE SCREWS- EXTEND FUSION L4-5 TO L2- L2-L4 LAMINECTOMY [44740 (CPT )] Social History Tobacco Use Types Packs/Day Years Used Date Smoking Tobacco: Former Cigarettes 1 46.4 0 06/26/1973 - 11/10/2019 Passive Smoke Exposure: Never Smokeless Tobacco: Never Alcohol Use Standard Drinks/Week Comments No 0 (1 standard drink = 0.6 oz pur e alcohol) [facility] Utilities Answer Date Recorded In the past 12 months has th e electric, gas, oil, or water company threatened [...] GED or equivalent No 01/16/2025 Preferred Language Bahamian 01/16/2025 Comments No Sex and Gender Information Value Date Recorded Sex Assigned at Female 10/21/2024 7:55 AM EDT Legal Sex Female 10:34 AM EDT Gender Identity Not on file Sexual Orientation Straight 10/21/2024 7: 55 AM EDT documented as of this encounter Last Filed Vital Signs Vital Sign Reading Time Taken Comments Blood Pressure 136/78 01/15/2025 7:31 AM EDT Pulse 57 01/15/2025 7:31 AM EDT Temperature 36.4 C (97.6 F) 01/15/2025 7:31 AM EDT Respiratory Rate 18 01/15/2025 7:31 AM EDT Oxygen Saturation 97% 01/15/2025 7:31 AM EDT Inhaled Oxygen Concentration - - Weight - - Height - - Body Mass Index - - documented in this encounter Functional Status * Question Answer Date of Assessment Author 1. Wish to be (Past 1 Month) No 025 7:25 AM EDT Neeta Hsieh RN * Calculated C-SSRS Risk Score (Lifetime/Recent) Answer Date of Assessment Author No Risk Indicated 01/15/2025 7:25 AM EDT Hoang Hsieh RN * [place] Suicide Severity Rating Scale (Screener/Recent Self-Report) Question Answer Date of Assessment Author 6. Suicidal Behavior (Lifetime) No 7:25 AM EDT Neeta Hsieh RN documented as of this encounter Discharge Summaries * Molly Oglesby PA-C - 01/29/2025 12:41 PM EDT Images from the original note were not included. [facility] Date of Admission: 01/15/2025 Date [...] PATIENT SPECIFIC EDUCATION/PLAN: 1. Follow-up with neurosurgery [place] in 1 week for wound check and [...] [facility] 10/29/2025 9:45 AM Samir Thurman MD MGE C [facility] Additional Instructions for the Follow-ups [...] Week Follow Up Details: Follow-up with physician's patient assistant for wound check and suture removal Referring [...] sent through Care Everywhere. * Spinal Stenosis (Bahamian) * Surgery to Join Bones in the Spine (Spinal Fusion) in Adults: What to Know After (Bahamian) * Spinal Headache (Bahamian) * How to Use Cold Therapy (Bahamian) * Hydrocodone; Acetaminophen Capsules or Tablets (Bahamian) * Pregabalin Capsules (Bahamian) * How to Prevent Constipation After Surgery (Bahamian) * How to Use an Incentive Spirometer (Bahamian) documented in this encounter Medications at Time [...] 15 tablet 01/29/2025 8:29 AM EDT 01/29/2025 5 sacubitril-valsart an (Entresto) 49-51 MG tablet Take [...] from the original note were not included. [facility] PROGRESS NOTE Patient Name: [...] Em MD 01/23/25 07:02 EDT * Shannon Mai MS,RD,LD - 01/22/2025 9:29 AM EDT Nutrition Services Patient Name: Latosha Allison Date of : 1955 Admit Date: 01/15/2025 Patient screened for LOS. Chart reviewed. No significant weight changes documented/reported and PO intake has been adequate. No nutrition monitoring warranted at this time. RDN following peripherally. Available via consult. Electronically signed by: Shannon Mai MS,RD,LD 01/22/25 09:29 EDT * Walt Em [...] but has stained numerous dressings. [facility]1 [facility] Assessment/Plan: 1. Lumbar transition syndrome [...] 7:32 AM EDT Pre-Op H&P Latosha Allison [id number] 1955 Chief complaint: Back pain Subjective: Patient [...] of hip CHF (congestive heart failure) AFTER SD Coronary artery disease CTS (carpal tunnel syndrome) Diabetes mellitus X ABOUT 15 YEARS, TESTING PRN type 2 Diverticula, colon Dyslipidemia Fracture of wrist Fracture, radius Fracture, ulna GERD (gastroesophageal reflux disease) H/O- OMEPRAZOLE Hiatal hernia STILL PRESENT Hip arthrosis Hyperlipidemia Hypertension Ischemic heart disease Knee swelling Low back pain Low back strain Lumbosacral disc disease SD, old 30 YEARS AGO Osteoporosis Periarthritis of [...] Cath; Surgeon: Yoshi Cote IV, MD; Location: [facility] CATH INVASIVE LOCATION; Service: Cardiovascular; Laterality: N/A; CARDIAC CATHETERIZATION N/A 06/05/2024 Procedure: Optical Coherence Tomography; Surgeon: Yoshi Cote IV, MD; Location: [facility] CATH INVASIVE LOCATION; Service: Cardiovascular; Laterality: N/A; CARDIAC CATHETERIZATION N/A 06/05/2024 Procedure: Stent ALYSSA coronary; Surgeon: Yoshi Cote IV, MD; Location: [facility] CATH INVASIVE LOCATION; Service: Cardiovascular; Laterality: N/A; CARDIAC SURGERY BRACHTERHAPY X ONE CARPAL TUNNEL RELEASE BILATERAL CATARACT EXTRACTION, BILATERAL Bilateral SECTION X2 COLONOSCOPY 2013 CORONARY ANGIOPLASTY WITH STENTS- x3 cardiac stents [...] procedure was finished at 11:50 AM EST 825 Cosigned by Walt Em MD at 01/18/2025 [...] d/c. Anticipated Discharge Disposition (OT): home with 24/7 care, home with home health * Sonya [...] shoes/slippers when out of bed Taken 01/25/2025 220 by Marilu Rothman RN Safety Promotion/Fall Prevention: [...] in place transparent dressing maintained Taken 01/25/2025 220 by Marilu Rothman RN Body Position: side-lying [...] Documentation Taken 01/26/2025 0401 by Marilu Rothman RNhome planning consultant salesperson Interventions: position adjusted pillow support provided Taken 01/26/2025 0314 by Marilu Rothman RNhome planning consultant salesperson Interventions: pain medication given Taken 01/25/2025 215 by Marilu Rothman RNhome planning consultant salesperson Interventions: pain medication given Taken 01/25/20251999 by Marilu Rothman RNhome planning consultant salesperson Interventions: pillow support provided position adjusted Intervention: [...] Heels elevated. Sleeping well between care. * Davdi Murphy RN - 01/24/2025 5:53 AM EDT [...] good spirits with no complaints. * Yuni Storey, OT - 01/20/2025 2:45 PM EDT Goal [...] within reach Taken 01/18/2025 1409 by Yary Huff RN Safety Promotion/Fall Prevention: safety round/check completed room organization consistent nonskid shoes/slippers when out of bed mobility aid in reach lighting adjusted gait belt fall prevention program maintained elopement precautions clutter free environment maintained assistive device/personal items within reach activity supervised Taken 01/18/2025 1230 by Yary Huff RN Safety Promotion/Fall Prevention: safety round/check completed room organization consistent nonskid shoes/slippers when out of bed mobility aid in reach lighting adjusted fall prevention program maintained clutter free environment maintained assistive device/personal items within reach Taken 01/18/2025 1030 by Yary Huff RN Safety Promotion/Fall Prevention: safety round/check completed room organization consistent nonskid shoes/slippers when out of bed mobility aid in reach gait belt lighting adjusted fall prevention program maintained elopement precautions clutter free environment maintained assistive device/personal items within reach activity supervised Taken 01/18/2025 0926 by Yary Huff RN Safety Promotion/Fall Prevention: [...] Lumbar drain placement SURGEON: Walt Em M.D. RN ICU: Molly Oglesby PA-C PAC assisted with: Skilled [...] conjunction with O arm imaging SURGEON: Walt Em M.D. RN ICU: Marjan Tran PA-C PAC assisted with: Suctioning [...] ensued. These images were downloaded into the [facility]. Using Stealth frameless stereotaxy, each of the [...] ordered and referral given to Jose with [facility]. Per Jose, rolling walker will be delivered to the bedside prior to discharge. No further discharge needs identified. Selected Continued Care - Admitted Since 01/15/2025 Destination No services have been selected for the patient. Durable Medical Equipment Coordination complete. Service Provider Services Address Phone Fax Patient Preferred [facility] Durable Medical Equipment [address], [place] [id number] [phone] -- Dialysis/Infusion No services have been selected [...] Problem List Diagnosis Coronary artery disease involving viejas coronary artery of viejas heart without angina pectoris Mixed hyperlipidemia Type 2 diabetes mellitus, without long-term current use of insulin Primary hypertension Obesity Sleep apnea Heart failure with preserved left ventricular function (HFpEF) Lumbar stenosis with neurogenic claudication Past Medical History: Diagnosis Date Arthritis Arthritis of back Arthritis of neck Bursitis of hip CHF (congestive heart failure) AFTER SD Coronary artery disease CTS (carpal tunnel syndrome) Diabetes mellitus X ABOUT 15 YEARS, TESTING PRN type 2 Diverticula, colon Dyslipidemia Fracture of wrist Fracture, radius Fracture, ulna GERD (gastroesophageal reflux disease) H/O- OMEPRAZOLE Hiatal hernia STILL PRESENT Hip arthrosis Hyperlipidemia Hypertension Ischemic heart disease Knee swelling Low back pain Low back strain Lumbosacral disc disease SD, old 30 YEARS AGO Osteoporosis Periarthritis of shoulder Presence of dental bridge UPPER PERMANENT BRIDGE IN PLACE Sleep apnea CPAP therapy Spinal stenosis T10 AND T8-9 Tear of meniscus of knee Thoracic disc disorder Wears glasses Past Surgical History: Procedure Laterality Date ADENOIDECTOMY BLEPHAROPLASTY Bilateral BRACHIOPLEXUS EXPLORATION CARDIAC CATHETERIZATION Left 01/05/2016 Procedure: Cardiac catheterization; Surgeon: Yoshi Cote MD; Location: [facility] CATH INVASIVE LOCATION; Service: CARDIAC CATHETERIZATION 05/26/2003 [...] DRAIN PLACEMENT; Surgeon: Walt Em MD; Location: [facility] OR; Service: Neurosurgery; Laterality: N/A; LUMBAR LAMINECTOMY WITH FUSION N/A 01/15/2025 Procedure: LUMBAR FUSION DECOMPRESSION WITH PEDICLE SCREWS- EXTEND FUSION L4-5 TO L2- L2-L4 LAMINECTOMY; Surgeon: Walt Em MD; Location: [facility] OR; Service: Neurosurgery; Laterality: N/A; ORIF FOREARM [...] Treatment occupational therapy -MR Row Name 01/28/25 1404 General Information Patient Profile Reviewed yes -MR [...] a walk in shower and raised commode. - Row Name 01/28/25 1408 Cognition Orientation Status (Cognition) oriented x 4 - Row Name 01/28/25 1408 Safety Issues/Impairments Affecting Functional Mobility Safety Issues Affecting Function (Mobility) awareness of need for assistance;insight into deficits/self-awareness;safety precaution awareness;safety precautions follow-through/compliance -MR Impairments Affecting Function (Mobility) balance;endurance/activity tolerance;pain;strength;range of motion (ROM) -MR User Abebe (r) = Recorded By, (t) = Taken By, (c) = Cosigned By Initials Name Provider Type Sj Huertaelle, MEL Occupational Therapist Mobility/ADL's Row Name 01/28/251414 Bed Mobility Bed Mobility sit-sidelying -MR Sit-Sidelying [place] (Bed Mobility) contact guard;verbal cues -MR Assistive Device (Bed Mobility) bed rails -MR Comment, (Bed Mobility) Patient educated on spinal pecautions and bed mobility. Good awareness noted. - Row Name 01/28/25 141 Transfers Transfers sit-stand transfer - Row Name 01/28/25 141 Sit-Stand Transfer Sit-Stand [place] (Transfers) contact guard;verbal cues -MR Assistive Device (Sit-Stand Transfers) walker, front-wheeled - Row Name 01/28/251414 Functional Mobility Functional Mobility- Ind. Level contact guard assist;verbal cues required -MR Functional Mobility- Device walker, front-wheeled -MR Functional Mobility-Distance (Feet) -- HH distances -MR Row Name 01/28/25 141 Activities of Daily Living BADL Assessment/Intervention lower body dressing;upper body dressing - Row Name 01/28/25 141 Lower Body Dressing Assessment/Training [place] Level (Lower Body Dressing) don;socks;dependent (less than 25% patient effort) -MR Assistive Devices (Lower Body Dressing) long-handled shoe horn;airbrush artist technical;sock-aid -MR Position (Lower Body Dressing) supported sitting -MR Comment, (Lower Body Dressing) OT issued and educated pt on use of AE for increased I and safety w/ADLs. -MR Row Name 01/28/25 141 Upper Body Dressing Assessment/Training [place] Level (Upper Body Dressing) don;moderate assist (50% patient effort) -MR Position (Upper Body Dressing) edge of bed sitting -MR User Abebe (r) = Recorded By, (t) = Taken By, (c) = Cosigned By Initials Name Provider Type Gilbert GhazalMEL Occupational Therapist Obj/Interventions Row Name 01/28/25 141 Sensory Assessment (Somatosensory) Sensory Assessment (Somatosensory) UE sensation intact -MR Row Name 01/28/25 141 Vision Assessment/Intervention Visual Impairment/Limitations WFL -MR Row Name 01/28/25 141 Range of Motion Comprehensive General Range of Motion bilateral upper extremity ROM WFL -MR Row Name 01/28/25 141 Strength Comprehensive (MMT) Comment, General Manual Muscle [...] Provider Type Ghazal Huerta OT Occupational Therapist Goals/Plan [facility] Name 01/28/251420 Transfer Goal 1 (OT) Activity/Assistive Device (Transfer Goal 1, OT) off-vd-uvsbg/ioqld-vh-wzz;toilet -MR [place] Level/Cues Needed (Transfer Goal 1, OT) verbal cues required;supervision required -MR Time Frame (Transfer Goal 1, OT) truck terminal manager goal (LTG);10 days -MR Progress/Outcome (Transfer Goal 1, OT) goal ongoing - Row Name 01/28/251420 Dressing Goal 1 (OT) Activity/Device (Dressing Goal 1, OT) lower body dressing;airbrush artist technical;sock-aid -MR [place]/Cues Needed (Dressing Goal 1, OT) verbal cues required;supervision required -MR Time Frame (Dressing Goal 1, OT) short term goal (STG);5 days -MR Progress/Outcome (Dressing Goal 1, OT) goal ongoing -MR Row Name 01/28/25 142 Problem Specific Goal 1 (OT) Problem Specific Goal 1 (OT) Pt will recall/maintain spinal precautions during ADL activity with max 3 vc -MR Time Frame (Problem Specific Goal 1, OT) chcf goal (LTG);10 days -MR Progress/Outcome (Problem Specific Goal 1, OT) goal ongoing -MR Row Name 01/28/25 142 Therapy Assessment/Plan (OT) Planned Therapy Interventions (OT) activity tolerance training;adaptive equipment training;BADL retraining;functional balance retraining;transfer/mobility retraining;strengthening exercise;patient/caregiver education/training;passive ROM/stretching;IADL retraining;neuromuscular control/coordinationretraining;occupation/activity based interventions -MR User Abebe (r) = Recorded By, (t) = Taken By, (c) = Cosigned By Initials Name Provider Type MR GilbertGhazal, OT Occupational Therapist Clinical Impression Row Name 01/28/25 141 Pain Assessment Pretreatment Pain Rating 2/10 -MR Posttreatment Pain Rating 2/10 -MR Pain Location back -MR Pain Side/Orientation generalized -MR Row Name 01/28/25 141 Plan of Care Review Plan of Care [...] appropriate for d/c. -MR Row Name 01/28/25 141 Therapy Assessment/Plan (OT) Patient/Family Therapy Goal Statement (OT) Return to PLOF -MR Rehab Potential (OT) good -MR Criteria for Skilled Therapeutic Interventions Met (OT) yes -MR Therapy Frequency (OT) daily -MR Row Name 01/28/25 141 Therapy Plan Review/Discharge Plan (OT) Anticipated Discharge Disposition (OT) home with 24/7 care;home with home health -MR Row Name [...] Provider Type Ghazal Hunt, OT Occupational Therapist Outcome Measures Row Name [...] Cosigned By Initials Name Provider Type Ghazal Hunt OT Occupational Therapist Occupational Therapy Education Title: PT OT EPIC KALEIDOSCOPE ANALYST Therapies (Done) Topic: Occupational Therapy (Done) Point: ADL training (Done) Learning Progress Summary Patient Acceptance, E, VU by MR at 01/28/20251421 Point: Home exercise program (Done) Learning Progress Summary Patient Acceptance, E, VU by MR at 01/28/20251421 Point: Precautions (Done) Learning Progress Summary Patient Acceptance, E, VU by MR at 01/28/20251421 Point: Body mechanics (Done) Learning Progress Summary Patient Acceptance, E, VU by MR at 01/28/20251421 User Abebe Initials Effective Dates Name Provider Type Discipline 03/09/22 - Ghazal Hunt OT Occupational Therapist [...] Re-Cert Due Date 02/07/25 -MR Timed Charges 86259 - OT Therapeutic Activity Minutes 15 -MR 73930 - OT Self Care/Mgmt Minutes 10 -MR Untimed Charges OT Eval/Re-eval Minutes 15 -MR Total Minutes Timed Charges Total Minutes 25 -MR Untimed Charges Total Minutes 15 -MR Total Minutes 40 -MR User Abebe (r) = Recorded By, (t) = Taken By, (c) = Cosigned By Initials Name Provider Type Ghazal Hunt OT Occupational Therapist Therapy Charges for Today Code Description Service Date Service Provider Modifiers Qty 95178987828 OT SELF CARE/MGMT/TRAIN EA 15 MIN 01/28/2025 Ghazal Hunt OT GO 1 [id number] HC OT THERAPEUTIC ACT EA 15 MIN 01/28/2025 Ghazal Hunt OT GO 1 [id number] OT RE-EVAL 2 01/28/2025 Ghazal Hunt OT [...] Problem List Diagnosis Coronary artery disease involving viejas coronary artery of viejas heart without angina pectoris Mixed hyperlipidemia Type 2 diabetes mellitus, without long-term current use of insulin Primary hypertension Obesity Sleep apnea Heart failure with preserved left ventricular function (HFpEF) Lumbar stenosis with neurogenic claudication Past Medical History: Diagnosis Date Arthritis Arthritis of back Arthritis of neck Bursitis of hip CHF (congestive heart failure) AFTER SD Coronary artery disease CTS (carpal tunnel syndrome) Diabetes mellitus X ABOUT 15 YEARS, TESTING PRN type 2 Diverticula, colon Dyslipidemia Fracture of wrist Fracture, radius Fracture, ulna GERD (gastroesophageal reflux disease) H/O- OMEPRAZOLE Hiatal hernia STILL PRESENT Hip arthrosis Hyperlipidemia Hypertension Ischemic heart disease Knee swelling Low back pain Low back strain Lumbosacral disc disease SD, old 30 YEARS AGO Osteoporosis Periarthritis of [...] DRAIN PLACEMENT; Surgeon: Walt Em MD; Location: [facility]; Service: Neurosurgery; Laterality: N/A; LUMBAR LAMINECTOMY WITH FUSION N/A 01/15/2025 Procedure: LUMBAR FUSION DECOMPRESSION WITH PEDICLE SCREWS- EXTEND FUSION L4-5 TO L2- L2-L4 LAMINECTOMY; Surgeon: Walt Em MD; Location: [facility]; Service: Neurosurgery; Laterality: N/A; ORIF FOREARM FRACTURE Left 02/2007 left wrist fracutre - PLate and screws in place OTHER SURGICAL HISTORY SPINAL FUSION 1994 L5-S1 Dr. Rajan- HARDWARE IN PLACE TONSILLECTOMY TRIGGER FINGER RELEASE Left Middle ; repair TRIGGER POINT INJECTION General Information Row Name 01/28/25 1459 Physical Therapy Time and Intention Document Type re-evaluation -[place] Mode of Treatment physical therapy -[place] Row Name 01/28/25 1459 General Information Patient Profile Reviewed yes -[place] Prior Level of Function independent:;gait see initial eval -[place] Existing Precautions/Restrictions fall;spinal has been on bed rest -[place] Barriers to Rehab medically complex -[place] Row Name 01/28/25 145 Living Environment Current Living Arrangements home -[place] People in Home spouse -[place] Row Name 01/28/25 145 Home Main Entrance Number of Stairs, Main Entrance four -[place] Stair Railings, Main Entrance railings on both sides of stairs -[place] Row Name 01/28/25 145 Stairs Within Home, Primary Number of Stairs, Within Home, Primary none -[place] Row Name 01/28/25 145 Cognition Orientation Status (Cognition) oriented x 4 -[place] Row Name 01/28/25 1453 Safety Issues/Impairments Affecting Functional Mobility Impairments Affecting Function (Mobility) balance;endurance/activity tolerance;pain;strength;range of motion (ROM) -[place] Comment, Safety Issues/Impairments (Mobility) alert, following commads -[place] User Abebe (r) = Recorded By, (t) = Taken By, (c) = Cosigned By Initials Name Provider Type [place] Sonya Juan PT Physical Therapist Mobility Row Name 01/28/25 1501 Bed Mobility Bed Mobility sit-supine -[place] Sit-Supine [place] (Bed Mobility) minimum assist (75% patient effort);1 person assist;verbal cues -[place] Assistive Device (Bed Mobility) bed rails;head of bed elevated -[place] Comment, (Bed Mobility) VC for log rolling back to bed. patient chose to lay on her side -[facility] Name 01/28/25 1501 Transfers Comment, (Transfers) cues for hand placement. Demonstrated slow transfer -[facility] Name 01/28/25 1501 Sit-Stand Transfer Sit-Stand [place] (Transfers) contact guard;verbal cues -[place] Assistive Device (Sit-Stand Transfers) walker, front-wheeled -[facility] Name 01/28/25 1501 Gait/Stairs (Locomotion) [place] Level (Gait) contact guard;2 person assist;verbal cues -[place] Assistive Device (Gait) walker, front-wheeled -[place] Patient was able to Ambulate yes -[place] Distance in Feet (Gait) 140 -[place] Deviations/Abnormal Patterns (Gait) stride length decreased;gait speed decreased -[place] Bilateral Gait Deviations forward flexed posture -[place] Comment, (Gait/Stairs) Gt training focused on controling walker with step through gait pattern. Encouraged heel strike and full wt shifting. Patient demonstrated good control. No LOB or buckling noted. -[place] User Abebe (r) = Recorded By, (t) = Taken By, (c) = Cosigned By Initials Name Provider Type [place] Sonya Juan, PT Physical Therapist Obj/Interventions Row Name 01/28/25 1509 Range of Motion Comprehensive General Range of Motion neck/trunk range of motion deficits identified -[place] Row Name 01/28/25 1509 Strength Comprehensive (MMT) General Manual Muscle Testing (MMT) Assessment no strength deficits identified -[place] Row Name 01/28/25 1509 Balance Dynamic Standing Balance 1-person assist;1 person to manage equipment;contact guard -[place] Position/Device Used, Standing Balance supported;walker, rolling -[place] Comment, Balance no LOB -[facility] Name 01/28/25 1509 Sensory Assessment (Somatosensory) Sensory Assessment (Somatosensory) sensation intact -[place] User Abebe (r) = Recorded By, (t) = Taken By, (c) = Cosigned By Initials Name Provider Type [place] Sonya Juan, PT Physical Therapist Goals/Plan [facility] Name 01/28/25 1514 Bed Mobility Goal 1 (PT) Activity/Assistive Device (Bed Mobility Goal 1, PT) sit to supine/supine to sit -[place] Level/Cues Needed (Bed Mobility Goal 1, PT) modified independence -[place] Time Frame (Bed Mobility Goal 1, PT) short term goal (STG);5 days -[facility] Name 01/28/25 151 Transfer Goal 1 (PT) Activity/Assistive Device (Transfer Goal 1, PT) duo-ah-wkghe/jcmae-ru-ojj;oid-ed-qelox/szlgk-ch-qkw-[place] Level/Cues Needed (Transfer Goal 1, PT) standby assist -[place] Time Frame (Transfer Goal 1, PT) chcf goal (LTG);10 days -[facility] Name 01/28/25 151 Gait Training Goal 1 (PT) Activity/Assistive Device (Gait Training Goal 1, PT) gait (walking locomotion);assistive device use-[place] Level (Gait Training Goal 1, PT) contact guard required -[place] Distance (Gait Training Goal 1, PT) 350' -[place] Time Frame (Gait Training Goal 1, PT) truck terminal manager goal (LTG);10 days -[place] User Abebe (r) = Recorded By, (t) = Taken By, (c) = Cosigned By Initials Name Provider Type [place] Sonya Juan, PT Physical Therapist Clinical Impression [facility] Name 01/28/25 1502 Pain Pretreatment Pain Rating 2/10 -[place] Posttreatment Pain Rating 2/10 -KY Pain Location back -KY Pain Management Interventions positioning techniques utilized -[place] Response to Pain Interventions activity participation with tolerable pain -[facility] Name 01/28/25 1506 Plan of Care Review Plan of Care Reviewed With patient -[place] Progress improving -[place] Outcome Evaluation Patient was able to ambulate in hallway with walker and demonstrated good control. Recommend continued skilled PT and home with home health PT. -[facility] Name 01/28/25 1501 Therapy Assessment/Plan (PT) Patient/Family Therapy Goals Statement (PT) walk -SC Criteria for Skilled Interventions Met (PT) yes;meets criteria;skilled treatment is necessary -[place] Therapy Frequency (PT) daily -SC Predicted Duration of Therapy Intervention (PT) 1 -SC Row Name 01/28/25 1509 Vital Signs Pre Systolic BP Rehab 99 -SC Pre Treatment Diastolic BP 52 -SC Intra Systolic BP Rehab 140 -SC Intra Treatment Diastolic BP 76 -SC Post Systolic BP Rehab 99 -SC Post Treatment Diastolic BP 52 -SC Row Name 01/28/25 1509 Positioning and Restraints Post Treatment Position bed -SC In Bed notified nsg;side lying right;with OT -SC User Abebe (r) = Recorded By, (t) = Taken By, (c) = Cosigned By Initials Name Provider Type Sonya Cazares PT Physical Therapist Outcome Measures Row Name 01/28/25 1514 01/28/25 0743 How much help from another person do you currently need... Turning from your back to your side while in flat bed without using bedrails? 3 -[place] 3 -EA Moving from lying on back to sitting on the side of a flat bed without bedrails? 3 -[place] 3 -EA Moving to and from a bed to a chair (including a wheelchair)? 3 -[place] 3 -EA Standing up from a chair using your arms (e.g., wheelchair, bedside chair)? 3 - [place] 3 -EA Climbing 3-5 steps with a railing? 3 -[place] 3 -EA To walk in hospital room? 3 -[place] 3 -EA AM-PAC 6 Clicks Score (PT) 18 -[place] 18 -EA Highest Level of Mobility Goal Walk 10 Steps or More-6 -[place] Walk 10 Steps or More-6 -EA Row Name 01/28/25 1514 01/28/25 1421 Functional Assessment Outcome Measure Options AM-PAC 6 Clicks Basic Mobility (PT) -SC AM-PAC 6 Clicks Daily Activity (OT)-MR User Abebe (r) = Recorded By, (t) = Taken By, (c) = Cosigned By Initials Name Provider Type Sonya Cazares PT Physical Therapist Latia Ford, RN Registered Nurse Ghazal Huerta, OT Occupational Therapist Physical Therapy Education Title: PT OT EPIC KALEIDOSCOPE ANALYST Therapies (Done) Topic: Physical Therapy (Done) Point: Mobility training (Done) Learning Progress Summary Patient Eager, E, VU by [place] at 01/28/20251514 Comment: Reviewed benefits of activity Acceptance, E, VU by at 01/27/2025 09 Acceptance, E, VU by at 01/20/20251312 Significant Other Acceptance, E, VU by at 01/20/20251312 Point: Home exercise program (Done) Learning Progress Summary Patient Eager, E, VU by [place] at 01/28/20251514 Comment: Reviewed benefits of activity Acceptance, E, VU by at 01/27/2025 09 Point: Body mechanics (Done) Learning Progress Summary Patient Eager, E, VU by [place] at 01/28/20251514 Comment: Reviewed benefits of activity Acceptance, E, VU by at 01/27/2025 09 Acceptance, E, VU by at 01/20/20251312 Significant Other Acceptance, E, VU by at 01/20/2025 131 Point: Precautions (Done) Learning Progress Summary Patient Eager, E, VU by [place] at 01/28/20251514 Comment: Reviewed benefits of activity Acceptance, E, VU by at 01/27/2025 09 Acceptance, E, VU by at 01/20/20251312 Significant Other Acceptance, E, VU by at 01/20/20251312 User Abebe Initials Effective Dates Name Provider Type Discipline [place] 07/21/22 - Sonya Juan, PT Physical Therapist PT 10/12/20 - Marisa Lomeli, RN Registered Nurse Nurse 07/24/23 - Angelica Campoverde, PT Physical Therapist PT PT Recommendation and [...] 01/28/25 1302 Time Calculation Start Time 0302 -[place] PT Received On 01/28/25 -[place] PT Goal Re-Cert Due Date 02/07/25 -[place] Timed Charges 31130 - Gait Training Minutes 10 -SC 82872 - PT Therapeutic Activity Minutes 5 -SC Untimed Charges PT Eval/Re-eval Minutes 30 -SC Total Minutes Timed Charges Total Minutes 15 -SC Untimed Charges Total Minutes 30 -SC Total Minutes 45 -SC User Abebe (r) = Recorded By, (t) = Taken By, (c) = Cosigned By Initials Name Provider Type SC Sonya Juan, PT Physical Therapist Therapy Charges for Today Code Description Service Date Service Provider Modifiers Qty [id number] HC GAIT TRAINING EA 15 MIN 01/28/2025 Sonya Juan, PT GP 1 [id number] HC PT RE-EVAL ESTABLISHED PLAN 2 01/28/2025 Sonya Juan PT GP 1 PT G-Codes Outcome Measure Options: AM-PAC 6 Clicks Basic Mobility (PT) AM-PAC 6 Clicks Score (PT): 18 AM-PAC 6 Clicks Score (OT): 17 PT Discharge Summary Anticipated Discharge Disposition (PT): home with assist Sonya Juan PT 01/28/2025 * Case Management/Social Work - Dayana Pepper RN - 01/28/2025 12:36 PM EDT Continued Stay Note [facility] Patient Name: Latosha Allison Today's Date: 01/28/2025 [...] Problem List Diagnosis Coronary artery disease involving viejas coronary artery of viejas heart without angina pectoris Mixed hyperlipidemia Type 2 diabetes mellitus, without long-term current use of insulin Primary hypertension Obesity Sleep apnea Heart failure with preserved left ventricular function (HFpEF) Lumbar stenosis with neurogenic claudication Past Medical History: Diagnosis Date Arthritis Arthritis of back Arthritis of neck Bursitis of hip CHF (congestive heart failure) AFTER [place] Coronary artery disease CTS (carpal tunnel syndrome) Diabetes mellitus X ABOUT 15 YEARS, TESTING PRN type 2 Diverticula, colon Dyslipidemia Fracture of wrist Fracture, radius Fracture, ulna GERD (gastroesophageal reflux disease) H/O- OMEPRAZOLE Hiatal hernia STILL PRESENT Hip arthrosis Hyperlipidemia Hypertension Ischemic heart disease Knee swelling Low back pain Low back strain Lumbosacral disc disease SD, old 30 YEARS AGO Osteoporosis Periarthritis of shoulder Presence of dental bridge UPPER PERMANENT BRIDGE IN PLACE Sleep apnea CPAP therapy Spinal stenosis T10 AND T8-9 Tear of meniscus of knee Thoracic disc disorder Wears glasses Past Surgical History: Procedure Laterality Date ADENOIDECTOMY BLEPHAROPLASTY Bilateral BRACHIOPLEXUS EXPLORATION CARDIAC CATHETERIZATION Left 01/05/2016 Procedure: Cardiac catheterization; Surgeon: Yoshi Cote MD; Location: [facility] CATH INVASIVE LOCATION; Service: CARDIAC CATHETERIZATION 05/26/2003 [...] L2-L4 LAMINECTOMY; Surgeon: Walt Em MD; Location: [facility] OR; Service: Neurosurgery; Laterality: N/A; ORIF FOREARM [...] Provider Type Yuni Shay, OT Occupational Therapist Mobility/ADL's Row Name 01/20/25 143 Bed Mobility Bed Mobility supine-sit;sit-supine -AR Supine-Sit [place] (Bed Mobility) contact guard -AR Sit-Supine [place] (Bed Mobility) moderate assist (50% patient effort) [...] Row Name 01/20/25 1435 Sit-Stand Transfer Sit-Stand [place] (Transfers) contact guard;verbal cues -AR Assistive Device (Sit-Stand Transfers) walker, front-wheeled -AR Row Name 01/20/25 1435 Stand-Sit Transfer Stand-Sit [place] (Transfers) contact guard;verbal cues -AR Assistive Device [...] Name 01/20/25 1435 Lower Body Dressing Assessment/Training [place] Level (Lower Body Dressing) verbal cues;don;socks;moderate assist (50% patient effort)simulate -AR Assistive Devices (Lower Body Dressing) airbrush artist technical;sock-aid -AR Position (Lower Body Dressing) edge of bed sitting -AR Comment, (Lower Body Dressing) Educated pt on spinal precautions and ADL retraining to maintain. She will benefit from AE at upcoming session, deferred today d/t drainage. -AR Row Name 01/20/25 1435 Upper Body Dressing Assessment/Training [place] Level (Upper Body Dressing) don;doff;pajama/robe;moderate assist (50% patient effort) -AR Position (Upper Body Dressing) edge of bed sitting -AR User Abebe (r) = Recorded By, (t) = Taken By, (c) = Cosigned By Initials Name Provider Type Yuni Shay, OT Occupational Therapist Obj/Interventions Row Name 01/20/25 1439 Sensory Assessment (Somatosensory) Sensory Assessment (Somatosensory) UE sensation intact -AR Row Name 01/20/25 1439 Vision Assessment/Intervention Visual Impairment/Limitations WNL -AR Row Name 01/20/25 1439 Range of Motion Comprehensive General Range of Motion no range of motion deficits identified -AR Row Name 01/20/25 1439 Strength Comprehensive (MMT) General Manual Muscle Testing (MMT) Assessment no strength deficits identified -AR Comment, General Manual Muscle Testing (MMT) Assessment WFL for ADL -AR Row Name 01/20/25 1439 Balance Balance Assessment sitting static balance;sitting dynamic [...] Type Yuni Shay OT Occupational Therapist Goals/Plan Row Name 01/20/25 144 Transfer Goal 1 (OT) Activity/Assistive Device (Transfer Goal 1, OT) mrz-oe-vopbn/jswwt-xi-jut;toilet -AR [place] Level/Cues Needed (Transfer Goal 1, OT) verbal cues required;supervision required -AR Time Frame (Transfer Goal 1, OT) truck terminal manager goal (LTG);10 days -AR Progress/Outcome (Transfer Goal 1, OT) goal ongoing -AR Row Name 01/20/25 144 Dressing Goal 1 (OT) Activity/Device (Dressing Goal 1, OT) lower body dressing;airbrush artist technical;sock-aid -AR [place]/Cues Needed (Dressing Goal 1, OT) verbal cues required;supervision required -AR Time Frame (Dressing Goal 1, OT) short term goal (STG);5 days -AR Progress/Outcome (Dressing Goal 1, OT) goal ongoing -AR Row Name 01/20/25 144 Problem Specific Goal 1 (OT) Problem Specific Goal 1 (OT) Pt will recall/maintain spinal precautions during ADL activity with max 3 vc -AR Time Frame (Problem Specific Goal 1, OT) chcf goal (LTG);10 days -AR Progress/Outcome (Problem Specific Goal 1, OT) goal ongoing -AR Row Name 01/20/25 144 Therapy Assessment/Plan (OT) Planned Therapy Interventions (OT) activity tolerance training;adaptive equipment training;BADL retraining;functional balance retraining;IADL retraining;occupation/activity based interventions;patient/caregiver education/training;transfer/mobility retraining -AR User Abebe (r) = Recorded By, (t) = Taken By, (c) = Cosigned By Initials Name Provider Type Yuni Shay OT Occupational Therapist Clinical Impression Row Name 01/20/25 1440 Pain Assessment Pretreatment Pain Rating 5/10 -AR Posttreatment Pain Rating 0/10 - no pain -AR Pain Location back -AR Pain Side/Orientation generalized -AR Pain Management Interventions activity modification encouraged;movement retraining implemented;nursing notified;positioning techniques utilized -AR Response to Pain Interventions activity participation with decreased pain -AR Row Name 01/20/25 1440 Plan of Care Review Plan of Care [...] is medially appropriate. -AR Row Name 01/20/25 1440 Therapy Assessment/Plan (OT) Rehab Potential (OT) good -AR Criteria for Skilled Therapeutic Interventions Met (OT) yes -AR Therapy Frequency (OT) daily -AR Row Name 01/20/25 1440 Therapy Plan Review/Discharge Plan (OT) Anticipated Discharge [...] Type AR Yuni Storey, OT Occupational Therapist CK Angelica Campoverde, PT Physical Therapist Occupational Therapy Education Title: PT OT EPIC KALEIDOSCOPE ANALYST Therapies (In Progress) Topic: Occupational Therapy (In Progress) Point: ADL training (Done) Learning Progress Summary Patient Eager, E,TB,D, VU,NR by AR at 01/20/2025 144 Point: Precautions (Done) Learning Progress Summary Patient Eager, E,TB,D, VU,NR by AR at 01/20/2025 144 Point: Body mechanics (Done) Learning Progress Summary Patient Eager, E,TB,D, VU,NR by AR at 01/20/2025 144 User Abebe Initials Effective Dates Name Provider Type Discipline [place] 12/26/22 - Yuni Storey, OT Occupational Therapist OT OT Recommendation and [...] Description Service Date Service Provider Modifiers Qty [id number] HC OT EVAL LOW COMPLEXITY 4 01/20/2025 Yuni Storey OT GO 1 Yuni Storey OT 01/20/2025 * Case Management/Social Work - Mehdi Lawrence RN - 01/20/2025 10:25 AM EDT Continued Stay Note [facility] Patient Name: Latosha Allison Today's Date: 01/20/2025 [...] Lawrence RN * Therapy Evaluation - Angelica Campoverde PT - 01/20/2025 9:48 AM EDT Images from the original note were not included. Patient Name: Latosha Allison : 1955 Today's Date: 01/20/2025 Admit Date: 01/15/2025 Visit Dx: ICD-10-CM ICD-9-CM 1. Lumbar stenosis with neurogenic claudication M48.062 724.03 Patient Active Problem List Diagnosis Coronary artery disease involving viejas coronary artery of viejas heart without angina pectoris Mixed hyperlipidemia Type 2 diabetes mellitus, without long-term current use of insulin Primary hypertension Obesity Sleep apnea Heart failure with preserved left ventricular function (HFpEF) Lumbar stenosis with neurogenic claudication Past Medical History: Diagnosis Date Arthritis Arthritis of back Arthritis of neck Bursitis of hip CHF (congestive heart failure) AFTER [place] Coronary artery disease CTS (carpal tunnel syndrome) Diabetes mellitus X ABOUT 15 YEARS, TESTING PRN type 2 Diverticula, colon Dyslipidemia Fracture of wrist Fracture, radius Fracture, ulna GERD (gastroesophageal reflux disease) H/O- OMEPRAZOLE Hiatal hernia STILL PRESENT Hip arthrosis Hyperlipidemia Hypertension Ischemic heart disease Knee swelling Low back pain Low back strain Lumbosacral disc disease SD, old 30 YEARS AGO Osteoporosis Periarthritis of shoulder Presence of dental bridge UPPER PERMANENT BRIDGE IN PLACE Sleep apnea CPAP therapy Spinal stenosis T10 AND T8-9 Tear of meniscus of knee Thoracic disc disorder Wears glasses Past Surgical History: Procedure Laterality Date ADENOIDECTOMY BLEPHAROPLASTY Bilateral BRACHIOPLEXUS EXPLORATION CARDIAC CATHETERIZATION Left 01/05/2016 Procedure: Cardiac catheterization; Surgeon: Yoshi Cote MD; Location: [facility] CATH INVASIVE LOCATION; Service: CARDIAC CATHETERIZATION 05/26/2003 No evidence of fixed CAD; spontaneous spasm of the 2nd obtuse marginal which resolved following intracoronary NTG; estimated LVEF of 60%. CARDIAC CATHETERIZATION 07/15/2009 No obstructive CAD; 0% to 40% mid LAD plaque. Patent RCA and LCX stents; LVF 50%. CARDIAC CATHETERIZATION N/A 06/05/2024 Procedure: Left Heart Cath; Surgeon: oYshi Cote IV, MD; Location: [facility] CATH INVASIVE LOCATION; Service: Cardiovascular; Laterality: N/A; CARDIAC CATHETERIZATION N/A 06/05/2024 Procedure: Optical Coherence Tomography; Surgeon: Yoshi Cote IV, MD; Location: [facility] CATH INVASIVE LOCATION; Service: Cardiovascular; Laterality: N/A; CARDIAC CATHETERIZATION N/A 06/05/2024 Procedure: Stent ALYSSA coronary; Surgeon: Yoshi Cote IV, MD; Location: [facility] CATH INVASIVE LOCATION; Service: Cardiovascular; Laterality: N/A; [...] L2-L4 LAMINECTOMY; Surgeon: Walt Em MD; Location: [facility] OR; Service: Neurosurgery; Laterality: N/A; ORIF FOREARM [...] Treatment physical therapy -CK Row Name 01/20/25 1115 General Information Patient Profile Reviewed yes -CK Prior Level of Function independent:;all household mobility;ADL's typically ind no AD, denies recent falls -CK Existing Precautions/Restrictions fall;spinal;other (see comments) clear drianage from caudal incision with mobility, RN aware -CK Barriers to Rehab medically complex -CK Row Name 01/20/25 1115 Living Environment Current Living Arrangements home -CK People in Home spouse -CK Row Name 01/20/25 1115 Home Main Entrance Number of Stairs, Main Entrance four;other (see comments) 3+1 -CK Stair Railings, Main Entrance railings on both sides of stairs -CK Row Name 01/20/25 1115 Stairs Within Home, Primary Stairs, Within Home, Primary all needs met on main floor -CK Row Name 01/20/25 1115 Cognition Orientation Status (Cognition) oriented x 4 -CK Row Name 01/20/25 1115 Safety Issues/Impairments Affecting Functional Mobility Safety Issues Affecting Function (Mobility) awareness of need for assistance;insight into deficits/self-awareness;safety precaution awareness -CK Impairments Affecting Function (Mobility) balance;endurance/activity tolerance;pain;strength -CK User Abebe (r) = Recorded By, (t) = Taken By, (c) = Cosigned By Initials Name Provider Type CK Angelica Campoverde, PT Physical Therapist Mobility Row Name 01/20/25 1119 Bed Mobility Bed Mobility supine-sit;sit-supine -CK Supine-Sit [place] (Bed Mobility) contact guard -CK Sit-Supine [place] (Bed Mobility) moderate assist (50% patient effort) -CK Assistive Device (Bed Mobility) bed rails -CK Comment, (Bed Mobility) reviewed spinal precautions and logroll technique. Patient able to completesup to sit with verbal cues only. She denied headache at EOB. Mild dizziness BP was 140/76. She required modA at BLEs for sit to sup -CK Row Name 01/20/25 1119 Transfers Comment, (Transfers) Patient with clear drainage leaking through gown with mobility, immediately notified RN and returned patient to supine. Patient remained asymptomatic with all mobility. -CK Row Name 01/20/25 1119 Sit-Stand Transfer Sit-Stand [place] (Transfers) contact guard -CK Assistive Device (Sit-Stand Transfers) walker, front-wheeled -CK Comment, (Sit-Stand Transfer) cues to push up from bed -CK Row Name 01/20/25 1119 Gait/Stairs (Locomotion) [place] Level (Gait) contact guard;2 person assist;verbal cues [...] = Cosigned By Initials Name Provider Type Angelica Cui PT Physical Therapist Obj/Interventions Row Name 01/20/25 [...] Type CK Angelica Campoverde, PT Physical Therapist Goals/Plan Row Name 01/20/25 1312 Bed Mobility Goal 1 (PT) Activity/Assistive Device (Bed Mobility Goal 1, PT) sit to supine/supine to sit -CK [place] Level/Cues Needed (Bed Mobility Goal 1, PT) modified independence -CK Time Frame (Bed Mobility Goal 1, PT) short term goal (STG);5 days -CK Progress/Outcomes (Bed Mobility Goal 1, PT) new goal -CK Row Name 01/20/25 1312 Transfer Goal 1 (PT) Activity/Assistive Device (Transfer Goal 1, PT) try-hg-cnxhr/hqfzs-pk-glz;pwa-ms-qlwtx/tnrwq-ki-tfd-CK [place] Level/Cues Needed (Transfer Goal 1, PT) standby assist -CK Time Frame (Transfer Goal 1, PT) chcf goal (LTG);10 days -CK Progress/Outcome (Transfer Goal 1, PT) new goal -CK Row Name 01/20/25 1312 Gait Training Goal 1 (PT) Activity/Assistive Device (Gait Training Goal 1, PT) gait (walking locomotion);assistive device use-CK [place] Level (Gait Training Goal 1, PT) contact guard required -CK Distance (Gait Training Goal 1, PT) 350' -CK Time Frame (Gait Training Goal 1, PT) chcf goal (LTG);10 days -CK Progress/Outcome (Gait Training Goal 1, PT) new goal -CK Row Name 01/20/25 1312 Stairs Goal 1 (PT) Activity/Assistive Device (Stairs Goal 1, PT) ascending stairs;descending stairs;using handrail, left;using handrail, right -CK [place] Level/Cues Needed (Stairs Goal 1, PT) contact guard required -CK Number of Stairs (Stairs Goal 1, PT) 3+1 -CK Time Frame (Stairs Goal 1, PT) chcf goal (LTG);10 days -CK Progress/Outcome (Stairs Goal 1, PT) new goal -CK Row Name 01/20/25 1312 Therapy Assessment/Plan (PT) Planned Therapy Interventions (PT) balance training;bed mobility training;gait training;home exercise program;neuromuscular re-education;transfer training;stretching;strengthening;stair training;ROM (range of motion);patient/family education -CK User Abebe (r) = Recorded By, (t) = Taken By, (c) = Cosigned By Initials Name Provider Type CK Angelica Campoverde, PT Physical Therapist Clinical Impression Row Name 01/20/25 1309 Pain Pretreatment Pain Rating 5/10 -CK Posttreatment Pain Rating 0/10 - no pain -CK Pain Location back -CK Pain Side/Orientation generalized -CK Pain Management Interventions exercise or physical activity utilized;positioning techniques utilized;premedicated for activity;nursing notified -CK Response to Pain Interventions activity participation with decreased pain -CK Row Name 01/20/25 1305 Plan of Care Review Plan of Care [...] home with assist. -CK Row Name 01/20/25 1305 Therapy Assessment/Plan (PT) Patient/Family Therapy Goals Statement (PT) move and feel better -CK Rehab Potential (PT) good -CK Criteria for Skilled Interventions Met (PT) yes;meets criteria;skilled treatment is necessary -CK Therapy Frequency (PT) daily -CK Row Name 01/20/25 1309 Vital Signs Pre Systolic BP Rehab 133 [...] Patient Position Supine -CK Row Name 01/20/25 1309 Positioning and Restraints Pre-Treatment Position in bed -CK Post Treatment Position bed -CK In Bed supine;with nsg RN present to assess incisional drainage, RN to set patient up and set bed alarm follwing her care -CK User Abebe (r) = Recorded By, (t) = Taken By, (c) = Cosigned By Initials Name Provider Type Angelica Cui PT Physical Therapist Outcome Measures Row Name [...] = Cosigned By Initials Name Provider Type Angelica Cui PT Physical Therapist Physical Therapy Education Title: PT OT EPIC KALEIDOSCOPE ANALYST Therapies (In Progress) Topic: Physical Therapy (In Progress) Point: Mobility training (Done) Learning Progress Summary Patient Acceptance, E, VU by CK at 01/20/2025 1313 Significant Other Acceptance, E, VU by CK at 01/20/20251312 Point: Home exercise program (Not Started) Learner Progress: Not documented in this visit. Point: Body mechanics (Done) Learning Progress Summary Patient Acceptance, E, VU by CK at 01/20/20251312 Significant Other Acceptance, E, VU by CK at 01/20/20251312 Point: Precautions (Done) Learning Progress Summary Patient Acceptance, E, VU by CK at 01/20/20251312 Significant Other Acceptance, E, VU by CK at 01/20/20251312 User Abebe Initials Effective Dates Name Provider Type Discipline 07/24/23 - Angelica Campoverde PT Physical Therapist [...] Complexity): moderate complexity PT Charges Row Name 01/20/251312 Time Calculation Start Time 0948 -CK PT Received On 01/20/25 -CK PT Goal Re-Cert Due Date 01/30/25 -CK Untimed Charges PT Eval/Re-eval Minutes 46 -CK Total Minutes Untimed Charges Total Minutes 46 -CK Total Minutes 46 -CK User Abebe (r) = Recorded By, (t) = Taken By, (c) = Cosigned By Initials Name Provider Type CK Angelica Campoverde PT Physical Therapist Therapy Charges for Today Code Description Service Date Service Provider Modifiers Qty [id number] HC PT EVAL MOD COMPLEXITY 4 01/20/2025 Angelica Campoverde PT GP 1 PT G-Codes Outcome Measure Options: AM-PAC 6 Clicks Basic Mobility (PT) AM-PAC 6 Clicks Score (PT): 17 PT Discharge Summary Anticipated Discharge Disposition (PT): home with assist Angelica Campoverde, PT 01/20/2025 * Case Management/Social Work - Mehdi Lawrence, JULISSA - 01/19/2025 8:55 AM EDT Continued Stay Note [facility] Patient Name: Latosha Allison Today's Date: 01/19/2025 [...] Expected Discharge Time Jan 16, 2025 Mehdi Lawrence, RN * Case Management/Social Work - Jenny Castaneda RN - 01/16/2025 11:58 AM EDT Images from the original note were not included. Discharge Planning Assessment [facility] Patient Name: Latosha Allison Today's Date: 01/16/2025 Admit Date: 01/15/2025 Plan: Home Discharge Needs Assessment Row Name 01/16/25 1141 Living Environment People in Home spouse Name(s) of People in Home Bassem Allison Spouse [phone] Current Living Arrangements home Potentially Unsafe Housing Conditions none In the past 12 months has the electric, gas, oil, or water [employer] threatened to shut off services in your home? No Primary Care Provided by self Provides Primary Care For no one Family Caregiver if Needed spouse Family Caregiver Names Bassem Allison Spouse [phone] Quality of Family Relationships helpful;involved;supportive Able to [...] bedside regarding DC planning. Patient resides in [facility] with her spouse. Patient is independent with [...] Reason for Consult discharge planning Preferred Language Bahamian Contact Information Contact Information Comments Bassem Allison Spouse [phone] Functional Status Row Name 01/16/25 1140 Functional [...] Description 04/08/2025 10:15 AM EDT Office Visit [facility] [address] [facility] [address] [place] [id number] Marjan Tran PA-C [address] [facility] [address] [place] [address] 10/29/2025 9:45 AM EDT Office Visit [facility] CARDIOLOGY [address] [place] [address] [place] [address] Samir Thurman MD [address] [facility] [address] [place], [place] [id number] Scheduled Procedures Name Priority Associated Diagnoses Date/Ti [...] DURING SURGERY Routine 01/22/2025 1:49 PM EDT POCT GLUCOSE FINGERSTICK Routine 01/22/2025 7:27 AM [...] GLUCOSE FINGERSTICK Routine 01/15/2025 7:38 AM EDT [place] ARTHRODESIS POSTERIOR INTERBODY 1 NTRSPC LUMBAR 01/15/2025 7:12 AM EDT Lumbar stenosis with neurogenic claudication Special Needs C-ARM, FILMS [facility], GERMAN TABLE, O-ARM, [employer], UGO FRANK SCANNED - TELEMETRY 01/15/2025 documented in this encounter Results * POC Glucose Once (01/29/2025 10:58 AM EDT) Glucose 112 70 - 130 mg/dL 01/29/2025 10:58 AM EDT [facility] Blood 01/29/2025 10:5 8 AM EDT 01/29/2025 10:58 AM EDT Walt Em MD POINT OF CARE TEST ORDERABLES Final Result Performing Organization Address City/[facility]/ZIP Co de Phone Number [facility]
[address] [place] [address], * POC Glucose Once (01/29/2025 7:13 AM EDT) Glucose 113 70 - 130 mg/dL 01/29/2025 7:13 AM EDT [facility] Blood 01/29/2025 7:13 AM EDT 01/29/2025 7:13 AM EDT Walt Em MD POINT OF CARE TEST ORDERABLES Final Result [facility]
[address] [place] [address], * POC Glucose Once (01/28/2025 7:57 PM EDT) Glucose 117 70 - 130 mg/dL 01/28/2025 7:59 PM EDT [facility] Blood 01/28/2025 7:57 PM EDT 01/28/2025 7:59 PM EDT Walt Em MD POINT OF CARE TEST ORDERABLES Final Result Performing Organization Address City/[facility]/ZIP Co de Phone Number [facility]
[address] [place] [address], * POC Glucose Once (01/28/2025 4:08 PM EDT) Glucose 90 70 - 130 mg/dL 01/28/2025 4:09 PM EDT [facility] Blood 01/28/2025 4:08 PM EDT 01/28/2025 4:09 PM EDT Walt Em MD POINT OF CARE TEST ORDERABLES Final Result Performing Organization Address [facility] Co de Phone Number [facility]
[address] [place] [address], * (ABNORMAL) POC Glucose Once (01/28/2025 11:27 AM EDT) Glucose 133(H) 70 - 130 mg/dL 01/28/2025 11:28 AM EDT [facility] Blood 01/28/2025 11:2 7 AM EDT 01/28/2025 11:28 AM EDT Walt Em MD POINT OF CARE TEST ORDERABLES Final Result Performing Organization Address City/[facility]/ZIP Co de Phone Number [facility]
[address] [place] [address], * POC Glucose Once (01/28/2025 7:12 AM EDT) Glucose 113 70 - 130 mg/dL 01/28/2025 7:14 AM EDT [facility] Blood 01/28/2025 7:12 AM EDT 01/28/2025 7:14 AM EDT us Walt Em MD POINT OF CARE TEST ORDERABLES Final Result Performing Organization Address [facility] Co de Phone Number [facility]
[address] [place] [address], [place] [phone] * POC Glucose Once (01/27/2025 7:55 PM EDT) Glucose 108 70 - 130 mg/dL 01/27/2025 7:56 PM EDT [facility] Blood 01/27/2025 7:55 PM EDT 01/27/2025 7:56 PM EDT us Walt Em MD POINT OF CARE TEST ORDERABLES Final Result Performing Organization Address [facility] Co de Phone Number [facility]
[address] [place] [address], [place] [phone] * POC Glucose Once (01/27/2025 4:11 PM EDT) Glucose 120 70 - 130 mg/dL 01/27/2025 4:14 PM EDT [facility] Blood 01/27/2025 4:11 PM EDT 01/27/2025 4:13 PM EDT Walt Em MD POINT OF CARE TEST ORDERABLES Final Result Performing Organization Address [facility] Co de Phone Number [facility]
[address] [place] [address], [place] [phone] * (ABNORMAL) POC Glucose Once (01/27/2025 11:19 AM EDT) Glucose 132(H) 70 - 130 mg/dL 01/27/2025 11:21 AM EDT [facility] Blood 01/27/2025 11:1 9 AM EDT 01/27/2025 11:21 AM EDT Walt Em MD POINT OF CARE TEST ORDERABLES Final Result Performing Organization Address [facility] Co de Phone Number [facility]
[address] [place] [address], [place] [phone] * (ABNORMAL) POC Glucose Once (01/27/2025 7:30 AM EDT) Glucose 136(H) 70 - 130 mg/dL 01/27/2025 7:32 AM EDT [facility] Blood 01/27/2025 7:30 AM EDT 01/27/2025 7:31 AM EDT us Walt Em MD POINT OF CARE TEST ORDERABLES Final Result Performing Organization Address [facility] Co de Phone Number [facility]
[address] [place] [address], [place] [phone] * POC Glucose Once (01/26/2025 8:18 PM EDT) Glucose 96 70 - 130 mg/dL 01/26/2025 8:20 PM EDT [facility] Blood 01/26/2025 8:18 PM EDT 01/26/2025 8:20 PM EDT Walt Em MD POINT OF CARE TEST ORDERABLES Final Result Performing Organization Address [facility] Co de Phone Number [facility]
[address] [place] [address], [place] [phone] * (ABNORMAL) POC Glucose Once (01/26/2025 4:34 PM EDT) Glucose 137(H) 70 - 130 mg/dL 01/26/2025 4:36 PM EDT [facility] Blood 01/26/2025 4:34 PM EDT 01/26/2025 4:36 PM EDT us Walt Em MD POINT OF CARE TEST ORDERABLES Final Result Performing Organization Address City/[facility]/ZIP Co de Phone Number [facility]
[address] [place] [address], [place] [phone] * POC Glucose Once (01/26/2025 11:33 AM EDT) Glucose 106 70 - 130 mg/dL 01/26/2025 11:35 AM EDT [facility] Blood 01/26/2025 11:3 3 AM EDT 01/26/2025 11:35 AM EDT us Walt Em MD POINT OF CARE TEST ORDERABLES Final Result Performing Organization Address [facility] Co de Phone Number [facility]
[address] [place] [address], [place] [phone] * (ABNORMAL) POC Glucose Once (01/26/2025 8:00 AM EDT) Glucose 139(H) 70 - 130 mg/dL 01/26/2025 8:01 AM EDT [facility] Blood 01/26/2025 8:00 AM EDT 01/26/2025 8:01 AM EDT us Walt Em MD POINT OF CARE TEST ORDERABLES Final Result Performing Organization Address City/[facility] Co de Phone Number [facility]
[address] [place] [address], [place] [phone] * POC Glucose Once (01/25/2025 7:56 PM EDT) Glucose 112 70 - 130 mg/dL 01/25/2025 7:57 PM EDT [facility] Blood 01/25/2025 7:56 PM EDT 01/25/2025 7:57 PM EDT Walt Em MD POINT OF CARE TEST ORDERABLES Final Result Performing Organization Address City/[facility]/ZIP Co de Phone Number [facility]
[address] [place] [address], * POC Glucose Once (01/25/2025 4:19 PM EDT) Glucose 120 70 - 130 mg/dL 01/25/2025 4:24 PM EDT [facility] Blood 01/25/2025 4:19 PM EDT 01/25/2025 4:24 PM EDT us Walt Em MD POINT OF CARE TEST ORDERABLES Final Result Performing Organization Address [facility] Co de Phone Number [facility]
[address] [place] [address], * POC Glucose Once (01/25/2025 11:18 AM EDT) Glucose 113 70 - 130 mg/dL 01/25/2025 11:42 AM EDT [facility] Blood 01/25/2025 11:1 8 AM EDT 01/25/2025 11:42 AM EDT Walt Em MD POINT OF CARE TEST ORDERABLES Final Result Performing Organization Address City/[facility] Co de Phone Number [facility]
[address] [place] [address], * POC Glucose Once (01/25/2025 7:30 AM EDT) Glucose 109 70 - 130 mg/dL 01/25/2025 7:34 AM EDT [facility] Blood 01/25/2025 7:30 AM EDT 01/25/2025 7:34 AM EDT Walt Em MD POINT OF CARE TEST ORDERABLES Final Result Performing Organization Address City/[facility]/ZIP Co de Phone Number [facility]
[address] [place] [address], * POC Glucose Once (01/24/2025 8:16 PM EDT) Glucose 116 70 - 130 mg/dL 01/24/2025 8:17 PM EDT [facility] Blood 01/24/2025 8:16 PM EDT 01/24/2025 8:17 PM EDT Walt Em MD POINT OF CARE TEST ORDERABLES Final Result Performing Organization Address City/[facility]/ZIP Co de Phone Number [facility]
[address] [place] [address], * POC Glucose Once (01/24/2025 4:36 PM EDT) Glucose 108 70 - 130 mg/dL 01/24/2025 4:37 PM EDT [facility] Blood 01/24/2025 4:36 PM EDT 01/24/2025 4:37 PM EDT Walt Em MD POINT OF CARE TEST ORDERABLES Final Result Performing Organization Address City/[facility]/ZIP Co de Phone Number [facility]
[address] [place] [address], [place] [phone] * POC Glucose Once (01/24/2025 11:51 AM EDT) Glucose 104 70 - 130 mg/dL 01/24/2025 11:53 AM EDT [facility] Blood 01/24/2025 11:5 1 AM EDT 01/24/2025 11:53 AM EDT us Walt Em MD POINT OF CARE TEST ORDERABLES Final Result Performing Organization Address City/[facility]/ZIP Co de Phone Number [facility]
[address] [place] [address], * POC Glucose Once (01/24/2025 7:20 AM EDT) Glucose 97 70 - 130 mg/dL 01/24/2025 7:21 AM EDT [facility] Blood 01/24/2025 7:20 AM EDT 01/24/2025 7:21 AM EDT us Walt Em MD POINT OF CARE TEST ORDERABLES Final Result Performing Organization Address [facility] Co de Phone Number [facility]
[address] [place] [address], [place] [phone] * (ABNORMAL) POC Glucose Once (01/23/2025 7:58 PM EDT) Glucose 160(H) 70 - 130 mg/dL 01/23/2025 7:59 PM EDT [facility] Blood 01/23/2025 7:58 PM EDT 01/23/2025 7:59 PM EDT us Walt Em MD POINT OF CARE TEST ORDERABLES Final Result Performing Organization Address City/[facility] Co de Phone Number [facility]
[address] [place] [address], [place] [phone] * POC Glucose Once (01/23/2025 4:30 PM EDT) Glucose 118 70 - 130 mg/dL 01/23/2025 4:[facility] 01/23/2025 4:30 PM EDT 01/23/2025 4:31 PM EDT us Walt Em MD POINT OF CARE TEST ORDERABLES Final Result Performing Organization Address City/[facility]/ZIP Co de Phone Number [facility]
[address] [place] [address], [place] [phone] * POC Glucose Once (01/23/2025 11:08 AM EDT) Glucose 104 70 - 130 mg/dL 01/23/2025 11:09 AM EDT [facility] Blood 01/23/2025 11:0 8 AM EDT 01/23/2025 11:09 AM EDT us Walt Em MD POINT OF CARE TEST ORDERABLES Final Result Performing Organization Address [facility] Co de Phone Number [facility]
[address] [place] [address], [place] [phone] * POC Glucose Once (01/23/2025 7:20 AM EDT) Glucose 106 70 - 130 mg/dL 01/23/2025 7:22 AM EDT [facility] Blood 01/23/2025 7:20 AM EDT 01/23/2025 7:22 AM EDT us Walt Em MD POINT OF CARE TEST ORDERABLES Final Result Performing Organization Address City/[facility] Co de Phone Number [facility]
[address] [place] [id number], [place] [phone] * (ABNORMAL) POC Glucose Once (01/22/2025 8:12 PM EDT) Glucose 167(H) 70 - 130 mg/dL 01/22/2025 8:16 PM EDT [facility] Blood 01/22/2025 8:12 PM EDT 01/22/2025 8:16 PM EDT us Walt Em MD POINT OF CARE TEST ORDERABLES Final Result Performing Organization Address [facility] de Phone Number [facility]
[address] [place] [address], * POC Glucose Once (01/22/2025 4:22 PM EDT) Glucose 119 70 - 130 mg/dL 01/22/2025 4:23 PM EDT [facility] Blood 01/22/2025 4:22 PM EDT 01/22/2025 4:23 PM EDT Walt Em MD POINT OF CARE TEST ORDERABLES Final Result Performing Organization Address [facility] Phone Number [facility]
[address] [place] [address], * FL C Arm During Surgery (01/22/2025 1:49 PM EDT) Narrative SYSTEMGENERATED, DOCUMENTATION - 01/22/2025 1:51 PM EDT This procedure was auto-finalized with no dictation required. us Walt Em MD IMG FLUOROSCOPY ORDERABLES Fi nal Result * POC Glucose Once (01/22/2025 7:27 AM EDT) Glucose 105 70 - 130 mg/dL 01/22/2025 7:29 AM EDT [facility] Blood 01/22/2025 7:27 AM EDT 01/22/2025 7:29 AM EDT us Walt Em MD POINT OF CARE TEST ORDERABLES Final Result Performing Organization Address [facility] Co de Phone Number [facility]
[address] [place] [address], * POC Glucose Once (01/21/2025 7:37 PM EDT) Glucose 127 70 - 130 mg/dL 01/21/2025 7:38 PM EDT [facility] Blood 01/21/2025 7:37 PM EDT 01/21/2025 7:38 PM EDT Walt Em MD POINT OF CARE TEST ORDERABLES Final Result Performing Organization Address [facility] Co de Phone Number [facility]
[address] [place] [address], * (ABNORMAL) POC Glucose Once (01/21/2025 4:16 PM EDT) Glucose 141(H) 70 - 130 mg/dL 01/21/2025 4:17 PM EDT [facility] Blood 01/21/2025 4:16 PM EDT 01/21/2025 4:17 PM EDT Walt Em MD POINT OF CARE TEST ORDERABLES Final Result Performing Organization Address City/[facility] Co de Phone Number [facility]
[address] [place] [address], [place] [phone] * POC Glucose Once (01/21/2025 11:26 AM EDT) Glucose 124 70 - 130 mg/dL 01/21/2025 11:28 AM EDT [facility] Blood 01/21/2025 11:2 6 AM EDT 01/21/2025 11:27 AM EDT Walt Em MD POINT OF CARE TEST ORDERABLES Final Result Performing Organization Address [facility] Co de Phone Number [facility]
[address] [place] [address], * (ABNORMAL) POC Glucose Once (01/21/2025 7:02 AM EDT) Glucose 148(H) 70 - 130 mg/dL 01/21/2025 7:03 AM EDT [facility] Blood 01/21/2025 7:02 AM EDT 01/21/2025 7:03 AM EDT Walt Em MD POINT OF CARE TEST ORDERABLES Final Result Performing Organization Address [facility] Co de Phone Number [facility]
[address] [place] [address], * (ABNORMAL) POC Glucose Once (01/20/2025 7:25 PM EDT) Glucose 134(H) 70 - 130 mg/dL 01/20/2025 7:26 PM EDT [facility] Blood 01/20/2025 7:25 PM EDT 01/20/2025 7:26 PM EDT Walt Em MD POINT OF CARE TEST ORDERABLES Final Result Performing Organization Address City/[facility]/ZIP Co de Phone Number [facility]
[address] [place] [address], * POC Glucose Once (01/20/2025 4:27 PM EDT) Glucose 113 70 - 130 mg/dL 01/20/2025 4:29 PM EDT [facility] Blood 01/20/2025 4:27 PM EDT 01/20/2025 4:28 PM EDT Walt Em MD POINT OF CARE TEST ORDERABLES Final Result Performing Organization Address City/[facility]/ZIP Co de Phone Number [facility]
[address] [place] [address], * POC Glucose Once (01/20/2025 11:13 AM EDT) Glucose 115 70 - 130 mg/dL 01/20/2025 11:15 AM EDT [facility] Blood 01/20/2025 11:1 3 AM EDT 01/20/2025 11:15 AM EDT Walt mE MD POINT OF CARE TEST ORDERABLES Final Result Performing Organization Address [facility] Co de Phone Number [facility]
[address] [place] [address], * POC Glucose Once (01/20/2025 7:25 AM EDT) Glucose 93 70 - 130 mg/dL 01/20/2025 7:27 AM EDT [facility] Blood 01/20/2025 7:25 AM EDT 01/20/2025 7:27 AM EDT Walt Em MD POINT OF CARE TEST ORDERABLES Final Result Performing Organization Address City/[facility] Co de Phone Number [facility]
[address] [place] [address], * POC Glucose Once (01/19/2025 7:47 PM EDT) Glucose 121 70 - 130 mg/dL 01/19/2025 7:56 PM EDT [facility] Blood 01/19/2025 7:47 PM EDT 01/19/2025 7:56 PM EDT Walt Em MD POINT OF CARE TEST ORDERABLES Final Result Performing Organization Address City/[facility]/ZIP Co de Phone Number [facility]
[address] [place] [address], * POC Glucose Once (01/19/2025 4:28 PM EDT) Glucose 86 70 - 130 mg/dL 01/19/2025 4:32 PM EDT [facility] Blood 01/19/2025 4:28 PM EDT 01/19/2025 4:31 PM EDT Walt Em MD POINT OF CARE TEST ORDERABLES Final Result Performing Organization Address City/[facility] Co de Phone Number [facility]
[address] [place] [address], * POC Glucose Once (01/19/2025 11:29 AM EDT) Glucose 113 70 - 130 mg/dL 01/19/2025 11:30 AM EDT [facility] Blood 01/19/2025 11:2 9 AM EDT 01/19/2025 11:30 AM EDT Walt Em MD POINT OF CARE TEST ORDERABLES Final Result Performing Organization Address City/[facility]/ZIP Co de Phone Number [facility]
[address] [place] [address], * POC Glucose Once (01/19/2025 7:11 AM EDT) Glucose 105 70 - 130 mg/dL 01/19/2025 7:12 AM EDT [facility] Blood 01/19/2025 7:11 AM EDT 01/19/2025 7:12 AM EDT us Walt Em MD POINT OF CARE TEST ORDERABLES Final Result Performing Organization Address City/[facility]/ZIP Co de Phone Number [facility]
[address] [place] [address], * POC Glucose Once (01/18/2025 9:17 PM EDT) Glucose 99 70 - 130 mg/dL 01/18/2025 9:18 PM EDT [facility] Blood 01/18/2025 9:17 PM EDT 01/18/2025 9:18 PM EDT Walt Em MD POINT OF CARE TEST ORDERABLES Final Result Performing Organization Address [facility] Co de Phone Number [facility]
[address] [place] [address], * (ABNORMAL) POC Glucose Once (01/18/2025 4:37 PM EDT) Glucose 139(H) 70 - 130 mg/dL 01/18/2025 4:38 PM EDT [facility] Blood 01/18/2025 4:37 PM EDT 01/18/2025 4:38 PM EDT Walt Em MD POINT OF CARE TEST ORDERABLES Final Result Performing Organization Address City/[facility]/ZIP Co de Phone Number [facility]
[address] [place] [address], * POC Glucose Once (01/18/2025 11:10 AM EDT) Glucose 116 70 - 130 mg/dL 01/18/2025 11:15 AM EDT [facility] Blood 01/18/2025 11:1 0 AM EDT 01/18/2025 11:15 AM EDT Walt Em MD POINT OF CARE TEST ORDERABLES Final Result Performing Organization Address City/[facility]/ZIP Co de Phone Number [facility]
[address] [place] [address], * POC Glucose Once (01/18/2025 7:09 AM EDT) Glucose 113 70 - 130 mg/dL 01/18/2025 7:17 AM EDT [facility] Blood 01/18/2025 7:09 AM EDT 01/18/2025 7:17 AM EDT Walt Em MD POINT OF CARE TEST ORDERABLES Final Result Performing Organization Address [facility] Co de Phone Number [facility]
[address] [place] [address], * POC Glucose Once (01/17/2025 8:38 PM EDT) Glucose 116 70 - 130 mg/dL 01/17/2025 8:40 PM EDT [facility] Blood 01/17/2025 8:38 PM EDT 01/17/2025 8:40 PM EDT Walt Em MD POINT OF CARE TEST ORDERABLES Final Result Performing Organization Address City/[facility] Co de Phone Number [facility]
[address] [place] [address], * POC Glucose Once (01/17/2025 4:29 PM EDT) Glucose 94 70 - 130 mg/dL 01/17/2025 4:31 PM EDT [facility] Blood 01/17/2025 4:29 PM EDT 01/17/2025 4:31 PM EDT Walt Em MD POINT OF CARE TEST ORDERABLES Final Result Performing Organization Address City/[facility]/ZIP Co de Phone Number [facility]
[address] [place] [address], * POC Glucose Once (01/17/2025 11:05 AM EDT) Glucose 99 70 - 130 mg/dL 01/17/2025 11:07 AM EDT [facility] Blood 01/17/2025 11:0 5 AM EDT 01/17/2025 11:07 AM EDT Walt Em MD POINT OF CARE TEST ORDERABLES Final Result Performing Organization Address [facility] Co de Phone Number [facility]
[address] [place] [address], * POC Glucose Once (01/17/2025 6:51 AM EDT) Glucose 111 70 - 130 mg/dL 01/17/2025 6:52 AM EDT [facility] Blood 01/17/2025 6:51 AM EDT 01/17/2025 6:52 AM EDT Walt Em MD POINT OF CARE TEST ORDERABLES Final Result Performing Organization Address City/[facility] Co de Phone Number [facility]
[address] [place] [address], * POC Glucose Once (01/16/2025 7:56 PM EDT) Glucose 99 70 - 130 mg/dL 01/16/2025 8:00 PM EDT [facility] Blood 01/16/2025 7:56 PM EDT 01/16/2025 8:00 PM EDT Walt Em MD POINT OF CARE TEST ORDERABLES Final Result Performing Organization Address City/[facility]/ZIP Co de Phone Number [facility]
[address] [place] [address], * POC Glucose Once (01/16/2025 4:38 PM EDT) Glucose 119 70 - 130 mg/dL 01/16/2025 4:41 PM EDT [facility] Blood 01/16/2025 4:38 PM EDT 01/16/2025 4:41 PM EDT Walt Em MD POINT OF CARE TEST ORDERABLES Final Result Performing Organization Address [facility] Co de Phone Number [facility]
[address] [place] [address], * POC Glucose Once (01/16/2025 11:07 AM EDT) Glucose 110 70 - 130 mg/dL 01/16/2025 11:08 AM EDT [facility] Blood 01/16/2025 11:0 7 AM EDT 01/16/2025 11:08 AM EDT Walt Em MD POINT OF CARE TEST ORDERABLES Final Result Performing Organization Address City/[facility] Co de Phone Number [facility]
[address] [place] [address], * (ABNORMAL) Hemoglobin & Hematocrit, Blood (01/16/2025 8:12 AM EDT) Hemoglobin 11.1(L) 12.0 - 15.9 g/dL 01/16/2025 9:32 AM EDT [facility] Hematocrit 36.3 34.0 - 46.6 % 01/16/2025 9:32 AM EDT [facility] Blood Venipuncture / Unknown 01/16/2025 8:12 AM EDT 01/16/2025 9:24 AM EDT us Walt Em MD LAB BLOOD ORDERABLES Final Re sult Performing Organization Address City/[facility]/ZIP Co de Phone Number [facility]
[address] [place] [address], * POC Glucose Once (01/16/2025 7:30 AM EDT) Glucose 111 70 - 130 mg/dL 01/16/2025 7:31 AM EDT [facility] Blood 01/16/2025 7:30 AM EDT 01/16/2025 7:31 AM EDT us Walt Em MD POINT OF CARE TEST ORDERABLES Final Result Performing Organization Address [facility] Co de Phone Number [facility]
[address] [place], [place] [address], [place] [phone] * POC Glucose Once (01/15/2025 7:55 PM EDT) Glucose 118 70 - 130 mg/dL 01/15/2025 8:01 PM EDT [facility] Blood 01/15/2025 7:55 PM EDT 01/15/2025 8:01 PM EDT us Walt Em MD POINT OF CARE TEST ORDERABLES Final Result Performing Organization Address [facility] Co de Phone Number [facility]
[address] [place] [address], [place] [phone] * (ABNORMAL) POC Glucose Once (01/15/2025 4:47 PM EDT) Glucose 133(H) 70 - 130 mg/dL 01/15/2025 4:49 PM EDT [facility] Blood 01/15/2025 4:47 PM EDT 01/15/2025 4:49 PM EDT Walt Em MD POINT OF CARE TEST ORDERABLES Final Result [facility]
[address] [place] [address], * (ABNORMAL) CBC Auto Differential (01/15/2025 2:03 PM EDT) WBC 9.31 3.40 - 10.80 10*3/mm3 01/15/2025 2:23 PM EDT [facility] RBC 4.12 3.77 - 5.28 10*6/mm3 01/15/2025 2:23 PM EDT [facility] Hemoglobin 12.3 12.0 - 15.9 g/dL 01/15/2025 2:23 PM EDT [facility] Hematocrit 38.4 34.0 - 46.6 % 01/15/2025 2:23 PM EDT [facility] MCV 93.2 79.0 - 97.0 fL 01/15/2025 2:23 PM EDT [facility] MCH 29.9 26.6 - 33.0 pg 01/15/2025 2:23 PM EDT [facility] MCHC 32.0 31.5 - 35.7 g/dL 01/15/2025 2:23 PM EDT [facility] RDW 14.0 12.3 - 15.4 % 01/15/2025 2:23 PM EDT [facility] RDW-SD 47.3 37.0 - 54.0 fl 01/15/2025 2:23 PM EDT [facility] MPV 9.9 6.0 - 12.0 fL 01/15/2025 2:23 PM EDT [facility] Platelets 203 140 - 450 10*3/mm3 01/15/2025 2:23 PM [facility] Neutrophil % 90.1(H) 42.7 - 76.0 % 01/15/2025 2:23 PM [facility] Lymphocyte % 8.2(L) 19.6 - 45.3 % 01/15/2025 2:23 PM [facility] Monocyte % 1.1(L) 5.0 - 12.0 % 01/15/2025 2:23 PM [facility] Eosinophil % 0.0(L) 0.3 - 6.2 % 01/15/2025 2:23 PM [facility] Basophil % 0.1 0.0 - 1.5 % 01/15/2025 2:23 PM [facility] Immature Grans % 0.5 0.0 - 0.5 % 01/15/2025 2:23 PM [facility] Neutrophils, Absolute 8.39(H) 1.70 - 7.00 10*3/mm3 01/15/2025 2:23 PM [facility] Lymphocytes, Absolute 0.76 0.70 - 3.10 10*3/mm3 01/15/2025 2:23 PM [facility] Monocytes, Absolute 0.10 0.10 - 0.90 10*3/mm3 01/15/2025 2:23 PM [facility] Eosinophils, Absolute 0.00 0.00 - 0.40 10*3/mm3 01/15/2025 2:23 PM [facility] Basophils, Absolute 0.01 0.00 - 0.20 10*3/mm3 01/15/2025 2:23 PM [facility] Immature Grans, Absolute 0.05 0.00 - 0.05 10*3/mm3 01/15/2025 2:23 PM [facility] nRBC 0.0 0.0 - 0.2 /100 WBC 01/15/2025 2:23 PM [facility] Blood Structure of right upper limb / Unknown Venipuncture / Unknown 01/15/2025 2:03 PM EDT 01/15/2025 2:10 PM EDT Sharif Kimble MD LAB BLOOD ORDERABLES Final Re sult Performing Organization Address City/[facility]/ZIP Co de Phone Number [facility]
[address] [place] [address], * (ABNORMAL) POC Glucose Once (01/15/2025 1:44 PM EDT) Glucose 166(H) 70 - 130 mg/dL 01/15/2025 1:44 PM EDT [facility] Blood 01/15/2025 1:44 PM EDT 01/15/2025 1:44 PM EDT Walt Em MD POINT OF CARE TEST ORDERABLES Final Result Performing Organization Address [facility] Co de Phone Number [facility]
[address] [place] [address], [place] [phone] * [place] C Arm During Surgery (01/15/2025 12:50 PM EDT) Narrative SYSTEMGENERATED, DOCUMENTATION - 01/15/2025 2:13 PM EDT This procedure was auto-finalized with no dictation required. Walt Em MD IMG FLUOROSCOPY ORDERABLES Fi nal Result * (ABNORMAL) POC Surgery Labs (01/15/2025 11:16 AM EDT) Ionized Calcium 1.18(L) 1.20 - 1.32 mmol/L 01/15/2025 6:42 PM EDT [facility] POC Potassium 4.6 3.5 - 4.9 mmol/L 01/15/2025 6:42 PM EDT [facility] Sodium 137(L) 138 - 146 mmol/L 01/15/2025 6:42 PM EDT [facility] Total CO2 21(L) 24 - 29 mmol/L 01/15/2025 6:42 PM EDT [facility] Hemoglobin 12.6 12.0 - 17.0 g/dL 01/15/2025 6:42 PM EDT [facility] Hematocrit 37(L) 38 - 51 % 01/15/2025 6:42 PM EDT [facility] pCO2, Arterial 33.3(L) 35 - 45 mm Hg 01/15/2025 6:42 PM EDT [facility] pO2, Arterial 115(H) 80 - 105 mmHg 01/15/2025 6:42 PM EDT [facility] Comment:Serial Number: [id number] 2Operator: [id number] Base Excess -5.0000 -5 - 5 mmol/L 01/15/2025 6:42 PM EDT [facility] O2 Saturation, Arterial 98 95 - 98 % 01/15/2025 6:42 PM EDT [facility] pH, Arterial 7.39 7.35 - 7.6 pH units 01/15/2025 6:42 PM EDT [facility] HCO3, Arterial 20.0(L) 22 - 26 mmol/L 01/15/2025 6:42 PM EDT [facility] Glucose 180(H) 70 - 130 mg/dL 01/15/2025 6:42 PM EDT [facility] Venous Blood 01/15/2025 11:1 6 AM EDT 01/15/2025 6:42 PM EDT us Walt Em MD POINT OF CARE TEST ORDERABLES Final Result [facility]
[address] [place] [address], * [place] O Arm During Surgery (01/15/2025 9:12 AM EDT) Narrative SYSTEMGENERATED, DOCUMENTATION - 01/15/2025 9:13 AM EDT This procedure was auto-finalized with no dictation required. Walt Em MD IMG FLUOROSCOPY ORDERABLES Fi nal Result * POC Glucose Once (01/15/2025 7:38 AM EDT) Glucose 109 70 - 130 mg/dL 01/15/2025 7:41 AM EDT [facility] Blood 01/15/2025 7:38 AM EDT 01/15/2025 7:41 AM EDT Walt Em MD POINT OF CARE TEST ORDERABLES Final Result [facility]
[address] [place] [address], * Telemetry Scan (01/15/2025) [facility] ECG ORDERABLES Final Result documented in this encounter Visit Diagnoses Diagnosis Lumbar stenosis with neurogenic claudication- Primary Lumbar stenosis with neurogenic claudication Lumbar stenosis with neurogenic claudication documented in this encounter Admitting Diagnoses Diagnosis [...] 7-10, CPOT 5-8 acetaminophen (TYLENOL) tablet 650 mg 650 mg, Oral, Every 4 Hours PRN, Mild Pain, Starting on [place] 01/15/25 at 1326, If given for fever, [...] Given 01/18/2025 3:31 PM EDT 10 mg bupivacaine-EPINEPHrine PF (MARCAINE w/EPI) 0.25% -[id number] injection As Needed, Starting on Carol 01/15/25 at 0822 Given 01/15/2025 8:22 AM EDT 3 0 mL carvedilol (COREG) tablet 12.5 mg 12.5 mg, [...] Given 01/26/2025 8:10 AM EDT 12.5 mg dilTIAZem CD (CARDIZEM CD) 24 hr capsule 360 mg 360 mg, Oral, Nightly, First dose on [place] 01/15/25 at 2100, Hold for SBP less [...] Given 01/15/2025 8:24 PM EDT 360 mg floseal injection As Needed, Starting on Sun01/15/25 at 0822 Given 01/15/2025 11:11 AM EDT 10 mL Given 01/15/2025 8:22 AM EDT 10 mL fluticasone (FLONASE) 50 MCG/ACT nasal spray 2 spray 2 spray, Nasal, Daily, First dose on Sun01/16/25 at 0900 Given 01/29/2025 9:06 AM EDT 2 sprays Given 01/28/2025 9:21 AM EDT 2 sprays Given 01/27/2025 9:43 AM EDT 2 sprays gelatin absorbable 1 each, thrombin 5,000 Units mixture As Needed, Starting on Sun01/15/25 at 0822 Given 01/15/2025 8:22 AM EDT heparin (porcine) 5000 UNIT/ML injection 5,000 Units [...] Given 01/28/2025 9:35 PM EDT 1 tablet Insulin Lispro (humaLOG) injection 2-7 Units 2-7 Units, Subcutaneous, 4 Times Daily Before Meals & Nightly, First dose on [place] 01/15/25 at 1730, Correction Insulin - Low Dose [...] mg/dL - 7 units & Call Provider ([facility]) Caution: Look alike/sound alike drug alert([facility]) Given 01/23/2025 9:07 PM EDT 2 Units Left Arm Given 01/22/2025 8:30 PM EDT 2 Units Ri ght Arm metFORMIN (GLUCOPHAGE) tablet 500 mg 500 mg, Oral, Nightly, First dose on [place] 01/15/25 at 2100, Caution: Look alike/sound alike drug [...] Given 01/26/2025 8:38 PM EDT 10 mg ondansetron (ZOFRAN) injection 4 mg 4 [...] Place on tongue and allow to dissolve. 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 ([facility]) rosuvastatin (CRESTOR) tablet 40 mg 40 mg, Oral, Nightly, First dose on [place] 01/15/25 at 2100, Avoid grapefruit juice. Given 01/28/2025 9:35 PM EDT 40 mg Given 01/27/2025 9:14 PM EDT 40 mg Given 01/26/2025 8:39 PM EDT 40 mg sacubitril-valsartan (ENTRESTO) 49-51 MG tablet 1 tablet 1 tablet, Oral, Every 12 Hours Scheduled, First dose on [facility] 01/17/25 at 0900, Is this new therapy [...] 9:42 AM EDT 2 tablets sodium chloride (NS) irrigation solution As Needed, Starting on [place] 01/15/25 at 0823 Given 01/15/2025 8:23 A M EDT 1,000 mL sodium chloride 0.9 % flush 10 mL 10 mL, Intravenous, Every 12 Hours Scheduled, First dose on [place] 01/15/25 at 1330 Given 01/28/2025 3:16 PM EDT 10 mL Given 01/27/2025 9:33 PM EDT 10 mL Given 01/27/2025 10:33 AM EDT 10 mL sodium chloride 0.9 % solution As Needed, Starting on [place] 01/15/25 at 0822 Given 01/15/2025 8:22 AM EDT 2 50 mL sterile water irrigation solution As Needed, Starting on Sun01/15/25 at 0822 Given 01/15/2025 8:22 A M EDT 1,000 mL vancomycin (VANCOCIN) injection As Needed, Starting on Sun01/15/25 at 0822 Given 01/15/2025 8:22 AM EDT 1 g venlafaxine XR (EFFEXOR-XR) 24 hr capsule 37.5 mg 37.5 mg, Oral, Nightly, First dose on Sun01/15/25 at 2100, Do not crush or chew [...] 0921 (Given - Provider: Meghan Nathan, JULISSA) 0908 (Given - Provider: Latia Ortega RN) carvedilol (COREG) tablet 12.5 mg 12.5 mg, Oral, 2 Times Daily With Meals, First dose on Sun01/15/25 at 1800, Hold for SBP less than 100, DBP less than 60, or heart rate less than 50. If a dose is held, please contact the provider. Give with food. 0943 (Not Given - Provider: Marisa Lomeli RN - Reason: Order parameters not met)1855 (Not Given - Provider: Marisa Lomeli RN - Reason: Order parameters not met) 0921 (Given - Provider: Meghan Nathan, JULISSA)1800 (Due) 0906 (Given - Provider: Latia Ortega, RN) dilTIAZem CD (CARDIZEM CD) 24 hr capsule 360 mg 360 mg, Oral, Nightly, First dose on Sun01/15/25 at 2100, Hold for SBP less than [...] (Comment Required) - Comment: BP BORDERLI NE) 2208 (Not Given - Provider: Edison Ravi RN - Reason: Order parameters not met) fluticasone (FLONASE) 50 MCG/ACT nasal spray 2 spray 2 spray, Nasal, Daily, First dose on Sun01/16/25 at 0900 0943 (Given - Provider: Marisa Lomeli RN) 0921 (Given - Provider: Meghan Nathan, JULISSA) 0906 (Given - Provider: Latia Ortega, RN) heparin (porcine) 5000 UNIT/ML injection 5,000 Units 5,000 Units, Subcutaneous, Every 8 Hours Scheduled, First dose on Sun01/23/25 at 0800, Indications: VTE Prophylaxis 0604 (Given - Provider: Edison Ravi RN)1340 (Given - Provider: Marisa Lomeli RN)211 (Given - Provider: Edison Ravi, RN) 0623 (Given - Provider: Edison Ravi, RN)1516 (Given - Provider: Latia Ortega, RN)2135 (Given - Provider: Edison Ravi, RN) 0653 (Given - Provider: Edison Ravi, RN - Comment: EPIC unable to load [...] mg/dL - 7 units & Call Provider ([facility]) Caution: Look alike/sound alike drug alert([facility]) 0732 (Not Given - Provider: Marisa Lomeli [...] tablet 40 mg 40 mg, Oral, 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 0604 (Given - Provider: Edison Ravi RN) 0623 (Given - Provider: Edison Ravi RN) 0653 (Given - Provider: Edison Trav, RN - Comment: EPIC unable to load [...] RN) 920 (Not Given - Provider: Meghan Nathan RN - Reason: Patient/family refused) 924 (Not Given - Provider: Latia Ortega RN - Reason: Patient/family refused - Comment: large bm this a.m.) pregabalin (LYRICA) capsule 75 mg 75 mg, Oral, Every 12 Hours Scheduled, First dose on Sun01/25/25 at 1200, For 16 doses, (DORY) 941 (Given - Provider: Marisa Lomeli RN)2113 (Given - Provider: Edsion Ravi RN) 920 (Given - Provider: Meghan Nathan RN)2134 (Given - Provider: Edison Ravi RN) 905 (Given - Provider: Latia Ortega RN) rosuvastatin (CRESTOR) tablet 40 mg 40 mg, Oral, Nightly, First dose on Sun01/15/25 at 2100, Avoid grapefruit juice. 2113 (Given - Provider: Edison Ravi RN) 2134 (Given - Provider: Edison Ravi RN) sacubitril-valsartan (ENTRESTO) 49-51 MG tablet 1 tablet 1 tablet, Oral, Every 12 Hours Scheduled, First dose on Sun01/17/25 at 0900, Is this new therapy for the patient? No 1031 (Hold - Provider: Marisa Lomeli RN - Reason: Other)2131 (Hold - Provider: Edison Ravi RN - Reason: Other (Comment Required) - Comment: borderline bp) 920 (Given - Provider: Meghan Nathan RN)2207 (Not Given - Provider: Edison Ravi RN - Reason: Order parameters not met) 906 (Given - Provider: Latia Ortega RN) sennosides-docusate (PERICOLACE) 8.6-50 MG per tablet 2 tablet(Linked Group 1) 2 tablet, Oral, 2 Times Daily, First dose (after last modification) on [place] 01/18/25 at 2100, HOLD MEDICATION IF PATIENT HAS HAD BOWEL MOVEMENT. Start bowel management regimen if patient has not had a bowel movement after 12 hours. 0942 (Given - Provider: Marisa Lomeli, RN)2112 (Given - Provider: Edison Ravi RN) 09 (Not Given - Provider: Meghan Nathan RN - Reason: Patient/family refused)2136 (Given - Provider: Edison Ravi RN) 924 (Not Given - Provider: Latia Ortega RN - Reason: Patient/family refused - Comment: large bm this a.m.) sodium chloride 0.9 % flush 10 mL 10 mL, Intravenous, Every 12 Hours Scheduled, First dose on [place] 01/15/25 at 1330 1033 (Given - Provider: Marisa Lomeli RN)2132 (Given - Provider: Edison Ravi RN) 151 (Given - Provider: Latia Ortega, RN)2208 (Canceled Entry - Provider: Edison Ravi RN) 924 (Canceled Entry - Provider: Latia Ortega RN) [...] if polyethylene glycol is ineffective, Starting on [place] 01/18/25 at 0927, Use if no bowel movement after 12 hours. Swallow whole. Do not crush, split, or chew tablet. bisacodyl (DULCOLAX) suppository 10 mg(Linked Group 1) 10 mg, Rectal, Daily PRN, Constipation, Use if bisacodyl oral is ineffective, Starting on [place] 01/18/25 at 0927, Use if no bowel [...] for injection by adding 1 mL of transportation dispatcher-supplied sterile diluent or sterile water for injection [...] ineffective documented in this encounter Care Teams Computer Forward[employer] System Markup Clerk Relationship Specialty Start Date End Date Edison Harrell MD [facility] [address] [facility] [place] [address] PCP - General Adolescent Medicine 03/30/16 documented as of this encounter
--- OUTSIDE RECORDS SUMMARY | 2025-01-22 12:16 | XMS_ITS | Encounter Summary ---
[facility] Address [address] [place] [address] Care Team Providers Care Bobbin Coil Winder Name Role Phone Edison Harrell MD Primary Care Provider + [phone] Reason for Visit * Auth/Cert Specialty Diagnoses / Procedures Referred By Contac t Referred To Contact Diagnoses Lumbar stenosis with neurogenic claudication Lumbar stenosis with neurogenic claudication [M48.062] Procedures IA ARTHRODESIS POSTERIOR INTERBODY 1 NTRSPC LUMBAR LUMBAR FUSION DECOMPRESSON WITH PEDICLE SCREWS- EXTEND FUSION L4-5 TO L2- L2-L4 LAMINECTOMY Referral ID Status Reason Start Date Expiration Date Visits Re quested Visits Authorized 1 1 Encounter Details Date Type Department Care Team (Late st Contact Info) Description 01/22/2025 12:16 PM EDT - 01/22/2025 1:26 PM EDT Surgery [facility] OR [address] [place] [address] Walt Em MD [address] [facility] [address] [place] [address] LUMBAR DRAIN PLACEMENT Social History Tobacco Use Types Packs/Day Years Used Date Smoking Tobacco: Former Cigarettes 1 46.4 0 06/26/1973 - 11/10/2019 Passive Smoke Exposure: Never Smokeless Tobacco: Never Alcohol Use Standard Drinks/Week Comments No 0 (1 standard drink = 0.6 oz pur e alcohol) [facility] Utilities Answer Date Recorded In the past 12 months has [employer] electric, gas, oil, or water company threatened [...] Answer Date Recorded Current Living Arrangements home 10/2024 Potentially Unsafe Housing Conditions none 01/20/2025 Family and Community Support Answer Cristian e [...] GED or equivalent No 01/16/2025 Preferred Language Slovenian 01/16/2025 Comments No Sex and Gender Information Value Date Recorded Sex Assigned at Female 10/21/2024 7:55 AM EDT Legal Sex Female 10:34 AM EDT Gender Identity Not on file Sexual Orientation Straight 10/21/2024 7: 55 AM EDT documented as of this encounter Last Filed Vital Signs Vital Sign Reading Time Taken Comments Blood Pressure 119/37 01/22/2025 10:33 AM EDT Pulse 63 01/22/2025 10:33 AM EDT Temperature 36.1 C (97 F) 01/22/2025 10:33 AM EDT Respiratory Rate 18 01/22/2025 10:33 AM EDT Oxygen Saturation 93% 01/22/2025 10:33 AM EDT Inhaled Oxygen Concentration - - [...] 7:25 AM EDT Hoang Hsieh RN * [place] Suicide Severity Rating Scale (Screener/Recent Self-Report) Question Answer Date of Assessment Author 6. Suicidal Behavior (Lifetime) No 7:25 AM EDT Neeta Hsieh RN documented as of this encounter Discharge Summaries * Molly Oglesby PA-C - 01/29/2025 12:41 PM EDT Images from the original note were not included. [facility] Date of Admission: 01/15/2025 [...] [facility] 10/29/2025 9:45 AM Samir Thurman MD E [facility] Additional Instructions for the Follow-ups [...] Week Follow Up Details: Follow-up with physician's clinical medical assistant for wound check and suture removal [...] sent through Care Everywhere. * Spinal Stenosis (Slovenian) * Surgery to Join Bones in the Spine (Spinal Fusion) in Adults: What to Know After (Slovenian) * Spinal Headache (Slovenian) * How to Use Cold Therapy (Slovenian) * Hydrocodone; Acetaminophen Capsules or Tablets (Slovenian) * Pregabalin Capsules (Slovenian) * How to Prevent Constipation After Surgery (Slovenian) * How to Use an Incentive Spirometer (Slovenian) documented in this encounter Medications at Time [...] from the original note were not included. [facility] PROGRESS NOTE Patient Name: Latosha [...] Intake/Output Summary (Last 24 hours) at 01/21/2025 06 Last data filed at 01/20/2025 1817 Gross [...] in this encounter H&P Notes * Yuni Mathias APRN - 01/15/2025 7:32 AM EDT Pre-Op H&P Latosha Allison [id number] Chief complaint: Back pain Subjective: Patient [...] of hip CHF (congestive heart failure) AFTER [place] Coronary artery disease CTS (carpal tunnel syndrome) Diabetes mellitus X ABOUT 15 YEARS, TESTING PRN type 2 Diverticula, colon Dyslipidemia Fracture of wrist Fracture, radius Fracture, ulna GERD (gastroesophageal reflux disease) H/O- OMEPRAZOLE Hiatal hernia STILL PRESENT Hip arthrosis Hyperlipidemia Hypertension Ischemic heart disease Knee swelling Low back pain Low back strain Lumbosacral disc disease [place], old 30 YEARS AGO Osteoporosis Periarthritis of [...] Cath; Surgeon: Yoshi Cote IV, MD; Location: [facility] CATH INVASIVE LOCATION; Service: Cardiovascular; Laterality: N/A; CARDIAC CATHETERIZATION N/A 06/05/2024 Procedure: Optical Coherence Tomography; Surgeon: Yoshi Cote IV, MD; Location: [facility] C[facility] INVASIVE LOC[facility]; Service: Cardiovascular; Laterality: N/A; CARDIAC CATHETERIZATION N/A 06/05/2024 Procedure: Stent ALYSSA coronary; Surgeon: Yoshi Cote IV, MD; Location: [facility] CATH INVASIVE LOCATION; Service: Cardiovascular; Laterality: N/A; [...] documented in this encounter Procedure Notes * Marajn Tran PA-C - 01/17/2025 12:05 PM EDT [...] dressing in place transparent dressing maintained Taken 01/25/20252199 by Marilu Rothman RN Body Position: side-lying [...] Documentation Taken 01/26/2025 0401 by Marilu Rothman RNjunior linux administrator Interventions: position adjusted pillow support provided Taken 01/26/2025 0314 by Marilu Rothman RNjunior linux administrator Interventions: pain medication given Taken 01/25/2025 2159 by Marilu Rothman RNjunior linux administrator Interventions: pain medication given Taken 01/25/20251999 by Marilu Rothman RNjunior linux administrator Interventions: pillow support provided position adjusted Intervention: [...] ADL routine. Pt limited with drainage from shane, RN at bedside and assessing pt who had no c/o pain, dizziness or headache with out of bed activity. She will benefit from AE at upcoming session. Recommend DC home with family assist when pt is medially appropriate. Anticipated Discharge Disposition (OT): home with 08/01 care * Angelica Campoverde PT - 01/20/2025 9:48 AM EDT Goal [...] with toileting. Recent Flowsheet Documentation Taken 01/18/2025 184 by Yary Huff, RN Safety Promotion/Fall Prevention: safety round/check completed toileting scheduled room organization consistent muscle strengthening facilitated nonskid shoes/slippers when out of bed mobility aid in reach gait belt lighting adjusted fall prevention program maintained elopement precautions clutter free environment maintained assistive device/personal items within reach activity supervised Taken 01/18/2025 1645 by Yary Huff RN Safety Promotion/Fall Prevention: [...] Lumbar drain placement SURGEON: Walt Em M.D. BROADCAST TECHNICIAN: Molly Oglesby PA-C PAC assisted with: Skilled [...] O arm imaging SURGEON: Walt Em M.D. BROADCAST TECHNICIAN: Marjan Tran PA-C PAC assisted with: Suctioning [...] ensued. These images were downloaded into the [employer]. Using Stealth frameless stereotaxy, each of the [...] ordered and referral given to Jose with [facility]. Per Jose, rolling walker will be delivered to the bedside prior to discharge. No further discharge needs identified. Selected Continued Care - Admitted Since 01/15/2025 Destination No services have been selected for the patient. Durable Medical Equipment Coordination complete. Service Provider Services Address Phone Fax Patient Preferred [facility] Durable Medical Equipment [address] [place] [id number] -- Dialysis/Infusion No services have been selected [...] or self-care * Therapy Re-Evaluation - Ghazal Hunt, OT - 01/28/2025 1:02 PM EDT Images from the original note were not included. Patient Name: Latosha Allison : 1955 Today's Date: 01/28/2025 Admit Date: 01/15/2025 Visit Dx: ICD-10-CM ICD-9-CM 1. Lumbar stenosis with neurogenic claudication M48.062 724.03 Patient Active Problem List Diagnosis Coronary artery disease involving coushatta coronary artery of coushatta heart without angina pectoris Mixed hyperlipidemia Type 2 diabetes mellitus, without long-term current use of insulin Primary hypertension Obesity Sleep apnea Heart failure with preserved left ventricular function (HFpEF) Lumbar stenosis with neurogenic claudication Past Medical History: Diagnosis Date Arthritis Arthritis of back Arthritis of neck Bursitis of hip CHF (congestive heart failure) AFTER [place] Coronary artery disease CTS (carpal tunnel syndrome) Diabetes mellitus X ABOUT 15 YEARS, TESTING PRN type 2 Diverticula, colon Dyslipidemia Fracture of wrist Fracture, radius Fracture, ulna GERD (gastroesophageal reflux disease) H/O- OMEPRAZOLE Hiatal hernia STILL PRESENT Hip arthrosis Hyperlipidemia Hypertension Ischemic heart disease Knee swelling Low back pain Low back strain Lumbosacral disc disease [place], old 30 YEARS AGO Osteoporosis Periarthritis of shoulder Presence of dental bridge UPPER PERMANENT BRIDGE IN PLACE Sleep apnea CPAP therapy Spinal stenosis T10 AND T8-9 Tear of meniscus of knee Thoracic disc disorder Wears glasses Past Surgical History: Procedure Laterality Date ADENOIDECTOMY BLEPHAROPLASTY Bilateral BRACHIOPLEXUS EXPLORATION CARDIAC CATHETERIZATION Left 01/05/2016 Procedure: Cardiac catheterization; Surgeon: Yoshi Cote MD; Location: [facility] INVASIVE LOCATION; Service: CARDIAC CATHETERIZATION 05/26/2003 No [...] Tomography; Surgeon: Yoshi Cote IV, MD; Location: [facility] CATH INVASIVE LOCATION; Service: Cardiovascular; Laterality: N/A; CARDIAC CATHETERIZATION N/A 06/05/2024 Procedure: Stent ALYSSA coronary; Surgeon: Yoshi Cote IV, MD; Location: [facility] CATH INVASIVE LOCATION; Service: Cardiovascular; Laterality: N/A; CARDIAC SURGERY BRACHTERHAPY X ONE CARPAL TUNNEL RELEASE BILATERAL CATARACT EXTRACTION, BILATERAL Bilateral SECTION X2 COLONOSCOPY 2014 CORONARY ANGIOPLASTY WITH STENTS- x3 cardiac stents in place CORONARY STENT PLACEMENT DILATATION AND CURETTAGE X2 ENDOSCOPY LASER ABLATION 2002 UTERUS LUMBAR DRAIN INSERTION EXTERNAL N/A 01/22/2025 Procedure: LUMBAR DRAIN PLACEMENT; Surgeon: Walt Em MD; Location: [facility] OR; Service: Neurosurgery; Laterality: N/A; LUMBAR LAMINECTOMY WITH FUSION N/A 01/15/2025 Procedure: LUMBAR FUSION DECOMPRESSION WITH PEDICLE SCREWS- EXTEND FUSION L4-5 TO L2- L2-L4 LAMINECTOMY; Surgeon: Walt Em MD; Location: [facility] OR; Service: Neurosurgery; Laterality: N/A; ORIF FOREARM FRACTURE Left 02/2007 left wrist fracutre - PLate and screws in place OTHER SURGICAL HISTORY SPINAL FUSION 1994 L5-S1 Dr. Rajan- HARDWARE IN PLACE TONSILLECTOMY TRIGGER FINGER RELEASE Left Middle ; repair TRIGGER POINT INJECTION General Information Row Name 01/28/25 1409 OT Time and Intention Document Type re-evaluation -MR Mode of Treatment occupational therapy -MR Row Name 01/28/25 140 General Information Patient Profile Reviewed yes -MR Existing Precautions/Restrictions fall;spinal -MR Barriers to Rehab medically complex -MR Row Name 01/28/25 1403 Living Environment Current Living Arrangements home -MR People in Home spouse -MR Row Name 01/28/25 1409 Home Main Entrance Number of Stairs, Main Entrance four -MR Stair Railings, Main Entrance railings on both sides of stairs -MR Row Name 01/28/25 1408 Stairs Within Home, Primary Stairs, Within Home, Primary Pt able to reside on the main level of the home. Has a walk in shower and raised commode. -MR Row Name 01/28/25 140 Cognition Orientation Status (Cognition) oriented x 4 -MR Row Name 01/28/25 140 Safety Issues/Impairments Affecting Functional Mobility Safety Issues Affecting Function (Mobility) awareness of need for assistance;insight into deficits/self-awareness;safety precaution awareness;safety precautions follow-through/compliance -MR Impairments Affecting Function (Mobility) balance;endurance/activity tolerance;pain;strength;range of motion (ROM) -MR User Abebe (r) = Recorded By, (t) = Taken By, (c) = Cosigned By Initials Name Provider Type MR Ghazal Hunt, OT Occupational Therapist Mobility/ADL's Row Name 01/28/251414 Bed Mobility Bed Mobility sit-sidelying -MR Sit-Sidelying [place] (Bed Mobility) contact guard;verbal cues -MR Assistive Device (Bed Mobility) bed rails -MR Comment, (Bed Mobility) Patient educated on spinal pecautions and bed mobility. Good awareness noted. -MR Aguayo Name 01/28/251414 Transfers Transfers sit-stand transfer -[facility] Name 01/28/251414 Sit-Stand Transfer Sit-Stand [place] (Transfers) contact guard;verbal cues -MR Assistive Device (Sit-Stand Transfers) walker, front-wheeled - Row Name 01/28/251414 Functional Mobility Functional Mobility- Ind. Level contact guard assist;verbal cues required -MR Functional Mobility- Device walker, front-wheeled -MR Functional Mobility-Distance (Feet) -- HH distances - Row Name 01/28/25 141 Activities of Daily Living BADL Assessment/Intervention lower body dressing;upper body dressing - Row Name 01/28/25 141 Lower Body Dressing Assessment/Training [place] Level (Lower Body Dressing) don;socks;dependent (less than 25% patient effort) -MR Assistive Devices (Lower Body Dressing) long-handled shoe horn;donkey doctor;sock-aid -MR Position (Lower Body Dressing) supported sitting -MR Comment, (Lower Body Dressing) OT issued and educated pt on use of AE for increased I and safety w/ADLs. - Row Name 01/28/25 1415 Upper Body Dressing Assessment/Training [place] Level (Upper Body Dressing) don;moderate assist (50% patient effort) -MR Position (Upper Body Dressing) edge of bed sitting -MR User Abebe (r) = Recorded By, (t) = Taken By, (c) = Cosigned By Initials Name Provider Type Ghazal Hunt OT Occupational Therapist Obj/Interventions Row Name 01/28/25 141 Sensory Assessment (Somatosensory) Sensory Assessment (Somatosensory) UE sensation intact -MR Row Name 01/28/25 141 Vision Assessment/Intervention Visual Impairment/Limitations WFL - Row Name 01/28/25 141 Range of Motion Comprehensive General Range of Motion bilateral upper extremity ROM WFL - Row Name 01/28/25 141 Strength Comprehensive (MMT) Comment, General Manual Muscle Testing (MMT) Assessment WFL as demonstrated with functional tasks. - Row Name 01/28/25 141 Balance Balance Assessment sitting static balance;sitting dynamic [...] Provider Type Ghazal Hunt OT Occupational Therapist Goals/Plan [facility] Name 01/28/251420 Transfer Goal 1 (OT) Activity/Assistive Device (Transfer Goal 1, OT) [id number]/nvmxi-mn-ktk;toilet -MR [place] Level/Cues Needed (Transfer Goal 1, OT) verbal cues required;supervision required -MR Time Frame (Transfer Goal 1, OT) half-way goal (LTG);10 days -MR Progress/Outcome (Transfer Goal 1, OT) goal ongoing - Row Name 01/28/251420 Dressing Goal 1 (OT) Activity/Device (Dressing Goal 1, OT) lower body dressing;donkey doctor;sock-aid -MR [place]/Cues Needed (Dressing Goal 1, OT) verbal cues required;supervision required -MR Time Frame (Dressing Goal 1, OT) short term goal (STG);5 days -MR Progress/Outcome (Dressing Goal 1, OT) goal ongoing -MR Row Name 01/28/251420 Problem Specific Goal 1 (OT) Problem Specific Goal 1 (OT) Pt will recall/maintain spinal precautions during ADL activity with max 3 vc -MR Time Frame (Problem Specific Goal 1, OT) half-way goal (LTG);10 days -MR Progress/Outcome (Problem Specific [...] Provider Type Ghazal Huerta, OT Occupational Therapist Clinical Impression Row Name 01/28/25 1418 Pain Assessment Pretreatment Pain Rating 2/10 -MR Posttreatment Pain Rating 2/10 -MR Pain Location back -MR Pain Side/Orientation generalized -MR Row Name 01/28/251417 Plan of Care Review Plan of Care [...] Provider Type Ghazal Huerta OT Occupational Therapist Outcome Measures Row Name [...] Provider Type Ghazal Huerta OT Occupational Therapist Occupational Therapy Education Title: PT OT GYM INSTRUCTOR Therapies (Done) Topic: Occupational Therapy (Done) Point: [...] Acceptance, E, VU by MR at 01/28/2025 1422 User Abebe Initials Effective Dates Name Provider [...] Re-Cert Due Date 02/07/25 -MR Timed Charges 96645 - OT Therapeutic Activity Minutes 15 -MR 42256 - OT Self Care/Mgmt Minutes 10 -MR [...] Description Service Date Service Provider Modifiers Qty [id number] OT SELF CARE/MGMT/TRAIN EA 15 MIN 01/28/2025 Ghazal Hunt OT GO 1 [id number] OT THERAPEUTIC ACT EA 15 MIN 01/28/2025 Ghazal Hunt OT GO 1 [id number] OT RE-EVAL 2 01/28/2025 Ghazal Hunt OT GO 1 Ghazal Hunt OT 01/28/2025 * Therapy Re-Evaluation - Sonya Juan PT - 01/28/2025 1:02 PM EDT Images from the original note were not included. Patient Name: Latosha Allison : 1955 Today's Date: 01/28/2025 Admit Date: 01/15/2025 Visit Dx: ICD-10-CM ICD-9-CM 1. Lumbar stenosis with neurogenic claudication M48.062 724.03 Patient Active Problem List Diagnosis Coronary artery disease involving coushatta coronary artery of coushatta heart without angina pectoris Mixed hyperlipidemia Type 2 diabetes mellitus, without long-term current use of insulin Primary hypertension Obesity Sleep apnea Heart failure with preserved left ventricular function (HFpEF) Lumbar stenosis with neurogenic claudication Past Medical History: Diagnosis Date Arthritis Arthritis of back Arthritis of neck Bursitis of hip CHF (congestive heart failure) AFTER [place] Coronary artery disease CTS (carpal tunnel syndrome) Diabetes mellitus X ABOUT 15 YEARS, TESTING PRN type 2 Diverticula, colon Dyslipidemia Fracture of wrist Fracture, radius Fracture, ulna GERD (gastroesophageal reflux disease) H/O- OMEPRAZOLE Hiatal hernia STILL PRESENT Hip arthrosis Hyperlipidemia Hypertension Ischemic heart disease Knee swelling Low back pain Low back strain Lumbosacral disc disease [place], old 30 YEARS AGO Osteoporosis Periarthritis of shoulder Presence of dental bridge UPPER PERMANENT BRIDGE IN PLACE Sleep apnea CPAP therapy Spinal stenosis T10 AND T8-9 Tear of meniscus of knee Thoracic disc disorder Wears glasses Past Surgical History: Procedure Laterality Date ADENOIDECTOMY BLEPHAROPLASTY Bilateral BRACHIOPLEXUS EXPLORATION CARDIAC CATHETERIZATION Left 01/05/2016 Procedure: Cardiac catheterization; Surgeon: Yoshi Cote MD; Location: [facility] CATH INVASIVE LOCATION; Service: CARDIAC CATHETERIZATION 05/26/2003 [...] Therapy Time and Intention Document Type re-evaluation -WV Mode of Treatment physical therapy -WV Row Name 01/28/25 1459 General Information Patient Profile Reviewed yes -WV Prior Level of Function independent:;gait see initial eval -WV Existing Precautions/Restrictions fall;spinal has been on bed rest -WV Barriers to Rehab medically complex -WV Row Name 01/28/25 1459 Living Environment Current Living Arrangements home -WV People in Home spouse -WV Row Name 01/28/25 1459 Home Main Entrance Number of Stairs, Main Entrance four -WV Stair Railings, Main Entrance railings on both sides of stairs -WV Row Name 01/28/25 1459 Stairs Within Home, Primary Number of Stairs, Within Home, Primary none -WV Row Name 01/28/25 1459 Cognition Orientation Status (Cognition) oriented x 4 -WV Row Name 01/28/25 1459 Safety Issues/Impairments Affecting Functional Mobility Impairments Affecting Function (Mobility) balance;endurance/activity tolerance;pain;strength;range of motion (ROM) -WV Comment, Safety Issues/Impairments (Mobility) alert, following commads -WV User Abebe (r) = Recorded By, (t) = Taken By, (c) = Cosigned By Initials Name Provider Type [place] Sonya Juan PT Physical Therapist Mobility Row Name 01/28/25 1501 Bed Mobility Bed Mobility sit-supine -WV Sit-Supine [place] (Bed Mobility) minimum assist (75% patient effort);1 person assist;verbal cues -[place] Assistive Device (Bed Mobility) bed rails;head of bed elevated -WV Comment, (Bed Mobility) VC for log rolling back to bed. patient chose to lay on her side -[facility] Name 01/28/25 1501 Transfers Comment, (Transfers) cues for hand placement. Demonstrated slow transfer -[facility] 01/28/25 1501 Sit-Stand Transfer Sit-Stand [place] (Transfers) contact guard;verbal cues -[place] Assistive Device (Sit-Stand Transfers) walker, front-wheeled -[facility] Name 01/28/25 1501 Gait/Stairs (Locomotion) [place] Level (Gait) contact guard;2 person assist;verbal cues -WV Assistive Device (Gait) walker, front-wheeled -WV Patient was able to Ambulate yes -WV Distance in Feet (Gait) 140 -WV Deviations/Abnormal Patterns (Gait) stride length decreased;gait speed decreased -WV Bilateral Gait Deviations forward flexed posture -WV Comment, (Gait/Stairs) Gt training focused on controling walker with step through gait pattern. Encouraged heel strike and full wt shifting. Patient demonstrated good control. No LOB or buckling noted. -[place] User Abebe (r) = Recorded By, (t) = Taken By, (c) = Cosigned By Initials Name Provider Type [place] Sonya Juan PT Physical Therapist Obj/Interventions Row Name 01/28/25 1509 Range of Motion Comprehensive General Range of Motion neck/trunk range of motion deficits identified -[facility] Name 01/28/25 1509 Strength Comprehensive (MMT) General Manual Muscle Testing (MMT) Assessment no strength deficits identified -[facility] Name 01/28/25 1509 Balance Dynamic Standing Balance 1-person assist;1 person to manage equipment;contact guard -WV Position/Device Used, Standing Balance supported;walker, rolling -WV Comment, Balance no LOB -WV Row Name 01/28/25 150 Sensory Assessment (Somatosensory) Sensory Assessment (Somatosensory) sensation intact -WV User Abebe (r) = Recorded By, (t) = Taken By, (c) = Cosigned By Initials Name Provider Type [place] Sonya Juan, PT Physical Therapist Goals/Plan Row Name 01/28/25 151 Bed Mobility Goal 1 (PT) Activity/Assistive Device (Bed Mobility Goal 1, PT) sit to supine/supine to sit -[place] Level/Cues Needed (Bed Mobility Goal 1, PT) modified independence -WV Time Frame (Bed Mobility Goal 1, PT) short term goal (STG);5 days -[facility] Name 01/28/251513 Transfer Goal 1 (PT) Activity/Assistive Device (Transfer Goal 1, PT) bmh-ow-tpzkh/ynnsj-dm-dev;wxt-zc-eurrz/uonjg-pz-pcp-WV [place] Level/Cues Needed (Transfer Goal 1, PT) standby assist -WV Time Frame (Transfer Goal 1, PT) half-way goal (LTG);10 days -[facility] Name 01/28/251513 Gait Training Goal 1 (PT) Activity/Assistive Device (Gait Training Goal 1, PT) gait (walking locomotion);assistive device use-WV [place] Level (Gait Training Goal 1, PT) contact guard required -WV Distance (Gait Training Goal 1, PT) 350' -WV Time Frame (Gait Training Goal 1, PT) half-way goal (LTG);10 days -WV User Abebe (r) = Recorded By, (t) = Taken By, (c) = Cosigned By Initials Name Provider Type [place] Sonya Juan, PT Physical Therapist Clinical Impression Row Name 01/28/25 1502 Pain Pretreatment Pain Rating 2/10 -WV Posttreatment Pain Rating 2/10 -WV Pain Location back -WV Pain Management Interventions positioning techniques utilized [facility] Response to Pain Interventions activity participation with tolerable pain -WV Row Name 01/28/25 1500 Plan of Care Review Plan of Care Reviewed With patient -WV Progress improving -WV Outcome Evaluation Patient was able to ambulate in hallway with walker and demonstrated good control. Recommend continued skilled PT and home with home health PT. -[place] Row Name 01/28/25 1509 Therapy Assessment/Plan (PT) Patient/Family Therapy Goals Statement (PT) walk -WV Criteria for Skilled Interventions Met (PT) yes;meets criteria;skilled treatment is necessary -WV Therapy Frequency (PT) daily -WV Predicted Duration of Therapy Intervention (PT) 1 -WV Row Name 01/28/25 1509 Vital Signs Pre [...] = Cosigned By Initials Name Provider Type [place] Sonya Juan, PT Physical Therapist Outcome Measures Row Name 01/28/25 1514 01/28/25 0743 How much help from another person do you currently need... Turning from your back to your side while in flat bed without using bedrails? 3 -WV 3 -EA Moving from lying on back to sitting on the side of a flat bed without bedrails? 3 -WV 3 -EA Moving to and from a bed to a chair (including a wheelchair)? 3 -WV 3 -EA Standing up from a chair using your arms (e.g., wheelchair, bedside chair)? 3 - [place] 3 -EA Climbing 3-5 steps with a railing? 3 -WV 3 -EA To walk in hospital room? 3 -WV 3 -EA AM-PAC 6 Clicks Score (PT) 18 -WV 18 -EA Highest Level of Mobility Goal Walk 10 Steps or More-6 -SC Walk 10 Steps or More-6 -EA Row Name 01/28/25 1514 01/28/25 1421 Functional Assessment Outcome Measure Options AM-PAC 6 Clicks Basic Mobility (PT) -WV AM-PAC 6 Clicks Daily Activity (OT)-MR User Abebe (r) = Recorded By, (t) = Taken By, (c) = Cosigned By Initials Name Provider Type WV Sonya Juan, PT Physical Therapist Latia Ford RN Registered Nurse Ghazal Huerta, OT Occupational Therapist Physical Therapy Education Title: PT OT GYM INSTRUCTOR Therapies (Done) Topic: Physical Therapy (Done) Point: Mobility training (Done) Learning Progress Summary Patient Eager, E, VU by WV at 01/28/20251514 Comment: Reviewed benefits of activity Acceptance, E, VU by at 01/27/2025 09 Acceptance, E, VU by at 01/20/20251312 Significant Other Acceptance, E, VU by at 01/20/20251312 Point: Home exercise program (Done) Learning Progress Summary Patient Eager, E, VU by WV at 01/28/20251514 Comment: Reviewed benefits of activity Acceptance, E, VU by at 01/27/2025899 Point: Body mechanics (Done) Learning Progress Summary Patient Eager, E, VU by WV at 01/28/20251514 Comment: Reviewed benefits of activity Acceptance, E, VU by at 01/27/2025 09 Acceptance, E, VU by at 01/20/20251312 Significant Other Acceptance, E, VU by at 01/20/2025 131 Point: Precautions (Done) Learning Progress Summary Patient Eager, E, VU by WV at 01/28/20251514 Comment: Reviewed benefits of activity Acceptance, E, VU by at 01/27/2025 09 Acceptance, E, VU by at 01/20/20251312 Significant Other Acceptance, E, VU by at 01/20/20251312 User Abebe Initials Effective Dates Name Provider Type Discipline WV 07/21/22 - Sonya Juan, PT Physical Therapist PT 10/12/20 - Marisa Lomeli, JULISSA Registered Nurse Nurse 07/24/23 - Angelica Campoverde [...] Time 0302 -SC PT Received On 01/28/25 -WV PT Goal Re-Cert Due Date 02/07/25 -WV Timed Charges 42594 - Gait Training Minutes 10 -SC 52690 - PT Therapeutic Activity Minutes 5 -SC Untimed Charges PT Eval/Re-eval Minutes 30 -SC Total Minutes Timed Charges Total Minutes 15 -SC Untimed Charges Total Minutes 30 -SC Total Minutes 45 -SC User Abebe (r) = Recorded By, (t) = Taken By, (c) = Cosigned By Initials Name Provider Type WV Sonya Juan, PT Physical Therapist Therapy Charges for Today Code Description Service Date Service Provider Modifiers Qty [id number] HC GAIT TRAINING EA 15 MIN 01/28/2025 Sonya Juan, PT GP 1 14541976583 HC PT RE-EVAL ESTABLISHED PLAN 2 01/28/2025 [...] 01/28/2025 12:36 PM EDT Continued Stay Note NINA Peters Patient Name: Latosha Allison Today's Date: 01/28/2025 [...] Problem List Diagnosis Coronary artery disease involving coushatta coronary artery of coushatta heart without angina pectoris Mixed hyperlipidemia Type 2 diabetes mellitus, without long-term current use of insulin Primary hypertension Obesity Sleep apnea Heart failure with preserved left ventricular function (HFpEF) Lumbar stenosis with neurogenic claudication Past Medical History: Diagnosis Date Arthritis Arthritis of back Arthritis of neck Bursitis of hip CHF (congestive heart failure) AFTER [place] Coronary artery disease CTS (carpal tunnel syndrome) Diabetes mellitus X ABOUT 15 YEARS, TESTING PRN type 2 Diverticula, colon Dyslipidemia Fracture of wrist Fracture, radius Fracture, ulna GERD (gastroesophageal reflux disease) H/O- OMEPRAZOLE Hiatal hernia STILL PRESENT Hip arthrosis Hyperlipidemia Hypertension Ischemic heart disease Knee swelling Low back pain Low back strain Lumbosacral disc disease [place], old 30 YEARS AGO Osteoporosis Periarthritis of shoulder Presence of dental bridge UPPER PERMANENT BRIDGE IN PLACE Sleep apnea CPAP therapy Spinal stenosis T10 AND T8-9 Tear of meniscus of knee Thoracic disc disorder Wears glasses Past Surgical History: Procedure Laterality Date ADENOIDECTOMY BLEPHAROPLASTY Bilateral BRACHIOPLEXUS EXPLORATION CARDIAC CATHETERIZATION Left 01/05/2016 Procedure: Cardiac catheterization; Surgeon: Yoshi Cote MD; Location: [facility]VASIVE [facility]; Service: CARDIAC CATHETERIZATION [...] L2-L4 LAMINECTOMY; Surgeon: Walt Em MD; Location: [facility] OR; Service: Neurosurgery; Laterality: N/A; ORIF FOREARM [...] Bed Mobility Bed Mobility supine-sit;sit-supine -AR Supine-Sit [place] (Bed Mobility) contact guard -AR Sit-Supine [place] (Bed Mobility) moderate assist (50% patient effort) -AR Assistive Device (Bed Mobility) bed rails -AR Comment, (Bed Mobility) Educated on spinal precautions and logroll technique to maintain, she required cues to sequence. Pt c/o initial mild dizziness with sitting that resolved prior to mobility, BP140/76. -AR Row Name 01/20/25 143 Transfers Transfers sit-stand transfer;stand-sit transfer -AR Comment, (Transfers) Cues for hand placement and bed approach. During mobility, clear drainage noted on gown and draining from incision and RN notified and at bedside to assess. Pt had no c/o pain, dizziness or headache. -AR Row Name 01/20/25 143 Sit-Stand Transfer Sit-Stand [place] (Transfers) contact guard;verbal cues -AR Assistive Device (Sit-Stand Transfers) walker, front-wheeled -AR Row Name 01/20/25 143 Stand-Sit Transfer Stand-Sit [place] (Transfers) contact guard;verbal cues -AR Assistive Device (Stand-Sit Transfers) walker, front-wheeled -AR Row Name 01/20/25 143 Functional Mobility Functional Mobility- Ind. Level contact guard assist;verbal cues required -AR Functional Mobility- Device walker, front-wheeled -AR Functional Mobility- Comment As noted above, clear drainage from incision during mobility and RN notified, assessing at bedside. -AR Row Name 01/20/25 143 Activities of Daily Living BADL Assessment/Intervention bathing;lower body dressing;upper body dressing -AR Row Name 01/20/25 143 Lower Body Dressing Assessment/Training [place] Level (Lower Body Dressing) verbal cues;don;socks;moderate assist (50% patient effort)simulate -AR Assistive Devices (Lower Body Dressing) donkey doctor;sock-aid -AR Position (Lower Body Dressing) edge of bed sitting -AR Comment, (Lower Body Dressing) Educated pt on spinal precautions and ADL retraining to maintain. She will benefit from AE at upcoming session, deferred today d/t drainage. -AR Row Name 01/20/251434 Upper Body Dressing Assessment/Training [place] Level (Upper Body Dressing) don;doff;pajama/robe;moderate assist (50% patient effort) -AR Position (Upper Body Dressing) edge of bed sitting -AR User Abebe (r) = Recorded By, (t) = Taken By, (c) = Cosigned By Initials Name Provider Type Yuni Shay, OT Occupational Therapist Obj/Interventions Row Name 01/20/25 143 Sensory Assessment (Somatosensory) Sensory Assessment (Somatosensory) UE sensation intact -AR [facility] Name 01/20/25 143 Vision Assessment/Intervention Visual Impairment/Limitations WNL -AR [facility] Name 01/20/25 143 Range of Motion Comprehensive General Range of Motion no range of motion deficits identified -AR [facility] Name 01/20/25 143 Strength Comprehensive (MMT) General Manual Muscle Testing (MMT) Assessment no strength deficits identified -AR Comment, General Manual Muscle Testing (MMT) Assessment WFL for ADL -AR Row Name 01/20/25 143 Balance Balance Assessment sitting static [...] Type AR Yuni Storey OT Occupational Therapist Goals/Plan Row Name 01/20/251443 Transfer Goal 1 (OT) Activity/Assistive Device (Transfer Goal 1, OT) bnt-kt-qwpmg/eedqq-bt-jmz;toilet -AR [place] Level/Cues Needed (Transfer Goal 1, OT) verbal cues required;supervision required -AR Time Frame (Transfer Goal 1, OT) half-way goal (LTG);10 days -AR Progress/Outcome (Transfer Goal 1, OT) goal ongoing -AR Row Name 01/20/251443 Dressing Goal 1 (OT) Activity/Device (Dressing Goal 1, OT) lower body dressing;donkey doctor;sock-aid -AR [place]/Cues Needed (Dressing Goal 1, OT) verbal cues required;supervision required -AR Time Frame (Dressing Goal 1, OT) short term goal (STG);5 days -AR Progress/Outcome (Dressing Goal 1, OT) goal ongoing -AR [facility] Name 01/20/251443 Problem Specific Goal 1 (OT) Problem Specific Goal 1 (OT) Pt will recall/maintain spinal precautions during ADL activity with max 3 vc -AR Time Frame (Problem Specific Goal 1, OT) half-way goal (LTG);10 days -AR Progress/Outcome (Problem Specific Goal 1, OT) goal ongoing -AR [facility] 01/20/251443 Therapy Assessment/Plan (OT) Planned Therapy Interventions (OT) activity tolerance training;adaptive equipment training;BADL retraining;functional balance retraining;IADL retraining;occupation/activity based interventions;patient/caregiver education/training;transfer/mobility retraining -AR User Abebe (r) = Recorded By, (t) = Taken By, (c) = Cosigned By Initials Name Provider Type Yuni Shay OT Occupational Therapist Clinical Impression Row Name 01/20/251439 Pain Assessment Pretreatment Pain Rating 5/10 -AR Posttreatment Pain Rating 0/10 - no pain -AR Pain Location back -AR Pain Side/Orientation generalized -AR Pain Management Interventions activity modification encouraged;movement retraining implemented;nursing notified;positioning techniques utilized -AR Response to Pain Interventions activity participation with decreased pain -AR Row Name 08/05/25 1440 Plan of Care Review Plan of [...] Shay, OT Occupational Therapist CK Angelica Campoverde, PT Physical Therapist Occupational Therapy Education Title: PT OT GYM INSTRUCTOR Therapies (In Progress) Topic: Occupational Therapy (In [...] Initials Effective Dates Name Provider Type Discipline [place] 12/26/22 - Yuni Storey, OT Occupational Therapist [...] Type AR Yuni Storey, OT Occupational Therapist Therapy Charges for Today Code Description Service Date Service Provider Modifiers Qty [id number] HC OT EVAL LOW COMPLEXITY 4 01/20/2025 Yuni Storey OT GO 1 Yuni Storey OT 01/20/2025 * Case Management/Social Work - Mehdi Lawrence, RN - 01/20/2025 10:25 AM EDT Continued Stay Note [facility] Patient Name: Latosha Allison Today's Date: 01/20/2025 [...] Problem List Diagnosis Coronary artery disease involving [place] coronary artery of [place] heart without angina pectoris Mixed hyperlipidemia Type 2 diabetes mellitus, without long-term current use of insulin Primary hypertension Obesity Sleep apnea Heart failure with preserved left ventricular function (HFpEF) Lumbar stenosis with neurogenic claudication Past Medical History: Diagnosis Date Arthritis Arthritis of back Arthritis of neck Bursitis of hip CHF (congestive heart failure) AFTER [place] Coronary artery disease CTS (carpal tunnel syndrome) Diabetes mellitus X ABOUT 15 YEARS, TESTING PRN type 2 Diverticula, colon Dyslipidemia Fracture of wrist Fracture, radius Fracture, ulna GERD (gastroesophageal reflux disease) H/O- OMEPRAZOLE Hiatal hernia STILL PRESENT Hip arthrosis Hyperlipidemia Hypertension Ischemic heart disease Knee swelling Low back pain Low back strain Lumbosacral disc disease [place], old 30 YEARS AGO Osteoporosis Periarthritis of [...] Cath; Surgeon: Yoshi Cote IV, MD; Location: [facility] CATH INVASIVE LOCATION; Service: Cardiovascular; Laterality: N/A; CARDIAC CATHETERIZATION N/A 06/05/2024 Procedure: Optical Coherence Tomography; Surgeon: Yoshi Cote IV, MD; Location: [facility] CATH INVASIVE LOCATION; Service: Cardiovascular; Laterality: N/A; [...] L2-L4 LAMINECTOMY; Surgeon: Walt Em MD; Location: [facility] OR; Service: Neurosurgery; Laterality: N/A; ORIF FOREARM FRACTURE Left 02/2007 left wrist fracutre - PLate and screws in place OTHER SURGICAL HISTORY SPINAL FUSION 1994 L5-S1 Dr. Rajan- HARDWARE IN PLACE TONSILLECTOMY TRIGGER FINGER RELEASE Left Middle ; repair TRIGGER POINT INJECTION General Information Row Name 01/20/25 [facility] Physical Therapy Time and Intention Document Type evaluation -CK Mode of Treatment physical therapy -CK Row Name 01/20/25 111 General Information Patient Profile Reviewed yes -CK [...] Type CK Angelica Campoverde PT Physical Therapist Mobility Row Name 01/20/25 1119 Bed Mobility Bed Mobility supine-sit;sit-supine -CK Supine-Sit [place] (Bed Mobility) contact guard -CK Sit-Supine [place] (Bed Mobility) moderate assist (50% patient effort) [...] Row Name 01/20/25 1119 Sit-Stand Transfer Sit-Stand [place] (Transfers) contact guard -CK Assistive Device (Sit-Stand Transfers) walker, front-wheeled -CK Comment, (Sit-Stand Transfer) cues to push up from bed -CK Row Name 01/20/25 1119 Gait/Stairs (Locomotion) [place] Level (Gait) contact guard;2 person assist;verbal cues [...] PT) sit to supine/supine to sit -CK [place] Level/Cues Needed (Bed Mobility Goal 1, PT) modified independence -CK Time Frame (Bed Mobility Goal 1, PT) short term goal (STG);5 days -CK Progress/Outcomes (Bed Mobility Goal 1, PT) new goal -CK Row Name 01/20/25 1312 Transfer Goal 1 (PT) Activity/Assistive Device (Transfer Goal 1, PT) eld-eu-qiwht/rtpyg-qe-tsm;ijr-gj-xldtn/rwrbg-aw-rfw-CK [place] Level/Cues Needed (Transfer Goal 1, PT) standby assist -CK Time Frame (Transfer Goal 1, PT) half-way goal (LTG);10 days -CK Progress/Outcome (Transfer Goal 1, PT) new goal -CK Row Name 01/20/25 1312 Gait Training Goal 1 (PT) Activity/Assistive Device (Gait Training Goal 1, PT) gait (walking locomotion);assistive device use-CK [place] Level (Gait Training Goal 1, PT) contact guard required -CK Distance (Gait Training Goal 1, PT) 350' -CK Time Frame (Gait Training Goal 1, PT) emt intermediate goal (LTG);10 days -CK Progress/Outcome (Gait Training Goal 1, PT) new goal -CK Row Name 01/20/25 1312 Stairs Goal 1 (PT) Activity/Assistive Device (Stairs Goal 1, PT) ascending stairs;descending stairs;using handrail, left;using handrail, right -CK [place] Level/Cues Needed (Stairs Goal 1, PT) contact guard required -CK Number of Stairs (Stairs Goal 1, PT) 3+1 -CK Time Frame (Stairs Goal 1, PT) emt intermediate goal (LTG);10 days -CK Progress/Outcome (Stairs Goal [...] with decreased pain -CK Row Name 01/20/25 1304 Plan of Care Review Plan of Care [...] home with assist. -CK Row Name 01/20/25 130 Therapy Assessment/Plan (PT) Patient/Family Therapy Goals Statement [...] Therapist Physical Therapy Education Title: PT OT GYM INSTRUCTOR Therapies (In Progress) Topic: Physical Therapy (In Progress) Point: Mobility training (Done) Learning Progress Summary Patient Acceptance, E, VU by CK at 01/20/2025 1313 Significant Other Acceptance, E, VU by CK at 01/20/2025 1313 Point: Home exercise program (Not Started) Learner [...] Description Service Date Service Provider Modifiers Qty [id number] HC PT EVAL MOD COMPLEXITY 4 01/20/2025 Angelica Campoverde, PT GP 1 PT G-Codes Outcome Measure Options: AM-PAC 6 Clicks Basic Mobility (PT) AM-PAC 6 Clicks Score (PT): 17 PT Discharge Summary Anticipated Discharge Disposition (PT): home with assist Angelica Campoverde, PT 01/20/2025 * Case Management/Social Work - Mehdi Lawrence, RN - 01/19/2025 8:55 AM EDT Continued Stay Note Fran Patient Name: Latosha Allison Today's Date: 01/19/2025 [...] Lawrence RN * Case Management/Social Work - Jenny Castaneda RN - 01/16/2025 11:58 AM EDT Images from the original note were not included. Discharge Planning Assessment Fran Patient Name: Latosha Allison Today's Date: 01/16/2025 Admit Date: 01/15/2025 Plan: Home Discharge Needs Assessment Row Name 01/16/25 1141 Living Environment People in Home spouse Name(s) of People in Home Bassem Allison Spouse [phone] Current Living Arrangements home Potentially Unsafe Housing Conditions none In the past 12 months has the electric, gas, oil, or water company threatened to shut off services in your home? No Primary Care Provided by self Provides Primary Care For no one Family Caregiver if Needed spouse Family Caregiver Names Bassem Allison Spouse [phone] Quality of Family Relationships helpful;involved;supportive Able to [...] bedside regarding DC planning. Patient resides in [facility] with her spouse. Patient is independent with [...] Reason for Consult discharge planning Preferred Language Slovenian Contact Information Contact Information Comments Bassem Allison Spouse [phone] Functional Status Row Name 01/16/25 1140 Functional [...] Description 04/08/2025 10:15 AM EDT Office Visit [facility] NEUROSURGERY [address] [address] [place] [address] Marjan Tran PA-C [address] [place] [address] 10/29/2025 9:45 AM EDT Office Visit [facility] CARDIOLOGY [address] [place] [address] [place] [address] Samir Thurman MD [address] [facility] [address] [place] [address] Scheduled Procedures Name Priority Associated [...] GLUCOSE FINGERSTICK Routine 01/15/2025 7:38 AM EDT SCANNED - TELEMETRY 01/15/2025 documented in this encounter Results * POC Glucose Once (01/29/2025 10:58 AM EDT) Glucose 112 70 - 130 mg/dL 01/29/2025 10:58 AM EDT [facility] Blood 01/29/2025 10:5 8 AM EDT 01/29/2025 10:58 AM EDT Walt Em MD POINT OF CARE TEST ORDERABLES Final Result Performing Organization Address City/[facility]/ZIP Co de Phone Number [facility]
[address] [place] [address], * POC Glucose Once (01/29/2025 7:13 AM EDT) Glucose 113 70 - 130 mg/dL 01/29/2025 7:13 AM EDT [facility] Blood 01/29/2025 7:13 AM EDT 01/29/2025 7:13 AM EDT Walt Em MD POINT OF CARE TEST ORDERABLES Final Result [facility]
[address] [place] [address], * POC Glucose Once (01/28/2025 7:57 PM EDT) Glucose 117 70 - 130 mg/dL 01/28/2025 7:59 PM EDT [facility] Blood 01/28/2025 7:57 PM EDT 01/28/2025 7:59 PM EDT Walt Em MD POINT OF CARE TEST ORDERABLES Final Result Performing Organization Address City/[facility] Co de Phone Number [facility]
[address] [place] [address], [place] [phone] * POC Glucose Once (01/28/2025 4:08 PM EDT) Glucose 90 70 - 130 mg/dL 01/28/2025 4:09 PM EDT [facility] Blood 01/28/2025 4:08 PM EDT 01/28/2025 4:09 PM EDT Walt Em MD POINT OF CARE TEST ORDERABLES Final Result Performing Organization Address [facility] de Phone Number [facility]
[address] [place] [address], * (ABNORMAL) POC Glucose Once (01/28/2025 11:27 AM EDT) Glucose 133(H) 70 - 130 mg/dL 01/28/2025 11:28 AM EDT [facility] Blood 01/28/2025 11:2 7 AM EDT 01/28/2025 11:28 AM EDT Walt Em MD POINT OF CARE TEST ORDERABLES Final Result Performing Organization Address [facility] Co de Phone Number [facility]
[address] [place] [address], [place] [phone] * POC Glucose Once (01/28/2025 7:12 AM EDT) Glucose 113 70 - 130 mg/dL 01/28/2025 7:14 AM EDT [facility] Blood 01/28/2025 7:12 AM EDT 01/28/2025 7:14 AM EDT Walt Em MD POINT OF CARE TEST ORDERABLES Final Result Performing Organization Address City/[facility]/ZIP Co de Phone Number [facility]
[address] [place] [address], * POC Glucose Once (01/27/2025 7:55 PM EDT) Glucose 108 70 - 130 mg/dL 01/27/2025 7:56 PM EDT [facility] Blood 01/27/2025 7:55 PM EDT 01/27/2025 7:56 PM EDT Walt Em MD POINT OF CARE TEST ORDERABLES Final Result Performing Organization Address [facility] Co de Phone Number [facility]
[address] [place] [address], * POC Glucose Once (01/27/2025 4:11 PM EDT) Glucose 120 70 - 130 mg/dL 01/27/2025 4:14 PM EDT [facility] Blood 01/27/2025 4:11 PM EDT 01/27/2025 4:13 PM EDT Walt Em MD POINT OF CARE TEST ORDERABLES Final Result Performing Organization Address City/[facility] Co de Phone Number [facility]
[address] [place] [address], [place] [phone] * (ABNORMAL) POC Glucose Once (01/27/2025 11:19 AM EDT) Glucose 132(H) 70 - 130 mg/dL 01/27/2025 11:21 AM EDT [facility] Blood 01/27/2025 11:1 9 AM EDT 01/27/2025 11:21 AM EDT us Walt Em MD POINT OF CARE TEST ORDERABLES Final Result Performing Organization Address [facility] Co de Phone Number [facility]
[address] [place] [address], * (ABNORMAL) POC Glucose Once (01/27/2025 7:30 AM EDT) Glucose 136(H) 70 - 130 mg/dL 01/27/2025 7:32 AM EDT [facility] Blood 01/27/2025 7:30 AM EDT 01/27/2025 7:31 AM EDT us Walt Em MD POINT OF CARE TEST ORDERABLES Final Result Performing Organization Address [facility] Co de Phone Number [facility]
[address] [place] [address], [place] [phone] * POC Glucose Once (01/26/2025 8:18 PM EDT) Glucose 96 70 - 130 mg/dL 01/26/2025 8:20 PM EDT [facility] Blood 01/26/2025 8:18 PM EDT 01/26/2025 8:20 PM EDT Walt Em MD POINT OF CARE TEST ORDERABLES Final Result Performing Organization Address [facility] de Phone Number [facility]
[address] [place] [address], * (ABNORMAL) POC Glucose Once (01/26/2025 4:34 PM EDT) Glucose 137(H) 70 - 130 mg/dL 01/26/2025 4:36 PM EDT [facility] Blood 01/26/2025 4:34 PM EDT 01/26/2025 4:36 PM EDT us Walt Em MD POINT OF CARE TEST ORDERABLES Final Result Performing Organization Address City/[facility]/ZIP Co de Phone Number [facility]
[address] [place] [address], * POC Glucose Once (01/26/2025 11:33 AM EDT) Glucose 106 70 - 130 mg/dL 01/26/2025 11:35 AM EDT [facility] Blood 01/26/2025 11:3 3 AM EDT 01/26/2025 11:35 AM EDT us Walt Em MD POINT OF CARE TEST ORDERABLES Final Result Performing Organization Address [facility] Co de Phone Number [facility]
[address] [place] [address], [place] [phone] * (ABNORMAL) POC Glucose Once (01/26/2025 8:00 AM EDT) Glucose 139(H) 70 - 130 mg/dL 01/26/2025 8:01 AM EDT [facility] Blood 01/26/2025 8:00 AM EDT 01/26/2025 8:01 AM EDT Walt Em MD POINT OF CARE TEST ORDERABLES Final Result Performing Organization Address City/[facility] Co de Phone Number [facility]
[address] [place] [address], [place] [phone] * POC Glucose Once (01/25/2025 7:56 PM EDT) Glucose 112 70 - 130 mg/dL 01/25/2025 7:57 PM EDT [facility] Blood 01/25/2025 7:56 PM EDT 01/25/2025 7:57 PM EDT Walt Em MD POINT OF CARE TEST ORDERABLES Final Result Performing Organization Address City/[facility]/ZIP Co de Phone Number [facility]
[address] [place] [address], * POC Glucose Once (01/25/2025 4:19 PM EDT) Glucose 120 70 - 130 mg/dL 01/25/2025 4:24 PM EDT [facility] Blood 01/25/2025 4:19 PM EDT 01/25/2025 4:24 PM EDT us Walt Em MD POINT OF CARE TEST ORDERABLES Final Result Performing Organization Address [facility]/ZIP Co de Phone Number [facility]
[address] [place] [address], * POC Glucose Once (01/25/2025 11:18 AM EDT) Glucose 113 70 - 130 mg/dL 01/25/2025 11:42 AM EDT [facility] Blood 01/25/2025 11:1 8 AM EDT 01/25/2025 11:42 AM EDT Walt Em MD POINT OF CARE TEST ORDERABLES Final Result Performing Organization Address City/[facility] [facility] Co de Phone Number [facility]
[address] [place] [address], * POC Glucose Once (01/25/2025 7:30 AM EDT) Glucose 109 70 - 130 mg/dL 01/25/2025 7:34 AM EDT [facility] Blood 01/25/2025 7:30 AM EDT 01/25/2025 7:34 AM EDT Walt Em MD POINT OF CARE TEST ORDERABLES Final Result Performing Organization Address City/[facility]/ZIP Co de Phone Number [facility]
[address] [place] [address], * POC Glucose Once (01/24/2025 8:16 PM EDT) Glucose 116 70 - 130 mg/dL 01/24/2025 8:17 PM EDT [facility] Blood 01/24/2025 8:16 PM EDT 01/24/2025 8:17 PM EDT Walt Em MD POINT OF CARE TEST ORDERABLES Final Result Performing Organization Address [facility]/ZIP Co de Phone Number [facility]
[address] [place] [address], [place] [phone] * POC Glucose Once (01/24/2025 4:36 PM EDT) Glucose 108 70 - 130 mg/dL 01/24/2025 4:37 PM EDT [facility] Blood 01/24/2025 4:36 PM EDT 01/24/2025 4:37 PM EDT Walt Em MD POINT OF CARE TEST ORDERABLES Final Result Performing Organization Address City/[facility]/ZIP Co de Phone Number [facility]
[address] [place] [address], * POC Glucose Once (01/24/2025 11:51 AM EDT) Glucose 104 70 - 130 mg/dL 01/24/2025 11:53 AM EDT [facility] Blood 01/24/2025 11:5 1 AM EDT 01/24/2025 11:53 AM EDT us Walt Em MD POINT OF CARE TEST ORDERABLES Final Result Performing Organization Address City/[facility]/ZIP Co de Phone Number [facility]
[address] [place] [address], [place] [phone] * POC Glucose Once (01/24/2025 7:20 AM EDT) Glucose 97 70 - 130 mg/dL 01/24/2025 7:21 AM EDT [facility] Blood 01/24/2025 7:20 AM EDT 01/24/2025 7:21 AM EDT us Walt Em MD POINT OF CARE TEST ORDERABLES Final Result Performing Organization Address [facility]/ZIP Co de Phone Number [facility]
[address] [place] [address], [place] [phone] * (ABNORMAL) POC Glucose Once (01/23/2025 7:58 PM EDT) Glucose 160(H) 70 - 130 mg/dL 01/23/2025 7:59 PM EDT [facility] Blood 01/23/2025 7:58 PM EDT 01/23/2025 7:59 PM EDT us Walt Em MD POINT OF CARE TEST ORDERABLES Final Result Performing Organization Address City/[facility]/ZIP Co de Phone Number [facility]
[address] [place] [address], [place] [phone] * POC Glucose Once (01/23/2025 4:30 PM EDT) Glucose 118 70 - 130 mg/dL 01/23/2025 4:31 PM EDT [facility] Blood 01/23/2025 4:30 PM EDT 01/23/2025 4:31 PM EDT Walt Em MD POINT OF CARE TEST ORDERABLES Final Result Performing Organization Address City/[facility]/ZIP Co de Phone Number [facility]
[address] [place] [address], * POC Glucose Once (01/23/2025 11:08 AM EDT) Glucose 104 70 - 130 mg/dL 01/23/2025 11:09 AM EDT [facility] Blood 01/23/2025 11:0 8 AM EDT 01/23/2025 11:09 AM EDT Walt Em MD POINT OF CARE TEST ORDERABLES Final Result Performing Organization Address [facility] Co de Phone Number [facility]
[address] [place] [address], * POC Glucose Once (01/23/2025 7:20 AM EDT) Glucose 106 70 - 130 mg/dL 01/23/2025 7:22 AM EDT [facility] Blood 01/23/2025 7:20 AM EDT 01/23/2025 7:22 AM EDT Walt Em MD POINT OF CARE TEST ORDERABLES Final Result Performing Organization Address City/[facility] Co de Phone Number [facility]
[address] [place] [address], [place] [phone] * (ABNORMAL) POC Glucose Once (01/22/2025 8:12 PM EDT) Glucose 167(H) 70 - 130 mg/dL 01/22/2025 [facility] 01/22/2025 8:12 PM EDT 01/22/2025 8:16 PM EDT us Walt Em MD POINT OF CARE TEST ORDERABLES Final Result Performing Organization Address [facility] de Phone Number [facility]
[address] [place] [address], * POC Glucose Once (01/22/2025 4:22 PM EDT) Glucose 119 70 - 130 mg/dL 01/22/2025 4:23 PM EDT [facility] Blood 01/22/2025 4:22 PM EDT 01/22/2025 4:23 PM EDT us Walt Em MD POINT OF CARE TEST ORDERABLES Final Result Performing Organization Address [facility] Phone Number [facility]
[address] [place] [address], * [place] C Arm During Surgery (01/22/2025 1:49 PM EDT) Narrative SYSTEMGENERATED, DOCUMENTATION - 01/22/2025 1:51 PM EDT This procedure was auto-finalized with no dictation required. us Walt Em MD IMG FLUOROSCOPY ORDERABLES Fi nal Result * POC Glucose Once (01/22/2025 7:27 AM EDT) Glucose 105 70 - 130 mg/dL 01/22/2025 7:29 AM EDT [facility] Blood 01/22/2025 7:27 AM EDT 01/22/2025 7:29 AM EDT us Walt Em MD POINT OF CARE TEST ORDERABLES Final Result Performing Organization Address [facility] Co de Phone Number [facility]
[address] [place] [address], * POC Glucose Once (01/21/2025 7:37 PM EDT) Glucose 127 70 - 130 mg/dL 01/21/2025 7:38 PM EDT [facility] Blood 01/21/2025 7:37 PM EDT 01/21/2025 7:38 PM EDT Walt Em MD POINT OF CARE TEST ORDERABLES Final Result Performing Organization Address [facility] Co de Phone Number [facility]
[address] [place] [address], * (ABNORMAL) POC Glucose Once (01/21/2025 4:16 PM EDT) Glucose 141(H) 70 - 130 mg/dL 01/21/2025 4:17 PM EDT [facility] Blood 01/21/2025 4:16 PM EDT 01/21/2025 4:17 PM EDT us Walt Em MD POINT OF CARE TEST ORDERABLES Final Result Performing Organization Address City/[facility] Co de Phone Number [facility]
[address] [place] [address], * POC Glucose Once (01/21/2025 11:26 AM EDT) Glucose 124 70 - 130 mg/dL 01/21/2025 11:28 AM EDT [facility] Blood 01/21/2025 11:2 6 AM EDT 01/21/2025 11:27 AM EDT us Walt Em MD POINT OF CARE TEST ORDERABLES Final Result Performing Organization Address City/[facility]/ZIP Co de Phone Number [facility]
[address] [place] [address], * (ABNORMAL) POC Glucose Once (01/21/2025 7:02 AM EDT) Glucose 148(H) 70 - 130 mg/dL 01/21/2025 7:03 AM EDT [facility] Blood 01/21/2025 7:02 AM EDT 01/21/2025 7:03 AM EDT us Walt Em MD POINT OF CARE TEST ORDERABLES Final Result Performing Organization Address [facility] Co de Phone Number [facility]
[address] [place] [address], * (ABNORMAL) POC Glucose Once (01/20/2025 7:25 PM EDT) Glucose 134(H) 70 - 130 mg/dL 01/20/2025 7:26 PM EDT [facility] Blood 01/20/2025 7:25 PM EDT 01/20/2025 7:26 PM EDT us Walt Em MD POINT OF CARE TEST ORDERABLES Final Result Performing Organization Address City/[facility]/ZIP Co de Phone Number [facility]
[address] [place] [address], [place] [phone] * POC Glucose Once (01/20/2025 4:27 PM EDT) Glucose 113 70 - 130 mg/dL 01/20/2025 4:29 PM EDT [facility] Blood 01/20/2025 4:27 PM EDT 01/20/2025 4:28 PM EDT us Walt Em MD POINT OF CARE TEST ORDERABLES Final Result Performing Organization Address City/[facility]/ZIP Co de Phone Number [facility]
[address] [place] [address], * POC Glucose Once (01/20/2025 11:13 AM EDT) Glucose 115 70 - 130 mg/dL 01/20/2025 11:15 AM EDT [facility] Blood 01/20/2025 11:1 3 AM EDT 01/20/2025 11:15 AM EDT Walt Em MD POINT OF CARE TEST ORDERABLES Final Result Performing Organization Address [facility] Co de Phone Number [facility]
[address] [place] [address], * POC Glucose Once (01/20/2025 7:25 AM EDT) Glucose 93 70 - 130 mg/dL 01/20/2025 7:27 AM EDT [facility] Blood 01/20/2025 7:25 AM EDT 01/20/2025 7:27 AM EDT Walt Em MD POINT OF CARE TEST ORDERABLES Final Result Performing Organization Address City/[facility]/ZIP Co de Phone Number [facility]
[address] [place] [address], * POC Glucose Once (01/19/2025 7:47 PM EDT) Glucose 121 70 - 130 mg/dL 01/19/2025 7:56 PM EDT [facility] Blood 01/19/2025 7:47 PM EDT 01/19/2025 7:56 PM EDT Walt Em MD POINT OF CARE TEST ORDERABLES Final Result Performing Organization Address City/[facility]/ZIP Co de Phone Number [facility]
[address] [place] [address], * POC Glucose Once (01/19/2025 4:28 PM EDT) Glucose 86 70 - 130 mg/dL 01/19/2025 4:32 PM EDT [facility] Blood 01/19/2025 4:28 PM EDT 01/19/2025 4:31 PM EDT Walt Em MD POINT OF CARE TEST ORDERABLES Final Result Performing Organization Address [facility] Co de Phone Number [facility]
[address] [place] [address], * POC Glucose Once (01/19/2025 11:29 AM EDT) Glucose 113 70 - 130 mg/dL 01/19/2025 11:30 AM EDT [facility] Blood 01/19/2025 11:2 9 AM EDT 01/19/2025 11:30 AM EDT Walt Em MD POINT OF CARE TEST ORDERABLES Final Result Performing Organization Address City/[facility]/ZIP Co de Phone Number [facility]
[address] [place] [address], * POC Glucose Once (01/19/2025 7:11 AM EDT) Glucose 105 70 - 130 mg/dL 01/19/2025 7:12 AM EDT [facility] Blood 01/19/2025 7:11 AM EDT 01/19/2025 7:12 AM EDT Walt Em MD POINT OF CARE TEST ORDERABLES Final Result Performing Organization Address City/[facility]/ZIP Co de Phone Number [facility]
[address] [place] [address], [place] [phone] * POC Glucose Once (01/18/2025 9:17 PM EDT) Glucose 99 70 - 130 mg/dL 01/18/2025 9:18 PM EDT [facility] Blood 01/18/2025 9:17 PM EDT 01/18/2025 9:18 PM EDT Walt Em MD POINT OF CARE TEST ORDERABLES Final Result Performing Organization Address [facility] Co de Phone Number [facility]
[address] [place] [address], * (ABNORMAL) POC Glucose Once (01/18/2025 4:37 PM EDT) Glucose 139(H) 70 - 130 mg/dL 01/18/2025 4:38 PM EDT [facility] Blood 01/18/2025 4:37 PM EDT 01/18/2025 4:38 PM EDT Walt Em MD POINT OF CARE TEST ORDERABLES Final Result Performing Organization Address City/[facility]/ZIP Co de Phone Number [facility]
[address] [place] [address], [place] [phone] * POC Glucose Once (01/18/2025 11:10 AM EDT) Glucose 116 70 - 130 mg/dL 01/18/2025 11:15 AM EDT [facility] Blood 01/18/2025 11:1 0 AM EDT 01/18/2025 11:15 AM EDT us Walt Em MD POINT OF CARE TEST ORDERABLES Final Result Performing Organization Address City/[facility]/ZIP Co de Phone Number [facility]
[address] [place] [address], * POC Glucose Once (01/18/2025 7:09 AM EDT) Glucose 113 70 - 130 mg/dL 01/18/2025 7:17 AM EDT [facility] Blood 01/18/2025 7:09 AM EDT 01/18/2025 7:17 AM EDT Walt Em MD POINT OF CARE TEST ORDERABLES Final Result Performing Organization Address City/[facility] Co de Phone Number [facility]
[address] [place] [address], * POC Glucose Once (01/17/2025 8:38 PM EDT) Glucose 116 70 - 130 mg/dL 01/17/2025 8:40 PM EDT [facility] Blood 01/17/2025 8:38 PM EDT 01/17/2025 8:40 PM EDT us Walt Em MD POINT OF CARE TEST ORDERABLES Final Result Performing Organization Address City/[facility]/ZIP Co de Phone Number [facility]
[address] [place] [address], * POC Glucose Once (01/17/2025 4:29 PM EDT) Glucose 94 70 - 130 mg/dL 01/17/2025 4:31 PM EDT [facility] Blood 01/17/2025 4:29 PM EDT 01/17/2025 4:31 PM EDT us Walt Em MD POINT OF CARE TEST ORDERABLES Final Result Performing Organization Address City/[facility]/ZIP Co de Phone Number [facility]
[address] [place] [address], * POC Glucose Once (01/17/2025 11:05 AM EDT) Glucose 99 70 - 130 mg/dL 01/17/2025 11:07 AM EDT [facility] Blood 01/17/2025 11:0 5 AM EDT 01/17/2025 11:07 AM EDT Walt Em MD POINT OF CARE TEST ORDERABLES Final Result Performing Organization Address City/[facility] Co de Phone Number [facility]
[address] [place] [address], * POC Glucose Once (01/17/2025 6:51 AM EDT) Glucose 111 70 - 130 mg/dL 01/17/2025 6:52 AM EDT [facility] Blood 01/17/2025 6:51 AM EDT 01/17/2025 6:52 AM EDT Walt Em MD POINT OF CARE TEST ORDERABLES Final Result Performing Organization Address City/[facility]/ZIP Co de Phone Number [facility]
[address] [place] [address], * POC Glucose Once (01/16/2025 7:56 PM EDT) Glucose 99 70 - 130 mg/dL 01/16/2025 8:00 PM EDT [facility] Blood 01/16/2025 7:56 PM EDT 01/16/2025 8:00 PM EDT Walt Em MD POINT OF CARE TEST ORDERABLES Final Result Performing Organization Address City/[facility]/ZIP Co de Phone Number [facility]
[address] [place] [address], * POC Glucose Once (01/16/2025 4:38 PM EDT) Glucose 119 70 - 130 mg/dL 01/16/2025 4:41 PM EDT [facility] Blood 01/16/2025 4:38 PM EDT 01/16/2025 4:41 PM EDT Walt Em MD POINT OF CARE TEST ORDERABLES Final Result Performing Organization Address [facility] Co de Phone Number [facility]
[address] [place] [address], * POC Glucose Once (01/16/2025 11:07 AM EDT) Glucose 110 70 - 130 mg/dL 01/16/2025 11:08 AM EDT [facility] Blood 01/16/2025 11:0 7 AM EDT 01/16/2025 11:08 AM EDT Walt Em MD POINT OF CARE TEST ORDERABLES Final Result Performing Organization Address City/[facility] Co de Phone Number [facility]
[address] [place] [address], * (ABNORMAL) Hemoglobin & Hematocrit, Blood (01/16/2025 8:12 AM EDT) Hemoglobin 11.1(L) 12.0 - 15.9 g/dL 01/16/2025 9:32 AM EDT [facility] Hematocrit 36.3 34.0 - 46.6 % 01/16/2025 9:32 AM EDT [facility] Blood Venipuncture / Unknown 01/16/2025 8:12 AM EDT 01/16/2025 9:24 AM EDT Walt Em MD LAB BLOOD ORDERABLES Final Re sult Performing Organization Address [facility]/ZIP Co de Phone Number [facility]
[address] [place] [address], * POC Glucose Once (01/16/2025 7:30 AM EDT) Glucose 111 70 - 130 mg/dL 01/16/2025 7:31 AM EDT [facility] Blood 01/16/2025 7:30 AM EDT 01/16/2025 7:31 AM EDT us Walt Em MD POINT OF CARE TEST ORDERABLES Final Result Performing Organization Address [facility] Co de Phone Number [facility]
[address] [place] [address], [place] [phone] * POC Glucose Once (01/15/2025 7:55 PM EDT) Glucose 118 70 - 130 mg/dL 01/15/2025 8:01 PM EDT [facility] Blood 01/15/2025 7:55 PM EDT 01/15/2025 8:01 PM EDT Walt Em MD POINT OF CARE TEST ORDERABLES Final Result Performing Organization Address [facility] Co de Phone Number [facility]
[address] [place] [address], [place] [phone] * (ABNORMAL) POC Glucose Once (01/15/2025 4:47 PM EDT) Glucose 133(H) 70 - 130 mg/dL 01/15/2025 4:49 PM EDT [facility] Blood 01/15/2025 4:47 PM EDT 01/15/2025 4:49 PM EDT Walt Em MD POINT OF CARE TEST ORDERABLES Final Result [facility]
[address] [place] [address], * (ABNORMAL) CBC Auto Differential (01/15/2025 2:03 PM EDT) WBC 9.31 3.40 - 10.80 10*3/mm3 01/15/2025 2:23 PM EDT [facility] RBC 4.12 3.77 - 5.28 10*6/mm3 01/15/2025 2:23 PM EDT [facility] Hemoglobin 12.3 12.0 - 15.9 g/dL 01/15/2025 2:23 PM EDT [facility] Hematocrit 38.4 34.0 - 46.6 % 01/15/2025 2:23 PM EDT [facility] MCV 93.2 79.0 - 97.0 fL 01/15/2025 2:23 PM EDT [facility] MCH 29.9 26.6 - 33.0 pg 01/15/2025 2:23 PM EDT [facility] MCHC 32.0 31.5 - 35.7 g/dL 01/15/2025 2:23 PM EDT [facility] RDW 14.0 12.3 - 15.4 % 01/15/2025 2:23 PM EDT [facility] RDW-SD 47.3 37.0 - 54.0 fl 01/15/2025 2:23 PM EDT [facility] MPV 9.9 6.0 - 12.0 fL 01/15/2025 2:23 PM EDT [facility] Platelets 203 140 - 450 10*3/mm3 01/15/2025 2:23 PM [facility] Neutrophil % 90.1(H) 42.7 - 76.0 % 01/15/2025 2:23 PM [facility] Lymphocyte % 8.2(L) 19.6 - 45.3 % 01/15/2025 2:23 PM [facility] Monocyte % 1.1(L) 5.0 - 12.0 % 01/15/2025 2:23 PM [facility] Eosinophil % 0.0(L) 0.3 - 6.2 % 01/15/2025 2:23 PM [facility] Basophil % 0.1 0.0 - 1.5 % 01/15/2025 2:23 PM [facility] Immature Grans % 0.5 0.0 - 0.5 % 01/15/2025 2:23 PM [facility] Neutrophils, Absolute 8.39(H) 1.70 - 7.00 10*3/mm3 01/15/2025 2:23 PM [facility] Lymphocytes, Absolute 0.76 0.70 - 3.10 10*3/mm3 01/15/2025 2:23 PM [facility] Monocytes, Absolute 0.10 0.10 - 0.90 10*3/mm3 01/15/2025 2:23 PM [facility] Eosinophils, Absolute 0.00 0.00 - 0.40 10*3/mm3 01/15/2025 2:23 PM [facility] Basophils, Absolute 0.01 0.00 - 0.20 10*3/mm3 01/15/2025 2:23 PM [facility] Immature Grans, Absolute 0.05 0.00 - 0.05 10*3/mm3 01/15/2025 2:23 PM [facility] nRBC 0.0 0.0 - 0.2 /100 WBC 01/15/2025 2:23 PM [facility] Blood Structure of right upper limb / Unknown Venipuncture / Unknown 01/15/2025 2:03 PM EDT 01/15/2025 2:10 PM EDT Sharif Kimble MD LAB BLOOD ORDERABLES Final Re sult Performing Organization Address City/[facility]/ZIP Co de Phone Number [facility]
[address] [place] [address], * (ABNORMAL) POC Glucose Once (01/15/2025 1:44 PM EDT) Glucose 166(H) 70 - 130 mg/dL 01/15/2025 1:44 PM EDT [facility] Blood 01/15/2025 1:44 PM EDT 01/15/2025 1:44 PM EDT Walt Em MD POINT OF CARE TEST ORDERABLES Final Result Performing Organization Address [facility] Co de Phone Number [facility]
[address] [place] [address], * [place] C Arm During Surgery (01/15/2025 12:50 PM EDT) Narrative SYSTEMGENERATED, DOCUMENTATION - 01/15/2025 2:13 PM EDT This procedure was auto-finalized with no dictation required. Walt Em MD IMG FLUOROSCOPY ORDERABLES Fi nal Result * (ABNORMAL) POC Surgery Labs (01/15/2025 11:16 AM EDT) Ionized Calcium 1.18(L) 1.20 - 1.32 mmol/L 01/15/2025 6:42 PM EDT [facility] POC Potassium 4.6 3.5 - 4.9 mmol/L 01/15/2025 6:42 PM EDT [facility] Sodium 137(L) 138 - 146 mmol/L 01/15/2025 6:42 PM EDT [facility] Total CO2 21(L) 24 - 29 mmol/L 01/15/2025 6:42 PM EDT [facility] Hemoglobin 12.6 12.0 - 17.0 g/dL 01/15/2025 6:42 PM EDT [facility] Hematocrit 37(L) 38 - 51 % 01/15/2025 6:42 PM EDT [facility] pCO2, Arterial 33.3(L) 35 - 45 mm Hg 01/15/2025 6:42 PM EDT [facility] pO2, Arterial 115(H) 80 - 105 mmHg 01/15/2025 6:42 PM EDT [facility] Comment:Serial Number: [id number] 2Operator: [id number] Base Excess -5.0000 -5 - 5 mmol/L 01/15/2025 6:42 PM EDT [facility] O2 Saturation, Arterial 98 95 - 98 % 01/15/2025 6:42 PM EDT [facility] pH, Arterial 7.39 7.35 - 7.6 pH units 01/15/2025 6:42 PM EDT [facility] HCO3, Arterial 20.0(L) 22 - 26 mmol/L 01/15/2025 6:42 PM EDT [facility] Glucose 180(H) 70 - 130 mg/dL 01/15/2025 6:42 PM EDT [facility] Venous Blood 01/15/2025 11:1 6 AM EDT 01/15/2025 6:42 PM EDT us Walt Em MD POINT OF CARE TEST ORDERABLES Final Result [facility]
[address] [place] [address], * [place] O Arm During Surgery (01/15/2025 9:12 AM EDT) Narrative SYSTEMGENERATED, DOCUMENTATION - 01/15/2025 9:13 AM EDT This procedure was auto-finalized with no dictation required. Walt Em MD IMG FLUOROSCOPY ORDERABLES Fi nal Result * POC Glucose Once (01/15/2025 7:38 AM EDT) Glucose 109 70 - 130 mg/dL 01/15/2025 7:41 AM EDT [facility] Blood 01/15/2025 7:38 AM EDT 01/15/2025 7:41 AM EDT Walt Em MD POINT OF CARE TEST ORDERABLES Final Result [facility]
[address] [place] [address], [place] [phone] * Telemetry Scan (01/15/2025) [facility] Onbase ECG ORDERABLES Final Result documented in this encounter Visit Diagnoses Not on filedocumented in this encounter Admitting Diagnoses Diagnosis Lumbar [...] if polyethylene glycol is ineffective, Starting on Sun01/18/25 at 0927, Use if no bowel movement after 12 hours. Swallow whole. Do not crush, split, or chew tablet. Given 01/22/2025 8:27 PM EDT 5 mg bisacodyl (DULCOLAX) suppository 10 mg 10 mg, Rectal, Daily PRN, Constipation, Use if bisacodyl oral is ineffective, Starting on Sun01/18/25 at 0927, Use if no bowel movement after 12 hours. Hold for diarrhea Given 01/24/2025 6:54 PM EDT 10 mg Given 01/18/2025 3:31 PM EDT 10 mg carvedilol (COREG) tablet 12.5 mg 12.5 mg, [...] Given 01/15/2025 8:24 PM EDT 360 mg fluticasone (FLONASE) 50 MCG/ACT nasal spray 2 spray 2 spray, Nasal, Daily, First dose on Sun01/16/25 at 0900 Given 01/29/2025 9:06 AM EDT 2 sprays Given 01/28/2025 9:21 AM EDT 2 sprays Given 01/27/2025 9:43 AM EDT 2 sprays gelatin absorbable 1 each, thrombin 5,000 Units mixture As Needed, Starting on Sun01/22/25 at 1300 Given 01/22/2025 1:00 PM EDT heparin (porcine) 5000 UNIT/ML injection 5,000 [...] mg/dL - 7 units & Call Provider ([facility]) Caution: Look alike/sound alike drug alert(BK) Given 01/23/2025 9:07 PM EDT 2 Units Left Arm Given 01/22/2025 8:30 PM EDT 2 Units Ri ght Arm Lidocaine-EPINEPHrine (PF) (XYLOCAINE W/EPI) 1 %-[id number] injection As Needed, Starting on Carol 01/22/25 at 1300 Given 01/22/2025 1:00 PM EDT 50 mL metFORMIN (GLUCOPHAGE) tablet 500 mg 500 mg, [...] tablet 40 mg 40 mg, Oral, Every [employer], First dose on Sun01/16/25 at 0600, Swallow [...] on Sun01/15/25 at 2100, Avoid grapefruit juice. Given 01/28/2025 9:35 PM EDT 40 mg Given 01/27/2025 9:14 PM EDT 40 mg Given 01/26/2025 8:39 PM EDT 40 mg sacubitril-valsartan (ENTRESTO) 49-51 MG tablet 1 tablet 1 tablet, Oral, Every 12 Hours Scheduled, First dose on [facility] 01/17/25 at 0900, Is this new therapy for the patient? No Given 01/29/2025 9:07 AM EDT 1 tablet Given 01/28/2025 9:21 AM EDT 1 tablet Given 01/26/2025 8:10 AM EDT 1 tablet sennosides-docusate (PERICOLACE) 8.6-50 MG per tablet 2 tablet 2 tablet, Oral, 2 Times Daily, First dose (after last modification) on [place] 01/18/25 at 2100, HOLD MEDICATION IF PATIENT HAS HAD BOWEL MOVEMENT. Start bowel management regimen if patient has not had a bowel movement after 12 hours. Given 01/28/2025 9:37 PM EDT 2 tablets Given 01/27/2025 9:13 PM EDT 2 tablets Given 01/27/2025 9:42 AM EDT 2 tablets sodium chloride (NS) irrigation solution As Needed, Starting on [place] 01/22/25 at 1311 Given 01/22/2025 1:11 PM EDT 1,000 mL sodium chloride 0.9 % [...] 0921 (Given - Provider: Meghan Nathan, RN) 0908 (Given - Provider: Latia Ortega, RN) carvedilol (COREG) tablet 12.5 mg 12.5 [...] JULISSA)1800 (Due) 09 (Given - Provider: Latia Ortega, RN) dilTIAZem [...] Reason: Other (Comment Required) - Comment: BP [facility]) 220 (Not Given - Provider: Edison Ravi RN - Reason: Order parameters not met) fluticasone (FLONASE) 50 MCG/ACT nasal spray 2 spray 2 spray, Nasal, Daily, First dose on Sun01/16/25 at 0900 0943 (Given - Provider: Marisa Lomeli RN) 0921 (Given - Provider: Meghan Nathan RN) 0906 (Given - Provider: Latia Ortega RN) heparin (porcine) 5000 UNIT/ML injection 5,000 Units 5,000 Units, Subcutaneous, Every 8 Hours Scheduled, First dose on Sun01/23/25 at 0800, Indications: VTE Prophylaxis 0604 (Given - Provider: Edison Ravi RN)1340 (Given - Provider: Marisa Lomeli RN)2119 (Given - Provider: Edison Ravi RN) 0623 (Given - Provider: Edison Ravi RN)1516 (Given - Provider: Latia Ortega RN)2135 (Given - Provider: Edison Ravi RN) 0653 [...] mg/dL - 7 units & Call Provider ([facility]) Caution: Look alike/sound alike drug alert([facility]) 0732 (Not Given - Provider: Marisa Lomeli RN - Reason: Order parameters not met)1206 (Not Given - Provider: Marisa Lomeli RN - Reason: Order parameters not met)1704 (Not Given - Provider: Marisa Lomeli RN - Reason: Order parameters not met)2132 (Not Given - Provider: Edison Trav, RN - Reason: Order parameters not met) [...] tablet 40 mg 40 mg, Oral, Every Pet[employer] Sampler, First dose on Sun01/16/25 at 0600, Swallow [...] or juice for each 17 gram dose. 0942 (Given - Provider: Marisa Lomeli RN) 0921 (Not Given - Provider: Meghan Nathan RN - Reason: Patient/family refused) 0925 (Not Given - Provider: Latia Ortega RN - Reason: Patient/family refused - Comment: large bm this a.m.) pregabalin (LYRICA) capsule 75 mg 75 mg, Oral, Every 12 Hours Scheduled, First dose on Sun01/25/25 at 1200, For 16 doses, (DORY) 941 (Given - Provider: Marisa Lomeli, RN)2113 (Given - Provider: Edison Ravi RN) 920 (Given - Provider: Meghan Nathan, JULISSA)2134 (Given - Provider: Edison Ravi RN) 905 (Given - Provider: Latia Ortega, RN) rosuvastatin (CRESTOR) tablet 40 mg 40 mg, Oral, Nightly, First dose on [place] 01/15/25 at 2100, Avoid grapefruit juice. 2113 (Given - Provider: Edison Ravi RN) 2134 (Given - Provider: Edison Ravi RN) sacubitril-valsartan (ENTRESTO) 49-51 MG tablet 1 tablet 1 tablet, Oral, Every 12 Hours Scheduled, First dose on [facility] 01/17/25 at 0900, Is this new therapy for the patient? No 1031 (Hold - Provider: Marisa Lomeli RN - Reason: Other)2131 (Hold - Provider: Edison Ravi RN - Reason: Other (Comment Required) - Comment: borderline bp) 920 (Given - Provider: Meghan Nathan, JULISSA)2207 (Not Given - Provider: Edison Ravi RN - Reason: Order parameters not met) 906 (Given - Provider: Latia Ortega, RN) sennosides-docusate (PERICOLACE) 8.6-50 MG per tablet 2 tablet(Linked Group 1) 2 tablet, Oral, 2 Times Daily, First dose (after last modification) on [place] 01/18/25 at 2100, HOLD MEDICATION IF PATIENT HAS HAD BOWEL MOVEMENT. Start bowel management regimen if patient has not had a bowel movement after 12 hours. 0942 (Given - Provider: Marisa Lomeli RN)2112 (Given - Provider: Edison Ravi RN) 920 (Not Given - Provider: Meghan Nathan, JULISSA - Reason: Patient/family refused)2136 (Given - Provider: Edison Ravi RN) 924 (Not Given - Provider: Latia Ortega RN - Reason: Patient/family refused - Comment: large bm this a.m.) sodium chloride 0.9 % flush 10 mL 10 mL, Intravenous, Every 12 Hours Scheduled, First dose on [place] 01/15/25 at 1330 1033 (Given - Provider: Marisa Lomeli RN)2133 (Given - Provider: Edison Ravi RN) 1516 (Given - Provider: Latia Ortega, RN)220 (Canceled Entry - Provider: Edison Ravi RN) [...] for injection by adding 1 mL of sheet metal roofer-supplied sterile diluent or sterile water for injection [...] Edison Ravi RN)1302 (Given - Provider: Marisa Lomeli, RN)2114 (Given - Provider: Edison Ravi, RN) 0623 (Given - Provider: Edison Ravi, RN)1230 (Given - Provider: Latia Ortega, RN)2135 (Given - Provider: Edison Ravi RN) 0630 (Given - Provider: Edison Ravi RN - Comment: EPIC unable to load in room)1034 (Given - Provider: Latia Ortega, RN) naloxone (NARCAN) injection 0.4 mg(Linked Group [...] if polyethylene glycol is ineffective, Starting on Sun01/18/25 at 0927, Use if no bowel movement after 12 hours. Swallow whole. Do not crush, split, or chew tablet. And bisacodyl (DULCOLAX) suppository 10 mgJump to med 10 mg, Rectal, Daily PRN, Constipation, Use if bisacodyl oral is ineffective, Starting on Sun01/18/25 at 0927, Use if no bowel movement [...] ineffective documented in this encounter Care Teams Bobbin Coil Winder Relationship Specialty Start Date End Date Edison Harrell MD [address] [facility] [address] [facility] [place] [address] PCP - General Adolescent Medicine 03/30/16 documented as of this encounter
--- OUTSIDE RECORDS SUMMARY | 2025-01-22 12:36 | XMS_ITS | Encounter Summary ---
[facility] Address [address] [place] [address] Care Team Providers Care Pipelaying Fitter Name Role Phone Edison Harrell MD Primary Care Provider [phone] Reason for Visit * Auth/Cert Specialty Diagnoses / Procedures Referred By Contac t Referred To Contact Diagnoses Lumbar stenosis with neurogenic claudication Lumbar stenosis with neurogenic claudication [M48.062] Procedures IL ARTHRODESIS POSTERIOR INTERBODY 1 NTRSPC LUMBAR LUMBAR FUSION DECOMPRESSON WITH PEDICLE SCREWS- EXTEND FUSION L4-5 TO L2- L2-L4 LAMINECTOMY Referral ID Status Reason Start Date Expiration Date Visits Re quested Visits Authorized 1 1 Encounter Details Date Type Department Care Team (Late st Contact Info) Description 01/22/2025 12:36 PM EDT Anesthesia Event [facility] OR [address] [place] [address] Edison Zhang MD [address] [place] [address] Titi Jauregui MD [address] [place] [address] Anesthesia Record Procedure Summary Procedure Name Responsible Anesthesiologist Anesthesia Start Time Anesthesia Stop Time LUMBAR DRAIN PLACEMENT (Spine Lumbar) Edison Zhang MD 01/22/25 1236 01/22/25 1407 Events Date Time Event Comment 01/22/2025 1008 1109 AN Equip Check 1236 An Start The patient was reevaluated immediately before moderate or deep sedation use and before anesthesia induction. 1236 An Start Data 1245 An Induction 1247 An Intubation 1344 An Extubation 1347 Quick Note PACU hold 1359 an stop data 1407 Handoff to RN The following has been [...] of report from the receiving PACU/ICU team 1407 An Stop Meds Name Total propofol 10 MG/ML 200 mg lidocaine PF 1% 1 % 50 mg rocuronium 50 MG/5ML 50 mg ondansetron 2 mg/mL 4 mg dexAMETHasone 4 MG/ML 4 mg ePHEDrine Sulfate (Pressors) 50 MG/ML 7. 5 mg Phenylephrine HCl-NaCl 1000-0.9 MCG/10ML -% 500 mcg ceFAZolin 2000 mg IVPB in 100 mL NS (MBP ) 2,000 mg sugammadex 200 MG/2ML 200 mg fentaNYL citrate (PF) 100 MCG/2ML 100 mc g lactated ringers infusion 0 mL * Agents Name O2 N2O Air Sevoflurane Inspired Sevoflurane * Blood No blood administrations on file. Lines, Drains, and Airways Type Details Placement Removal Wound 01/15/25; lumbar spi ne; Surgical; Closed Surgi 01/15/25 0000 by Rita Alcazar RN Peripheral IV Placement Date: 08/12; Placement Time: 1008; Catheter Size: 20 G; Orientation: Anterior, Right; Location: Forearm; Site Prep: Chlorhexidine isopropyl alcohol; Local Anes: None; Technique: Anatomical landmarks; Inserted by: Nicolas Campoverde RN; Insertion Attempts: 1; Patient Tolerance: Tolerated well; Removal Date: 01/22/25; Removal Time: 17501/17/25 1008 by aRmya Campoverde RN 01/22/25 1757 by Andria Espinoza RN Urethral Catheter Placement Date: 12/10; Placement Time: 1929; Inserted by: Laura Clements RN; Type: Silicone; Size: 16 Fr.; Balloon Size: 10 mL; Urine Returned: Yes; Removal Date: 01/27/25; Removal Time: 1400 01/21/25 1930 by Yessi Clements RN 01/27/25 1400 by Marisa Lomeli RN Lumbar Drain Placement Date: 01/09; Size: (80cm x 1.5mm); Inserted by: WALT EM MD; Removal Date: 01/28/25; Removal Time: 0700; Removal Reason: Other (Comment) (by provider) 01/22/25 0000 by Lita Jain RN 01/28/25 0700 by Latia Ortega RN ETT Placement Date: 01/09; Placement Time: 1247 (created via procedure documentation); Blade Size: 3; Location: Oral; Removal Date: 01/22/25; Removal Time: 1344 01/22/25 1247 by Jeni Dawkins CRNA 01/22/25 1344 by Jeni Dawkins CRNA documented in this encounter Social History Tobacco Use Types Packs/Day Years Used Date Smoking Tobacco: Former Cigarettes 1 46.4 0 06/26/1973 - 11/10/2019 Passive Smoke Exposure: Never Smokeless Tobacco: Never Alcohol Use Standard Drinks/Week Comments No 0 (1 standard drink = 0.6 oz pur e alcohol) [facility] Utilities Answer Date Recorded In the past 12 months has [employer], or water [employer] threatened to shut off services in your [...] GED or equivalent No 01/16/2025 Preferred Language Central African 01/16/2025 Comments No Sex and Gender Information Value Date Recorded Sex Assigned at Female 10/21/2024 7:55 AM EDT Legal Sex Female 10:34 AM EDT Gender Identity Not on file Sexual Orientation Straight 10/21/2024 7: 55 AM EDT documented as of this encounter OR Notes * Anesthesia Postprocedure Evaluation - Jeni Dawkins CRNA - 01/22/2025 2:07 PM EDT Patient: Latosha Allison Procedure Summary Date: 01/22/25 Room / Location: [facility] [address] [place] [address] [facility] Anesthesia Start: 1236 Anesthesia Stop: 1407 Procedure: LUMBAR DRAIN PLACEMENT (Spine Lumbar) Diagnosis: Surgeons: Walt Em MD Provider: Edison Zhang MD Anesthesia Type: MAC ASA Status: 3 Anesthesia Type: MAC Vitals No vitals data found for the desired time range. Post Anesthesia Care and Evaluation Patient location during evaluation: PACU Patient participation: complete - patient participated Level of consciousness: awake Pain management: adequate Airway patency: patent Anesthetic complications: No anesthetic complications PONV Status: none Cardiovascular status: acceptable, hemodynamically stable and stable Respiratory status: acceptable and nasal cannula Hydration status: acceptable * Anesthesia Procedure Notes - Jeni Dawkins CRNA - 01/22/2025 12:57 PM EDT Associated Order(s): Airway Airway Reason: elective Date/Time: 01/22/2025 12:47 PM Airway not difficult General Information and Staff Patient location during procedure: OR [facility]/CAA: Jeni Dawkins CRNA Indications and Patient Condition Indications for airway management: airway protection Preoxygenated: yes MILS not maintained throughout Mask difficulty assessment: 1 - vent by mask Final Airway Details Final airway type: endotracheal airway Successful airway: ETT Cuffed: yes Successful intubation technique: video laryngoscopy Adjuncts used in placement: intubating stylet Endotracheal tube insertion site: oral Blade: Cerda Blade size: 3 ETT size (mm): 7.0 Cormack-Lehane Classification: grade I - full view of glottis Placement verified by: chest auscultation and capnometry Measured from: lips ETT/EBT to lips (cm): 20 Number of attempts at approach: 1 Assessment: lips, teeth, and gum same as pre-op and atraumatic intubation Additional Comments Negative epigastric sounds, Breath sound equal bilaterally with symmetric chest rise and fall * Anesthesia Preprocedure Evaluation - Titi Jauregui MD - 01/22/2025 10:04 AM EDT Images from the original note were not included. 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 CODE STATUS: Code Status (Patient has no pulse and is not breathing): CPR (Attempt to Resuscitate) Medical Interventions (Patient has pulse or is breathing): Full documented in this encounter Plan of Treatment Upcoming Encounters Date Type Department Care Team (Late st Contact Info) Description 04/08/2025 10:15 AM EDT Office Visit [facility] [address] [facility] [address] [place] [id number] Marjan Tran PA-C [address] [facility] [address] [place] [address] 10/29/2025 9:45 AM EDT Office Visit [facility] CARDIOLOGY [address] [place] [address] [address] [place] [address] Samir Thurman MD [address] [place] [address] Scheduled Procedures Name Priority Associated Diagnoses Date/Ti me LUMBAR LAMINECTOMY DISCECTOM Y DECOMPRESSION POSTERIOR 1-2 LEVELS Lumbar stenosis with neurogenic claudication documented as of this encounter Procedures Procedure Name Priority Date/Time Associated Diagnosis Comments ANESTHESIA INTUBATION Routine 01/22/2025 12:57 PM EDT documented in this encounter Results * BH AN ETT AIRWAY (01/22/2025 12:57 PM EDT) Narrative Jeni Dawkins CRNA - 01/22/2025 12:57 PM EDT Jeni Dawkins CRNA 01/22/2025 12:57 PM Airway Reason: elective Date/Time: 01/22/2025 12:47 PM Airway not difficult General Information and Staff Patient location during procedure: OR [facility]/CAA: Jeni Dawkins CRNA Indications and Patient Condition Indications for airway management: airway protection Preoxygenated: yes MILS not maintained throughout Mask difficulty assessment: 1 - vent by mask Final Airway Details Final airway type: endotracheal airway Successful airway: ETT Cuffed: yes Successful intubation technique: video laryngoscopy Adjuncts used in placement: intubating stylet Endotracheal tube insertion site: oral Blade: Cerda Blade size: 3 ETT size (mm): 7.0 Cormack-Lehane Classification: grade I - full view of glottis Placement verified by: chest auscultation and capnometry Measured from: lips ETT/EBT to lips (cm): 20 Number of attempts at approach: 1 Assessment: lips, teeth, and gum same as pre-op and atraumatic intubation Additional Comments Negative epigastric sounds, Breath sound equal bilaterally with symmetric chest rise and fall Jeni Dawkins CRNA ANESTHESIA ORDERABLES Final Re sult documented in this encounter Visit Diagnoses Not on filedocumented in this encounter Administered Medications Inactive Administered Medications - up to 3 most recent administrations Medication Order MAR Action Action Date Dose Rate Site ceFAZolin 2000 mg IVPB in 100 mL NS (MBP) 2,000 mg, Intravenous, Administer over 30 Minutes, Once, On [place] 01/22/25 at 1047, For 1 dose, Caution: Look alike/sound alike drug alert, Indications: Surgical ProphylaxisIndications:Surgical Prophylaxis New Bag 01/22/2025 12:48 PM EDT 2,000 mg dexAMETHasone (DECADRON) injection Intravenous, As Needed, Starting on [place] 01/22/25 at 1249 Given 01/22/2025 12:49 PM EDT 4 mg ePHEDrine Sulfate (Pressors) Intravenous, As Needed, Starting on [place] 01/22/25 at 1314 Given 01/22/2025 1:14 PM EDT 7.5 mg fentaNYL citrate (PF) (SUBLIMAZE) injection Intravenous, As Needed, Starting on [place] 01/22/25 at 1317 Given 01/22/2025 1:17 PM EDT 100 mcg lactated ringers infusion 9 mL/hr, Intravenous, Continuous, Starting on Sun01/23/25 at 0000, For 1 day, May switch to NS IV at O if renal / if indicated Restarted 01/22/2025 12:36 PM EDT New Bag 01/22/2025 10:41 AM EDT 9 mL/hr 9 mL/hr lidocaine PF 1% (XYLOCAINE) injection Intravenous, As Needed, Starting on [place] 01/22/25 at 1245 Given 01/22/2025 12:45 PM EDT 50 mg ondansetron (ZOFRAN) injection Intravenous, As Needed, Starting on [place] 01/22/25 at 1252 Given 01/22/2025 12:52 PM EDT 4 mg Phenylephrine HCl-NaCl 100 mcg/ml injection Intravenous, As Needed, Starting on [place] 01/22/25 at 1250 Given 01/22/2025 1:13 PM EDT 100 mcg Given 01/22/2025 1:02 PM EDT 100 mcg Given 01/22/2025 12:52 PM EDT 200 mcg propofol (DIPRIVAN) injection Intravenous, As Needed, Starting on [place] 01/22/25 at 1245 Given 01/22/2025 12:45 PM EDT 200 mg rocuronium (ZEMURON) injection Intravenous, As Needed, Starting on [place] 01/22/25 at 1246 Given 01/22/2025 12:46 PM EDT 50 mg sugammadex (BRIDION) injection Intravenous, As Needed, Starting on [place] 01/22/25 at 1342 Given 01/22/2025 1:42 PM EDT 200 mg documented in this encounter Care Teams Pipelaying Fitter Relationship Specialty Start Date End Date Edison Harrell MD [address] [facility] [address] [place] [address] PCP - General Adolescent Medicine 03/30/16 documented as of this encounter
--- OUTSIDE RECORDS SUMMARY | 2025-02-06 06:30 | XMS_ITS ---
Author Organization [facility] Address [address] [place] [address] Care Team Providers Care Utility [employer] Name Role Phone Edison Harrell Primary Care Provider Allergies Allergen (clinical drug ingredient) Drug/Non Drug Allergy documented on EMR Reaction Allergy Type Onset Date Status amoxicillin / clavulanate Augmentin yeast issues Drug Allergy Active REASON FOR VISIT Hosp. FU d/c 01/29/2025, Back surgery Medications Medication SIG (Take, Route, Frequency, Duration) Notes Start Date End Date Status Meloxicam 15 mg TAKE ONE TABLET BY MOUTH EVERY DAY; Duration: 90 Active Aspirin Low Dose 81 MG TAKE ONE TABLET BY MOUTH EVERY DAY; Duration: 90 Active Ezetimibe 10 mg TAKE ONE TABLET BY MOUTH EVERY DAY; Duration: 90 Active Nystatin 789059 UNIT/GM 1 application Externally Twice a day; Duration: 5 days 10/01/2024 Active dilTIAZem HCl ER Coated Beads 180 mg TAKE TWO CAPSULES BY MOUTH EVERY DAY; Duration: 90 Active Omeprazole 40 MG 1 cap(s) orally once a day; Duration: 90 days Active Venlafaxine HCl ER 37.5 MG 1 cap(s) orally once a day; Duration: 90 days Active Metoclopramide HCl 10 MG 1 tab(s) orally nightly; Duration: 90 days Active Carvedilol 12.5 MG TAKE ONE TABLET BY MOUTH TWICE DAILY orally 2 times a day; Duration: 90 days Active Crestor 40 MG 1 tab(s) orally once a day; Duration: 90 days Active Tylenol Extra Strength 500 MG 2 tab(s) orally every 6 hours; Duration: 90 days prn Active Nitroglycerin 0.4 MG 1 tab(s) sublingually every 5 minutes prn; Duration: 30 days 01/11/2016 Active C-PAP MASK AND SUPPLIES DIRECTED; Duration: 30 DAYS *Please review for potential replacement for e-prescription and drug interaction check* 05/03/2020 Active Flonase Allergy Relief 50 MCG/ACT 1 spray(s) in each nostril once a day; Duration: 90 day(s) 12/09/2020 Active C-PAP MACHINE SETTINGS ARE FROM 10-14 DIRECTED DX: CARLOS *Please review for potential replacement for e-prescription and drug interaction check* 05/03/2020 Active Allergy Relief 4 MG 1 tab(s) orally every 6 hours Active Entresto 49-51 MG 1 tab(s) orally 2 times a day Active C-PAP MASK AND SUPPLIES DIRECTED DX: CARLOS; Duration: 30 DAYS *Please review for potential replacement for e-prescription and drug interaction check* 04/07/2020 Active Tums 500 MG 2 tabs chewed qhs prn Active FREESTYLE LITE GLUCOSE TEST STRIPS DIRECTED TEST TWICE DAILY; Duration: 90 DAYS *Please review for potential replacement for e-prescription and drug interaction check* 01/11/2016 Active metFORMIN HCl 500 MG 1 tablet with a meal Orally Once a day Active Colace 100 MG 2 caps Orally every night Active Lyrica 75 MG 1 capsule Orally twice a day Active MiraLax 17 GM/SCOOP as directed Orally Active Problems Problem Type SNOMED Code ICD Code Onset Dates Problem Status W/U Status Risk Notes Problem Essential hypertension (27957070) Hypertension, essential (I10) Active confirmed Vital Signs Temperature 97.2 degrees Fahrenheit 02/07/20 25 Blood pressure systolic 122 mm Hg 02/07/20 25 Blood pressure diastolic 76 mm Hg 025 Heart Rate 68 /min 02/06/2025 Height 5 ft 4 in in 02/06/2025 Weight 222.2 lbs 02/06/2025 BMI 38.14 kg/m2 02/06/2025 Encounters Encounter Location Date Provider Diagnosis [facility] [address] [place] [address] 02/06/2025 Edison Harrell Cerebrospinal fluid leak from spinal puncture G97.0 ; Spondylolisthesis, lumbar region M43.16 ; Hypertension, essential I10 and Hospital discharge follow-up Z09 Assessments Encounter Date Diagnosis (ICD Code) Assessment Notes Treatment Notes Treatment Clinical Notes Section Notes 02/06/2025 Cerebrospinal fluid leak from spinal puncture (ICD-10 - G97.0) No evidence of leak clinically or on dressing or symptomatically as patient's headaches are improving. Follows with neurosurgery today for wound check and suture removal 02/06/2025 Spondylolisthesis , lumbar region (ICD-10 - M43.16) Pain improving. Continue observation, stay off meloxicam given need for bone healing 02/06/2025 Hypertension, essential (ICD-10 - I10) Has resumed all blood pressure medication. No changes in plan 02/06/2025 Hospital discharge follow-up (ICD-10 - Z09) Personally reviewed H&P and discharge summary as available from hospital discharge documentation. Reviewed pertinent labs and test done in the hospital. Personally reconciled medication. Plan Of Treatment Treatment Notes Assessment Notes Cerebrospinal fluid leak fro m spinal puncture No evidence of leak clinically or on dressing or symptomatically as patient's headaches are improving. Follows with neurosurgery today for wound check and suture removal Spondylolisthesis, lumbar region Pain im proving. Continue observation, stay off meloxicam given need for bone healing Hypertension, essential Has resumed all blood pressure medication. No changes in plan Hospital discharge follow-up Personally reviewed H&P and discharge summary as available from hospital discharge documentation. Reviewed pertinent labs and test done in the hospital. Personally reconciled medication. Next Appt Details Follow Up: prn, Reason: Provider Name:Edison Harrell, 05/25/2025 09:45:00 AM, [address], [place], [address], Progress Notes * Latosha ALLISONB:1955 (69 yo F)Acc No.[id number]:02/06/2025 HOSP F/U Patient: Chelsy PANIAGUAty Jo Provider: Shawna Harrell MD :1955 A ge:69 Y S ex:Female Date:02/06/2025 Address:[address], [id number] Subjective: * Chief Complaints: * 1 . Hosp. FU d/c 01/29/2025, Back surgery. * HPI: I ntrim History: Transition of care visit from hospital D ate of admission to hospital: 0 01/15/2025, D ate of receipt of hospital admission report: 0 01/16/2025,?Date of discharge from hospital: 0 01/31/2025, D ate of receipt of hospital discharge summary: 0 02/02/2025, D ischarge medications reviewed and reconciled from hospital: M edications left unchanged. Here for hospital discharge follow-up. Had elective back surgery, complicated by dura mater leak during removal of old hardware that had migrated into the dura. Had significant spinal leak. Spent most of the hospital stay flat on her back with the drain. Eventually leak was stopped, she thinks the surgery was helpful, she feels pretty good. Is walking on her walker. Already able to straighten up and be in less pain when she walks. Is seen neurosurgery today. * Medical History: H ypertension, CAD - cabg 2009 - [facility] with ALYSSA 06/10, Hypercholestrolemia, type II diabetes, Colonoscopy 07/2018, hyperplastic polyp- repeat 2028, osteoporosis 2018 DEXA - 10/10 Dexa normal in spine, mild osteopenia in hips, negative low-dose CT scan June 2019 and in 07/2021 and 07/2022 and 10/10, Normal mammogram 06/2020 [address] 08/10 and 10/10, Thyroid ultrasound March 2021 with small bilateral [id number] follow-up recommended, CHF, Spinal stenosis. * Surgical History: B kamron tooth-extracted 10/2015, cataract surgery -removal of scar tissue march, eye lid surgeries 2018, colonoscopy 2018, cataract surgery x 2 05/2018, cardiac stent 05/2024, back surgery 12/2024. * Hospitalization/Major Diagno stic Procedure: U K-back surgery 12/2024. * Family History: F ather: , CAD, PE, Parkinsons. M other: , cancer, HTN, CAD. P aternal Grand Father: . P aternal Grand Mother: . M aternal Grand Father: . Maternal Grand Mother: . P aternal uncle: . S iblings: alive, one brother --cancer. Luis Alberto elam: alive. 2 brother(s) , 2 sister(s) - healthy. 1 son(s) , 1 daughter(s) . . * Social History: S moking A re you a:: nonsmoker. R ecreational drug use: no. Exercise: no. Home smoke detector use: yes. Caffeine: yes, frequency:coffee-3-4 cups per day. Living Will: Yes. Alcohol: no. Sexually active: yes. Travel outside [place]: no. 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 * Medications: T aking MiraLax 17 GM/SCOOP Powder as directed Orally , Taking Colace 100 MG Capsule 2 caps Orally every night , Taking Lyrica 75 MG Capsule 1 capsule Orally twice a day , Taking metFORMIN HCl 500 MG Tablet 1 tablet with a meal Orally Once a day , Taking Entresto 49-51 MG Tablet 1 tab(s) orally 2 times a day , Taking Allergy Relief 4 MG Tablet 1 tab(s) orally every 6 hours , Taking Tums 500 MG Tablet Chewable 2 tabs chewed qhs prn , Taking FREESTYLE LITE GLUCOSE TEST STRIPS FOR DIABETIC TESTING DIRECTED TEST TWICE DAILY , Notes to Pharmacist: *Please review for potential replacement for e-prescription and drug interaction check*, Taking C-PAP MASK AND SUPPLIES DIRECTED DX: CARLOS , Notes to Pharmacist: *Please review for potential replacement for e-prescription and drug interaction check*, Taking C-PAP MACHINE SETTINGS ARE FROM 10-14 DIRECTED DX: CARLOS , Notes to Pharmacist: *Please review for potential replacement for e-prescription and drug interaction check*, Taking C- PAP MASK AND SUPPLIES DIRECTED , Notes to Pharmacist: *Please review for potential replacement for e-prescription and drug interaction check*, Taking Flonase Allergy Relief 50 MCG/ACT Suspension 1 spray(s) in each nostril once a day , Taking Tylenol Extra Strength 500 MG Tablet 2 tab(s) orally every 6 hours , Notes to Pharmacist: prn, Taking Nitroglycerin 0.4 MG Tablet Sublingual 1 tab(s) sublingually every 5 minutes prn , Taking Omeprazole 40 MG Capsule Delayed Release 1 cap(s) orally once a day , Taking Venlafaxine HCl ER 37.5 MG Capsule Extended Release 24 Hour 1 cap(s) orally once a day , Taking Crestor 40 MG Tablet 1 tab(s) orally once a day , Taking Metoclopramide HCl 10 MG Tablet 1 tab(s) orally nightly , Taking Carvedilol 12.5 MG Tablet TAKE ONE TABLET BY MOUTH TWICE DAILY orally 2 times a day , Taking Nystatin 192448 UNIT/GM Powder 1 application Externally Twice a day , Taking dilTIAZem HCl ER Coated Beads 180 mg Capsule Extended Release 24 Hour TAKE TWO CAPSULES BY MOUTH EVERY DAY , Taking Aspirin Low Dose 81 MG Tablet Delayed Release TAKE ONE TABLET BY MOUTH EVERY DAY , Taking Ezetimibe 10 mg Tablet TAKE ONE TABLET BY MOUTH EVERY DAY , Taking Meloxicam 15 mg Tablet TAKE ONE TABLET BY MOUTH EVERY DAY , Medication List reviewed and reconciled with the patient * Allergies: A ugmentin: yeast issues - Side Effects. Objective: * Vitals: N urse: be, Pain: 3, Temp: 97.2, RR: 16, HR: 68, BP: 122/76, Ht: 5 ft 4 in, Wt: 222.2, BMI:38.14. * Physical Examination: A lert, pleasant. Oriented x 3. Lungs clear. No edema in her legs. Dressing dry. No leakage. Sensorium normal, no neck stiffness. Able to walk well with her walker with no antalgia. Assessment: * Assessment: 1. C erebrospinal fluid leak from spinal puncture - G97.0 (Primary) 2 . S pondylolisthesis, lumbar region - M43.16 3 . H ypertension, essential - I10 ? 4 . H ospital discharge follow-up - Z09 Plan: * Treatment: 2. S pondylolisthesis, lumbar region Notes: Pain improving. Continue observation, stay off meloxicam given need for bone healing ? 3. H ypertension, essential Notes: Has resumed all blood pressure medication. No changes in plan 4. H ospital discharge follow-up Notes: Personally reviewed H&P and discharge summary as available from hospital discharge documentation. Reviewed pertinent labs and test done in the hospital. Personally reconciled medication. * Procedure Codes: 9 9496 TRANS CARE MGMT 7 DAY DISCH, Modifiers: 25 , 1111F [facility] MED/[facility] MED MERGE * Follow Up: p rn * * Sign off status: Completed true * Provider: Shawna Harrell MD Date: 0 02/06/2025 Generated for Nash powell/Buzz/eTharrisonitting on: 0 03/02/2025 08:53 AM EDT History and Physical Notes * HPI (History of Present Illness) Category Sub-Category Detail Notes Category Not es [place]trim History Transition of care visit from hospital Date of admission to hospital:: 01/15/2025 Here for hospital discharge follow-up. Had elective back surgery, complicated by dura mater leak during removal of old hardware that had migrated into the dura. Had significant spinal leak. Spent most of the hospital stay flat on her back with the drain. Eventually leak was stopped, she thinks the surgery was helpful, she feels pretty good. Is walking on her walker. Already able to straighten up and be in less pain when she walks. Is seen neurosurgery today Date of receipt of hospital admission re port:: 01/16/2025 Date of discharge from hospital:: 2024 Date of receipt of hospital discharge kaminski mmary:: 02/02/2025 Discharge medications review ed and reconciled from hospital:: Medications left unchanged Physical Examination Category Sub-Category Detail Notes Section Note s Alert, pleasant. Oriented x 3. Lungs clear. No edema in her legs. Dressing dry. No leakage. Sensorium normal, no neck stiffness. Able to walk well with her walker with no antalgia
--- OUTSIDE RECORDS SUMMARY | 2025-02-06 14:00 | XMS_ITS | Encounter Summary ---
[facility] Address [address] [place] [address] Care Team Providers Care Vegetable Loader Name Role Phone Edison Harrell MD Primary Care Provider [phone] Reason for Referral * Diagnostic Imaging (Routine) - Closed Specialty Diagnoses / Procedures Referred By Contac t Referred To Contact Radiology Diagnoses Lumbar stenosis with neurogenic claudication S/P lumbar spinal fusion Procedures XR Spine Lumbar 2 or 3 View Marjan Tran PA-C [address] [address] Phone: tel: fax: [facility] [address] [place] [address] Phone: tel: Referral ID Status Reason Start Date Expiration Date Visits Re quested Visits Authorized Closed 02/06/2025 05/08/2026 1 1 Reason for Visit * Reason Comments Post-op Encounter Details Date Type Department Care Team (Late st Contact Info) Description 02/06/2025 2:00 PM EDT Office Visit [facility] [address] [phone] Marjan Tran PA-C [address] [place] [address] Lumbar stenosis with neurogenic claudication (Primary Dx); S/P lumbar spinal fusion Social History Tobacco Use Types Packs/Day Years Used Date Smoking Tobacco: Former Cigarettes 1 46.4 0 06/26/1973 - 11/10/2019 Passive Smoke Exposure: Never Smokeless Tobacco: Never Tobacco Cessation:Counseling Given: Not Answered Alcohol Use Standard Drinks/Week Comments No 0 (1 standard drink = 0.6 oz pur e alcohol) [facility] Utilities Answer Date Recorded In the past 12 months has e [employer], oil, or water [employer] threatened to shut off services in your [...] GED or equivalent No 01/16/2025 Preferred Language Stateless 01/16/2025 PHQ-2 Answer Date Recorded Patient Health Questionnaire-9 Score 0 02/04/2025 Comments No Sex and Gender Information Value Date Recorded Sex Assigned at Female 10/21/2024 7:55 AM EDT Legal Sex Female 10:34 AM EDT Gender Identity Not on file Sexual Orientation Straight 10/21/2024 7: 55 AM EDT documented as of this encounter Last Filed Vital Signs Vital Sign Reading Time Taken Comments Blood Pressure 130/62 02/06/2025 1:47 PM EDT Pulse - - Temperature 36.1 C (97 F) 02/06/2025 1:47 PM EDT Respiratory Rate - - Oxygen Saturation - - Inhaled Oxygen Concentration - - Weight 99.8 kg (220 lb) 02/06/2025 1:47 PM EDT Height 162.6 cm (5' 4 ) 02/06/2025 1:47 PM EDT Body Mass Index 37.76 02/06/2025 1:47 PM EDT documented in this encounter Progress Notes * Marjan Tran PA-C - 02/06/2025 2:00 PM EDT Subjective Chief Complaint: Low back and right leg pain with walking and standing intolerance S/p lumbar fusion extension Patient ID: Latosha Allison is a 69 y.o. female is here today for follow-up. Post-op Pain Control: Well controlled Fever: No fever Diet: Adequate intake Activity: Impaired due to weakness Operative Site Issues: No Post-op Follow-up Pain Control: Well controlled Fever: No fever Diet: Adequate intake Activity: Impaired due to weakness Operative Site Issues: No History of Present Illness Ms. Allison is a 69 y.o. woman with CHF, CAD, HTN, DM that underwent a lumbar fusion nearly 30 years ago by another provider. She presented with predominantly right lower extremity pain with walkingand standing intolerance. Studies demonstrated high-grade stenosis at the L2-3 and L3-4 levels above her prior construct, thus she underwent additional decompression and fusion extension to the L2-3 level from the prior construct. Surgery was complicated by a dural rent that was closed intraoperatively with suturable duragen. Hospital Course: She was admitted to the floor for observation on strict bedrest with a Harden catheter in place. It was noted around [...] with a home health orderon POD #14. She is here today for wound check and suture removal. She has done very well in terms of her back pain and leg pain. She is no longer taking pain medication. She is taking Tylenol periodically as needed. She also notes some sensitive to touch in the right inner thigh which was not there previously but is not bothersome unless there is pressure in that area. She does have a frontal headache if shesits for longer periods of time. If she reclines or walks it will disappear. She has not had any drainage or swelling of her incision The following portions of the patient's history were reviewed and updated as appropriate: allergies, current medications, past family history, past medical history, past social history, past surgicalhistory and problem list. Family history: Family History Problem Relation Age of Onset Cancer Mother Hypertension Mother Hyperlipidemia Mother Arrhythmia Mother Hypertension Father Hyperlipidemia Father Heart attack Father Arthritis Father Cancer Brother Social history: Social History Socioeconomic History Marital status: Tobacco Use Smoking status: Former Current packs/day: 0.00 Average packs/day: 1 pack/day for 46.4 years (46.4 ttl pk-yrs) Types: Cigarettes Start date: 06/26/1973 Quit date: 11/10/2019 Years since quittin.2 Passive exposure: Never Smokeless tobacco: Never Vaping Use Vaping status: Never Used Substance and Sexual Activity Alcohol use: No Drug use: No Sexual activity: Not Currently Partners: Male control/protection: Post-menopausal Review of Systems Constitutional: Negative for activity change, appetite change, chills, diaphoresis, fatigue, fever and unexpected weight change. HENT: Negative for congestion, dental problem, drooling, ear discharge, ear pain, facial swelling, hearing loss, mouth sores, nosebleeds, postnasal drip, rhinorrhea, sinus pressure, sinus pain, sneezing, sore throat, tinnitus, trouble swallowing and voice change. Eyes: Negative for photophobia, pain, discharge, redness, itching and visual disturbance. Respiratory: Negative for apnea, cough, choking, chest tightness, shortness of breath, wheezing andstridor. Cardiovascular: Negative for chest pain, palpitations and leg swelling. Gastrointestinal: Negative for abdominal distention, abdominal pain, anal bleeding, blood in stool,constipation, diarrhea, nausea, rectal pain and vomiting. Endocrine: Negative for cold intolerance, heat intolerance, polydipsia, polyphagia and polyuria. Genitourinary: Negative for decreased urine volume, difficulty urinating, dyspareunia, dysuria, enuresis, flank pain, frequency, genital sores, hematuria, menstrual problem, pelvic pain, urgency, vaginal bleeding, vaginal discharge and vaginal pain. Musculoskeletal: Negative for arthralgias, back pain, gait problem, joint swelling, myalgias, neck pain and neck stiffness. Skin: Negative for color change, pallor, poor wound healing, rash and wound. Allergic/Immunologic: Negative for environmental allergies, food allergies and immunocompromised state. Neurological: Negative for dizziness, tremors, seizures, syncope, facial asymmetry, speech difficulty, weakness, light-headedness, numbness and headaches. Hematological: Negative for adenopathy. Does not bruise/bleed easily. Psychiatric/Behavioral: Negative for agitation, behavioral problems, confusion, decreased concentration, dysphoric mood, hallucinations, self-injury, sleep disturbance and suicidal ideas. The patientis not nervous/anxious and is not hyperactive. Objective Blood pressure 130/62, temperature 97 ??F (36.1 ??C), temperature source Infrared, height 162.6 cm (64 ), weight 99.8 kg (220 lb). Body mass index is 37.76 kg/m??. Physical Exam Constitutional: Appearance: Normal appearance. Eyes: Pupils: Pupils are equal, round, and reactive to light. Cardiovascular: Pulses: Normal pulses. ____Pulmonary: Effort: Pulmonary effort is normal. Breath sounds: Normal breath sounds. Musculoskeletal: Comments: Gait slow and mildly antalgic, but steady and independent with no foot drop. Skin: Comments: Incision clean, dry, and intact with no swelling, tenderness, or erythema.. sutures were cleaned well with alcohol swabs and sutures were removed in the office today. There was some minor bleeding from the lumbar drain insertion site as her skin had grown over part of the suture, but her incision is intact. _Neurological: General: No focal deficit present. Mental Status: alert and oriented to person, place, and time. Psychiatric: Mood and Affect: Mood normal. Behavior: Behavior normal. Assessment & Plan Ms Allison is doing well overall. She will recline when sitting. She will continue to avoid lifting over 5lbs. I will plan to see her back in the office in about 3 weeks with AP and lateral x-rays of the lumbar spine. She will call the office if she has any new drainage or other concern with her incision Diagnoses and all orders for this visit: 1. Lumbar stenosis with neurogenic claudication (Primary) - XR Spine Lumbar 2 or 3 View; Future 2. S/P lumbar spinal fusion - XR Spine Lumbar 2 or 3 View; Future Return in about 3 weeks (around 02/27/2025). This document signed by .Marjan Tran PA-C February 06, 2025 16:24 EDT documented in this encounter Plan of Treatment Upcoming Encounters Date Type Department Care Team (Late st Contact Info) Description 04/08/2025 10:15 AM EDT Office Visit [facility] [address] [facility] [address] [place] [id number] Marjan Tran PA-C [address] [facility] [address] [place] [address] 10/29/2025 9:45 AM EDT Office Visit [facility] C[facility] [address] [place] [address] [place] [address] Samir Thurman MD [address] [facility] [address] [place] [address] Scheduled Procedures Name Priority Associated Diagnoses Date/Ti me LUMBAR LAMINECTOMY DISCECTOM Y DECOMPRESSION POSTERIOR 1-2 LEVELS Lumbar stenosis with neurogenic claudication documented as of this encounter Results * XR Spine Lumbar 2 or 3 View (02/13/2025 10:46 AM EDT) Anatomical Region Laterality Modality Spine, L-spine N/A Radiographic Gabriella ging 02/19/2025 10:5 2 AM EDT Impressions 02/19/2025 10:59 AM EDT Impression: Stable postoperative changes of posterior lumbar and interbody fusion, involving the L2 through L5 levels. No new abnormality of alignment is seen. Appearance of mild progression of degenerative disc disease at L1-2. Electronically Signed: Corey Rome MD 02/19/2025 10:59 AM EDT Workstation ID: [id number] Narrative 02/19/2025 10:59 AM EDT XR SPINE LUMBAR 2 OR 3 VW Date of Exam: 02/13/2025 10:40 AM EDT Indication: s/p lumbar fusion extension. Comparison: Lumbar flexion and extension views 12/09/2024. Intraoperative lumbar images of 01/22/2025 Findings: Interbody fusion is again noted at L2-3 and L3-4, right-sided pedicle screws at L2, L3, and L5, left-sided pedicle screws at L2, L3, and L4. Hardware appears to be intact. A mild levoconvex scoliosis is again seen, actually slightly less prominent than on 06/14/2024. No new abnormality of alignment is seen. Compared to the most recent available plain film series, the flexion and extension images of 12/09/2024, L1-2 degenerative disc changes appear a little increased. No compression deformity or new abnormality of alignment is seen. Procedure Note Corey Rome MD - 02/19/2025 XR SPINE LUMBAR 2 OR 3 VW Date of Exam: 02/13/2025 10:40 AM EDT Indication: s/p lumbar fusion extension. Comparison: Lumbar flexion and extension views 12/09/2024. Intraoperativelumbar images of 01/22/2025 Findings: Interbody fusion is again noted at L2-3 and L3-4, right-sided pediclescrews at L2, L3, and L5, left-sided pedicle screws at L2, L3, and L4.Hardware appears to be intact. A mild levoconvex scoliosis is again seen,actually slightly less prominent than on 06/14/2024. No new abnormality of alignment is seen. Compared to the most recent available plain film series, the flexion andextension images of 12/09/2024, L1-2 degenerative disc changes appear alittle increased. No compression deformity or new abnormality of alignmentis seen. IMPRESSION: Impression: Stable postoperative changes of posterior lumbar and interbody fusion,involving the L2 through L5 levels. No new abnormality of alignment isseen. Appearance of mild progression of degenerative disc disease atL1-2. Electronically Signed: Corey Rome MD 02/19/2025 10:59 AM EDT Workstation ID: [id number] us Marjan Tran PA-C IMG DIAGNOSTIC IMAGING ORDER ESDRAS Final Result documented in this encounter Visit Diagnoses Diagnosis Lumbar stenosis with neurogenic claudication- Primary S/P lumbar spinal fusion Arthrodesis status Lumbar stenosis with neurogenic claudication S/P lumbar spinal fusion Arthrodesis status documented in this encounter Care Teams Vegetable Loader Relationship Specialty Start Date End Date Edison Harrell MD [address] [facility] [address] [place] [address] PCP - General Adolescent Medicine 03/30/16 documented as of this encounter
--- OUTSIDE RECORDS SUMMARY | 2025-02-13 10:39 | XMS_ITS | Encounter Summary ---
[facility] Address [address] [place] [address] Care Team Providers Care Hot Dog Vender Name Role Phone Edison Harrell MD Primary Care Provider [phone] Reason for Referral * Diagnostic Imaging (Routine) - Closed Specialty Diagnoses / Procedures Referred By Contac t Referred To Contact Radiology Diagnoses Lumbar stenosis with neurogenic claudication S/P lumbar spinal fusion Procedures XR Spine Lumbar 2 or 3 View Marjan Tran PA-C [address] [place] [address] Phone: tel: fax: [facility] [address] [place] [address] Phone: tel: Referral ID Status Reason Start Date Expiration Date Visits Re quested Visits Authorized Closed 02/06/2025 05/08/2026 1 1 Reason for Visit * Diagnostic Imaging (Routine) - Closed Specialty Diagnoses / Procedures Referred By Contac t Referred To Contact Radiology Diagnoses Lumbar stenosis with neurogenic claudication S/P lumbar spinal fusion Procedures XR Spine Lumbar 2 or 3 View Marjan Tran PA-C [address] [address] Phone: tel: fax: [facility] [address] [place] [address] Phone: tel: Referral ID Status Reason Start Date Expiration Date Visits Re quested Visits Authorized Closed 02/06/2025 05/08/2026 1 1 Encounter Details Date Type Department Care Team (Late st Contact Info) Description 02/13/2025 10:39 AM EDT - 02/13/2025 11:59 PM EDT Hospital Encounter [facility] [address] [place] [address] Marjan Tran PA-C [address] [facility] [address] [place] [address] Lumbar stenosis with neurogenic claudication; S/P lumbar spinal fusion Discharge Disposition: Home or Self Care Social History Tobacco Use Types Packs/Day Years Used Date Smoking Tobacco: Former Cigarettes 1 46.4 0 06/26/1973 - 11/10/2019 Passive Smoke Exposure: Never Smokeless Tobacco: Never Alcohol Use Standard Drinks/Week Comments No 0 (1 standard drink = 0.6 oz pur e alcohol) [facility] Utilities Answer Date Recorded In the past 12 months has [employer], gas, oil, or water [employer] threatened to shut off services in your [...] GED or equivalent No 01/16/2025 Preferred Language Vietnamese 01/16/2025 PHQ-2 Answer Date Recorded Patient Health Questionnaire-9 Score 0 02/04/2025 Comments No Sex and Gender Information Value Date Recorded Sex Assigned at Female 10/21/2024 7:55 AM EDT Legal Sex Female 10:34 AM EDT Gender Identity Not on file Sexual Orientation Straight 10/21/2024 7: 55 AM EDT documented as of this encounter Medications at Time of Discharge [...] 01/05/2025 5 documented as of this encounter Plan of Treatment Upcoming Encounters Date Type Department Care Team (Late st Contact Info) Description 04/08/2025 10:15 AM EDT Office Visit [facility] [address] [facility] [address] [place] [address] Marjan rTan PA-C [address] [facility] [address] [place], [place] [id number] 10/29/2025 9:45 AM EDT Office Visit [facility] C[facility] [address] [place] [address] [place] [address] Samir Thurman MD [address] [facility] [address] [place] [address] Scheduled Procedures Name Priority Associated Diagnoses Date/Ti me LUMBAR LAMINECTOMY DISCECTOM Y DECOMPRESSION POSTERIOR 1-2 LEVELS Lumbar stenosis with neurogenic claudication documented as of this encounter Procedures Procedure Name Priority Date/Time Associated Diagnosis Comments XR SPINE LUMBAR 2 OR 3 VW Routine 02/13/2025 10:46 AM EDT Lumbar stenosis with neurogenic claudication S/P lumbar spinal fusion documented in this encounter Results * XR Spine Lumbar [...] MD 02/19/2025 10:59 AM EDT Workstation ID: [id number] Narrative 02/19/2025 10:59 AM EDT XR SPINE [...] MD 02/19/2025 10:59 AM EDT Workstation ID: [id number] Marjan Tran PA-C IMG DIAGNOSTIC IMAGING ORDER ESDRAS Final Result documented in this encounter Visit Diagnoses Diagnosis Lumbar stenosis with neurogenic claudication S/P lumbar spinal fusion Arthrodesis status documented in this encounter Care Teams Hot Dog Vender Relationship Specialty Start Date End Date Besson, Edison A, MD [address] [place] [facility] [address] [place] [address] PCP - General Adolescent Medicine 03/30/16 documented as of this encounter
--- OUTSIDE RECORDS SUMMARY | 2025-02-18 10:00 | XMS_ITS | Encounter Summary ---
[facility] Address [address] [place] [address] Care Team Providers Care Floor Technician Name Role Phone Edison Harrell MD Primary Care Provider [phone] Reason for Referral * Physical Therapy (Routine) - Closed Specialty Diagnoses / Procedures Referred By Contac t Referred To Contact Physical Therapy Diagnoses Lumbar stenosis with neurogenic claudication S/P lumbar spinal fusion Procedures TX OFFICE/OUTPATIENT NEW MODERATE MDM 45 MINUTES Marjan Tran PA-C [address] [facility] [address] [place] [address] Phone: tel: fax: [facility] - OUTPT PHYSICAL THER[facility] [address] [place] [address] Phone: tel: fax: Referral ID Status Reason Start Date Expiration Date V isits Requested Visits Authorized [id number] Closed Specialty Services Required 02/18/2025 05/20/2026 1 1 Reason for Visit * Reason Comments Post-op Lumbar Fusion L4-5, 01/15/2025Lumbar Drain Placement, 01/22/2025 Encounter Details Date Type Department Care Team (Late st Contact Info) Description 02/18/2025 10:00 AM EDT Office Visit [facility] [address] [facility] [address] [place] [id number] Marjan Tran PA-C [address] [facility] [address] [place] [address] Lumbar stenosis with neurogenic claudication (Primary Dx); S/P lumbar spinal fusion Social History Tobacco Use Types Packs/Day Years Used Date Smoking Tobacco: Former Cigarettes 1 46.4 0 06/26/1973 - 11/10/2019 Passive Smoke Exposure: Never Smokeless Tobacco: Never Tobacco Cessation:Counseling Given: No Alcohol Use Standard Drinks/Week Comments No 0 (1 standard drink = 0.6 oz pur e alcohol) [facility] [employer] Answer Date Recorded In the past 12 months has th e [facility], gas, oil, or water company threatened to [...] none 01/28/2025 Family and Community Support Answer Crisitan e Recorded If for any reason you [...] GED or equivalent No 01/16/2025 Preferred Language Belizean 01/16/2025 PHQ-2 Answer Date Recorded Patient Health [...] Pressure - - Pulse - - Temperature 36.7 C (98.1 F) 02/18/2025 9:44 AM EDT Respiratory Rate - - Oxygen Saturation - - Inhaled Oxygen Concentration - - Weight 102 kg (224 lb 4.8 oz) 02/18/2025 9:44 AM EDT Height 162.6 cm (5' 4 ) 02/18/2025 9:44 AM EDT Body Mass Index 38.5 02/18/2025 9:44 AM EDT documented in this encounter Progress Notes * Marjan Tran PA-C - 02/18/2025 10:00 AM EDT Subjective Chief Complaint: Low back and right leg pain with walking and standing intolerance S/p lumbar fusion extension Dural tear and lumbar drain postop Patient ID: Latosha Allison is a 69 y.o. female is here today for follow-up. Post-op Pain Control: Well controlled Fever: No fever Diet: Adequate intake Activity: Returning to normal Operative Site Issues: No Post-op Follow-up Pain Control: Well controlled Fever: No fever Diet: Adequate intake Activity: Returning to normal Operative Site Issues: No History of Present [...] to the L2-3 level from the prior construct on 01/15/25. Surgery was complicated by a dural rent that was closed intraoperatively with suturable duragen. Hospital Course: She was admitted to the floor for observation on strict bedrest. Her incision continued to drain and ultimately she was taken back to the OR on POD #7 (01/22/2025). For a lumar drain. A lumbar drain was placed after several attempts and approaches. A Payne drain was attached. The patient experienced some headache with the lumbar drain in. She was continued on strict bedrest. She had some lower back and right hip pain, bilateral thigh pain, that responded to pain medicines and ice. Her drain was clamped on POD #12/5 and slowly mobilized.. PT/OT again evaluated and recommended home with 08/01 care or home health. Her lumbar drain was discontinued. She ultimately discharged home with a rolling walker with a home health order on POD #14. She was seen in the office on 02/06/2025 for wound check and suture removal. Her back and leg pain were much better and she is taking only Tylenol arthritis periodically. She was having some intermittent frontal headaches especially when up sitting for too long at a time at that visit but today she notes that these have resolved entirely. Operatively, she had some sensitivity to touch on her inner thigh on the left and was started on Lyrica 75 twice daily. Today she notes that this is much less bothersome than it had been though it isnot entirely gone. She has not had any swelling or drainage of her incision. She has been observinga 5 pound restriction. She is here today with postop x-rays. The following portions of the patient's history were reviewed and updated as appropriate: allergies, current medications, past family history, past medical history, past social history, past surgicalhistory and problem list Review of Systems Constitutional: Negative for activity [...] bleeding, vaginal discharge and vaginal pain. Musculoskeletal: Positive for back pain and gait problem. Negative for arthralgias, joint swelling,myalgias, neck pain and neck stiffness. Skin: Negative [...] patientis not nervous/anxious and is not hyperactive. All other systems reviewed and are negative. Objective Temperature 98.1 ??F (36.7 ??C), temperature source Temporal, height 162.6 cm (64 ), weight 102 kg (224 lb 4.8 oz). Body mass index is 38.5 kg/m??. Physical Exam Constitutional: Appearance: Normal appearance. Eyes: Pupils: Pupils are equal, round, and reactive to light. Cardiovascular: Pulses: Normal pulses. ____Pulmonary: Effort: Pulmonary effort is normal. Breath sounds: Normal breath sounds. Musculoskeletal: Comments: Gait slow and mildly antalgic, but steady and independent with no foot drop. Skin: Comments: Incision clean, dry, and intact with no swelling or tenderness. Some mild erythema where the sutures had been, but no evidence of infection. _Neurological: General: No focal deficit present. Mental Status: alert and oriented to person, place, and time. Psychiatric: Mood and Affect: Mood normal. Behavior: Behavior normal. Assessment & Plan Independent Review of Radiographic Studies: AP and lateral x-rays of the lumbar spine were reviewed. The previous screws at L5 on the right were removed and not replaced. Current x-rays show good fusion and hardware placement with no evidence of complication.The right L4 screw was removed given that it was not completely within the pedicle and the constructed was extended to L5 with a new screw. The L5 screw on the left was removed and left out. Medical Decision Making: Ms Allison is doing well overall. She may drive. She is ready for outpatient PT. Her leg pain is getting better and she will decrease her lyrica to 75 mg once a day. If she tolerates this without return of her leg pain, she may discontinue this medication altogether. I will then follow-up with herin 4 to 6 weeks. If she was doing well we will get 1 more set of x-rays before the end of the year Diagnoses and all orders for this visit: 1. Lumbar stenosis with neurogenic claudication (Primary) - Ambulatory Referral to Physical Therapy for Evaluation & Treatment 2. S/P lumbar spinal fusion - Ambulatory Referral to Physical Therapy for Evaluation & Treatment Return in about 5 weeks (around 03/25/2025). This document signed by Marjan Tran PA-C February 18, 2025 11:41 EDT documented in this encounter Plan of Treatment Upcoming Encounters Date Type Department Care Team (Late st Contact Info) Description 04/08/2025 10:15 AM EDT Office Visit [facility] [address] [place] [address] Marjan Tran PA-C [address] [facility] [address] [place] [address] 10/29/2025 9:45 AM EDT Office Visit [facility] [address] [place] [address] [place] [address] Samir Thurman MD [address] [facility] [address] [place], [place] [id number] Scheduled Procedures Name Priority Associated Diagnoses Date/Ti me LUMBAR LAMINECTOMY DISCECTOM Y DECOMPRESSION POSTERIOR 1-2 LEVELS Lumbar stenosis with neurogenic claudication Scheduled Referrals Name Type Priority Associated Diagnoses Order Schedule Ambulatory Referral to Physical Therapy for Evaluation & Treatment Outpatient Referral Routine Lumbar stenosis with neurogenic claudication S/P lumbar spinal fusion Ordered: 02/18/2025 documented as of this encounter Visit Diagnoses Diagnosis Lumbar stenosis with neurogenic claudication- Primary S/P lumbar spinal fusion Arthrodesis status documented in this encounter Care Teams Floor Technician Relationship Specialty Start Date End Date Edison Harrell MD [address] [facility] [address] [place] [address] PCP - General Adolescent Medicine 03/30/16 documented as of this encounter
--- OUTSIDE RECORDS SUMMARY | 2025-02-23 07:00 | XMS_ITS ---
Author Organization [facility] Address [address] [facility] [address] [facility] [address] [place] [address] Care Team Providers Care Plug Assembler Name Role Phone Edison Harrell Primary Care Provider Allergies Allergen (clinical drug ingredient) Drug/Non Drug Allergy documented on EMR Reaction Allergy Type Onset Date Status amoxicillin / clavulanate Augmentin yeast issues Drug Allergy Active Reason For Referral Reason Needs repeat thyroid ultrasound Diagnosis 1 Thyroid nodule (E04. 1) Referral Organization [facility] Referring Provider First Name Edison Referring Provider Last Name Julio Cesar Referring Provider Speciality Internal M edicine Referred Organization [facility] Referred Address [address], [place],[address],[place] Referred Provider Specialty Diagnostic R adiology General Notes Brittany Lancaster 2024 10:00:26 AM >sent to [facility] to schedule Referral Priority Routine REASON FOR VISIT 2 month F/U Medications Medication SIG (Take, Route, Frequency, Duration) Notes Start Date End Date Status Tylenol Extra Strength 500 MG 2 tab(s) orally every 6 hours; Duration: 90 days prn Active Flonase Allergy Relief 50 MCG/ACT 1 spray(s) in each nostril once a day; Duration: 90 day(s) 12/09/2020 Active Omeprazole 40 MG 1 cap(s) orally once a day; Duration: 90 days Active Nitroglycerin 0.4 MG 1 tab(s) sublingually every 5 minutes prn; Duration: 30 days 01/11/2016 Active C-PAP MASK AND SUPPLIES DIRECTED; Duration: 30 DAYS *Please review for potential replacement for e-prescription and drug interaction check* 05/03/2020 Active Allergy Relief 4 MG 1 tab(s) orally every 6 hours Active C-PAP MASK AND SUPPLIES DIRECTED DX: CARLOS; Duration: 30 DAYS *Please review for potential replacement for e-prescription and drug interaction check* 04/07/2020 Active FREESTYLE LITE GLUCOSE TEST STRIPS DIRECTED TEST TWICE DAILY; Duration: 90 DAYS *Please review for potential replacement for e-prescription and drug interaction check* 01/11/2016 Active C-PAP MACHINE SETTINGS ARE FROM 10-14 DIRECTED DX: CARLOS *Please review for potential replacement for e-prescription and drug interaction check* 05/03/2020 Active Entresto 49-51 MG 1 tab(s) orally 2 times a day Active Colace 100 MG 2 caps Orally every night Active MiraLax 17 GM/SCOOP as directed Orally Active metFORMIN HCl 500 MG 1 tablet with a meal Orally Once a day Active Ezetimibe 10 mg TAKE ONE TABLET BY MOUTH EVERY DAY; Duration: 90 Active Aspirin Low Dose 81 MG TAKE ONE TABLET BY MOUTH EVERY DAY; Duration: 90 Active dilTIAZem HCl ER Coated Beads 180 mg TAKE TWO CAPSULES BY MOUTH EVERY DAY; Duration: 90 Active Metoclopramide HCl 10 MG 1 tab(s) orally nightly; Duration: 90 days Active Crestor 40 MG 1 tab(s) orally once a day; Duration: 90 days Active Venlafaxine HCl ER 37.5 MG 1 cap(s) orally once a day; Duration: 90 days Active Carvedilol 12.5 MG TAKE ONE TABLET BY MOUTH TWICE DAILY orally 2 times a day; Duration: 90 days Active Immunizations Vaccine Route Administration Date Status Comme nts Fluzone High Dose IM Intramuscular 02/23/2025 Administered Vital Signs Temperature 97.7 degrees Fahrenheit 02/24/20 25 Blood pressure systolic 120 mm Hg 02/24/20 25 Blood pressure diastolic 62 mm Hg 025 Heart Rate 76 /min 02/23/2025 Height 5 ft 4 in in 02/23/2025 Weight 222 lbs 02/23/2025 BMI 38.1 kg/m2 02/23/2025 Encounters Encounter Location Date Provider Diagnosis [facility] [address] [place] [address] 02/23/2025 Edison Harrell Immunization(s) administered Z23 ; Chronic constipation K59.09 ; Type 2 diabetes mellitus without complications E11.9 ; Vitamin D deficiency E55.9 and Thyroid nodule E04.1 Assessments Encounter Date Diagnosis (ICD Code) Assessment Notes Treatment Notes Treatment Clinical Notes Section Notes 02/23/2025 Immunization(s) administered (ICD-10 - Z23) 02/23/2025 Chronic constipation (ICD-10 - K59.09) Will reduce dose of diltiazem down to 180 mg. Pulse rate is very low today and we will see how this goes with her over the next couple of months. Follow back in May. 02/23/2025 Type 2 diabetes mellitus without complications (ICD-10 - E11.9) A1c has been well-controlled. Continue current therapy 02/23/2025 Vitamin D deficiency (ICD-10 - E55.9) Vitamin D levels have been normal. Continue supplementation 02/23/2025 Thyroid nodule (ICD-10 - E04.1) Plan Of Treatment Treatment Notes Assessment Notes Chronic constipation Will reduce dose of diltiazem down to 180 mg. Pulse rate is very low today and we will see how this goes with her over the next couple of months. Follow back in May. Type 2 diabetes mellitus wit hout complications A1c has been well-controlled. Continue current therapy Vitamin D deficiency Vitamin D levels vasquez ve been normal. Continue supplementation Pending Test Test Name Order Date Ultrasound : Thyroid 02/23/2025 Referrals Referral Date Details 02/23/2025 02/23/2025, Needs re peat thyroid ultrasound, [address] [facility] [address] [place] [place], [address], Next Appt Details Follow Up: 3 Months, Reason: Provider Name:Edison Harrell, 05/25/2025 09:45:00 AM, [address] [facility] [address] [facility], [address], [place], [address], Progress Notes * Latosha ALLISONDOB:1955 (69 yo F)Acc No.[id number]:02/23/2025 Progress Notes Patient: Bro Latosha CAPELLAN Provider: Shawna Harrell MD :1955 A ge:69 Y S ex:Female Date:02/23/2025 Address:[address] [place], [id number] Subjective: * Chief Complaints: * 1 . 2 month F/U. * HPI: g en: Here for follow-up of her multiple medical problems. Doing well post spinal surgery. Released to physical therapy, walking well with walker, is weaning off of her pain medications is totally off hydrocodone and is weaning down Lyrica. Pain is very well-controlled. Constipation has been a problem, and she thinks it is because of her calcium channel marlon. She struggled with this before surgery. While in the hospital she did receive her Cardizem frequently and noted that her bowel movements were much better. She takes 360 mg daily because of coronary vasospasm. * Medical History: H ypertension, CAD - cabg 2009 - [facility] with ALYSSA 06/10, Hypercholestrolemia, type II diabetes, Colonoscopy 07/2018, hyperplastic polyp- repeat 2028, osteoporosis 2018 DEXA - 10/10 Dexa normal in spine, mild osteopenia in hips, negative low-dose CT scan June 2019 and in 07/2021 and 07/2022 and 10/10, Normal mammogram 06/2020 [address] nd 08/10 and 10/10, Thyroid ultrasound March 2021 with small bilateral [id number] follow-up recommended, CHF, Spinal stenosis. * Surgical [...] . S iblings: alive, one brother --cancer. C hildren: alive. 2 brother(s) , 2 sister(s) - [...] 2 caps Orally every night , Taking metFORMIN HCl 500 MG Tablet 1 tablet with a meal Orally Once a day , Taking Entresto 49-51 MG Tablet 1 tab(s) orally 2 times a day , Taking Allergy Relief 4 MG Tablet 1 tab(s) orally every 6 hours , Taking FREESTYLE LITE GLUCOSE TEST STRIPS [...] Pharmacist: *Please review for potential replacement for e- prescription and drug interaction check*, Taking C-PAP MASK AND SUPPLIES DIRECTED , Notes to [...] orally 2 times a day , Taking dilTIAZem HCl ER Coated Beads 180 mg Capsule Extended Release 24 Hour TAKE TWO CAPSULES BY MOUTH EVERY DAY , Taking Aspirin Low Dose 81 MG Tablet Delayed Release TAKE ONE TABLET BY MOUTH EVERY DAY , Taking Ezetimibe 10 mg Tablet TAKE ONE TABLET BY MOUTH EVERY DAY , Discontinued Lyrica 75 MG Capsule 1 capsule Orally twice a day , Discontinued Tums 500 MG Tablet Chewable 2 tabs chewed qhs prn , Discontinued Nystatin 156970 UNIT/GM Powder 1 application Externally Twice a day , Discontinued Meloxicam 15 mg Tablet TAKE ONE TABLET BY MOUTH EVERY DAY , Medication List reviewed and reconciled with the patient * Allergies: A ugmentin: yeast issues - Side Effects. Objective: * Vitals: N urse: aw, Pain: 0, Temp: 97.7, RR: 16, HR: 76, BP: 120/62, Ht: 5 ft 4 in, Wt: 222, BMI:38.1. * Examination: G eneral Examination: General P leasant and Cooperative, NAD on RA,, Obese,. Heart: R egular Rate and Rhythm, no murmur, rubs or gallops. Lungs: L CTAB, No wheezes, crackles or rhonchi, Good air movement,. Abdomen: S oft, NTND, BSNA, No organomegaly or peritoneal signs.. Peripheral pulses: n ormal (2+) bilaterally. Extremities: n ormal ROM,, no clubbing, no edema,, no foot lesions,. neck s upple,, no thyromegaly,. Assessment: * Assessment: 1. C hronic constipation - K59.09 (Primary) 2 . I mmunization(s) administered - Z23 3 . T ype 2 diabetes mellitus without complications - E11.9 ?4. V itamin D deficiency - E55.9 5 . T hyroid nodule - E04.1 ? Plan: * Treatment: 2. T ype 2 diabetes mellitus without complications Notes: A1c has been well-controlled. Continue current therapy 3. V itamin D deficiency Notes: Vitamin D levels have been normal. Continue supplementation 4. T hyroid nodule I maging: Ultrasound : Thyroid ? Referral To: ?Reason:Needs repeat thyroid ultrasound * Immunizations: Fluzone High Dose : 0.7 mL (Route: Intramuscular) given by HALI Rodríguez MA on Right Deltoid (Immunization(s) administered) * Procedure Codes: 9 0662 Influenza High Dose Vaccine >65 Years Old, Units: 1.40 , G0008 ADMINISTRATION-FLU VACCINE MEDICARE ONLY, G2211 Complex e/m visit add on * Follow Up: 3 Months * * Sign off status: Completed true * Provider: Shawna Harrell MD Date: 0 02/23/2025 Generated for Printi ng/Farenzog/eTransmitting on: 03/02/2025 08:55 AM EDT History and Physical Notes * Examination Category Sub-Category Detail Notes Category Not es General Examination Heart: Regular Rate and Rhythm, no murmur, rubs or gallops Lungs: LCTAB, No wheezes, c rackles or rhonchi, Good air movement, Abdomen: Soft, NTND, BSNA, No organomegaly or peritoneal signs. Extremities: normal ROM,, no club [place], no edema,, no foot lesions, Peripheral pulses: normal (2+) bilatera lly neck supple,, no thyromeg joseph, General Pleasant and Coopera tive, NAD on RA,, Obese, Consultation Request Notes Referral Date Referring Provider Referred Provider Not kaye 02/23/2025 Edison Harrell , Needs repeat thyroid ultrasound
--- NOTE | 2025-03-02 08:37 | US_ITS ---
FINAL REPORT TECHNIQUE: Sonographic images of the thyroid were obtained. CLINICAL HISTORY: THYROID NODULE COMPARISON: None FINDINGS: THYROID ULTRASOUND The right thyroid gland measures 4.2 cm. The left thyroid gland measures 4.4 cm. There is a 15 mm heterogeneous isoechoic TR 3 nodule of the left lobe. If real, this would be classified as a TR 4 nodule. There is a questionable hypoechoic nodule in the posterior medial right lobe which is poorly defined. This measures up to 12 mm. There is a 7 mm complex cyst in the right lobe. IMPRESSION: Bilateral thyroid lesions favored to be benign. Recommend 12-month follow-up. Reviewed, Interpreted and Dictated by Joel Wan MD Transcribed by Abbi Carlos Authenticated and [facility]
--- OUTSIDE RECORDS SUMMARY | 2025-03-02 08:53 | XMS_ITS | Encounter Summary ---
[facility] Address [address] [place] [address] Care Team Providers Care Commercial Roofer Name Role Phone Edison Harrell MD Primary Care Provider [phone] Encounter Details Date Type Department Care Team (Latest Contact Info) Description 01/09/2025 Travel Social History Tobacco Use Types Packs/Day Years [...] or training? Not on file Preferred Language Costa Rican 01/09/2025 Comments No Sex and Gender Information Value Date Recorded Sex Assigned at Female 10/21/2024 7:55 AM EDT Legal Sex Female 10:34 AM EDT Gender Identity Not on file Sexual Orientation Straight 10/21/2024 7: 55 AM EDT documented as of this encounter Plan of Treatment Upcoming Encounters Date Type Department Care Team (Late st Contact Info) Description 04/08/2025 10:15 AM EDT Office Visit [facility] [address] [facility] [address] [place] [address] Marjan Tran PA-C [address] [facility] [address] [place], [place] [id number] 10/29/2025 9:45 AM EDT Office Visit [facility] [address] [place] [place] [address] Samir Thurman MD [address] [facility] [address] [place], [place] [id number] Scheduled Procedures Name Priority Associated Diagnoses Date/Ti me LUMBAR LAMINECTOMY DISCECTOM Y DECOMPRESSION POSTERIOR 1-2 LEVELS Lumbar stenosis with neurogenic claudication documented as of this encounter Visit Diagnoses Not on filedocumented in this encounter Care Teams Commercial Roofer Relationship Specialty Start Date End Date Edison Harrell MD [address] [facility] [address] [place] [address] PCP - General Adolescent Medicine 03/30/16 documented as of this encounter
--- OUTSIDE RECORDS SUMMARY | 2025-03-02 08:53 | XMS_ITS | Clinical Summary ---
Author Organization [facility] Address [address] [facility] [place] [address] Care Team Providers Care Reel Cutter Name Role Phone Edison Harrell MD Primary Care Provider [phone] Family History Medical History Relation Name Comments Cardiac disorder Father Clotting disorder Father Cardiac disorder Mother Other cancer Other Relation Name Status Comments Father Mother Other Social History Tobacco Use Types Packs/Day Years Used Date Smoking Tobacco: Every Day Alcohol Use Standard Drinks/Week Comments No 0 (1 standard drink = 0.6 oz pur e alcohol) Comments Unknown Sex and Gender Information Value Date Recorded Sex Assigned at Not on file Legal Sex Female 8:24 PM EDT Gender Identity Not on file Sexual Orientation Not on file Last Filed Vital Signs Vital Sign Reading Time Taken Comments Blood Pressure - - Pulse - - Temperature - - Respiratory Rate - - Oxygen Saturation - - Inhaled Oxygen Concentration - - Weight 95.3 kg (210 lb 0.2 oz) 09/02/2015 3:48 P M EDT Height 162.6 cm (5' 4 ) 09/02/2015 3:48 PM EDT Body Mass Index 36.05 09/02/2015 3:48 PM EDT Plan of Treatment Upcoming Encounters Date Type Department Care Team (Late st Contact Info) Description 04/23/2025 8:30 AM EST Ovarian Cancer Screening [facility] Gyne[facility] [address] [facility] 3rd [place] [address] Health Maintenance Due Date Last Done Comments [facility]-Bone Density Scan 1955 [facility]-Depression Screening 1955 [facility]-Hepatitis C Screening 1955 [facility]-Infant/Child/Adol SDOH Screenings 1955 [facility]- SDOH Screenings 11/14/1971 [facility]-Adult SDOH Screenings 11/14/1971 [facility]-DTaP,Tdap,and Td Vaccine s (1 - Tdap) 1972 CT Colonography 1998 Colonoscopy 1998 FIT-DNA 1998 FIT 1998 FOBT 1998 Sigmoidoscopy 1998 [facility]-Colorectal Cancer Screening 1998 [facility]-Breast Cancer Screening 11/14/2003 [facility]-Zoster Vaccines (1 of 2) 11/14/2003 [facility]-Pneumococcal Vaccine: 50 + Years (2 of 2 - PCV) 06/23/2020 06/23/2019 [id number] Vaccine (3 - season) 2025 07/27/2020, 06/25/2020 [facility]-Influenza Vaccine (#1) 2025 03/28/2024 [facility]-RSV Vaccine: 60+ Years o r (1 - 1-dose 75+ series) 2028 [facility]-Hepatitis A Vaccines Aged Out 019, 06/19/2018 No longer eligible based on patient's age to complete this topic HPV Vaccines Aged Out No longer eligi ble based on patient's age to complete this topic [facility]-HIB Vaccines Aged Out No longer e ligible based on patient's age to complete this topic [facility]-IPV Vaccines Aged Out No longer e ligible based on patient's age to complete this topic [facility]-Rotavirus Vaccines Aged Out No lo nger eligible based on patient's age to complete this topic Care Teams Reel Cutter Relationship Specialty Start Date End Date Edison Harrell MD [address] [place] [address] PCP - General 10/29/20
--- OUTSIDE RECORDS SUMMARY | 2025-03-02 08:54 | XMS_ITS | Encounter Summary ---
[facility] Organization [facility] Address [address] [place] [address] Care Team Providers Care Edge Bonder Name Role Phone Edison Harrell MD Primary Care Provider [phone] Reason for Visit * Reason Onset Date Comments Med Refill 01/04/2025 Encounter Details Date Type Department Care Team (Late st Contact Info) Description 01/04/2025 Refill [facility] C[facility]IOLOG[facility] [address] [place] [address] [place] [address] Samir Thurman MD [address] [place] [address] Med Refill Social History Tobacco Use Types Packs/Day Years [...] Feels Unsafe at Home or Work/School no 06/05/2024 Feels Threatened by Someone no 05/18 Does Anyone Try to Keep You From Having Contact with Others or Doing Things Outside Your Home? no 06/05/2024 Physical Signs of Abuse Present no 06/05/2024 Housing Stability Answer Date Recorded Current Living Arrangements home 05/18 Potentially Unsafe Housing Conditions Not on alfred e 06/05/2024 Disabilities Answer Date Recorded Difficulty Concentrating, Remembering or Making Decisions no 06/05/2024 Difficulty Managing Errands Independently no 06/05/2024 Comments No Sex and Gender Information Value Date Recorded Sex Assigned at Female 10/21/2024 7:55 AM EDT Legal Sex Female 10:34 AM EDT Gender Identity Not on file Sexual Orientation Straight 10/21/2024 7: 55 AM EDT documented as of this encounter Plan of Treatment Upcoming Encounters Date Type Department Care Team (Late st Contact Info) Description 04/08/2025 10:15 AM EDT Office Visit [facility] [address] [address] [place] [id number] Marjan Tran PA-C [address] [facility] [address] [place] [address] 10/29/2025 9:45 AM EDT Office Visit [facility] C[facility] [address] [place] [address] [place] [address] Samir Thurman MD [address] [facility] [address] [place] [address] Scheduled Procedures Name Priority Associated Diagnoses Date/Ti me LUMBAR LAMINECTOMY DISCECTOM Y DECOMPRESSION POSTERIOR 1-2 LEVELS Lumbar stenosis with neurogenic claudication documented as of this encounter Visit Diagnoses Not on filedocumented in this encounter Care Teams Edge Bonder Relationship Specialty Start Date End Date Edison Harrell MD [address] [place] [facility] [address] [place] [address] PCP - General Adolescent Medicine 03/30/16 documented as of this encounter
--- OUTSIDE RECORDS SUMMARY | 2025-03-02 08:54 | XMS_ITS | Encounter Summary ---
[facility] Address [address] [place] [address] Care Team Providers Care Power Plant Technician Name Role Phone Edison Harrell MD Primary Care Provider [phone] Encounter Details Date Type Department Care Team (Latest Contact Info) Description 02/18/2025 Travel Social History Tobacco Use Types Packs/Day Years Used Date Smoking Tobacco: Former Cigarettes 1 46.4 0 06/26/1973 - 11/10/2019 Passive Smoke Exposure: Never Smokeless Tobacco: Never Alcohol Use Standard Drinks/Week Comments No 0 (1 standard drink = 0.6 oz pur e alcohol) [facility] Utilities Answer Date Recorded In the past 12 months has [employer], gas, oil, or water [employer] threatened to shut off services in your [...] GED or equivalent No 01/16/2025 Preferred Language Scottish 01/16/2025 PHQ-2 Answer Date Recorded Patient Health [...] Description 04/08/2025 10:15 AM EDT Office Visit [facility] NEUROSURGERY [address] [place] [address] Marjan Tran, PAChekoC [address] [place] [address] 10/29/2025 9:45 AM EDT Office Visit [facility] CARDIOLOGY [address] [place] [address] Samir Thuramn MD [address] [facility] [address] [place] [address] Scheduled Procedures Name Priority Associated Diagnoses Date/Ti me LUMBAR LAMINECTOMY DISCECTOM Y DECOMPRESSION POSTERIOR 1-2 LEVELS Lumbar stenosis with neurogenic claudication documented as of this encounter Visit Diagnoses Not on filedocumented in this encounter Care Teams Power Plant Technician Relationship Specialty Start Date End Date Edison Harrell MD [address] [place] [facility] [address] [place] [address] PCP - General Adolescent Medicine 03/30/16 documented as of this encounter
--- OUTSIDE RECORDS SUMMARY | 2025-03-02 08:54 | XMS_ITS | Encounter Summary ---
[facility] Address [address] [place] [address] Care Team Providers Care Manual Control Auger Press Operator Name Role Phone Edison Harrell MD Primary Care Provider [phone] Encounter Details Date Type Department Care Team (Late st Contact Info) Description 01/29/2025 Readmission Management [facility] NURSE CALL CENTER [address] [place] [address] Peggy Medina, RN Social History Tobacco Use Types Packs/Day Years Used Date Smoking Tobacco: Former Cigarettes 1 46.4 0 06/26/1973 - 11/10/2019 Passive Smoke Exposure: Never Smokeless Tobacco: Never Alcohol Use Standard Drinks/Week Comments No 0 (1 standard drink = 0.6 oz pur e alcohol) [facility] Utilities Answer Date Recorded In the past 12 months has [employer], gas, oil, or water company threatened [...] GED or equivalent No 01/16/2025 Preferred Language Faroese 01/16/2025 Comments No Sex and Gender Information Value Date Recorded Sex Assigned at Female 10/21/2024 7:55 AM EDT Legal Sex Female 10:34 AM EDT Gender Identity Not on file Sexual Orientation Straight 10/21/2024 7: 55 AM EDT documented as of this encounter Miscellaneous Notes * Outreach Note - Peggy Medina, RN - 01/29/2025 7:35 PM EDT Prep Survey Flowsheet Row Responses [facility] patient discharged from? [facility] Is LACE score less than 10 ? No Eligibility Readm Mgmt Discharge diagnosis LUMBAR FUSION DECOMPRESSION WITH PEDICLE SCREWS- EXTEND FUSION L4-5 TO L2- L2-L4 LAMINECTOMY Does the patient have one of the following disease processes/diagnoses(primary or secondary)? General Surgery Prep survey completed? Yes Peggy Tate - Registered Nurse documented in this encounter Plan of Treatment Upcoming Encounters Date Type Department Care Team (Late st Contact Info) Description 04/08/2025 10:15 AM EDT Office Visit [facility] NEUROSURGERY [address] [facility] [address] [place] [address] Marjan Tran, PA-C [address] [facility] [address] [place] [address] 10/29/2025 9:45 AM EDT Office Visit [facility] CARDIOLOGY [address] [place] [address] [place] [address] Samir Thurman MD [address] [facility] [address] [place], [place] [id number] Scheduled Procedures Name Priority Associated Diagnoses Date/Ti me LUMBAR LAMINECTOMY DISCECTOM Y DECOMPRESSION POSTERIOR 1-2 LEVELS Lumbar stenosis with neurogenic claudication documented as of this encounter Visit Diagnoses Not on filedocumented in this encounter Care Teams Manual Control Auger Press Operator Relationship Specialty Start Date End Date Edison Harrell MD [address] [facility] [address] [place] [address] PCP - General Adolescent Medicine 03/30/16 documented as of this encounter
--- OUTSIDE RECORDS SUMMARY | 2025-03-02 08:54 | XMS_ITS | Encounter Summary ---
[facility] Address [address] [place] [address] Care Team Providers Care Cooper Helper Name Role Phone Edison Harrell MD Primary Care Provider [phone] Encounter Details Date Type Department Care Team (Latest Contact Info) Description 02/13/2025 Travel Social History Tobacco Use Types Packs/Day Years Used Date Smoking Tobacco: Former Cigarettes 1 46.4 0 06/26/1973 - 11/10/2019 Passive Smoke Exposure: Never Smokeless Tobacco: Never Alcohol Use Standard Drinks/Week Comments No 0 (1 standard drink = 0.6 oz pur e alcohol) [facility] Utilities Answer Date Recorded In the past 12 months has [employer], gas, oil, or water [employer] threatened to shut off services in your [...] GED or equivalent No 01/16/2025 Preferred Language Canadian 01/16/2025 PHQ-2 Answer Date Recorded Patient Health [...] 10:15 AM EDT Office Visit [facility] NEUROSURGERY [address] [place] [address] Marjan Tran, PAChekoC [address] [place] [address] 10/29/2025 9:45 AM EDT Office Visit [facility] CARDIOLOGY [address] [place] [address] [place] [address] Samir Thurman MD [address] [facility] [address] [place] [address] Scheduled Procedures Name Priority Associated Diagnoses Date/Ti me LUMBAR LAMINECTOMY DISCECTOM Y DECOMPRESSION POSTERIOR 1-2 LEVELS Lumbar stenosis with neurogenic claudication documented as of this encounter Visit Diagnoses Not on filedocumented in this encounter Care Teams Cooper Helper Relationship Specialty Start Date End Date Edison Harrell MD [address] [facility] [address] [place] [address] PCP - General Adolescent Medicine 03/30/16 documented as of this encounter
--- OUTSIDE RECORDS SUMMARY | 2025-03-02 08:54 | XMS_ITS | Encounter Summary ---
[facility] Organization [facility] Address [address] [place] [address] Care Team Providers Care Trimming Caser Name Role Phone Edison Harrell MD Primary Care Provider [phone] Encounter Details Date Type Department Care Team (Latest Contact Info) Description 01/15/2025 Travel Social History Tobacco Use Types Packs/Day Years Used Date Smoking Tobacco: Former Cigarettes 1 46.4 0 06/26/1973 - 11/10/2019 Passive Smoke Exposure: Never Smokeless Tobacco: Never Alcohol Use Standard Drinks/Week Comments No 0 (1 standard drink = 0.6 oz pur e alcohol) [facility] Utilities Answer Date Recorded In the past 12 months has [employer], gas, oil, or water [employer] threatened to shut off services in your [...] GED or equivalent No 01/16/2025 Preferred Language Wallisian 01/16/2025 Comments No Sex and Gender Information [...] 7:25 AM EDT Hoang Hsieh RN * Rhea Suicide Severity Rating Scale (Screener/Recent Self-Report) Question Answer Date of Assessment Author 6. Suicidal Behavior (Lifetime) No 7:25 AM EDT Neeta Hsieh RN documented as of this encounter Plan of Treatment Upcoming Encounters Date Type Department Care Team (Late st Contact Info) Description 04/08/2025 10:15 AM EDT Office Visit [facility] [address] [facility] [address] [place] [address] Marjan Tran PA-C [address] [facility] [address] [place], [place] [address] 10/29/2025 9:45 AM EDT Office Visit [facility] CARDIOLOGY [address] [place] [address] [place] [address] Samir Thurman MD [address] [facility] [address] [place] [address] Scheduled Procedures Name Priority Associated Diagnoses Date/Ti me LUMBAR LAMINECTOMY DISCECTOM Y DECOMPRESSION POSTERIOR 1-2 LEVELS Lumbar stenosis with neurogenic claudication documented as of this encounter Visit Diagnoses Not on filedocumented in this encounter Care Teams Trimming Caser Relationship Specialty Start Date End Date Edison Harrell MD [address] [facility] [address] [place] [address] PCP - General Adolescent Medicine 03/30/16 documented as of this encounter
--- OUTSIDE RECORDS SUMMARY | 2025-03-02 08:54 | XMS_ITS | Encounter Summary ---
[facility] [address] [place] [address] Care Team Providers Care Outreach And Education Social Worker Name Role Phone Edison Harrell MD Primary Care Provider [phone] Encounter Details Date Type Department Care Team (Late st Contact Info) Description 01/29/2025 Readmission Management [facility] NURSE CALL CENTER [address] [place] [address] Peggy Medina, RN Social History Tobacco Use Types Packs/Day Years Used Date Smoking Tobacco: Former Cigarettes 1 46.4 0 06/26/1973 - 11/10/2019 Passive Smoke Exposure: Never Smokeless Tobacco: Never Alcohol Use Standard Drinks/Week Comments No 0 (1 standard drink = 0.6 oz pur e alcohol) [facility] Utilities Answer Date Recorded In the past 12 months has [employer], gas, oil, or water company threatened [...] equivalent No 01/16/2025 Preferred Language Montenegrin 01/16/2025 PHQ-2 Answer Date Recorded Patient Health Questionnaire-9 Score 0 02/04/2025 Comments No Sex and Gender Information Value Date Recorded Sex Assigned at Female 10/21/2024 7:55 AM EDT Legal Sex Female 10:34 AM EDT Gender Identity Not on file Sexual Orientation Straight 10/21/2024 7: 55 AM EDT documented as of this encounter Functional Status * Over the past 2 weeks, how often have you been bothered by any of the following problems? Question Answer Date of Assessment Author Patient Health Questionnaire-2 Score 0 01/17 8:06 AM EDT Mychart, Generic * Little interest or pleasure in doing things Answer Date of Assessment Author Not at all 02/04/2025 8:06 AM EDT Mychart, Generic * Feeling down, depressed, or hopeless Answer Date of Assessment Author Not at all 02/04/2025 8:06 AM EDT Mychart, Generic * Question Answer Date of Assessment Author Patient Health Questionnaire-9 Score 0 01/17 8:06 AM EDT Mychart, Generic * Trouble falling or staying asleep, or sleeping too much Answer Date of Assessment Author Not at all 02/04/2025 8:06 AM EDT Mychart, Generic * Feeling tired or having little energy Answer Date of Assessment Author Not at all 02/04/2025 8:06 AM EDT Mychart, Generic * Poor appetite or overeating Answer Date of Assessment Author Not at all 02/04/2025 8:06 AM EDT Mychart, Generic * Feeling bad about yourself - or that you are a failure or have let yourself or your family down Answer Date of Assessment Author Not at all 02/04/2025 8:06 AM EDT Mychart, Generic * Trouble concentrating on things, such as reading the newspaper or watching television Answer Date of Assessment Author Not at all 02/04/2025 8:06 AM EDT Mychart, Generic * Moving or speaking so slowly that other people could have noticed? Or the opposite - being so fidgety or restless that you have been moving around a lot more than usual. Answer Date of Assessment Author Not at all 02/04/2025 8:06 AM EDT Mychart, Generic * Thoughts that you would be better off or hurting yourself in some way Answer Date of Assessment Author Not at all 02/04/2025 8:06 AM EDT Mychart, Generic * How difficult have these problems made it for you to do your work, take care of things at home, or get along with other people? Answer Date of Assessment Author Not difficult at all 02/04/2025 8:06 AM EDT Rosalba art, Generic documented as of this encounter Miscellaneous Notes * Outreach Note - Jayshree Schuster RN - 01/29/2025 7:37 PM EDT General Surgery Week [address] [facility] patient discharged from? [place] Does the patient have one of the following disease processes/diagnoses(primary or secondary)? General Surgery Week 1 attempt successful? Yes Call start time 1000 Call end time 1004 Discharge diagnosis LUMBAR FUSION DECOMPRESSION WITH PEDICLE SCREWS- EXTEND FUSION L4-5 TO L2- L2-L4 LAMINECTOMY Meds reviewed with patient/caregiver? Yes Is the patient having any side effects they believe may be caused by any medication additions or changes? No Does the patient have all medications related to this admission filled (includes all antibiotics, pain medications, etc.) Yes Is the patient taking all medications as directed (includes completed medication regime)? Yes Medication comments pt has been off [place] since 02/02 and taking tylenol arthritis prn for pain Does the patient have a follow up appointment scheduled with their surgeon? Yes Has the patient kept scheduled appointments due by today? N/A Comments Has F/U appt with surgeon today Has home health visited the patient within 72 hours of discharge? No Home health comments Home Pt plans to start next week, states she doesn't think she needs OT Has all DME been delivered? Yes DME comments Vicky garcia for assistance Psychosocial issues? No Did the patient receive a copy of their discharge instructions? Yes Nursing interventions Reviewed instructions with patient What is the patient's perception of their health status since discharge? Improving Nursing interventions Nurse provided patient education Is the patient /caregiver able to teach back basic post-op care? Take showers only when approved byMD-sponge bathe until then, No tub bath, swimming, or hot tub until instructed by MD, Keep incisionareas clean,dry and protected Is the patient/caregiver able to teach back signs and symptoms of incisional infection? Increased redness, swelling or pain at the incisonal site, Increased drainage or bleeding, Pus or odor from incision, Incisional warmth, Fever Is the patient/caregiver able to teach back steps to recovery at home? Rest and rebuild strength, gradually increase activity, Set small, achievable goals for return to baseline health, Eat a well-balance diet, Make a list of questions for surgeon's appointment If the patient is a current smoker, are they able to teach back resources for cessation? Not a smoker Is the patient/caregiver able to teach back the hierarchy of who to call/visit for symptoms/problems? PCP, Specialist, Home health nurse, Urgent Care, ED, 911 Yes Additional teach back comments Pt states she has been able to shower. incision without s/s infection and dressing is dry/intact. Week 1 call completed? Yes Is the patient interested in additional calls from an ambulatory case investigator? No Would this patient benefit from a Referral to [facility] Social Work? No Wrap up additional comments pt denies any questions or concerns at this time Call end time 1004 Peggy D - Registered Nurse documented in this encounter Plan of Treatment Upcoming Encounters Date Type Department Care Team (Late st Contact Info) Description 04/08/2025 10:15 AM EDT Office Visit [facility] NEUROSURGERY [address] [facility] [address] [place] [phone] Marjan Tran PA-C [address] [facility] [address] [place] [address] 10/29/2025 9:45 AM EDT Office Visit [facility] CARDIOLOGY [address] [place] [address] Samir Thurman MD [address] [facility] [address] [place], [place] [id number] Scheduled Procedures Name Priority Associated Diagnoses Date/Ti me LUMBAR LAMINECTOMY DISCECTOM Y DECOMPRESSION POSTERIOR 1-2 LEVELS Lumbar stenosis with neurogenic claudication documented as of this encounter Visit Diagnoses Not on filedocumented in this encounter Care Teams Outreach And Education Social Worker Relationship Specialty Start Date End Date Edison Harrell MD [address] [facility] [address] [place] [address] PCP - General Adolescent Medicine 03/30/16 documented as of this encounter
--- OUTSIDE RECORDS SUMMARY | 2025-03-02 08:54 | XMS_ITS | Encounter Summary ---
Author Organization [facility] Address [address] [place] [address] Care Team Providers Care Landscape Designer Name Role Phone Edison Harrell MD Primary Care Provider [phone] Encounter Details Date Type Department Care Team (Latest Contact Info) Description 02/06/2025 Travel Social History Tobacco Use Types Packs/Day Years Used Date Smoking Tobacco: Former Cigarettes 1 46.4 0 06/26/1973 - 11/10/2019 Passive Smoke Exposure: Never Smokeless Tobacco: Never Alcohol Use Standard Drinks/Week Comments No 0 (1 standard drink = 0.6 oz pur e alcohol) [facility] Utilities Answer Date Recorded In the past 12 months has [employer], gas, oil, or water [employer] threatened to shut off services in your [...] GED or equivalent No 01/16/2025 Preferred Language Ukrainian 01/16/2025 PHQ-2 Answer Date Recorded Patient Health [...] Description 04/08/2025 10:15 AM EDT Office Visit [facility] NEUROSURGERY [address] [place] [address] Marjan Tran, PAChekoC [address] [place] [address] 10/29/2025 9:45 AM EDT Office Visit [facility] CARDIOLOGY [address] [place] [address] [address] [place] [address] Samir Thurman MD [address] [facility] [address] [place] [address] Scheduled Procedures Name Priority Associated Diagnoses Date/Ti me LUMBAR LAMINECTOMY DISCECTOM Y DECOMPRESSION POSTERIOR 1-2 LEVELS Lumbar stenosis with neurogenic claudication documented as of this encounter Visit Diagnoses Not on filedocumented in this encounter Care Teams Landscape Designer Relationship Specialty Start Date End Date Edison Harrell MD [address] [place] [facility] [address] [place] [address] PCP - General Adolescent Medicine 03/30/16 documented as of this encounter
--- OUTSIDE RECORDS SUMMARY | 2025-03-02 08:55 | XMS_ITS | Encounter Summary ---
[facility] [address] [place] [address] Care Team Providers Care Solid Waste Facility Operator Name Role Phone Edison Harrell MD Primary Care Provider [phone] Reason for Visit * Reason Onset Date Comments MARJAN BYERS-JET 02/19/2025 Encounter Details Date Type Department Care Team (Late st Contact Info) Description 02/19/2025 Telephone [facility] NEUROSURGERY [address] [phone] Marjan Byers PA-C [address] [place] [address] MARJAN BYERS-JET Social History Tobacco Use Types Packs/Day Years Used Date Smoking Tobacco: Former Cigarettes 1 46.4 0 06/26/1973 - 11/10/2019 Passive Smoke Exposure: Never Smokeless Tobacco: Never Alcohol Use Standard Drinks/Week Comments No 0 (1 standard drink = 0.6 oz pur e alcohol) [facility] Utilities Answer Date Recorded In the past 12 months has [employer] electric, gas, oil, or water company threatened [...] GED or equivalent No 01/16/2025 Preferred Language Gibraltarian 01/16/2025 PHQ-2 Answer Date Recorded Patient Health Questionnaire-9 Score 0 02/04/2025 Comments No Sex and Gender Information Value Date Recorded Sex Assigned at Female 10/21/2024 7:55 AM EDT Legal Sex Female 10:34 AM EDT Gender Identity Not on file Sexual Orientation Straight 10/21/2024 7: 55 AM EDT documented as of this encounter Miscellaneous Notes * Telephone Encounter - Shelbi Saba - 02/19/2025 12:44 PM EDT Talked with Sanjay at [facility] PT I will fax the order to them per patient request at [phone]. * Telephone Encounter - Agnes Parker RegSched Rep - 02/19/2025 10:16 AM EDT Provider: MARJAN BYERS Caller: SANJAY WITH [facility] Phone Number: [phone] Reason for Call: SHE STATES THE PATIENT CALLED HER AND TOLD HER TO CALL OUR OFFICE, THAT SOMEONE WANTED TO SPEAK TO HER ABOUT REFERRING THE PATIENT TO THEM. PLEASE ADVISE. When was the patient last seen: 02-18-25 documented in this encounter Plan of Treatment Upcoming Encounters Date Type Department Care Team (Late st Contact Info) Description 04/08/2025 10:15 AM EDT Office Visit [facility] NEUROSURGERY [address] [phone] Marjan Byers PA-C [address] [address] 10/29/2025 9:45 AM EDT Office Visit [facility] CARDIOLOGY [address] [place] [address] Samir Thurman MD [address] [place] [address] Scheduled Procedures Name Priority Associated Diagnoses Date/Ti me LUMBAR LAMINECTOMY DISCECTOM Y DECOMPRESSION POSTERIOR 1-2 LEVELS Lumbar stenosis with neurogenic claudication documented as of this encounter Visit Diagnoses Not on filedocumented in this encounter Care Teams Solid Waste Facility Operator Relationship Specialty Start Date End Date Edison Harrell MD [address] [facility] [address] [place] [address] PCP - General Adolescent Medicine 03/30/16 documented as of this encounter
--- OUTSIDE RECORDS SUMMARY | 2025-03-02 08:55 | XMS_ITS | Encounter Summary ---
[facility] [address] [place] [address] Care Team Providers Care Electronic Video Games Servicer Name Role Phone Edison Harrell MD Primary Care Provider [phone] Reason for Visit * Reason Comments Med Refill Encounter Details Date Type Department Care Team (Late st Contact Info) Description 02/23/2025 Refill [facility] CARDIOLOGY [address] [place] [address] [place] [address] Samir Thurman MD [address] [facility] [place] [address] Med Refill Social History Tobacco Use Types Packs/Day Years Used Date Smoking Tobacco: Former Cigarettes 1 46.4 0 06/26/1973 - 11/10/2019 Passive Smoke Exposure: Never Smokeless Tobacco: Never Alcohol Use Standard Drinks/Week Comments No 0 (1 standard drink = 0.6 oz pur e alcohol) [facility] Utilities Answer Date Recorded In the past 12 months has [employer] electric, gas, oil, or water company threatened [...] GED or equivalent No 01/16/2025 Preferred Language Panamanian 01/16/2025 PHQ-2 Answer Date Recorded Patient Health [...] Description 04/08/2025 10:15 AM EDT Office Visit [facility] NEUROSURGERY [address] [place] [address] Marjan Tran PA-C [address] [facility] [address] [place], [place] [id number] 10/29/2025 9:45 AM EDT Office Visit [facility] CARDIOLOGY [address] [place] [address] [place] [address] Samir Thurman MD [address] [facility] [address] [place], [place] [id number] Scheduled Procedures Name Priority Associated Diagnoses Date/Ti me LUMBAR LAMINECTOMY DISCECTOM Y DECOMPRESSION POSTERIOR 1-2 LEVELS Lumbar stenosis with neurogenic claudication documented as of this encounter Visit Diagnoses Not on filedocumented in this encounter Care Teams Electronic Video Games Servicer Relationship Specialty Start Date End Date Edison Harrell MD [address] [facility] [address] [place] [address] PCP - General Adolescent Medicine 03/30/16 documented as of this encounter
--- OUTSIDE RECORDS SUMMARY | 2025-03-02 08:55 | XMS_ITS | Encounter Summary ---
[facility] Address [address] [place] [address] Care Team Providers Care Oil Burner Mechanic Name Role Phone Edison Harrell MD Primary Care Provider [phone] Encounter Details Date Type Department Care Team (Late st Contact Info) Description 02/24/2025 Readmission Management [facility] NURSE CALL CENTER [address] [place] [phone] Divina Moura, RN Social History Tobacco Use Types Packs/Day Years Used Date Smoking Tobacco: Former Cigarettes 1 46.4 0 06/26/1973 - 11/10/2019 Passive Smoke Exposure: Never Smokeless Tobacco: Never Alcohol Use Standard Drinks/Week Comments No 0 (1 standard drink = 0.6 oz pur e alcohol) [facility] Utilities Answer Date Recorded In the past 12 months has [employer] electric, gas, oil, or water company threatened [...] GED or equivalent No 01/16/2025 Preferred Language Vincentian 01/16/2025 PHQ-2 Answer Date Recorded Patient Health Questionnaire-9 Score 0 02/04/2025 Comments No Sex and Gender Information Value Date Recorded Sex Assigned at Female 10/21/2024 7:55 AM EDT Legal Sex Female 10:34 AM EDT Gender Identity Not on file Sexual Orientation Straight 10/21/2024 7: 55 AM EDT documented as of this encounter Miscellaneous Notes * Outreach Note - Divina Moura RN - 02/24/2025 3:44 PM EDT General Surgery Week 2 Survey Flowsheet Row Responses [facility] patient discharged from? [facility] Does the patient have one of the following disease processes/diagnoses(primary or secondary)? General Surgery Week 2 attempt successful? Yes Call start time [phone] Call end time 1553 Discharge diagnosis LUMBAR FUSION DECOMPRESSION WITH PEDICLE SCREWS- EXTEND FUSION L4-5 TO L2- L2-L4 LAMINECTOMY Meds reviewed with patient/caregiver? Yes Is the patient having any side effects they believe may be caused by any medication additions or changes? No Does the patient have all medications related to this admission filled (includes all antibiotics, pain medications, etc.) Yes Prescription comments will d/c Lyrica after 02/25/25 Is the patient taking all medications as directed (includes completed medication regime)? Yes Does the patient have a follow up appointment scheduled with their surgeon? Yes Has the patient kept scheduled appointments due by today? Yes What is the Home health agency? [facility] Has home health visited the patient within 72 hours of discharge? Yes Has all DME been delivered? Yes DME comments walker from hospital prior to d/c Psychosocial issues? No Did the patient receive a copy of their discharge instructions? Yes Nursing interventions Reviewed instructions with patient What is the patient's perception of their health status since discharge? Improving Nursing interventions Nurse provided patient education Is the patient /caregiver able to teach back basic post-op care? Continue use of incentive spirometry at least 1 week post discharge, Practice 'cough and deep breath', Drive as instructed by MD in discharge instructions, Take showers only when approved by MD-sponge bathe until then, No tub bath, swimming, or hot tub until instructed by MD, Keep incision areas clean,dry and protected, Do not remove steri-strips, Lifting as instructed by MD in discharge instructions Is the patient/caregiver able to teach back signs and symptoms of incisional infection? Increased redness, swelling or pain at the incisonal site, Increased drainage or bleeding, Incisional warmth, Pus or odor from incision, Fever Is the patient/caregiver able to teach back steps to recovery at home? Set small, achievable goals for return to baseline health, Rest and rebuild strength, gradually increase activity, Eat a well-balance diet Is the patient/caregiver able to teach back the hierarchy of who to call/visit for symptoms/problems? PCP, Specialist, Home health nurse, Urgent Care, ED, 911 Yes Additional teach back comments moving well, has HH PT Week 2 call completed? Yes Graduated Yes Is the patient interested in additional calls from an ambulatory rehabilitation case coordinator? No Would this patient benefit from a Referral to [facility] Social Work? No Call end time [phone] Divina Matos - Registered Nurse documented in this encounter Plan of Treatment Upcoming Encounters Date Type Department Care Team (Late st Contact Info) Description 04/08/2025 10:15 AM EDT Office Visit [facility] [address] [facility] [address] [place] [phone] Marjan Tran, PA-C [address] [facility] [address] [place], [place] [phone] 10/29/2025 9:45 AM EDT Office Visit [facility] CARDIOLOGY [address] [place] [address] [place] [address] Samir Thurman MD [address] [facility] [address] [place], [place] [phone] Scheduled Procedures Name Priority Associated Diagnoses Date/Ti me LUMBAR LAMINECTOMY DISCECTOM Y DECOMPRESSION POSTERIOR 1-2 LEVELS Lumbar stenosis with neurogenic claudication documented as of this encounter Visit Diagnoses Not on filedocumented in this encounter Care Teams Oil Burner Mechanic Relationship Specialty Start Date End Date Edison Harrell MD [address] [facility] [address] [place] [address] PCP - General Adolescent Medicine 03/30/16 documented as of this encounter
--- OUTSIDE RECORDS SUMMARY | 2025-03-02 08:56 | XMS_ITS | Clinical Summary ---
[facility] Address [address] [place] [address] Care Team Providers Care Tension Worker Name Role Phone Edison Harrell MD Primary Care Provider [phone] Allergies Active Allergy Reactions Criticality Noted Date Comments Ramipril 03/31/2016 Cough Amoxicillin-Pot Clavulanate Other (See Comments) 02/13/2024 Yeast issues Isosorbide Nitrate Other (See Comments) 016 HEADACHE Medications rosuvastatin (CRESTOR) 40 MG tablet Take 1 tablet by mouth Every Night. 09/17/19 15 Active diltiazem CD (CARDIZEM CD) 180 MG 24 hr capsule Take 2 capsules by mouth Every Night. Active metoclopramide (REGLAN) 10 MG tablet Take 1 tablet by mouth Every Night. Active aspirin 81 MG EC tablet Take 1 tablet by mouth Daily. DNS - LETTER ON CHART - STENTS PLACED X3 Active carvedilol (COREG) 12.5 MG tablet Take 1 tablet by mouth 2 (Two) Times a Day With Meals. Active omeprazole (priLOSEC) 40 MG capsule Take 1 capsule by mouth Daily. Active venlafaxine XR (EFFEXOR-XR) 37.5 MG 24 hr capsule Take 1 capsule by mouth Every Night. 03/24/20 21 Active Zetia 10 MG tablet Take 1 tablet by mouth Every Night. EZETIMIBE 03/28/20 23 Active acetaminophen (TYLENOL) 650 MG 8 hr tablet Take 2 tablets by mouth 3 (Three) Times a Day. Active metFORMIN (GLUCOPHAGE) 500 MG tablet Take 1 tablet by mouth Every Night. Active diphenhydrAMINE (BENADRYL) 25 mg capsule Take 2 capsules by mouth As Needed for Itching. Active fluticasone (FLONASE) 50 MCG/ACT nasal spray Administer 2 sprays into the nostril(s) as directed by provider Daily. Active docusate sodium (COLACE) 100 MG capsule Take 2 capsules by mouth Every Night. Active polyethylene glycol (MiraLax) 17 GM/SCOOP powder Take 17 g by mouth Daily. Hold for loose stools 01/30/20 25 Active pregabalin (LYRICA) 75 MG capsuleIndicati ons:Lumbar stenosis with neurogenic claudication Take 1 capsule by mouth Every 12 (Twelve) Hours. 60 capsule 1 5 8:29 AM EDT 01/30/20 25 Active sacubitril-vals que (Entresto) 49-51 MG tablet TAKE ONE TABLET BY MOUTH TWICE DAILY 90 tablet 1 02/25/20 25 Active sacubitril-vals que (Entresto) 49-51 MG tablet Take 1 tablet by mouth 2 (Two) Times a Day. 90 tablet 01/06/20 25 025 Discontinued HYDROcodone-antwon taminophen (NORCO) 5-325 MG per tabletIndicatio ns:Lumbar stenosis with neurogenic claudication Take 1 tablet by mouth 3 (Three) Times a Day As Needed for Moderate Pain. 15 tablet 5 8:29 AM EDT 01/30/20 25 025 Discontinued(* Therapy completed) Active Problems Problem Noted Date Diagnosed Date S/P lumbar spinal fusion 02/06/2025 Lumbar stenosis with neurogenic claudication Heart failure with preserved left ventricular function (HFpEF) 06/05/2024 Overview (06/05/2024): Moderately elevated LV filling pressure on [facility], 06/05/2024 Coronary artery disease invo lving apache coronary artery of apache heart without angina pectoris 01/05/2016 Overview (06/05/2024): Acute inferior wall myocardial infarction status post thrombolytic therapy, 01/08/2002. Cardiac catheterization for failed thrombolysis (2001): 100% occlusion of the proximal large second OM branch of the left circumflex status post BMS. Akinesis of basilar 2/3 of the inferior wall; LVEF 50% Cardiac catheterization (08/26/2002): ISR of OM 2 status post brachytherapy PCI of the mid RCA, 09/05/2002. Cardiac catheterization (07/15/2009): No obstructive CAD; mild to moderate mid LAD plaque. Patent RCA and LCX stents; LVF 50%. Pharmacologic MPS (10/2015): Small moderate partially reversible ischemia/scar. LVEF 67% Cardiac catheterization (01/05/16): Mild, nonobstructive coronary artery disease. Previously placed stents in the left circumflex and RCA widely. LVEF 55% with inferior hypokinesis. Nuclear stress (06/03/2024): Lateral wall infarct with mild perinfarct ischemia. LVEF 65% Cardiac catheterization (06/05/2024): Severe 1-vessel CAD involving OM 2 (distal to previously placed stent and brachytherapy). Status post PCI with 2.25 x 23 mm ALYSSA. Widely patent RCA stents. Moderately elevated LV filling pressure (LVEDP 22 mmHg) Mixed hyperlipidemia 01/05/2016 Type 2 diabetes mellitus, wi thout long-term current use of insulin 01/05/2016 Primary hypertension 01/05/2016 Overview (06/05/2024): Target blood pressure <130/80 mmHg Obesity Overview (03/31/2016): BMI 43 Sleep apnea Overview (03/31/2016): CPAP therapy Resolved Problems Problem Noted Date Diagnosed Date Resolved Date Abnormal stress test 06/03/2024 024 Overview (06/05/2024): Nuclear stress (06/03/2024): Lateral wall infarct with mild perinfarct ischemia. LVEF 65% Chest pain in adult 01/05/2016 06/05/20 24 Ischemic heart disease 06/05 Overview (03/31/2016): a. Acute inferior wall myocardial infarction, 01/08/2002. i. Retavase therapy. ii. Emergency cardiac catheterization: Total occlusion of proximal. Moderate to large 2nd circumflex marginal reduced to 0% (2.5 - 18 mm. stainless steel SATISH stent). iii. Akinesis of basilar 2/3 of the inferior wall; overall LVEF estimated at 50%; no MR/MVP. b. Cutting balloon angioplasty and brachytherapy of left circumflex marginal, 08/26/2002. c. PTCA/stenting of mid RCA, 09/05/2002. d. Cardiac catheterization, 05/26/2003: No evidence of fixed CAD; spontaneous spasm of the 2nd obtuse marginal which resolved following intracoronary NTG; estimated LVEF of 60%. e. NYHA II-III angina. f. Nuclear stress test, 05/31/2005: Consistent with inferior scar and mild lilli-infarction and ischemia. g. Cardiac catheterization 07/15/2009: i. No obstructive CAD; 0% to 40% mid LAD plaque. Patent RCA and LCX stents; LVF 50% Hypertension 06/05/2024 Dyslipidemia 06/05/2024 Overview (03/31/2016): a. Combined hypertriglyceridemia and hypercholesterolemia per patient s history. b. Crestor therapy. Encounters Date Type Department Care Team Description 02/24/2025 Readmission Management [facility] [address] [place] [phone] Divina Moura RN 02/23/2025 Refill [facility] CARDI[facility] [address] [place] [address] [place] [address] Samir Thurman MD Med Refill 02/19/2025 Telephone [facility] NEUROS[facility]ERY [address] [address] Marjan Tran PA-C TALITHA HUNT-THERAPY 02/18/2025 10:00 AM EDT Office Visit [facility] NEUROS[facility] [address] [address] Marjan Tran PA-C Lumbar stenosis with neurogenic claudication (Primary Dx); S/P lumbar spinal fusion 02/18/2025 Travel 02/13/2025 10:39 AM EDT - 02/13/2025 11:59 PM EDT Hospital Encounter [facility] XRAY [address] [place] [address] Tran, Marjan L, PA-C Lumbar stenosis with neurogenic claudication; S/P lumbar spinal fusion Discharge Disposition: Home or Self Care 02/13/2025 Travel 02/06/2025 2:00 PM EDT Office Visit [facility]UR[facility] [address] [place] [phone] Tran, Marjan L, PA-C Lumbar stenosis with neurogenic claudication (Primary Dx); S/P lumbar spinal fusion 02/06/2025 Travel 01/29/2025 Readmission Management [facility] [address] [place] [phone] Peggy Medina RN 01/29/2025 Readmission Management [facility] [address] [place] [address] Peggy Medina RN 01/22/2025 12:36 PM EDT Anesthesia Event [facility] OR [address] [place] [address] Edison Zhang MD Young, Thomas J, MD 01/22/2025 12:16 PM EDT - 01/22/2025 1:26 PM EDT Surgery [facility] OR [address] [place] [address] Walt Em MD LUMBAR DRAIN PLACEMENT 01/15/2025 7:54 AM EDT - 01/15/2025 12:35 PM EDT Surgery [facility] OR [address] [place] [address] Walt Em MD LUMBAR FUSION DECOMPRESSION WITH PEDICLE SCREWS- EXTEND FUSION L4-5 TO L2- L2-L4 LAMINECTOMY [36410 (CPT )] 01/15/2025 7:42 AM EDT Anesthesia Event [facility] OR [address] [place] [address] Aashish Pemberton MD 01/15/2025 6:09 AM EDT - 01/29/2025 12:41 PM EDT Hospital Encounter [facility] 3G [address] [place] [address] Walt Em MD Lumbar stenosis with neurogenic claudication Discharge Disposition: Home or Self Care 01/15/2025 Travel 01/09/2025 12:30 PM EDT Pre-Admission Testing [facility] PREADMISSION T [address] [place] [address] Lumbar stenosis with neurogenic claudication 01/09/2025 Travel 01/04/2025 Refill [facility] CARD[facility] [address] [place] [address] [place] [address] Samir Thurman MD Med Refill 12/10/2024 10:00 AM EDT Office Visit [facility] NEUR[facility] [address] [facility] [address] [place] [address] Walt Em MD Spinal stenosis of lumbar region with neurogenic claudication (Primary Dx); Lumbar disc disease; Facet arthropathy 12/10/2024 Telephone [facility] 4D [address] [place] [address] Walt Em MD 12/10/2024 Telephone [facility] [address] [facility] [address] [place] [address] Samir Thurman MD Surgical Clearance 12/10/2024 Prep for Surgery [facility] ORDERS ONLY [address] [place] [address] Walt Em MD Lumbar stenosis with neurogenic claudication (Primary Dx) 12/09/2024 7:19 AM EDT - 12/09/2024 11:59 PM EDT Hospital Encounter [facility] CT [address] [place] [address] Neurogenic claudication; Spinal stenosis, lumbar region, with neurogenic claudication Discharge Disposition: Home or Self Care 12/09/2024 6:16 AM EDT - 12/09/2024 11:59 PM EDT Hospital Encounter [facility] XRAY [address] [place] [address] Spinal stenosis, lumbar region with neurogenic claudication Discharge Disposition: Home or Self Care 12/09/2024 6:00 AM EDT - 12/09/2024 11:59 PM EDT Hospital Encounter [facility] XRAY [address] [place] [address] Walt Em MD Neurogenic claudication; Spinal stenosis, lumbar region, with neurogenic claudication Discharge Disposition: Home or Self Care 12/09/2024 Travel 12/05/2024 Telephone [facility] 4D [address] [place] [address] Walt Em MD from Last 3 Months Family History Medical History Relation Name Comments Cancer Brother Tulio Arthritis Father Dad Heart attack Father Dad Hyperlipidemia Father Dad Hypertension Father Dad Arrhythmia Mother Mother Cancer Mother Mother Hyperlipidemia Mother Mother Hypertension Mother Mother Relation Name Status Comments Brother Tulio Father Dad Mother Mother Social History Tobacco Use Types Packs/Day Years Used Date Smoking Tobacco: Former Cigarettes 1 46.4 0 06/26/1973 - 11/10/2019 Passive Smoke Exposure: Never Smokeless Tobacco: Never Tobacco Cessation:Counseling Given: No Alcohol Use Standard Drinks/Week Comments No 0 (1 standard drink = 0.6 oz pur e alcohol) [facility] Utilities Answer Date Recorded In the past 12 months has Modality, oil, or water [employer] threatened to shut off services in your [...] GED or equivalent No 01/16/2025 Preferred Language Serbian 01/16/2025 PHQ-2 Answer Date Recorded Patient Health Questionnaire-9 Score 0 02/04/2025 Comments No Sex and Gender Information Value Date Recorded Sex Assigned at Female 10/21/2024 7:55 AM EDT Legal Sex Female 10:34 AM EDT Gender Identity Not on file Sexual Orientation Straight 10/21/2024 7: 55 AM EDT Last Filed Vital Signs Vital Sign Reading Time Taken Comments Blood Pressure 130/62 02/06/2025 1:47 PM EDT Pulse 82 01/29/2025 10:39 AM EDT Temperature 36.7 C (98.1 F) 02/18/2025 9:44 AM EDT Respiratory Rate 18 01/29/2025 10:39 AM EDT Oxygen Saturation 96% 01/29/2025 10:39 AM EDT Inhaled Oxygen Concentration - - Weight 102 kg (224 lb 4.8 oz) 02/18/2025 9:44 AM EDT Height 162.6 cm (5' 4 ) 02/18/2025 9:44 AM EDT Body Mass Index 38.5 02/18/2025 9:44 AM EDT Plan of Treatment Upcoming Encounters Date Type Department Care Team (Late st Contact Info) Description 04/08/2025 10:15 AM EDT Office Visit [facility] NEUR[facility]ERY [address] [facility] [address] [place] [address] Marjan Tran PA-C [address] [facility] [address] [place] [phone] 10/29/2025 9:45 AM EDT Office Visit [facility] CARDIOLOGY [address] [place] [address] [place] [address] Samir Thurman MD [address] [facility] [address] [place], [place] [phone] Scheduled Procedures Name Priority Associated Diagnoses Date/Ti me LUMBAR LAMINECTOMY DISCECTOM Y DECOMPRESSION POSTERIOR 1-2 LEVELS Lumbar stenosis with neurogenic claudication Health Maintenance Due Date Last Done Comments DIABETIC FOOT EXAM 11/14/1963 URINE MICROALBUMIN-CREATININ E RATIO (uACR) 11/14/1963 COLOGUARD 1998 COLON CANCER SCREENING 5 YEA R SIGMOIDOSCOPY 1998 COLONOSCOPY 1998 COLORECTAL CANCER SCREENING 1998 CT COLONOGRAPHY 1998 FECAL OCCULT BLOOD TEST 1998 FIT Testing (1 year) 1998 LUNG CANCER SCREENING 11/14/2003 HEPATITIS C SCREENING 03/13/2017 DXA SCAN 07/27/2023 07/27/2021, 06/19/2019 DIABETIC EYE EXAM 10/26/2023 10/25/2022, , 10/19/2021, Additional history exists ANNUAL WELLNESS VISIT 11/23/2023 11/22/2022 , 11/10/2021, 07/15/2020, Additional history exists MAMMOGRAM 08/10/2024 08/10/2022, 07/20, 08/08/2021, Additional history exists COVID-19 Vaccine (2023- 5 season) 2025 03/29/2024, 07/27/2020, 06/25/2020 INFLUENZA VACCINE 03/18/2025 03/28/2024, , 03/13/2022, Additional history exists LIPID PANEL 06/05/2025 06/05/2024, 02/16, 11/22/2022, Additional history exists HEMOGLOBIN A1C 07/12/2025 01/09/2025, 05/18, 11/22/2022, Additional history exists TDAP/TD VACCINES (2 - Td or Tdap) 12/22/2034 025 ZOSTER VACCINE Completed 09/05/2023, 05/23/2023 Pneumococcal Vaccine 50+ Completed 12/22/2024, 11/2019 Medical Devices Implanted Type Area Sulfate Drier Machine Operator Device Identifier Shelf Expiration Date Model / Serial / Lot Seal Durl Adherus/Autosp ray/Et Hydrogel Ds Ext/Tp/170mm - [id number] Implanted:Qty: 1 on 01/15/2025 by Walt Em MD at [facility] Implant N/A: Back LEROY MARY [id number] 04/17/2026 [id number] / / [id number] Spacr Plif/Tlif Adaptix 24x9mm - [id number] Implanted:Qty: 1 on 01/15/2025 by Walt Em MD at [facility] Implant N/A: Back MEDTRONIC 04/24/2032 [id number] / / [id number] Spacr Plif/Tlif Adaptix 24x9mm - [id number] Implanted:Qty: 1 on 01/15/2025 by Walt Em MD at [facility] Implant N/A: Back [employer] 04/17/2032 [id number] / / [id number] Spacr Plif/Tlif Adaptix 24x9mm - [id number] Implanted:Qty: 1 on 01/15/2025 by Walt Em MD at [facility] Implant N/A: Back [employer] 04/09/2031 [id number] / / [id number] Scrw Solera Fen Mas 6.5x45mm - [id number] Implanted:Qty: 1 on 01/15/2025 by Walt Em MD at [facility] Implant N/A: Back [employer] [id number] / / Scrw Solera Fen Mas 6.5x50mm - [id number] Implanted:Qty: 3 on 01/15/2025 by Walt Em MD at [facility] Implant N/A: Back [employer] [id number] / / Scrw Solera Fen Mas 7.5x50mm - [id number] Implanted:Qty: 2 on 01/15/2025 by Walt Em MD at [facility] Implant N/A: Back [employer] [id number] / / Josh Solera Crv Cocr 5.5cm 60mm - [id number] Implanted:Qty: 1 on 01/15/2025 by Walt Em MD at [facility] Implant N/A: Back [employer] [id number] / / Josh Solera Crv 5.5cm 90mm - [id number] Implanted:Qty: 1 on 01/15/2025 by Walt Em MD at [facility] Implant N/A: Back [employer] [id number] / / Scrw St Rufino Ramirezkoff Ti 5.5mm - [id number] Implanted:Qty: 6 on 01/15/2025 by Walt Em MD at [facility] Implant N/A: Back [employer] [id number] / / Kt Seal Hemos Abs Floseal Matrx 1.5/Fast/Prep 5000/Iu 10ml - [id number] Implanted:Qty: 1 on 01/15/2025 by Walt Em MD at [facility] Implant N/A: Back [facility] [id number] 08/30/2026 [id number] / / [id number] Hemost Abs Surgifoam Sz100 8x12 10mm - [id number] Implanted:Qty: 1 on 01/15/2025 by Walt Em MD at [facility] Implant N/A: Back [employer]ON [employer] J AND J [id number] 10/22/2028 1974 / / [id number] Wax Bone Hemo Lukens Sharpoint 2.5gm Wht - [id number] Implanted:Qty: 1 on 01/15/2025 by Walt Em MD at [facility] Implant N/A: Back [employer] MARY [id number] 11/20/2028 [id number] / / [id number] Grft Matrx Spine Magnetos Flx 0.51ui3ro/Gran ule 65t95z3ir Md - [id number] Implanted:Qty: 1 on 01/15/2025 by Walt Em MD at [facility] Implant N/A: Back Club 42cm [id number] 03/18/2027 [id number] / / [id number] Kt Seal Hemos Abs Floseal Matrx 1.5/Fast/Prep 5000/Iu 10ml - [id number] Implanted:Qty: 1 on 01/15/2025 by Walt Em MD at [facility] Implant N/A: Back [facility] [id number] 08/30/2026 [id number] / / [id number] Duralmatrix Duragen Suturable 2x2in - [id number] Implanted:Qty: 1 on 01/15/2025 by Walt Em MD at [facility] Implant N/A: Spine Lumbar INTEGRA 03/17/2025 [id number] / / [id number] Spacr Plif/Tlif Adaptix 24x9mm - [id number] Implanted:Qty: 1 on 01/15/2025 by Walt Em MD at [facility] Implant N/A: Back [employer] 08/25/2028 [id number] / / [id number] Cath Csf Ext Edm Lumb W/Ba 80cm - [id number] Implanted:Qty: 1 on 01/22/2025 by Walt Em MD at [facility] Implant N/A: Back [employer] [id number] 06/08/2027 [id number] / / [id number] Hemost Abs Surgifoam Sz100 8x12 10mm - [id number] Implanted:Qty: 1 on 01/22/2025 by Walt Em MD at [facility] Implant N/A: Back [employer]ON DIV [employer] J AND J [id number] 10/30/2028 1974 / / [id number] Kt Seal Hemos Abs Floseal Matrx 1.5/Fast/Prep 5000/Iu 5ml - [id number] Implanted:Qty: 1 on 01/22/2025 by Walt Em MD at [facility] Implant N/A: Back [facility] [id number] 04/11/2026 [id number] / / [id number] Implant Description:PERMANENT DENTAL BRIDGE UPPER X3 CARDIAC STENTS LEFT WRIST HARDWARE IN PLACE FROM FX- SCREWS AND PLATES BILAT CATARACT IMPLANTS LUMBAR HARDWARE IN PLACE Stnt Cornry Rx Xience/Skypoin t Rapdxng 2.75j10no - [id number] Implanted:Qty: 1 on 06/05/2024 by Yoshi Cote IV, MD at [facility] [employer] [id number] / / [id number] Explanted Type Area Sulfate Drier Machine Operator Device Identifier Shelf Expiration Date Model / Serial / Lot Cath Csf Ext Edm Lumb W/Ba 80cm - [id number] Explanted:Qty: 1 on 01/22/2025 at [facility] Implant N/A: Back [employer] [id number] 06/08/2027 [id number] / / [id number] Procedures Procedure Name Priority Date/Time Associated Diagnosis Comments XR SPINE LUMBAR 2 OR 3 VW Routine 02/13/2025 10:46 AM EDT Lumbar stenosis with neurogenic claudication S/P lumbar spinal fusion POCT GLUCOSE FINGERSTICK Routine 01/29/2025 10:58 AM [...] DURING SURGERY Routine 01/22/2025 1:49 PM EDT ANESTHESIA INTUBATION Routine 01/22/2025 12:57 PM EDT LUMBAR DRAIN INSERTION EXTERNAL 01/22/2025 [...] FINGERSTICK Routine 01/15/2025 4:47 PM EDT CBC AND DIFFERENTIAL Routine 01/15/2025 2:03 PM EDT CBC WITH AUTO DIFFERENTIAL Routine 01/15/2025 2:03 PM EDT POCT GLUCOSE FINGERSTICK Routine 01/15/2025 1:44 PM EDT FL C ARM DURING SURGERY Routine 01/15/2025 12:50 PM EDT POCT SURGERY LABS Routine 01/15/2025 11: 16 AM EDT FL O ARM DURING SURGERY Routine 01/15/2025 9:12 AM EDT ANESTHESIA INTUBATION Routine 01/15/2025 7:54 AM EDT POCT GLUCOSE FINGERSTICK Routine 01/15/2025 7:38 AM EDT [place] ARTHRODESIS POSTERIOR INTERBODY 1 NTRSPC LUMBAR 01/15/2025 7:12 AM EDT Lumbar stenosis with neurogenic claudication Special Needs C-ARM, FILMS BHL, AUGUSTIN TABLE, O-ARM, [employer]TRONICS, STEJAISON ~ SCANNED - TELEMETRY 01/15/2025 ECG 12-LEAD Routine 01/09/2025 1:00 PM EDT HEMOGLOBIN A1C Routine 01/09/2025 12:18 PM EDT POTASSIUM Routine 01/09/2025 12:13 PM EDT CBC (NO DIFF) Routine 01/09/2025 12:13 PM EDT MRSA SCREEN Routine 01/09/2025 12:13 PM EDT Lumbar stenosis with neurogenic claudication SCANNED - LABS 01/09/2025 IR MYELOGRAM LUMBAR SPINE Routine 12/09/2024 7:44 AM EDT Neurogenic claudication Spinal stenosis, lumbar region, with neurogenic claudication XR SPINE LUMBAR FLEX AND EXT Routine 12/09/2024 7:43 AM EDT Spinal stenosis, lumbar region with neurogenic claudication CT LUMBAR SPINE W INTRATHECAL CONTRAST Routine 12/09/2024 7:35 AM EDT Neurogenic claudication Spinal stenosis, lumbar region, with neurogenic claudication POCT GLUCOSE FINGERSTICK Routine 12/09/2024 6:24 AM EDT LIPID PANEL STAT 06/05/2024 7:22 AM EST from Last 3 Months or Most Recently Relevant to Health Maintenance Results * XR Spine Lumbar 2 or [...] MD 02/19/2025 10:59 AM EDT Workstation ID: [id number] Narrative 02/19/2025 10:59 AM EDT XR SPINE [...] MD 02/19/2025 10:59 AM EDT Workstation ID: [id number] Marjan Tran PA-C IMG DIAGNOSTIC IMAGING ORDER ESDRAS Final Result * POC Glucose Once (01/29/2025 10:58 AM EDT) Only the most recent of58 resultswithin the time period is included. Glucose 112 70 - 130 mg/dL 01/29/2025 10:58 AM EDT [facility] Blood 01/29/2025 10:5 8 AM EDT 01/29/2025 10:58 AM EDT Walt Em MD POINT OF CARE TEST ORDERABLES Final Result [facility]
[address] [place] [address], * FL C Arm During Surgery (01/22/2025 1:49 PM EDT) Only the most recent of2 resultswithin the time period is included. Narrative SYSTEMGENERATED, DOCUMENTATION - 01/22/2025 1:51 PM EDT This procedure was auto-finalized with no dictation required. Walt Em MD IMG FLUOROSCOPY ORDERABLES Fi nal Result * BH AN ETT AIRWAY (01/22/2025 12:57 PM EDT) Narrative Jeni Dawkins CRNA - 01/22/2025 12:57 PM EDT Jeni Dawkins CRNA 01/22/2025 12:57 PM Airway Reason: elective Date/Time: 01/22/2025 12:47 PM Airway not difficult General Information and Staff Patient location during procedure: OR NOTE KEEPER/CAA: Jeni Dawkins CRNA Indications and Patient Condition [...] Dawkins CRNA ANESTHESIA ORDERABLES Final Re sult * (ABNORMAL) Hemoglobin & Hematocrit, Blood (01/16/2025 8:12 AM EDT) Hemoglobin 11.1(L) 12.0 - 15.9 g/dL 01/16/2025 9:32 AM EDT [facility] Hematocrit 36.3 34.0 - 46.6 % 01/16/2025 9:32 AM EDT [facility] Blood Venipuncture / Unknown 01/16/2025 8:12 AM EDT 01/16/2025 9:24 AM EDT Walt Em MD LAB BLOOD ORDERABLES Final Re sult [facility]
[address] [place] [address], * (ABNORMAL) CBC Auto Differential (01/15/2025 2:03 PM EDT) WBC 9.31 3.40 - 10.80 10*3/mm3 01/15/2025 2:23 PM EDT [facility] RBC 4.12 3.77 - 5.28 10*6/mm3 01/15/2025 2:23 PM EDT [facility] Hemoglobin 12.3 12.0 - 15.9 g/dL 01/15/2025 2:23 PM EDT [facility] Hematocrit 38.4 34.0 - 46.6 % 01/15/2025 2:23 PM EDT [facility] MCV 93.2 79.0 - 97.0 fL 01/15/2025 2:23 PM EDT [facility] MCH 29.9 26.6 - 33.0 pg 01/15/2025 2:23 PM EDT [facility] MCHC 32.0 31.5 - 35.7 g/dL 01/15/2025 2:23 PM EDT [facility] RDW 14.0 12.3 - 15.4 % 01/15/2025 2:23 PM EDT [facility] RDW-SD 47.3 37.0 - 54.0 fl 01/15/2025 2:23 PM EDT [facility] MPV 9.9 6.0 - 12.0 fL 01/15/2025 2:23 PM EDT [facility] Platelets 203 140 - 450 10*3/mm3 01/15/2025 2:23 PM EDT [facility] Neutrophil % 90.1(H) 42.7 - 76.0 % 01/15/2025 2:23 PM EDT [facility] Lymphocyte % 8.2(L) 19.6 - 45.3 % 01/15/2025 2:23 PM EDT [facility] Monocyte % 1.1(L) 5.0 - 12.0 % 01/15/2025 2:23 PM EDT [facility] Eosinophil % 0.0(L) 0.3 - 6.2 % 01/15/2025 2:23 PM EDT [facility] Basophil % 0.1 0.0 - 1.5 % 01/15/2025 2:23 PM EDT [facility] Immature Grans % 0.5 0.0 - 0.5 % 01/15/2025 2:23 PM EDT [facility] Neutrophils, Absolute 8.39(H) 1.70 - 7.00 10*3/mm3 01/15/2025 2:23 PM EDT [facility] Lymphocytes, Absolute 0.76 0.70 - 3.10 10*3/mm3 01/15/2025 2:23 PM EDT [facility] LABORATORY Monocytes, Absolute 0.10 0.10 - 0.90 10*3/mm3 01/15/2025 2:23 PM EDT [facility] Eosinophils, Absolute 0.00 0.00 - 0.40 10*3/mm3 01/15/2025 2:23 PM EDT [facility] Basophils, Absolute 0.01 0.00 - 0.20 10*3/mm3 01/15/2025 2:23 PM EDT [facility] Immature Grans, Absolute 0.05 0.00 - 0.05 10*3/mm3 01/15/2025 2:23 PM EDT [facility] nRBC 0.0 0.0 - 0.2 /100 WBC 01/15/2025 2:23 PM EDT [facility] Blood Structure of right upper limb / Unknown Venipuncture / Unknown 01/15/2025 2:03 PM EDT 01/15/2025 2:10 PM EDT us Sharif Kimble MD LAB BLOOD ORDERABLES Final Re sult [facility]
[address] [place] [address], * (ABNORMAL) POC Surgery Labs (01/15/2025 11:16 AM EDT) Ionized Calcium 1.18(L) 1.20 - 1.32 mmol/L 01/15/2025 6:42 PM EDT [facility] POC Potassium 4.6 3.5 - 4.9 mmol/L 01/15/2025 6:42 PM EDT [facility] Sodium 137(L) 138 - 146 mmol/L 01/15/2025 6:42 PM EDT [facility] Total CO2 21(L) 24 - 29 mmol/L 01/15/2025 6:42 PM EDT [facility] Hemoglobin 12.6 12.0 - 17.0 g/dL 01/15/2025 6:42 PM EDT [facility] Hematocrit 37(L) 38 - 51 % 01/15/2025 6:42 PM EDT [facility] pCO2, Arterial 33.3(L) 35 - 45 mm Hg 01/15/2025 6:42 PM EDT [facility] pO2, Arterial 115(H) 80 - 105 mmHg 01/15/2025 6:42 PM EDT [facility] Comment:Serial Number: [id number]: [id number] Base Excess -5.0000 -5 - 5 mmol/L 01/15/2025 6:42 PM EDT [facility] O2 Saturation, Arterial 98 95 - 98 % 01/15/2025 6:42 PM EDT [facility] pH, Arterial 7.39 7.35 - 7.6 pH units 01/15/2025 6:42 PM EDT [facility] HCO3, Arterial 20.0(L) 22 - 26 mmol/L 01/15/2025 6:42 PM EDT [facility] Glucose 180(H) 70 - 130 mg/dL 01/15/2025 6:42 PM EDT [facility] Venous Blood 01/15/2025 11:1 6 AM EDT 01/15/2025 6:42 PM EDT Walt Em MD POINT OF CARE TEST ORDERABLES Final Result [facility]
[address] [place] [address], [place] [phone] * FL O Arm During Surgery (01/15/2025 9:12 AM EDT) Narrative SYSTEMGENERATED, DOCUMENTATION - 01/15/2025 9:13 AM EDT This procedure was auto-finalized with no dictation required. Walt Em MD IMG FLUOROSCOPY ORDERABLES Fi nal Result * BH AN ETT AIRWAY (01/15/2025 7:54 AM EDT) Narrative Shauna García CRNA - 01/15/2025 7:54 AM EDT Shauna García CRNA 01/15/2025 7:54 AM Airway Reason: elective Date/Time: 01/15/2025 7:46 AM Airway not difficult General Information and Staff Patient location during procedure: [place] NOTE KEEPER/CAA: Shauna García CRNA Indications and Patient Condition [...] bilaterally with symmetric chest rise and fall Aashish Pemberton MD ANESTHESIA ORDERABLES Final Res ult * Telemetry Scan (01/15/2025) [facility] ECG ORDERABLES Final Result * ECG 12 Lead (01/09/2025 1:00 PM EDT) QT Interval 452 ms ECG QTC Interval 436 ms ECG 01/09/2025 [...] Confirmed By: DENNIS ATKINS MD Procedure Note Dennis Atkins MD - 01/09/2025 Test Reason : [...] (ABNORMAL) Hemoglobin A1c (01/09/2025 12:18 PM EDT) Pathologist [facility] Hemoglobin A1C 5.86(H) 4.80 - 5.60 % 01/09/2025 1:30 PM EDT [facility] Blood Venipuncture / Unknown 01/09/2025 12:18 PM EDT 01/09/2025 1:01 PM EDT Narrative [facility] - 01/09/2025 1:30 PM EDT Hemoglobin A1C Ranges: Increased Risk for Diabetes 5.7% to 6.4% Diabetes >= 6.5% Diabetic Goal < 7.0% us Walt Em MD LAB BLOOD ORDERABLES Final Re sult [facility]
[address] [place] [address], * CBC (No Diff) (01/09/2025 12:13 PM EDT) Pathologist [facility] WBC 5.73 3.40 - 10.80 10*3/mm3 01/09/2025 1:20 PM EDT [facility] RBC 4.32 3.77 - 5.28 10*6/mm3 01/09/2025 1:20 PM EDT [facility] Hemoglobin 12.9 12.0 - 15.9 g/dL 01/09/2025 1:20 PM EDT [facility] Hematocrit 40.9 34.0 - 46.6 % 01/09/2025 1:20 PM EDT [facility] MCV 94.7 79.0 - 97.0 fL 01/09/2025 1:20 PM EDT [facility] MCH 29.9 26.6 - 33.0 pg 01/09/2025 1:20 PM EDT [facility] MCHC 31.5 31.5 - 35.7 g/dL 01/09/2025 1:20 PM EDT [facility] RDW 13.8 12.3 - 15.4 % 01/09/2025 1:20 PM EDT [facility] RDW-SD 47.8 37.0 - 54.0 fl 01/09/2025 1:20 PM EDT [facility] MPV 10.1 6.0 - 12.0 fL 01/09/2025 1:20 PM EDT [facility] Platelets 211 140 - 450 10*3/mm3 01/09/2025 1:20 PM EDT [facility] Blood Venipuncture / Unknown 01/09/2025 12:13 PM EDT 01/09/2025 1:01 PM EDT Walt Em MD LAB BLOOD ORDERABLES Final Re sult Performing Organization Address [facility]/ZIP Co de Phone Number [facility]
[address] [place] [address], [place] [phone] * MRSA Screen Culture (Outpatient) - Swab, Nares (01/09/2025 12:13 PM EDT) MRSA Screen Cx No Methicillin Resistant Staphylococcus aureus isolated PREETI 01/10/2025 1:30 PM EDT [facility] Swab Structure of anterior naris / Unknown Collection / Unknown 01/09/2025 12:13 PM EDT 01/09/2025 1:20 PM EDT Narrative [facility] - 01/10/2025 1:30 PM EDT The negative predictive value of this diagnostic test is high and should only be used to consider de-escalating anti-MRSA therapy. A positive result may indicate colonization with MRSA and must be correlated clinically. Walt Em MD MICROBIOLOGY - GENERAL ORDERA BLES Final Result Performing Organization Address City/[facility]/ZIP Co de Phone Number [facility]
[address] [place] [address], [place] [phone] * Potassium (01/09/2025 12:13 PM EDT) Potassium 4.8 3.5 - 5.2 mmol/L 01/09/2025 1:24 PM EDT [facility] Blood Venipuncture / Unknown 01/09/2025 12:13 PM EDT 01/09/2025 1:01 PM EDT Walt Em MD LAB BLOOD ORDERABLES Final Re sult [facility]
[address] [place] [address], * LABS SCANNED (01/09/2025) [facility] LAB BLOOD ORDERABLES Final Re sult * IR Myelogram Lumbar Spine (12/09/2024 7:44 AM EDT) Anatomical Region Laterality Modality Spine Radio Fluoroscop y, Other 12/09/2024 8:44 AM EDT Impressions 12/09/2024 5:08 PM EDT Impression: 1. At the L1-L2, L2-L3, and L4-L5 levels there is effacement of the nerve root sleeves bilaterally, and moderate narrowing of the thecal sac in the AP diameter 2. At the L3-L4 level there is a grade 1 anterolisthesis, effacement of the nerve root sleeves bilaterally, and near complete effacement of the contrast column in the AP diameter in the upright position 3. Please correlate with CT imaging Report dictated by: Grace Herrera PA-c I have personally reviewed this case and agree with the findings above: Electronically Signed: Corey Rome MD 12/09/2024 5:08 PM EDT Workstation ID: [id number] Narrative 12/09/2024 5:08 PM EDT IR MYELOGRAM LUMBAR SPINE, XR SPINE LUMBAR FLEX AND EXT Date of Exam: 12/09/2024 6:30 AM EDT Indication: BACK PAIN/STENOSIS. Comparison: None available. Technique: Injection of intrathecal contrast was performed by Dr. Walt Em. Please see Dr. Em's procedure note for further details. Images of the lumbar spine were obtained in the AP, oblique, and lateral projections while prone and upright. Flexion and extension images of the lumbar spine were also obtained in the upright position. The patient was taken directly to the CT scanner for further imaging. The patient tolerated the procedure well, and no immediate complications occurred. Fluoroscopic Time: 42 seconds Number of images saved: 13 Findings: There is a posterior fusion of the L4-L5 vertebral bodies. The hardware appears to be appropriately positioned, and intact. There is a grade 1 anterolisthesis of L3 on L4 which measures approximately 3 to 4 mm in the flexed and extended positions. There was good filling of the thecal sac. No intrathecal mass was identified. There is effacement of the nerve root sleeves bilaterally at the L1-L2, L2-L3, L3-L4, and L4-L5 levels. There is moderate narrowing of the thecal sac in the AP diameter at the L1-L2, L2-L3, L3-L4, and L4-L5 levels, with near complete effacement of the contrast column in the AP diameter in the upright position at the L3-L4 level. Similar but milder narrowing is incidentally noted at T12-L1. Please correlate with CT imaging. Procedure Note Corey Rome MD - 12/09/2024 IR MYELOGRAM LUMBAR SPINE, XR SPINE LUMBAR FLEX AND EXT Date of Exam: 12/09/2024 6:30 AM EDT Indication: BACK PAIN/STENOSIS. Comparison: None available. Technique: Injection of intrathecal contrast was performed by Dr. Hansen. Please see Dr. Em's procedure note for further details. Images of the lumbar spine were obtained in the AP, oblique, and lateralprojections while prone and upright. Flexion and extension images of thelumbar spine were also obtained in the upright position. The patient wastaken directly to the CT scanner for further imaging. The patient tolerated the procedure well, and noimmediate complications occurred. Fluoroscopic Time: 42 seconds Number of images saved: 13 Findings: There is a posterior fusion of the L4-L5 vertebral bodies. The hardwareappears to be appropriately positioned, and intact. There is a grade 1anterolisthesis of L3 on L4 which measures approximately 3 to 4 mm in theflexed and extended positions. There was good filling of the thecal sac. No intrathecal mass was identified.There is effacement of the nerve root sleeves bilaterally at the L1-L2,L2-L3, L3-L4, and L4-L5 levels. There is moderate narrowing of the thecalsac in the AP diameter at the L1-L2, L2-L3, L3-L4, and L4-L5 levels, with near complete effacement of thecontrast column in the AP diameter in the upright position at the L3-I1dgxwh. Similar but milder narrowing is incidentally noted at T12-L1.Please correlate with CT imaging. IMPRESSION: Impression: 1. At the L1-L2, L2-L3, and L4-L5 levels there is effacement of the nerveroot sleeves bilaterally, and moderate narrowing of the thecal sac in theAP diameter 2. At the L3-L4 level there is a grade 1 anterolisthesis, effacement ofthe nerve root sleeves bilaterally, and near complete effacement of thecontrast column in the AP diameter in the upright position 3. Please correlate with CT imaging Report dictated by: Grace Herrera PA-c I have personally reviewed this case and agree with the findings above: Electronically Signed: Corey Rome MD 12/09/2024 5:08 PM EDT Workstation ID: [id number] us Walt Em MD IMG IR ORDERABLES Final Resul t * XR Spine Lumbar Flex & Ext (12/09/2024 7:43 AM EDT) Anatomical Region Laterality Modality Spine, L-spine N/A Radio Fluoroscop y 12/09/2024 8:44 AM EDT Impressions 12/09/2024 5:08 PM EDT Impression: 1. At the L1-L2, L2-L3, and L4-L5 levels there is effacement of the nerve root sleeves bilaterally, and moderate narrowing of the thecal sac in the AP diameter 2. At the L3-L4 level there is a grade 1 anterolisthesis, effacement of the nerve root sleeves bilaterally, and near complete effacement of the contrast column in the AP diameter in the upright position 3. Please correlate with CT imaging Report dictated by: Grace Herrera PA-c I have personally reviewed this case and agree with the findings above: Electronically Signed: Corey Rome MD 12/09/2024 5:08 PM EDT Workstation ID: [id number] [facility] 12/09/2024 5:08 PM EDT IR MYELOGRAM LUMBAR SPINE, XR SPINE LUMBAR FLEX AND EXT Date of Exam: 12/09/2024 6:30 AM EDT Indication: BACK PAIN/STENOSIS. Comparison: None available. Technique: Injection of intrathecal contrast was performed by Dr. Walt Em. Please see Dr. Em's procedure note for further details. Images of the lumbar spine were obtained in the AP, oblique, and lateral projections while prone and upright. Flexion and extension images of the lumbar spine were also obtained in the upright position. The patient was taken directly to the CT scanner for further imaging. The patient tolerated the procedure well, and no immediate complications occurred. Fluoroscopic Time: 42 seconds Number of images saved: 13 Findings: There is a posterior fusion of the L4-L5 vertebral bodies. The hardware appears to be appropriately positioned, and intact. There is a grade 1 anterolisthesis of L3 on L4 which measures approximately 3 to 4 mm in the flexed and extended positions. There was good filling of the thecal sac. No intrathecal mass was identified. There is effacement of the nerve root sleeves bilaterally at the L1-L2, L2-L3, L3-L4, and L4-L5 levels. There is moderate narrowing of the thecal sac in the AP diameter at the L1-L2, L2-L3, L3-L4, and L4-L5 levels, with near complete effacement of the contrast column in the AP diameter in the upright position at the L3-L4 level. Similar but milder narrowing is incidentally noted at T12-L1. Please correlate with CT imaging. Procedure Note Corey Rome MD - 12/09/2024 IR MYELOGRAM LUMBAR SPINE, XR SPINE LUMBAR FLEX AND EXT Date of Exam: 12/09/2024 6:30 AM EDT Indication: BACK PAIN/STENOSIS. Comparison: None available. Technique: Injection of intrathecal contrast was performed by Dr. Hansen. Please see Dr. Em's procedure note for further details. Images of the lumbar spine were obtained in the AP, oblique, and lateralprojections while prone and upright. Flexion and extension images of thelumbar spine were also obtained in the upright position. The patient wastaken directly to the CT scanner for further imaging. The patient tolerated the procedure well, and noimmediate complications occurred. Fluoroscopic Time: 42 seconds Number of images saved: 13 Findings: There is a posterior fusion of the L4-L5 vertebral bodies. The hardwareappears to be appropriately positioned, and intact. There is a grade 1anterolisthesis of L3 on L4 which measures approximately 3 to 4 mm in theflexed and extended positions. There was good filling of the thecal sac. No intrathecal mass was identified.There is effacement of the nerve root sleeves bilaterally at the L1-L2,L2-L3, L3-L4, and L4-L5 levels. There is moderate narrowing of the thecalsac in the AP diameter at the L1-L2, L2-L3, L3-L4, and L4-L5 levels, with near complete effacement of thecontrast column in the AP diameter in the upright position at the L3-I3avszk. Similar but milder narrowing is incidentally noted at T12-L1.Please correlate with CT imaging. IMPRESSION: Impression: 1. At the L1-L2, L2-L3, and L4-L5 levels there is effacement of the nerveroot sleeves bilaterally, and moderate narrowing of the thecal sac in theAP diameter 2. At the L3-L4 level there is a grade 1 anterolisthesis, effacement ofthe nerve root sleeves bilaterally, and near complete effacement of thecontrast column in the AP diameter in the upright position 3. Please correlate with CT imaging Report dictated by: Grace Herrera PA-c I have personally reviewed this case and agree with the findings above: Electronically Signed: Corey Rome MD 12/09/2024 5:08 PM EDT Workstation ID: [id number] us Walt Em MD IMG DIAGNOSTIC IMAGING ORDERA BLES Final Result * CT Lumbar Spine With Intrathecal Contrast (12/09/2024 7:35 AM EDT) Anatomical Region Laterality Modality L-spine N/A Computed Tomogra phy 12/15/2024 9:49 AM EDT Impressions 12/15/2024 10:01 AM EDT Impression: Degenerative and postsurgical changes of the lumbar spine as described above. Electronically Signed: Osei Hayes MD 12/15/2024 10:01 AM EDT Workstation ID: [id number] Narrative 12/15/2024 10:[address] LUMBAR SPINE W INTRATHECAL CONTRAST Date [...] of the adjacent soft tissues is unremarkable. Procedure Note Osei Hayes MD - 12/15/2024 CT LUMBAR SPINE W INTRATHECAL CONTRAST Date of Exam: 12/09/2024 7:19 AM EDT Indication: BACK PAIN/STENOSIS. Comparison: None available. Technique: Axial sections were obtained of the lumbar spine withreformatted images following the injection of intrathecal contrast. Thelocalizer images are reviewed. Findings: Status post L4-5 posterior fusion without evidence of hardware failure.The conus medullaris terminates normally at L1. No acute fracture isidentified. No aggressive appearing lytic or sclerotic bone lesions. T12/L1: Mild broad-based disc bulge with mild impress on the ventralthecal sac. Minimal facet arthropathy. Mild bilateral foraminalnarrowing. L1-L2: Moderate disc bulge. Mild facet arthropathy. Moderate ligamentumflavum hypertrophy. Mild canal stenosis. Mild bilateral foraminalnarrowing. L2-L3: Mild broad-based disc bulge. Moderate facet arthropathy and severeligamentum flavum hypertrophy resulting in moderate canal stenosis. Thereis severe foraminal narrowing, right greater than left. L3-L4: Extremely limited by streak artifact. There is at least a moderateto severe disc bulge and there is severe ligamentum flavum hypertrophyresulting in severe canal stenosis. There is mild to moderate bilateralforaminal narrowing. L4-L5: No definite recurrent disc bulge though evaluation is limited bystreak artifact. No canal stenosis. No foraminal narrowing. L5-S1: Mild disc bulge. Moderate facet arthropathy. Mild bilateralforaminal narrowing. Evaluation of the adjacent soft tissues is unremarkable. IMPRESSION: Impression: Degenerative and postsurgical changes of the lumbar spine as describedabove. Electronically Signed: Osei Hayes MD 12/15/2024 10:01 AM EDT Workstation ID: [id number] us Walt Em MD IMG CT ORDERABLES Final Resul t * Lipid Panel (06/05/2024 7:22 AM EST) Total Cholesterol 123 0 - 200 mg/dL 06/05/2024 7:49 AM EST [facility] Triglycerides 136 0 - 150 mg/dL 06/05/2024 7:49 AM EST [facility] HDL Cholesterol 44 40 - 60 mg/dL 06/05/2024 7:49 AM EST [facility] LDL Cholesterol 55 0 - 100 mg/dL 06/05/2024 7:49 AM EST [facility] VLDL Cholesterol 24 5 - 40 mg/dL 06/05/2024 7:49 AM EST [facility] LDL/HDL Ratio 1.18 06/05/2024 7:49 AM EST [facility] Blood Line / Unknown 06/05/2024 7: 22 AM EST 06/05/2024 7:25 AM EST Narrative [facility] - 06/05/2024 7:49 AM EST Cholesterol Reference Ranges (U.S. Department of Health and Human Services ATP III Classifications) Desirable <200 mg/dL Borderline High 200-239 mg/dL High Risk >240 mg/dL Triglyceride Reference Ranges (U.S. Department of Health and Human Services ATP III Classifications) Normal <150 mg/dL Borderline High 150-199 mg/dL High 200-499 mg/dL Very High >500 mg/dL HDL Reference Ranges (U.S. Department of Health and Human Services ATP III Classifications) Low <40 mg/dl (major risk factor for CHD) High >60 mg/dl ('negative' risk factor for CHD) LDL Reference Ranges (U.S. Department of Health and Human Services ATP III Classifications) Optimal <100 mg/dL Near Optimal 100-129 mg/dL Borderline High 130-159 mg/dL High 160-189 mg/dL Very High >189 mg/dL Yessi Vu APRN LAB BLOOD ORDERABLES Felicitas gilliland Result [facility]
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 Expl anation POWER OF CONVOLUTE TUBE WINDER - SCAN 01/23/2025 2:41 PM GENERAL DURABLE RORY R OF CONVOLUTE TUBE WINDER, BHLEX, 09/19/2017 LIVING WILL - SCAN 01/23/2025 2:39 PM LIVIN G WILL DIRECTIVE, BHLEX, 09/19/2017 * CPR (Attempt to Resuscitate) (Latest Code Status on File) Date Activated Date Inactivated Comments 01/22/2025 1:47 PM 01/29/2025 2:56 PM Question Answer Comments Code Status (Patient has no pulse and is not breathing): CPR (Attempt to Resuscitate) Medical Interventions (Patie nt has pulse or is breathing): Full * CPR (Attempt to Resuscitate) Date Activated Date Inactivated Comments 01/15/2025 1:28 PM 01/22/2025 1:47 PM Question Answer Comments Code Status (Patient has no pulse and is not breathing): CPR (Attempt to Resuscitate) Medical Interventions (Patie nt has pulse or is breathing): Full * Full Code Date Activated Date Inactivated Comments 01/05/2016 10:57 AM 01/05/2016 3:03 PM Care Teams Tension Worker Relationship Specialty Start Date End Date Edison Harrell MD [address] [facility] [address] [facility] [place] [address] PCP - General Adolescent Medicine 03/30/16
== END 2025-03-02 23:59 | disposition home or self-care (01) ==
LOC: RAD 08:34
PROVIDERS: PCP Internal Medicine Adolescent Medicine; Visit Provider Internal Medicine Adolescent Medicine
DX: E04.2 Nontoxic multinodular goiter (principal)
CPT/HCPCS: 76536

== ENCOUNTER 2025-03-17 08:00 | Outpatient (RCR) | payer MEDICARE, OTHER, SELFPAY | END 2025-03-17 23:59 | disposition home or self-care (01) | LOC: PT 08:00 | PROVIDERS: Visit Provider Physician Assistant Surgical | DX: M48.062 Spinal stenosis, lumbar region with neurogenic claudication (principal); Z98.1 Arthrodesis status | CPT/HCPCS: 97110; 97162; 97530 ==

== ENCOUNTER 2025-04-16 13:00 | Outpatient (RCR) | payer MEDICARE, OTHER, SELFPAY | END 2025-04-16 23:59 | disposition home or self-care (01) | LOC: PT 13:00 | PROVIDERS: Visit Provider Physician Assistant Surgical | DX: M48.062 Spinal stenosis, lumbar region with neurogenic claudication (principal); Z98.1 Arthrodesis status | CPT/HCPCS: 97110; 97530 ==

== ENCOUNTER 2025-04-27 13:00 | Outpatient (RCR) | payer MEDICARE, OTHER, SELFPAY | END 2025-04-27 23:59 | disposition home or self-care (01) | LOC: PT 13:00 | PROVIDERS: Visit Provider Physician Assistant Surgical | DX: M48.062 Spinal stenosis, lumbar region with neurogenic claudication (principal); Z98.1 Arthrodesis status | CPT/HCPCS: 97110; 97530 ==